=== PATIENT | male | born 1965 | race Caucasian/White ===

== ENCOUNTER → 2016-11-26 | Outpatient (CLI) | payer BC ==
[~2016-11-26] MED LIST: ACET-1256 PO; AMIO200T PO; ASPI325T45 PO; ASPI81TA28 PO; ATEN-173 PO; CRD200 PO; GLC5 PO; INSDGIPEN SC; LEVO150T9 PO; LISI40TA PO; LOSA100T65 PO; LOSA1TAB38 PO; LPT40 PO; LSN40 PO; METF-384 PO; TNR25 PO; TPRSR/25 PO; TRAM-10 PO
[2016-11-26 17:42] LABS: HEMATOCRIT 42.1 % (42-52); MEAN CELL VOLUME 86.3 fL (80-100); MEAN CORPUSCULAR HEMOGLOBIN 30.1 pg (25-34); MEAN CORPUSCULAR HGB CONC 34.9 g/dl (32-36); PLATELET COUNT 330 K/uL (130-400); RED BLOOD COUNT 4.88 M/uL (4.7-6.1); WHITE BLOOD COUNT 7.99 K/uL (4.8-10.8)
[2016-11-26 19:51] LABS: ALT/SGPT 41 U/L (12-78); AST/SGOT 22 U/L (15-37); BLOOD UREA NITROGEN 16 mg/dl (7-18); BUN/CREATININE RATIO 19.8 (10-20); CALCIUM 9.1 mg/dl (8.5-10.1); CARBON DIOXIDE 24 mmol/L (21-32); CHLORIDE 102 mmol/L (98-107); CREATININE 0.83 mg/dl (0.60-1.40); GLUCOSE 292 mg/dl (70-99); POTASSIUM 3.9 mmol/L (3.5-5.1); SODIUM 136 mmol/L (136-145)
== END ==
LOC: C.LAB1850 16:20
PROVIDERS: ATTEND Internal Medicine Cardiovascular Disease
DX: I25.10 Atherosclerotic heart disease of native coronary artery without angina pectoris (principal)

== ENCOUNTER → 2017-03-30 | Outpatient (CLI) | payer BC ==
[~2017-03-30] VITALS: Ht 185.4 cm; Wt 126.8 kg
[~2017-03-30] MED LIST changes: +CAL1CHW4 PO; +CALC500C3 PO; +CYCL10TA6 PO; +ESOM20CA PO; +GLIP5TAB3 PO; +HYDR-5688 PO; +NAPR-1169 PO; +OMEP20CA9 PO; +RANI300T2 PO; -TRAM-10 PO
[2017-03-30 16:24] VITALS: BP 148/85; PULSE 59; Ht 185.4 cm; Wt 126.8 kg
== END | disposition home or self-care (01) ==
LOC: C.NEUR 15:03
PROVIDERS: ATTEND Physician Assistant
DX: G47.33 Obstructive sleep apnea (adult) (pediatric) (principal)

== ENCOUNTER 2017-04-28 06:58 | Emergency (ER) | payer BC ==
[~2017-04-28] VITALS: Ht 185.4 cm; Wt 128.2 kg
[~2017-04-28 06:58] MED LIST changes: -ACET-1256 PO; -ASPI81TA28 PO; -CAL1CHW4 PO; -CALC500C3 PO; -CRD200 PO; -CYCL10TA6 PO; -ESOM20CA PO; -GLC5 PO; -GLIP5TAB3 PO; -HYDR-5688 PO; -INSDGIPEN SC; -LEVO150T9 PO; -LOSA100T65 PO; -LOSA1TAB38 PO; -LPT40 PO; -LSN40 PO; -METF-384 PO; -NAPR-1169 PO; -OMEP20CA9 PO; -RANI300T2 PO; -TNR25 PO; -TPRSR/25 PO
[2017-04-28 07:02] VITALS: TEMP 36.7; Ht 185.4 cm; Wt 128.2 kg
[2017-04-28] MEDS ORDERED: HydrALAZINE HCL 20 MG/ML VIAL IV. STA (07:33)
[2017-04-28 07:57] LABS: BASO % 0.5 %; BASO ABS # 0.04 K/uL (0-0.2); COMPLETE YES; EOS % 2.7 %; HEMATOCRIT 44.1 % (42-52); IG% 0.5 %; LYMPH % 31.7 %; LYMPH ABS # 2.33 K/uL (1.2-3.4); MEAN CELL VOLUME 86.5 fL (80-100); MEAN CORPUSCULAR HEMOGLOBIN 29.4 pg (25-34); MEAN PLATELET VOLUME 10.5 fL (7.4-10.4); MONO % 7.2 %; NEUT % 57.4 %; PLATELET COUNT 248 K/uL (130-400); WHITE BLOOD COUNT 7.35 K/uL (4.8-10.8)
[2017-04-28 08:12] LABS: BLOOD UREA NITROGEN 13 mg/dl (7-18); BUN/CREATININE RATIO 17.2 (10-20); CALCIUM 8.9 mg/dl (8.5-10.1); CARBON DIOXIDE 25 mmol/L (21-32); CHLORIDE 107 mmol/L (98-107); CREATININE 0.76 mg/dl (0.60-1.40); GLUCOSE 263 mg/dl (70-99); POTASSIUM 4.2 mmol/L (3.5-5.1); SODIUM 140 mmol/L (136-145)
--- NOTE | 2017-04-28 08:14 | EMERGENCY ROOM VISIT NOTE ---
History First contact with patient: 07:27 Chief Complaint: HYPERTENSION Stated Complaint: HIGH BLOOD PRESSURE,HEADACHE,HEART PALPNOSE BLEEDS History of Present Illness The patient is a 52 year old male who presents to the Emergency Room for evaluation of HTN. Notes he previously was on Lisinopril but has quit using it due to nausea/stomach pains. Has been hypertensive last few days including at PCP visit yesterday. Arrives today due to continued symptoms. No chest pain, weakness, shob, abdominal pain, falls, syncope, rashes, fevers, nor other symptoms. Does not take blood thinners. Notes long history of nose bleeds, but seems to have more nose bleeds than usual. No posterior neck pain without stiffness. Does have anterior neck pain last few days which he was seen by PCP and started treatment for Thrush as he recently was antibiotics. Takes amiodarone for PAF though is not on blood thinners. Denies falls nor head injury. No neck pain nor car accidents. Review of Systems See HPI for pertinent positives & negatives. A total of 10 systems reviewed and were otherwise negative. Past Medical/Surgical History Medical Problems: (1) Atrial fibrillation (2) Benign hypertension (3) Diabetes mellitus (4) High cholesterol (5) Left Hip DJD (6) Left Hip DJD Family History Blood clots Social History Smoking Status: Former Smoker Alcohol Use: occasionally Drug Use: cocaine Marital Status: Housing Status: lives with friends Occupation Status: employed Current/Historical Medications Scheduled Amiodarone HCl (Amiodarone HCl), 200 MG PO DAILY Aspirin (Aspirin Ec), 162 MG PO DAILY Atenolol (Tenormin), 25 MG PO QAM Glipizide (Glipizide), 5 MG PO TID Levothyroxine Sodium (Levothyroxine Sodium), 150 MCG PO QAM Losartan Potassium (Cozaar), 1 TAB PO DAILY Metformin Hcl (Glucophage), 1,000 MG PO BID Physical Exam Vital Signs Date Time Temp Pulse Resp B/P (MAP) Pulse Ox O2 Delivery O2 Flow Rate FiO2 04/28/17 09:35 59 16 179/93 94 Room Air 04/28/17 08:37 55 16 160/85 95 Room Air 04/28/17 08:05 53 16 143/95 04/28/17 07:02 36.7 57 18 195/101 95 Room Air Physical Exam GENERAL: Patient is anxious appearing and in minimal distress. HEENT: No acute trauma, normocephalic atraumatic, mucous membranes moist, no nasal congestion, no scleral icterus. NECK: No stridor, no adenopathy, no meningismus, trachea is midline. LUNGS: No dyspnea. Clear to auscultation and equal bilaterally. No wheeze, no rhonchi. HEART: Regular rate and rhythm. No murmurs, rubs, gallops appreciated. ABDOMEN: Soft, nontender, bowel sounds positive, no masses appreciated, no peritonitis. BACK: No midline tenderness, no CVA tenderness EXTREMITIES: Normal motion all extremities, no cyanosis, no edema. NEUROLOGIC: Alert and oriented, no acute motor or sensory deficits, no focal weakness, cranial nerves grossly intact. SKIN: No rash, no jaundice, no diaphoresis. Medical Decision & Procedures Laboratory Results 04/28/17 07:45 Red Blood Count 5.10, Mean Corpuscular Volume 86.5, Mean Corpuscular Hemoglobin 29.4, Mean Corpuscular Hemoglobin Concent 34.0, Mean Platelet Volume 10.5, Neutrophils (%) (Auto) 57.4, Lymphocytes (%) (Auto) 31.7, Monocytes (%) (Auto) 7.2, Eosinophils (%) (Auto) 2.7, Basophils (%) (Auto) 0.5, Neutrophils # (Auto) 4.21, Lymphocytes # (Auto) 2.33, Monocytes # (Auto) 0.53, Eosinophils # (Auto) 0.20, Basophils # (Auto) 0.04 04/28/17 07:45 Test 04/28/17 07:45 White Blood Count 7.35 K/uL (4.8-10.8) Red Blood Count 5.10 M/uL (4.7-6.1) Hemoglobin 15.0 g/dL (14.0-18.0) Hematocrit 44.1 % (42-52) Mean Corpuscular Volume 86.5 fL (80-100) Mean Corpuscular Hemoglobin 29.4 pg (25-34) Mean Corpuscular Hemoglobin Concent 34.0 g/dl (32-36) Platelet Count 248 K/uL (130-400) Mean Platelet Volume 10.5 fL (7.4-10.4) Neutrophils (%) (Auto) 57.4 % Lymphocytes (%) (Auto) 31.7 % Monocytes (%) (Auto) 7.2 % Eosinophils (%) (Auto) 2.7 % Basophils (%) (Auto) 0.5 % Neutrophils # (Auto) 4.21 K/uL (1.4-6.5) Lymphocytes # (Auto) 2.33 K/uL (1.2-3.4) Monocytes # (Auto) 0.53 K/uL (0.11-0.59) Eosinophils # (Auto) 0.20 K/uL (0-0.5) Basophils # (Auto) 0.04 K/uL (0-0.2) RDW Standard Deviation 40.7 fL (36.4-46.3) RDW Coefficient of Variation 12.7 % (11.5-14.5) Immature Granulocyte % (Auto) 0.5 % Immature Granulocyte # (Auto) 0.04 K/uL (0.00-0.02) Anion Gap 8.0 mmol/L (3-11) Est Creatinine Clear Calc Drug Dose 159.5 ml/min Estimated GFR () 121.6 Estimated GFR (Non- 104.9 BUN/Creatinine Ratio 17.2 (10-20) Calcium Level 8.9 mg/dl (8.5-10.1) Total Creatine Kinase 149 U/L (39-308) Creatine Kinase MB 3.6 ng/ml (0.5-3.6) Creatine Kinase MB Ratio 2.4 (0-3.0) Troponin I < 0.015 ng/ml (0-0.045) Medications Administered Medications (Trade) Dose Ordered Sig/Tristan Route Start Time Stop Time Status Last Admin Dose Admin Hydralazine HCl (HydrALAZINE INJ) 10 mg NOW STAT IV. 04/28/17 07:33 04/28/17 07:35 DC 04/28/17 08:03 10 MG Lisinopril (Zestril Tab) 40 mg NOW STAT PO 04/28/17 09:41 04/28/17 09:42 DC 04/28/17 10:07 40 MG Medical Decision Differential: Benign Hypertension, Hypertensive Urgency/Emergency, Cardiovascular Pathology, Endocrine, Metabolic/Electrolyte, Renal Disease, End- organ Damage, amongst other pathologies entertained. 52 yr old male arrives for evaluation of HTN in setting of headaches and frequent nose bleeds. Admits stopped taking his lisinopril due to side effects. CT head done given persistent headache, labs unremarkable, EKG looks OK. BP improved with hydralazine. Discussed with cards who note try Lisinopril in AM and if no improvement in nausea then switch to Losartan. Patient does not have evidence of dissection nor ICH nor meningitis. He looks well and is feeling better now that BP improved. Follow up with Cards. Blood Pressure Screening Patient's blood pressure: Elevated blood pressure Blood pressure disposition: Referred to PCP Impression Primary Impression: Hypertension Additional Impression: Headache Departure Information Dispostion Home / Self-Care Condition GOOD Prescriptions Losartan Potassium (COZAAR) 100 Mg Tab 1 TAB PO DAILY for 30 Days, #30 TAB 5 Refills Prov: Frank Peter M.D. 04/28/17 Referrals Sirnivas Jack MD (PCP) Patient Instructions Hypertension Control, My [facility] Health Problem Qualifiers
[2017-04-28 08:17] LABS: CKMB/CK RATIO 2.4 (0-3.0)
--- NOTE | 2017-04-28 08:47 | DIAGNOSTIC IMAGING REPORT ---
HEAD WITHOUT CONTRAST (CT) CT DOSE: 537.48 mGy.cm HISTORY: worsening headache, HTN TECHNIQUE: Multiaxial CT images of the head were performed without the use of intravenous contrast. A dose lowering technique was utilized adhering to the principles of ALARA. Comparison: None. Findings: The paranasal sinuses and mastoid air cells are clear. The calvarium and skull base are intact. The ventricles and sulci are within normal limits. There is no mass, hematoma, midline shift, or acute infarct. Impression: No acute intracranial abnormality. The above report was generated using voice recognition software. It may contain grammatical, syntax or spelling errors. Electronically signed by: Kalpesh Segundo M.D. 04/28/2017 8:45 AM Dictated Date/Time: 04/28/2017 8:36 AM
[2017-04-28 09:35] VITALS: BP 179/93; PULSE 59; O2SAT 94
[2017-04-28] MEDS ORDERED: LISINOPRIL 40 MG TAB PO STA (09:41)
[2017-04-28] MEDS ORDERED: LOSA1TAB38 PO (09:43)
[2017-04-28] MEDS ORDERED: LISINOPRIL 5 MG TAB ONE (09:58)
[2017-06-01] MEDS ORDERED: GLC5 PO ×2 (07:01→20:03)
[2017-06-01] MEDS ORDERED: ASPI81TA28 PO (07:31)
[2017-06-01] MEDS ORDERED: CRD200 PO (07:31)
[2017-06-01] MEDS ORDERED: METF-384 PO (08:18)
[2017-06-01] MEDS ORDERED: LEVO150T9 PO (08:18)
[2017-06-02] MEDS ORDERED: INSDGIPEN SC (18:06)
== END 2017-04-28 10:05 | disposition home or self-care (01) ==
LOC: C.EDB 07:02
DX: I10 Essential (primary) hypertension (principal); R51 Headache; I48.0 Paroxysmal atrial fibrillation; E11.9 Type 2 diabetes mellitus without complications; M16.12 Unilateral primary osteoarthritis, left hip; Z79.82 Long term (current) use of aspirin; Z79.84 Long term (current) use of oral hypoglycemic drugs; Z79.899 Other long term (current) drug therapy

== ENCOUNTER 2017-06-01 17:38 | Observation (INO) | payer BC ==
[~2017-06-01] VITALS: Ht 185.4 cm; Wt 128.9 kg
[~2017-06-01 17:38] MED LIST changes: -AMIO200T PO; -ASPI325T45 PO; +ASPI81TA28 PO; +CRD200 PO; +GLC5 PO; +LEVO150T9 PO; -LISI40TA PO; +LOSA1TAB38 PO; +METF-384 PO
--- NOTE | 2017-06-01 18:36 | EMERGENCY ROOM VISIT NOTE ---
History First contact with patient: 18:32 Chief Complaint: CARDIAC ASSESSMENT Stated Complaint: LIGHT HEADED HEART BEAT FAST SOB, History of Present Illness The patient is a 52 year old male who presents to the Emergency Room with complaints of palpitations, dizziness, chest pain and shortness of breath. He took a new beta-glenroy (atenolol changed to metoprolol due to back order) this morning and went to work. Around 7:30am (an hour after taking metoprolol) he felt his heart racing, with associated dizziness, shortness of breath and chest pain. This feeling gradually became worse and lasted all day around 9 hours. His called his PCP and recommended to come to ER but he left it to the end of the day. He continued to work through the episode and it was no worse on exertion. He currently denies any chest pain or shortness of breath. He has known non obstructive coronary artery disease and paroxysmal atrial fibrillation - under Dr Turner. He was previously on anticoagulation but stopped as he was not often in atrial fibrillation. He stopped taking aspirin 2 weeks ago due to epistaxis. No significant alcohol history. Review of Systems Constitutional: No fever, No chills Eyes: No worsening of vision ENT: No hearing loss Respiratory: + cough (in morning chronically), + sputum, + shortness of breath (see HPI) Cardiovascular: + chest pain (see HPI), + palpitations (see HPI), No orthopnea, No PND, No edema, No claudication Abdomen: No pain, No nausea, No vomiting, No diarrhea, No constipation, No GI bleeding Past Medical/Surgical History Medical Problems: (1) Atrial fibrillation (2) Benign hypertension (3) Diabetes mellitus (4) High cholesterol (5) Left Hip DJD (6) Left Hip DJD Family History Blood clots Social History Smoking Status: Never Smoker Alcohol Use: occasionally Drug Use: none Marital Status: Housing Status: lives with friends Occupation Status: employed Current/Historical Medications Scheduled Amiodarone HCl (Amiodarone HCl), 200 MG PO QAM Aspirin (Aspirin Ec), 162 MG PO HOLD Atenolol (Atenolol), 25 MG PO QAM Atorvastatin (Atorvastatin Calcium), 40 MG PO QPM Glipizide (Glipizide), 10 MG PO QPM Glipizide (Glipizide), 5 MG PO QAM Levothyroxine Sodium (Levothyroxine Sodium), 150 MCG PO QAM Lisinopril (Lisinopril), 40 MG PO QAM Losartan Potassium (Cozaar), 100 MG PO QAM Metformin Hcl (Glucophage), 1,000 MG PO BID Metoprolol Succinate (Metoprolol Succinate ER), 25 MG PO QAM Scheduled PRN Acetaminophen (Tylenol), 1,500 MG PO TID PRN for Pain Physical Exam Vital Signs Date Time Temp Pulse Resp B/P (MAP) Pulse Ox O2 Delivery O2 Flow Rate FiO2 06/01/17 22:31 64 20 184/93 95 Room Air 06/01/17 20:45 62 18 176/93 95 Room Air 06/01/17 18:39 68 06/01/17 18:36 95 Room Air 06/01/17 17:54 36.7 70 20 171/75 96 Room Air Pain Rating (0-10): 0/10 Physical Exam General Appearance: WD/WN, no apparent distress, + obese Head: normocephalic, atraumatic Eyes: normal inspection (pupils equal) Neck: supple, no JVD, trachea midline Respiratory/Chest: chest non-tender, lungs clear, normal breath sounds, no respiratory distress, no accessory muscle use Cardiovascular: regular rate, rhythm, no edema, no murmur, normal peripheral pulses Abdomen / GI: normal bowel sounds, non tender, soft Extremities: no calf tenderness, normal capillary refill, no pedal edema Neurologic/Psych: document review specialist II-XII nml as tested, no motor/sensory deficits, alert , oriented x 3 Medical Decision & Procedures ER Provider Diagnostic Interpretation: CHEST ONE VIEW PORTABLE HISTORY: 52 years-old Male Chest Pain COMPARISON: Portable chest radiograph 01/21/2016 TECHNIQUE: Portable upright AP view of the chest FINDINGS: Cardiac silhouette is mildly enlarged. Right hemidiaphragmatic elevation persists without pneumothorax, pleural effusion or focal airspace consolidation. There is no overt pulmonary edema. Bones are grossly intact. IMPRESSION: 1. Cardiomegaly without overt pulmonary edema. 2. Unchanged right hemidiaphragmatic elevation. The above report was generated using voice recognition software. It may contain grammatical, syntax or spelling errors. Electronically signed by: Vince Alonzo M.D. 06/01/2017 7:21 PM Dictated Date/Time: 06/01/2017 7:20 PM Laboratory Results 06/01/17 18:40 Red Blood Count 4.67, Mean Corpuscular Volume 86.5, Mean Corpuscular Hemoglobin 30.8, Mean Corpuscular Hemoglobin Concent 35.6, Mean Platelet Volume 10.8, Neutrophils (%) (Auto) 53.3, Lymphocytes (%) (Auto) 35.8, Monocytes (%) (Auto) 7.9, Eosinophils (%) (Auto) 2.3, Basophils (%) (Auto) 0.5, Neutrophils # (Auto) 4.57, Lymphocytes # (Auto) 3.07, Monocytes # (Auto) 0.68, Eosinophils # (Auto) 0.20, Basophils # (Auto) 0.04 06/01/17 18:40 Test 06/01/17 18:40 06/01/17 21:24 White Blood Count 8.58 K/uL (4.8-10.8) Red Blood Count 4.67 M/uL (4.7-6.1) Hemoglobin 14.4 g/dL (14.0-18.0) Hematocrit 40.4 % (42-52) Mean Corpuscular Volume 86.5 fL (80-100) Mean Corpuscular Hemoglobin 30.8 pg (25-34) Mean Corpuscular Hemoglobin Concent 35.6 g/dl (32-36) Platelet Count 285 K/uL (130-400) Mean Platelet Volume 10.8 fL (7.4-10.4) Neutrophils (%) (Auto) 53.3 % Lymphocytes (%) (Auto) 35.8 % Monocytes (%) (Auto) 7.9 % Eosinophils (%) (Auto) 2.3 % Basophils (%) (Auto) 0.5 % Neutrophils # (Auto) 4.57 K/uL (1.4-6.5) Lymphocytes # (Auto) 3.07 K/uL (1.2-3.4) Monocytes # (Auto) 0.68 K/uL (0.11-0.59) Eosinophils # (Auto) 0.20 K/uL (0-0.5) Basophils # (Auto) 0.04 K/uL (0-0.2) RDW Standard Deviation 40.7 fL (36.4-46.3) RDW Coefficient of Variation 12.9 % (11.5-14.5) Immature Granulocyte % (Auto) 0.2 % Immature Granulocyte # (Auto) 0.02 K/uL (0.00-0.02) Activated Partial Thromboplast Time 24.6 SECONDS (21.0-31.0) Partial Thromboplastin Ratio 0.9 D-Dimer 830 ug/L FEU (0-500) Anion Gap 9.0 mmol/L (3-11) Est Creatinine Clear Calc Drug Dose 110.5 ml/min Estimated GFR () 89.0 Estimated GFR (Non- 76.8 BUN/Creatinine Ratio 14.8 (10-20) Calcium Level 9.3 mg/dl (8.5-10.1) Magnesium Level 1.8 mg/dl (1.8-2.4) Troponin I 0.015 ng/ml (0-0.045) Beta-Hydroxybutyric Acid 2.05 mg/dL (0.2-2.81) Thyroid Stimulating Hormone (TSH) 3.140 uIu/ml (0.300-4.500) Bedside Glucose 190 mg/dl (70-99) Medications Administered Medications (Trade) Dose Ordered Sig/Tristan Route Start Time Stop Time Status Last Admin Dose Admin Aspirin (Aspirin Chew) 324 mg NOW STAT PO 06/01/17 18:49 06/01/17 18:51 DC 06/01/17 19:01 324 MG ECG Indication: chest pain Rate (beats per minute): 64 Rhythm: normal sinus Findings: no acute ischemic change Change: no significant change (28 April 2017) ED Course 18:30 History and physical was performed by myself 18:[address] Castañeda who separately performed history and examination 19:01 Aspirin 324mg 19:[address] Beltran ([facility]) who accepted the patient for further evaluation Medical Decision Prior records/ancillary studies reviewed. Triage Nursing notes reviewed. Additional history obtained from the patient. The patient's history was concerning for chest pain, dizziness, palpitations and shortness of breath. Differential diagnosis: Etiologies such as cardiac ischemia, aortic dissection, pulmonary embolism, pneumonia, pneumothorax, musculoskeletal, infections, pericarditis, myocarditis , esophageal rupture, gastrointestinal, as well as others were entertained. Physical examination: As above. ER treatment provided: Aspirin 325mg Diagnostic interpretation by me: The electrocardiogram was negative for pathologic change. The labs revealed no significant abnormalities and troponin was negative. Imaging studies: Chest x-ray as above By the evaluation outlined above emergent etiologies such as aortic dissection, pulmonary embolism, pneumonia, pneumothorax, infections, pericarditis, myocarditis, gastrointestinal, as well as others were deemed relatively unlikely. His symptoms are concerning for cardiac ischemia especially given his risk factors and known non obstructive coronary artery disease. As such a consultation was placed with the [facility] hospitalist group. The case was discussed and diagnostics were reviewed. The patient was evaluated in the ER for further treatment. Other likely etiology is that he had an episode of atrial fibrillation. Medication Reconcilliation Current Medication List: was personally reviewed by me Impression Primary Impression: Chest pain Departure Information Dispostion Being Evaluated By Hospitalist Condition GOOD Referrals Srinivas Jack MD (PCP) Patient Instructions My [facility] Problem Qualifiers Primary Impression: Chest pain Chest pain type: unspecified Qualified Codes: R07.9 - Chest pain, unspecified
[2017-06-01] MEDS ORDERED: ASPIRIN 324 MG CHEW PO STA (18:49)
[2017-06-01 18:56] LABS: BASO % 0.5 %; BASO ABS # 0.04 K/uL (0-0.2); COMPLETE YES; EOS % 2.3 %; HEMATOCRIT 40.4 % (42-52); IG% 0.2 %; LYMPH % 35.8 %; LYMPH ABS # 3.07 K/uL (1.2-3.4); MEAN CELL VOLUME 86.5 fL (80-100); MEAN CORPUSCULAR HEMOGLOBIN 30.8 pg (25-34); MEAN CORPUSCULAR HGB CONC 35.6 g/dl (32-36); MEAN PLATELET VOLUME 10.8 fL (7.4-10.4); MONO % 7.9 %; NEUT % 53.3 %; PLATELET COUNT 285 K/uL (130-400); RED BLOOD COUNT 4.67 M/uL (4.7-6.1); WHITE BLOOD COUNT 8.58 K/uL (4.8-10.8)
[2017-06-01 19:08] LABS: BUN/CREATININE RATIO 14.8 (10-20); CALCIUM 9.3 mg/dl (8.5-10.1); CREATININE 1.1 mg/dl (0.60-1.40); POTASSIUM 4.3 mmol/L (3.5-5.1)
[2017-06-01 19:20] LABS: BETA-HYDROXYBUTYRATE 2.05 mg/dL (0.2-2.81); THYROID STIMULATING HORMONE 3.14 uIu/ml (0.300-4.500)
--- NOTE | 2017-06-01 19:22 | DIAGNOSTIC IMAGING REPORT ---
CHEST ONE VIEW PORTABLE HISTORY: 52 years-old Male Chest Pain COMPARISON: Portable chest radiograph 01/21/2016 TECHNIQUE: Portable upright AP view of the chest FINDINGS: Cardiac silhouette is mildly enlarged. Right hemidiaphragmatic elevation persists without pneumothorax, pleural effusion or focal airspace consolidation. There is no overt pulmonary edema. Bones are grossly intact. IMPRESSION: 1. Cardiomegaly without overt pulmonary edema. 2. Unchanged right hemidiaphragmatic elevation. The above report was generated using voice recognition software. It may contain grammatical, syntax or spelling errors. Electronically signed by: Vince Alonzo M.D. 06/01/2017 7:21 PM Dictated Date/Time: 06/01/2017 7:20 PM
[2017-06-01] MEDS ORDERED: LSN40 PO (19:52)
[2017-06-01] MEDS ORDERED: LPT40 PO (19:52)
[2017-06-01] MEDS ORDERED: TNR25 PO (19:52)
[2017-06-01] MEDS ORDERED: ACET-1256 PO (19:52)
[2017-06-01] MEDS ORDERED: LOSA100T65 PO (19:52)
[2017-06-01] MEDS ORDERED: TPRSR/25 PO (19:52)
[2017-06-01] MEDS ORDERED: GLC5 PO (20:03)
[2017-06-01] MEDS ORDERED: DEXTROSE 50% 50 ML SYR IV PRN (20:30)
[2017-06-01] MEDS ORDERED: GLUCOSE 10 TABS/TUBE PO PRN (20:30)
[2017-06-01] MEDS ORDERED: TRAMADOL HCL 50 MG TAB PO PRN (20:30)
[2017-06-01] MEDS ORDERED: ACETAMINOPHEN 325 MG TAB PO PRN (20:30)
[2017-06-01] MEDS ORDERED: LORAZEPAM 2 MG/ML 1 ML VIAL IV PRN (20:30)
[2017-06-01] MEDS ORDERED: GLUCAGON FOR INJ 1 MG VIAL SQ PRN (20:30)
[2017-06-01] MEDS ORDERED: ONDANSETRON INJ 2 MG/ML 2 ML VIAL IV PRN (20:30)
[2017-06-01] MEDS ORDERED: MoRPHine SULFATE 4 MG/ML 1 ML CARP\\VIAL IV PRN (20:30)
[2017-06-01] MEDS ORDERED: GLUCOSE 40% GEL 15 GM TUBE PO PRN (20:30)
[2017-06-01] MEDS ORDERED: NITROGLYCERIN 0.4 MG SL PER TAB CHARGE SL PRN (20:30)
[2017-06-01] MEDS ORDERED: ATORVASTATIN 40 MG TAB PO SCH (21:00)
[2017-06-01 21:19] LABS: PARTIAL THROMBOPLASTIN RATIO 0.9
[2017-06-01] MEDS ORDERED: OPTIRAY 320 IV PRN (21:45)
--- NOTE | 2017-06-01 22:28 | HISTORY & PHYSICAL EXAMINATION ---
DATE OF ADMISSION: 06/01/2017 PRIMARY CARE DOCTOR: Dr. Jack. CHIEF COMPLAINT: Chest pain. HISTORY OF PRESENT ILLNESS: History obtained from patient and records. Medical history significant for HTN, nonocclusive CAD, PAF not on oral anticoagulation, Hyperlipidemia, DM2 oral meds, OA, ERICA on CPAP Recent confinement last year for left hip surgery. Patient was in the ER a few weeks ago for high blood pressure, epistaxis. PX had outpatient cautery of bleeding nasal vessels outpatient at [facility] office last week. Epistaxis resolved. Patient's atenolol has been on back order. PCP prescribed Toprol-XL as a substitute interim. Patient took his first dose of Toprol XL 25 mg's morning. Two 2 hours later at work, the patient noted left-sided achy chest discomfort, dizziness, hard to take a deep breath. No new cough symptoms. He felt lightheaded. Symptoms persisted but resolved resolved upon arrival to the Emergency Room this evening. MEDICAL HISTORY: As above. May 2014 - cardiac catheterization showed mid RCA narrowing, luminal irregularities, normal LVEDP, normal systolic function. Patient's new accounts clerk is Dr. Turner. Last [facility] visit was December 2016. As per outpatient notes - no recurrent symptoms on current dose of amiodarone. SURGERIES: Orthopedic procedures. HOME MEDICATIONS: Include amiodarone, metoprolol, losartan, 1fluticasone, metformin, proctosol, levothyroxine, and glipizide. ALLERGIES: PENICILLIN. FAMILY HISTORY: Blood clots. PERSONAL AND SOCIAL HISTORY: Nonsmoker, no EtOH intake, [employer] employee. REVIEW OF SYSTEMS: As per HPI, all other ROS negative. PHYSICAL EXAMINATION: VITAL SIGNS: Blood pressure was noted to be 171/75, pulse rate 70, RR 20 T 37 sats 96% on room air. GENERAL: Noted to be slightly anxious, obese, no respiratory distress. SKIN: Normal color. HEENT: Alopecia. [place] palpebral conjunctivae, moist buccal mucosa. NECK: Short neck. LUNGS: Decreased breath sounds. HEART: Regular rate and rhythm. ABDOMEN: Soft. NT EXTREMITIES: No edema, no tenderness. NEUROLOGIC: No gross focality. LABS: Hemoglobin 14.4, hematocrit 40, white cells 8.5, platelets 285. Sodium 138, potassium 4.3, chloride 104, CO2 25, BUN 16, creatinine 1, glucose 348, troponin 0, d-dimer pending Hemoglobin A1c from February of 2017 was 8.8. EKG as per my interpretation- no ischemia. Chest x-ray - cardiomegaly. ASSESSMENT: 1, Chest pain, sob, dizziness sx possibly from new Toprol XL medication Differentials PE versus acute coronary syndrome (hx nonocclusive coronary artery disease as per records) 2. HTN, slightly elevated 3. history of atrial fibrillation normal sinus rhythm Patient off oral anticoagulation as per preference as per outpatient cardiology note 4. DM, hyperglycemic suboptimal control as of recent HgA1c 5. Hyperlipidemia on statin therapy 6. ERICA on CPAP PLAN: Observation PCU. CT chest PE study if D-dimer abnormal. TTE, Cardiology consult for cp if PE workup unremarkable. (Patient known to Dr. Turner.) Decrease Toprol dose for now given given heart rate being on the lower side. Continue antihypertensive regimen, may need to augment treatment Basal insulin, ISS BG goal 140-180 Carb count coverage indicated for suboptimal blood sugar control. Patient due for hemoglobin A1c re-check. DVT prophylaxis, Lovenox subQ. Full code. MTDD
--- NOTE | 2017-06-01 22:35 | DIAGNOSTIC IMAGING REPORT ---
CT ANGIOGRAPHY OF THE CHEST, PULMONARY EMBOLUS PROTOCOL CLINICAL HISTORY: Chest pain and shortness of breath. COMPARISON STUDY: Chest CT January 21, 2016. TECHNIQUE: Following IV administration of 98 mL of [id number]-320, helical axial images of the chest were obtained utilizing the pulmonary embolus protocol. Maximal intensity projections and sagittal and coronal reformats were viewed on an independent 3D workstation. IV contrast was administered without complication. A dose lowering technique was utilized adhering to the principles of ALARA. CT DOSE: 1526.36 mGy.cm FINDINGS: No pulmonary emboli are identified although the segmental and subsegmental pulmonary arteries are suboptimally assessed due to respiratory motion. The size of the heart is at the upper limits of normal. There is no evidence of thoracic aortic dissection. There is no pericardial effusion or thoracic lymphadenopathy. The lungs are suboptimally assessed due to respiratory motion but there is no consolidation to suggest pneumonia. No pneumothorax or pleural effusion is present. Bony thorax is unremarkable. There may be fatty infiltration of the liver. IMPRESSION: 1. No pulmonary emboli identified although segmental and subsegmental pulmonary arteries suboptimally assessed due to respiratory motion. 2. No acute intrathoracic findings. Electronically signed by: Darius Barney M.D. 06/01/2017 10:33 PM Dictated Date/Time: 06/01/2017 10:27 PM
[2017-06-01 22:45] VITALS: BP 171/95; PULSE 65; TEMP 36.8; O2SAT 95
[2017-06-01] MEDS ORDERED: INSULIN GLARGINE SOLOSTAR 100 UNITS/ML 3 ML PEN SC STA (22:50)
[2017-06-01] MEDS ORDERED: MAGNESIUM SULFATE 1GM / D5W 1 GM IV STA (22:53)
--- NOTE | 2017-06-01 23:12 | EMERGENCY ROOM VISIT NOTE ---
History Report prepared by Sharoniblj: Maddie Dumont Under the Supervision of: Dr. Yash Castañeda D.O. First contact with patient: 18:32 Chief Complaint: CARDIAC ASSESSMENT Stated Complaint: LIGHT HEADED HEART BEAT FAST SOB, Nursing Triage Summary: Pt stated that his PCP switched him from Atenolol 25 mg to Metoprolol 25mg. Pt took the first dose of metoprolol this morning. Pt went to work and stated that he started to feel strange. Pt stated that it felt like his heart was jumping all over the place, he was SOB and felt dizzy. Pt worked all day and stated that his symptoms are getting worse. Pt now has substernal chest pain that is a heaviness a 6 out of 10. History of Present Illness The patient is a 52 year old male who presents to the Emergency Room with complaints of worsening chest pain that started around 1000 this morning. He has a history of atrial fibrillation and reports his PCP switched him from 25 mg daily Atenolol to 25 mg Metoprolol recently. He took his first dose of Metoprolol this morning around 0600. Around 1000, while at work, he started to "feel strange". He reports he experienced his heart "racing", dizziness, chest pain and shortness of breath. Any movement worsened his symptoms. He notes he was also having difficulty walking today. The patient underwent a heart catheterization approximately 5 years ago. He rates his current chest pain here in the ED as a 6/10 and reports it seems to be worsening as the day goes on. He denies any recent surgeries, trips or history of blood clots. Pt denies headache , change in vision, fevers, nausea, vomiting, diarrhea, pain with urination, melena or pain or swelling in his legs. His PCP is Dr. Jack with [facility]. Source of History: patient Onset: 1000 this morning Position: chest Symptom Intensity: 6/10 Timing: worsening Modifying Factors (Worsening): movement Associated Symptoms: + SOB, No fevers, No headache, No nausea, No vomiting, No melena, No diarrhea, No urinary symptoms Review of Systems See HPI for pertinent positives & negatives. A total of 10 systems reviewed and were otherwise negative. Past Medical & Surgical Medical Problems: (1) Atrial fibrillation (2) Benign hypertension (3) Diabetes mellitus (4) High cholesterol (5) Left Hip DJD (6) Left Hip DJD Family History Blood clots Social History Smoking Status: Never Smoker Alcohol Use: occasionally Drug Use: cocaine Marital Status: Housing Status: lives with friends Occupation Status: employed Current/Historical Medications Scheduled Amiodarone HCl (Amiodarone HCl), 200 MG PO QAM Aspirin (Aspirin Ec), 162 MG PO HOLD Atenolol (Atenolol), 25 MG PO QAM Atorvastatin (Atorvastatin Calcium), 40 MG PO QPM Glipizide (Glipizide), 10 MG PO QPM Glipizide (Glipizide), 5 MG PO QAM Levothyroxine Sodium (Levothyroxine Sodium), 150 MCG PO QAM Lisinopril (Lisinopril), 40 MG PO QAM Losartan Potassium (Cozaar), 100 MG PO QAM Metformin Hcl (Glucophage), 1,000 MG PO BID Metoprolol Succinate (Metoprolol Succinate ER), 25 MG PO QAM Scheduled PRN Acetaminophen (Tylenol), 1,500 MG PO TID PRN for Pain Allergies Coded Allergies: Penicillins (Verified Allergy, Unknown, UNKNOWN CHILD, 06/01/17) Physical Exam Vital Signs Date Time Temp Pulse Resp B/P (MAP) Pulse Ox O2 Delivery O2 Flow Rate FiO2 06/01/17 18:39 68 06/01/17 18:36 95 Room Air 06/01/17 17:54 36.7 70 20 171/75 96 Room Air Physical Exam GENERAL: Patient is sitting up in bed, alert, disheveled appearing, well nourished, no distress, non-toxic EYE EXAM: normal conjunctiva OROPHARYNX: no exudate, no erythema, lips, buccal mucosa, and tongue normal and mucous membranes are moist NECK: supple, no nuchal rigidity, no adenopathy, non-tender LUNGS: Clear to auscultation. Normal chest wall mechanics HEART: no murmurs, S1 normal and S2 normal ABDOMEN: abdomen soft, non-tender, normo-active bowel sounds, no masses, no rebound or guarding. BACK: Back is symmetrical on inspection and there is no deformity, no midline tenderness, no CVA tenderness. SKIN: no rashes and no bruising UPPER EXTREMITIES: upper extremities are grossly normal. LOWER EXTREMITIES: No pitting edema. NEURO EXAM: Normal sensorium, cranial nerves II-XII intact, normal speech, no weakness of arms, no weakness of legs. Gross sensation intact. Medical Decision & Procedures ER Provider Diagnostic Interpretation: Radiology results as stated below per my review and the radiologist's interpretation: CHEST ONE VIEW PORTABLE HISTORY: 52 years-old Male Chest Pain COMPARISON: Portable chest radiograph 01/21/2016 TECHNIQUE: Portable upright AP view of the chest FINDINGS: Cardiac silhouette is mildly enlarged. Right hemidiaphragmatic elevation persists without pneumothorax, pleural effusion or focal airspace consolidation. There is no overt pulmonary edema. Bones are grossly intact. IMPRESSION: 1. Cardiomegaly without overt pulmonary edema. 2. Unchanged right hemidiaphragmatic elevation. The above report was generated using voice recognition software. It may contain grammatical, syntax or spelling errors. Electronically signed by: Vince Alonzo M.D. 06/01/2017 7:21 PM Laboratory Results 06/01/17 18:40 Red Blood Count 4.67, Mean Corpuscular Volume 86.5, Mean Corpuscular Hemoglobin 30.8, Mean Corpuscular Hemoglobin Concent 35.6, Mean Platelet Volume 10.8, Neutrophils (%) (Auto) 53.3, Lymphocytes (%) (Auto) 35.8, Monocytes (%) (Auto) 7.9, Eosinophils (%) (Auto) 2.3, Basophils (%) (Auto) 0.5, Neutrophils # (Auto) 4.57, Lymphocytes # (Auto) 3.07, Monocytes # (Auto) 0.68, Eosinophils # (Auto) 0.20, Basophils # (Auto) 0.04 06/01/17 18:40 Test 06/01/17 18:40 White Blood Count 8.58 K/uL (4.8-10.8) Red Blood Count 4.67 M/uL (4.7-6.1) Hemoglobin 14.4 g/dL (14.0-18.0) Hematocrit 40.4 % (42-52) Mean Corpuscular Volume 86.5 fL (80-100) Mean Corpuscular Hemoglobin 30.8 pg (25-34) Mean Corpuscular Hemoglobin Concent 35.6 g/dl (32-36) Platelet Count 285 K/uL (130-400) Mean Platelet Volume 10.8 fL (7.4-10.4) Neutrophils (%) (Auto) 53.3 % Lymphocytes (%) (Auto) 35.8 % Monocytes (%) (Auto) 7.9 % Eosinophils (%) (Auto) 2.3 % Basophils (%) (Auto) 0.5 % Neutrophils # (Auto) 4.57 K/uL (1.4-6.5) Lymphocytes # (Auto) 3.07 K/uL (1.2-3.4) Monocytes # (Auto) 0.68 K/uL (0.11-0.59) Eosinophils # (Auto) 0.20 K/uL (0-0.5) Basophils # (Auto) 0.04 K/uL (0-0.2) RDW Standard Deviation 40.7 fL (36.4-46.3) RDW Coefficient of Variation 12.9 % (11.5-14.5) Immature Granulocyte % (Auto) 0.2 % Immature Granulocyte # (Auto) 0.02 K/uL (0.00-0.02) Activated Partial Thromboplast Time 24.6 SECONDS (21.0-31.0) Partial Thromboplastin Ratio 0.9 D-Dimer 830 ug/L FEU (0-500) Anion Gap 9.0 mmol/L (3-11) Est Creatinine Clear Calc Drug Dose 110.5 ml/min Estimated GFR () 89.0 Estimated GFR (Non- 76.8 BUN/Creatinine Ratio 14.8 (10-20) Calcium Level 9.3 mg/dl (8.5-10.1) Magnesium Level 1.8 mg/dl (1.8-2.4) Troponin I 0.015 ng/ml (0-0.045) Beta-Hydroxybutyric Acid 2.05 mg/dL (0.2-2.81) Thyroid Stimulating Hormone (TSH) 3.140 uIu/ml (0.300-4.500) Laboratory results per my review. Medications Administered Medications (Trade) Dose Ordered Sig/Tristan Route Start Time Stop Time Status Last Admin Dose Admin Aspirin (Aspirin Chew) 324 mg NOW STAT PO 06/01/17 18:49 06/01/17 18:51 DC 06/01/17 19:01 324 MG ECG Indication: chest pain Rate (beats per minute): 64 Rhythm: sinus rhythm Findings: no ectopy, other (normal axis) ED Course ED COURSE: Vital signs were reviewed and showed the patient is hypertensive. The patients medical record was reviewed The above diagnostic studies were performed and reviewed. ED treatments and interventions as stated above. 1848: Aspirin 324 mg PO. 1900: The patient was evaluated in room A12. A complete history and physical examination was performed. 1942: I discussed the patients case with Cy Rosa. The patient will be further evaluated. 2034: Upon reevaluation, the patient is resting comfortably. I discussed my findings with the patient and he and his understand and agree with the treatment plan. Based on the patients age, coexisting illnesses, exam and lab findings the decision to treat as an inpatient was made. The patient remained stable while under my care. The patient will be evaluated for further management. Medical Decision Differential diagnoses includes but is not limited to acute coronary syndrome, myocardial infarction, pericarditis, pulmonary embolus, aortic dissection, pneumonia, pneumothorax, musculoskeletal, shingles, esophageal. Patient is a 52-year-old male with a history of paroxysmal A. fib and a history of nonobstructive CAD along with hypertension, diabetes and hyperlipidemia. He has had intermittent chest pressure since 7 AM this morning so she was shortness of breath and weakness. Today he was flipped from atenolol to metoprolol. EKG and chest x-ray were unremarkable. I favor the symptoms are likely secondary to the switch in medications but cannot be certain. With his history we felt it was reasonable to observe him overnight. He was given a dose of aspirin. His was completed pain-free at this time. He was seen independently of the resident. Medication Reconcilliation Current Medication List: was personally reviewed by me Blood Pressure Screening Patient's blood pressure: Elevated blood pressure Blood pressure disposition: Referred to PCP Consults Time Called: 1939 Consulting Physician: Cy Rosa Returned Call: 1942 I discussed the patients case with Cy Rosa. The patient will be further evaluated. Impression Primary Impression: Precordial chest pain Scribe Attestation The scribe's documentation has been prepared under my direction and personally reviewed by me in its entirety. I confirm that the note above accurately reflects all work, treatment, procedures, and medical decision making performed by me. Departure Information Dispostion Being Evaluated By Hospitalist Referrals Srinivas Jack MD (PCP) Patient Instructions My [facility]
[2017-06-01] MEDS ORDERED: SODIUM CHLORIDE 0.9% 1000ML 1,000 ML IV SCH (23:30)
[2017-06-02] VITALS (10 sets, daily range): BP systolic 134–204; BP diastolic 79–106; PULSE 53–65; TEMP 36.3–36.9; O2SAT 93–97; Ht 185.4 cm; Wt 128.9 kg
[2017-06-02 00:04] LABS: INR 0.9 (0.9-1.1); PROTHROMBIN TIME (PATIENT) 10.1 SECONDS (9.0-12.0)
[2017-06-02] MEDS: INSULIN ASPART 100 UNITS/ML 3 ML PEN SC SCH ×4 (00:52→18:15)
[2017-06-02] MEDS ORDERED: IV FLUIDS COMPLETED PRN (03:30)
[2017-06-02] MEDS ORDERED: LOSARTAN POTASSIUM 50 MG TAB PO ONE (04:53)
[2017-06-02] MEDS ORDERED: SODIUM CHLORIDE 0.9% 1000ML 1,000 ML IV SCH (05:30)
[2017-06-02 06:26] LABS: ESTIMATED AVERAGE GLUCOSE 252 mg/dl; HA1C FLAG Normal (Normal)
[2017-06-02] MEDS ORDERED: LEVOTHYROXINE 150 MCG TAB PO SCH (06:30)
[2017-06-02 06:35] LABS: BASO % 0.8 %; BASO ABS # 0.06 K/uL (0-0.2); COMPLETE YES; EOS % 3.5 %; HEMATOCRIT 39.8 % (42-52); IG% 0.5 %; LYMPH % 33.1 %; LYMPH ABS # 2.45 K/uL (1.2-3.4); MEAN CELL VOLUME 86.7 fL (80-100); MEAN CORPUSCULAR HEMOGLOBIN 30.9 pg (25-34); MEAN CORPUSCULAR HGB CONC 35.7 g/dl (32-36); MEAN PLATELET VOLUME 10.7 fL (7.4-10.4); MONO % 8.1 %; PLATELET COUNT 262 K/uL (130-400); RED BLOOD COUNT 4.59 M/uL (4.7-6.1)
[2017-06-02 07:07] LABS: BLOOD UREA NITROGEN 12 mg/dl (7-18); BUN/CREATININE RATIO 16.7 (10-20); CALCIUM 8.8 mg/dl (8.5-10.1); CARBON DIOXIDE 27 mmol/L (21-32); CHLORIDE 103 mmol/L (98-107); CHOLESTEROL 114 mg/dl (0-200); CREATININE 0.73 mg/dl (0.60-1.40); GLUCOSE 252 mg/dl (70-99); POTASSIUM 4.3 mmol/L (3.5-5.1); SODIUM 138 mmol/L (136-145)
[2017-06-02 07:11] LABS: CHOLESTEROL/HDL RATIO 3.5; HDL CHOLESTEROL 33 mg/dl; LDL CHOLESTEROL CALCULATED 61 mg/dl; TRIGLYCERIDES 100 mg/dl (0-150); VERY LOW DENSITY LIPOPROT CALC 20 mg/dl
[2017-06-02] MEDS ORDERED: ENOXAPARIN 40 MG/0.4 ML SYR SC SCH (09:00)
[2017-06-02] MEDS ORDERED: AMIODARONE 200 MG TAB PO SCH (09:00)
[2017-06-02] MEDS ORDERED: ASPIRIN 81 MG ECTAB PO SCH (09:00)
[2017-06-02] MEDS ORDERED: LOSARTAN POTASSIUM 50 MG TAB PO SCH (09:00)
[2017-06-02] MEDS ORDERED: METOPROLOL SUCC 25MG EXT REL TAB PO SCH (09:00)
[2017-06-02] MEDS ORDERED: INSULIN GLARGINE SOLOSTAR 100 UNITS/ML 3 ML PEN SC SCH ×3 (09:00→21:00)
--- NOTE | 2017-06-02 10:58 | Progress Note ---
Internal Med Progress Note Date of Service: Jun 02, 2017. Provider Documentation: SUBJECTIVE: no more chest pain today no palpitations no sob 'afebrile he took first martínez of Toprol xl yesterday and was not sure whether that caused his chest pain yesterday says his BP is up and down when he checks at home. OBJECTIVE: Vital Signs-as noted below Exam: General-alert and oriented. Not in distress ENT-normal hearing Neck-no neck masses Lungs-cta b/l no wheezing or crackles Heart-s1 and s2 heard regular rhythm, no murmurs Abdomen-soft bowel sounds present non tender no distension Extremities no edema no erythema Neuro-alert and oriented moves extremities Lab data as noted below. ASSESSMENT & PLAN: 1, Chest pain, sob, dizziness sx possibly from new Toprol XL medication? CTA chest unremarkable hx of non occlusive CAD uncontrolled htn? placed back on atenolol Ce negative await cardiology inputs 2. HTN, elevated on atenolol and losartan will monitor. 3. history of atrial fibrillation normal sinus rhythm 'Patient off oral anticoagulation as per preference as per outpatient cardiology note'- as per h and p. on atenolol and amiodarone 4. DM, hyperglycemic hba1c 10.4. holding oral meds needs to be discharged on insulin pharmacy consult for glycemic management diabetes education 5. Hyperlipidemia on statin therapy 6. ERICA on CPAP DVT PROPHYLAXIS Lovenox DISPOSITION monitor in tele to be determined Vital Signs: Date Time Temp Pulse Resp B/P (MAP) Pulse Ox O2 Delivery O2 Flow Rate FiO2 06/02/17 08:00 97 Room Air 06/02/17 07:32 36.4 60 16 160/87 (111) 97 Room Air 06/02/17 06:19 61 174/92 (119) 06/02/17 04:05 36.3 63 20 204/106 (138) 96 Room Air 06/02/17 04:00 96 Room Air 06/02/17 01:07 36.8 65 20 171/95 95 Room Air 06/01/17 22:45 36.8 65 20 171/95 (120) 95 Room Air 06/01/17 22:31 64 20 184/93 95 Room Air 06/01/17 20:45 62 18 176/93 95 Room Air 06/01/17 18:39 68 06/01/17 18:36 95 Room Air 06/01/17 17:54 36.7 70 20 171/75 96 Room Air Lab Results: Results Past 24 Hours Test 06/01/17 18:40 06/01/17 21:24 06/01/17 23:37 06/02/17 06:03 Range/Units White Blood Count 8.58 7.40 4.8-10.8 K/uL Red Blood Count 4.67 4.59 4.7-6.1 M/uL Hemoglobin 14.4 14.2 14.0-18.0 g/dL Hematocrit 40.4 39.8 42-52 % Mean Corpuscular Volume 86.5 86.7 80-100 fL Mean Corpuscular Hemoglobin 30.8 30.9 25-34 pg Mean Corpuscular Hemoglobin Concent 35.6 35.7 32-36 g/dl Platelet Count 285 262 130-400 K/uL Mean Platelet Volume 10.8 10.7 7.4-10.4 fL Neutrophils (%) (Auto) 53.3 54.0 % Lymphocytes (%) (Auto) 35.8 33.1 % Monocytes (%) (Auto) 7.9 8.1 % Eosinophils (%) (Auto) 2.3 3.5 % Basophils (%) (Auto) 0.5 0.8 % Neutrophils # (Auto) 4.57 3.99 1.4-6.5 K/uL Lymphocytes # (Auto) 3.07 2.45 1.2-3.4 K/uL Monocytes # (Auto) 0.68 0.60 0.11-0.59 K/uL Eosinophils # (Auto) 0.20 0.26 0-0.5 K/uL Basophils # (Auto) 0.04 0.06 0-0.2 K/uL RDW Standard Deviation 40.7 40.7 36.4-46.3 fL RDW Coefficient of Variation 12.9 12.8 11.5-14.5 % Immature Granulocyte % (Auto) 0.2 0.5 % Immature Granulocyte # (Auto) 0.02 0.04 0.00-0.02 K/uL Prothrombin Time 10.1 9.0-12.0 SECONDS Prothromb Time International Ratio 0.9 0.9-1.1 Activated Partial Thromboplast Time 24.6 21.0-31.0 SECONDS Partial Thromboplastin Ratio 0.9 D-Dimer 830 0-500 ug/L FEU Sodium Level 138 138 136-145 mmol/L Potassium Level 4.3 4.3 3.5-5.1 mmol/L Chloride Level 104 103 98-107 mmol/L Carbon Dioxide Level 25 27 21-32 mmol/L Anion Gap 9.0 8.0 3-11 mmol/L Blood Urea Nitrogen 16 12 7-18 mg/dl Creatinine 1.10 0.73 0.60-1.40 mg/dl Est Creatinine Clear Calc Drug Dose 110.5 166.6 ml/min Estimated GFR () 89.0 123.6 Estimated GFR (Non- 76.8 106.6 BUN/Creatinine Ratio 14.8 16.7 10-20 Random Glucose 348 252 70-99 mg/dl Estimated Average Glucose 252 mg/dl Hemoglobin A1c 10.4 4.5-5.6 % Calcium Level 9.3 8.8 8.5-10.1 mg/dl Magnesium Level 1.8 1.8-2.4 mg/dl Troponin I 0.015 < 0.015 0-0.045 ng/ml Beta-Hydroxybutyric Acid 2.05 0.2-2.81 mg/dL Thyroid Stimulating Hormone (TSH) 3.140 0.300-4.500 uIu/ml Bedside Glucose 190 243 70-99 mg/dl Triglycerides Level 100 0-150 mg/dl Cholesterol Level 114 0-200 mg/dl HDL Cholesterol 33 mg/dl LDL Cholesterol, Calculated 61 mg/dl VLDL Cholesterol, Calculated 20 mg/dl Cholesterol/HDL Ratio 3.5 Test 06/02/17 08:12 Range/Units Bedside Glucose 269 70-99 mg/dl
[2017-06-02] MEDS ORDERED: PHARMACY GLYCEMIC MGMT CONSULT PRN (11:01)
[2017-06-02] MEDS ORDERED: INSULIN GLARGINE SOLOSTAR 100 UNITS/ML 3 ML PEN SC ONE (13:00)
--- NOTE | 2017-06-02 13:05 | Pharmacy Progress Note ---
Glycemic Control Intl Consult Date of Service Jun 02, 2017. Scope Glycemic Pharmacist consulted by Dr Nye on 06/02/17 for glycemic control and to write orders per [facility] inpatient glycemic control protocol Objective Weight (Kilograms): 128.900 Accuchecks BSG (last 24hrs): Test 06/01/17 18:40 06/01/17 21:24 06/01/17 23:37 06/02/17 06:03 Random Glucose 348 mg/dl (70-99) 252 mg/dl (70-99) Bedside Glucose 190 mg/dl (70-99) 243 mg/dl (70-99) Test 06/02/17 08:12 06/02/17 11:47 Bedside Glucose 269 mg/dl (70-99) 225 mg/dl (70-99) Laboratory Data (last 24hrs) Test 06/01/17 18:40 06/02/17 06:03 Anion Gap 9.0 mmol/L 8.0 mmol/L BUN/Creatinine Ratio 14.8 16.7 Blood Urea Nitrogen 16 mg/dl 12 mg/dl Creatinine 1.10 mg/dl 0.73 mg/dl Hemoglobin A1c 10.4 % Potassium Level 4.3 mmol/L 4.3 mmol/L Sodium Level 138 mmol/L 138 mmol/L White Blood Count 8.58 K/uL 7.40 K/uL Red Blood Count 4.67 M/uL 4.59 M/uL Hemoglobin 14.4 g/dL 14.2 g/dL Hematocrit 40.4 % 39.8 % Mean Corpuscular Volume 86.5 fL 86.7 fL Mean Corpuscular Hemoglobin 30.8 pg 30.9 pg Mean Corpuscular Hemoglobin Concent 35.6 g/dl 35.7 g/dl Platelet Count 285 K/uL 262 K/uL Mean Platelet Volume 10.8 fL 10.7 fL Neutrophils (%) (Auto) 53.3 % 54.0 % Lymphocytes (%) (Auto) 35.8 % 33.1 % Monocytes (%) (Auto) 7.9 % 8.1 % Eosinophils (%) (Auto) 2.3 % 3.5 % Basophils (%) (Auto) 0.5 % 0.8 % Neutrophils # (Auto) 4.57 K/uL 3.99 K/uL Lymphocytes # (Auto) 3.07 K/uL 2.45 K/uL Monocytes # (Auto) 0.68 K/uL 0.60 K/uL Eosinophils # (Auto) 0.20 K/uL 0.26 K/uL Basophils # (Auto) 0.04 K/uL 0.06 K/uL HbA1c Test 06/01/17 18:40 Hemoglobin A1c 10.4 % (4.5-5.6) H Recent Pertinent Medications Outpatient Anti-diabetic Regimen: * Glipizide 5 mg qAM, 10 mg qPM * Metformin 1 gm BID * A1c has increased from 8.8% 02/2017 -> 10.4% 06/01/17 The patient is currently receiving: * Basal insulin: Lantus 10 units every 12 hours - rec'd 15 units last PM * Correctional Insulin: Novolog Correction per scale ACHS Goal Range: Low 140 mg/dL - High 180 mg/dL Correction Factor: 25 mg/dL/unit * Prandial insulin: Per carb ratio of 1 unit per 15 grams CHO consumed * Oral Agents: None at this time Risk Factors for Insulin Resistance: * Baseline hyperglycemia * Stress Risk Factors for Insulin Sensitivity: * NPO Assessment & Plan ASSESSMENT: * 52 y/o male with type 2 diabetes, significantly uncontrolled as per most recent A1c * Pt is maintained on oral antidiabetic agents as an outpatient * Oral agents are not recommended for inpatient use d/t drug interactions, changing PO intake, and difficulty titrating for acute hyper/hypoglycemia. ADA recommends re-initiating outpatient oral agents 1-2 days prior to discharge if/ when appropriate if they were held on admission. Will continue to hold oral agents for admission and adjust SQ basal bolus insulin regimen which is the recommended regimen for inpatient glycemic control. * Mr. Jay received 32 units of insulin in the past 24 hours with BSGs consistently above 200 mg/dL * Will plan to adjust regimen based on insulin calculator estimates using patient's weight and stress level of ~1.5 * An additional dose of Lantus will be given this AM to further improve BSGs since only 10 units was given earlier * ADA & AACE recommend a goal blood sugar range 140-180 mg/dl for the majority of critically ill & non-critically ill patients. However, more stringent targets may be selected in individual cases. Will utilize more stringent goal of 110-140mg/dl based on patient age & comorbidities. Additionally, tighter glycemic control is warranted to facilitate wound/infection healing. 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 Will wait until they see patient before recommendations for outpatient regimen is made. * Please note that the plan above was derived based on current level of insulin resistance and hospital stress. These recommendations are appropriate for inpatient admission only. Plan of care upon discharge will need to be reassessed to avoid potential outpatient hypo/hyperglycemia. Thank you.
[2017-06-02] MEDS ORDERED: PERFLUTREN LIPID MICROSPHERE (DEFINITY) IV ONE (13:51)
--- NOTE | 2017-06-02 17:35 | ECHOCARDIOGRAM REPORT ---
*NOTICE TO RECEIVING [employer] This information is strictly Confidential and protected under [place] law. [place] law prohibits you from making any further disclosure of this information unless further disclosure is expressly permitted by the written consent of the person to whom it pertains or is authorized by law. A general authorization for the release of medical or other information is not sufficient for this purpose. Hospital accepts no responsibility if the information is made available to any other person, INCLUDING THE PATIENT. Interpretation Summary * Name: CONCHITA GAMEZ Study Date: 06/02/2017 01:04 PM BP: 185/101 mmHg * Patient Location: [facility]\S\N282\S\2 HR: 52 * : 1965 (M/d/yyyy) Gender: Male Height: 73 in * Age: 52 yrs Ethnicity: [place] Weight: 284 lb * Ordering Physician: Viraj Felder * Referring Physician: Self, Referred * Performed By: Edna Thomas RDCS * * Reason For Study: Chest pain * BSA: 2.5 m2 * -- Conclusions -- * There is mild concentric left ventricular hypertrophy. * Left ventricular systolic function is normal. * The left atrium is mildly dilated. * Right ventricular systolic pressure is normal. Compared to an echocardiogram performed in May of 2014, no significant change Procedure Details * A complete two-dimensional transthoracic echocardiogram was performed (2D, M-mode, Doppler and color flow Doppler). * A contrast injection of Definity was performed to improve assessment of LV function. * Contrast was injected into an intravenous site in the left arm. * One vial of Definity ultrasound contrast was diluted in normal saline to a total volume of 10 ml. A total of '2' ml of solution was administered during imaging. * Lot # [id number] of Definity utilized for procedure. * Expiration date . * The attending nurse who injected the contrast agent was Suad Jewell RN. Left Ventricle * The left ventricle is normal in size. * There is mild concentric left ventricular hypertrophy. * Ejection Fraction = 55-60%. * Left ventricular systolic function is normal. * The left ventricular wall motion is normal. Right Ventricle * The right ventricle is normal size. * The right ventricular systolic function is normal as assessed by tricuspid annular plane systolic excursion (TAPSE) (normal >1.5 cm). Atria * The left atrium is mildly dilated. * Right atrial size is normal. Mitral Valve * The mitral valve anatomy is normal. * There is no mitral regurgitation noted. Tricuspid Valve * The tricuspid valve anatomy is normal. * There is trace tricuspid regurgitation. * Right ventricular systolic pressure is normal. Aortic Valve * The aortic valve is normal in structure and function. * The aortic valve is trileaflet. * No hemodynamically significant valvular aortic stenosis. * There is no significant aortic regurgitation. Great Vessels * The aortic root is normal size. Pericardium/Pleural * There is no pericardial effusion. MMode 2D Measurements and Calculations IVSd 1.2 cm LVIDd 4.9 cm LVIDs 3.5 cm LVPWd 1.3 cm IVS/LVPW 0.91 FS 29.0 % EDV(Teich) 113.3 ml ESV(Teich) 50.4 ml EF(Teich) 55.5 % EDV(cubed) 118.3 ml ESV(cubed) 42.4 ml EF(cubed) 64.2 % LV mass(C)d 249.5 grams LV mass(C)dI 99.9 grams/m\S\2 CO(Teich) 3.2 l/min CI(Teich) 1.3 l/min/m\S\2 SV(Teich) 62.9 ml SI(Teich) 25.2 ml/m\S\2 CO(cubed) 3.9 l/min CI(cubed) 1.6 l/min/m\S\2 SV(cubed) 75.9 ml SI(cubed) 30.4 ml/m\S\2 Ao root diam 3.8 cm Ao root area 11.4 cm\S\2 ACS 2.3 cm LA dimension 4.3 cm asc Aorta Diam 2.9 cm LA/Ao 1.1 LVOT diam 2.0 cm LVOT area 3.2 cm\S\2 LVAd ap4 38.3 cm\S\2 LVLd ap4 8.5 cm EDV(MOD-sp4) 139.0 ml LVAs ap4 24.0 cm\S\2 LVLs ap4 8.0 cm ESV(MOD-sp4) 60.4 ml EF(MOD-sp4) 56.5 % LVAd ap2 32.6 cm\S\2 LVLd ap2 8.4 cm EDV(MOD-sp2) 101.0 ml LVAs ap2 19.9 cm\S\2 LVLs ap2 7.3 cm ESV(MOD-sp2) 43.9 ml EF(MOD-sp2) 56.5 % CO(MOD-sp4) 4.0 l/min CI(MOD-sp4) 1.6 l/min/m\S\2 SV(MOD-sp4) 78.6 ml SI(MOD-sp4) 31.5 ml/m\S\2 CO(MOD-sp2) 2.9 l/min CI(MOD-sp2) 1.2 l/min/m\S\2 SV(MOD-sp2) 57.1 ml SI(MOD-sp2) 22.9 ml/m\S\2 Doppler Measurements and Calculations MV E max daysi 65.5 cm/sec MV A max daysi 50.0 cm/sec MV E/A 1.3 MV dec time 0.25 sec Ao V2 max 135.1 cm/sec Ao max PG 7.3 mmHg Ao max PG (full) 2.0 mmHg JERICA(V,A) 2.7 cm\S\2 JERICA(V,D) 2.7 cm\S\2 LV V1 max PG 5.3 mmHg LV V1 max 115.4 cm/sec PA V2 max 89.6 cm/sec PA max PG 3.2 mmHg PA acc slope 510.1 cm/sec\S\2 PA acc time 0.13 sec TR max daysi 220.7 cm/sec PA pr(Accel) 20.4 mmHg
--- NOTE | 2017-06-02 18:04 | Cardiology Consultation ---
Cardiology Consultation Date of Consultation: Jun 02, 2017. Requesting Physician: Nahun Reason for Consultation: Chest Pain History of Present Illness The patient is a 52-year-old gentleman with a history of nonobstructive coronary disease and paroxysmal atrial fibrillation who reported an episode of chest discomfort yesterday. Patient's symptoms began shortly after taking a dose of metoprolol. He went to work and began to experience symptoms of a headache and mild dizziness. This was subsequently associated with the development of some dyspnea and discrete chest discomfort. The chest discomfort was described as a fairly discrete pain chest lateral to the sternum in the left precordium. He also had some mild rib discomfort which was worse with deep inspiration. The symptoms later became associated with a sense of heart palpitations and a Pounding in his chest. The symptoms themselves persisted for several hours. The patient continued working at his occupation and eventually returned home where he reported the symptoms to his . Based on her response he was brought to [facility] for an evaluation. The patient states that most of his symptoms had resolved by the time he reached the emergency room. He has not had a recurrence of the symptoms since admission. He does not report similar symptoms in the past. He has had symptoms of atrial fibrillation previously which she describes as a Jelly like sensation in his chest. This was different. He generally speaking is an active individual was accustomed to routine and heavy activity. He has not experienced chest discomfort with these activities. He has no symptoms of limiting dyspnea. He is not describe orthopnea. He generally does not have symptoms of dizziness. He has not experienced lower extremity edema. Past Medical/Surgical History Atrial fibrillation This is believed to be paroxysmal. He has not had any episodes an extended period time. He has been on amiodarone since the late . 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 Lives locally with his Review of Systems Constitutional: + see HPI Respiratory: + see HPI, + shortness of breath Cardiac: + chest pain Abdomen: + see HPI Male : + see HPI Neurologic: + see HPI Heme: + see HPI Endo: + see HPI Skin: + see HPI All Other Systems: Reviewed and Negative Allergies Coded Allergies: Penicillins (Verified Allergy, Unknown, UNKNOWN CHILD, 06/01/17) Medications Current Inpatient Medications Medications (Trade) Dose Ordered Sig/Tristan Route Start Time Stop Time Status Last Admin Dose Admin Enoxaparin Sodium (Lovenox Inj) 40 mg Q24H SC 06/02/17 09:00 07/02/17 08:59 06/02/17 08:16 40 MG Acetaminophen (Tylenol Tab) 650 mg Q4H PRN PO 06/01/17 20:30 07/01/17 20:29 06/02/17 06:26 650 MG Nitroglycerin (Nitrostat Tab) 0.4 mg UD PRN SL 06/01/17 20:30 07/01/17 20:29 Insulin Aspart (novoLOG ASPART) SLIDING SCALE If C... ACHS SC 06/01/17 23:30 07/01/17 23:29 06/02/17 11:54 5 UNITS Glucose (Glucose 40% Gel) 15-30 GRAMS 15 GRAMS... UD PRN PO 06/01/17 20:30 07/01/17 20:29 Glucose (Glucose Chew Tab) 4-8 Tablets 4 Tabl... UD PRN PO 06/01/17 20:30 07/01/17 20:29 Dextrose (Dextrose 50% 50ML Syringe) 25-50ML OF 50% DW IV FOR... UD PRN IV 06/01/17 20:30 07/01/17 20:29 Glucagon (Glucagon Inj) 1 mg UD PRN SQ 06/01/17 20:30 07/01/17 20:29 Amiodarone HCl (Cordarone Tab) 200 mg QAM PO 06/02/17 09:00 07/02/17 08:59 06/02/17 08:14 200 MG Atorvastatin Calcium (Lipitor Tab) 40 mg QPM PO 06/01/17 21:00 07/01/17 20:59 06/01/17 23:41 40 MG Levothyroxine Sodium (Synthroid Tab) 150 mcg DAILYBB PO 06/02/17 06:30 07/02/17 06:59 06/02/17 06:15 150 MCG Tramadol HCl (Ultram Tab) 25 mg Q6H PRN PO 06/01/17 20:30 07/01/17 20:29 Morphine Sulfate (MoRPHine SULFATE INJ) 4 mg Q3H PRN IV 06/01/17 20:30 06/15/17 20:29 Lorazepam (Ativan Inj) 0.5 mg Q4H PRN IV 06/01/17 20:30 07/01/17 20:29 Ondansetron HCl (Zofran Inj) 4 mg Q6H PRN IV 06/01/17 20:30 07/01/17 20:29 Aspirin (Ecotrin Tab) 81 mg QAM PO 06/02/17 09:00 07/02/17 08:59 06/02/17 08:15 81 MG Ioversol (Optiray 320) 100 ml UD PRN IV 06/01/17 21:45 06/05/17 21:44 Miscellaneous (Iv Fluids Completed) 1 ea PRN PRN N/A 06/02/17 03:30 06/02/18 03:29 Losartan Potassium (coZAAR TAB) 100 mg QAM PO 06/03/17 09:00 07/02/17 08:59 Sodium Chloride 1,000 ml @ 40 mls/hr Q24H IV 06/02/17 05:30 07/01/17 05:29 06/02/17 05:34 40 MLS/HR Atenolol (Tenormin Tab) 25 mg QAM PO 06/02/17 09:45 07/02/17 09:44 06/02/17 10:12 25 MG Miscellaneous Information (Consult Glycemic Management Pharmacy) 1 ea DAILY PRN N/A 06/02/17 11:01 07/02/17 11:00 Insulin Glargine (Lantus Solostar Pen) SEE PROTOCOL TEXT BID SC 06/02/17 21:00 07/02/17 20:59 Insulin Aspart (novoLOG ASPART) SLIDING SCALE If C... 0200 ONCE SC 06/03/17 02:00 06/03/17 02:01 Physical Exam Vital Signs Past 12 Hours Date Time Temp Pulse Resp B/P (MAP) Pulse Ox O2 Delivery O2 Flow Rate FiO2 06/02/17 15:42 36.9 53 16 134/79 (97) 94 Room Air 06/02/17 12:01 97 Room Air 06/02/17 11:27 36.6 54 18 185/101 (129) 93 Room Air 06/02/17 08:00 97 Room Air 06/02/17 07:32 36.4 60 16 160/87 (111) 97 Room Air 06/02/17 06:19 61 174/92 (119) The patient is alert and oriented. Mood and affect appeared normal. He answered all questions appropriately. HEENT: Pupils are equal and reactive to light and accommodation. Extraocular movements are intact. The sclerae are anicteric. Neuro: Cranial nerves intact Neck: Patient's neck is supple. He has palpable carotid pulses bilaterally without bruits on auscultation. There is no evidence of jugular venous distention. The thyroid is not enlarged. Lungs: Clear to auscultation bilaterally. He has good air movement without use of accessory muscles. No rales wheezes or rhonchi. Cardiac: Heart demonstrates a regular rate and rhythm. Normal S1 and S2. No murmurs on examination. Pulses: The patient has palpable radial pulses bilaterally that are equal in intensity Extremities: There was no evidence of hypoperfusion. There is no cyanosis or clubbing. There is no edema. Skin: I did not appreciate any rashes on examination today. Data Laboratory Results: Last 24 Hours Test 06/01/17 18:40 06/01/17 21:24 06/01/17 23:37 06/02/17 06:03 White Blood Count 8.58 K/uL 7.40 K/uL Red Blood Count 4.67 M/uL 4.59 M/uL Hemoglobin 14.4 g/dL 14.2 g/dL Hematocrit 40.4 % 39.8 % Mean Corpuscular Volume 86.5 fL 86.7 fL Mean Corpuscular Hemoglobin 30.8 pg 30.9 pg Mean Corpuscular Hemoglobin Concent 35.6 g/dl 35.7 g/dl Platelet Count 285 K/uL 262 K/uL Mean Platelet Volume 10.8 fL 10.7 fL Neutrophils (%) (Auto) 53.3 % 54.0 % Lymphocytes (%) (Auto) 35.8 % 33.1 % Monocytes (%) (Auto) 7.9 % 8.1 % Eosinophils (%) (Auto) 2.3 % 3.5 % Basophils (%) (Auto) 0.5 % 0.8 % Neutrophils # (Auto) 4.57 K/uL 3.99 K/uL Lymphocytes # (Auto) 3.07 K/uL 2.45 K/uL Monocytes # (Auto) 0.68 K/uL 0.60 K/uL Eosinophils # (Auto) 0.20 K/uL 0.26 K/uL Basophils # (Auto) 0.04 K/uL 0.06 K/uL RDW Standard Deviation 40.7 fL 40.7 fL RDW Coefficient of Variation 12.9 % 12.8 % Immature Granulocyte % (Auto) 0.2 % 0.5 % Immature Granulocyte # (Auto) 0.02 K/uL 0.04 K/uL Prothrombin Time 10.1 SECONDS Prothromb Time International Ratio 0.9 Activated Partial Thromboplast Time 24.6 SECONDS Partial Thromboplastin Ratio 0.9 D-Dimer 830 ug/L FEU Sodium Level 138 mmol/L 138 mmol/L Potassium Level 4.3 mmol/L 4.3 mmol/L Chloride Level 104 mmol/L 103 mmol/L Carbon Dioxide Level 25 mmol/L 27 mmol/L Anion Gap 9.0 mmol/L 8.0 mmol/L Blood Urea Nitrogen 16 mg/dl 12 mg/dl Creatinine 1.10 mg/dl 0.73 mg/dl Est Creatinine Clear Calc Drug Dose 110.5 ml/min 166.6 ml/min Estimated GFR () 89.0 123.6 Estimated GFR (Non- 76.8 106.6 BUN/Creatinine Ratio 14.8 16.7 Random Glucose 348 mg/dl 252 mg/dl Estimated Average Glucose 252 mg/dl Hemoglobin A1c 10.4 % Calcium Level 9.3 mg/dl 8.8 mg/dl Magnesium Level 1.8 mg/dl Troponin I 0.015 ng/ml < 0.015 ng/ml Beta-Hydroxybutyric Acid 2.05 mg/dL Thyroid Stimulating Hormone (TSH) 3.140 uIu/ml Bedside Glucose 190 mg/dl 243 mg/dl Triglycerides Level 100 mg/dl Cholesterol Level 114 mg/dl HDL Cholesterol 33 mg/dl LDL Cholesterol, Calculated 61 mg/dl VLDL Cholesterol, Calculated 20 mg/dl Cholesterol/HDL Ratio 3.5 Test 06/02/17 08:12 06/02/17 11:47 06/02/17 17:28 Bedside Glucose 269 mg/dl 225 mg/dl 204 mg/dl Imaging: Chest x-ray did not reveal any evidence of acute cardiopulmonary disease EKG: Normal sinus rhythm without any ST or T-wave changes Telemetry reviewed: No arrhythmias Echocardiogram demonstrated an element of left ventricular hypertrophy but preserved LV systolic function without wall motion abnormalities. Cardiac catheterization performed in May 2014 demonstrated some nonobstructive disease in the right coronary artery but otherwise normal coronary vasculature. Assessment & Plan 1. Chest pain: Patient had a very extended period of chest discomfort associated with some other symptoms. The exact etiology is unclear. I think based on the absence of a rise in his cardiac biomarkers is can be discounted as non coronary. He does not appear to have had an acute coronary syndrome. He has had a prior evaluation of his coronary arteries without evidence of obstructive coronary disease. He did have a sense of palpitations during this episode which could represent any arrhythmia. He felt the symptoms were distinct from those typically experience during atrial fibrillation. I think given his preserved LV systolic function and prior cardiac evaluation he can be safely discharged. Whether we undertake an evaluation for occult arrhythmia depends primarily on any recurrent symptoms. At this point I do not feel we need to adjust his medical regimen. There is some concern regarding the symptoms being a side effect of metoprolol versus atenolol. He and his plan to return to the usual atenolol dose. 2. Atrial fibrillation: No documented arrhythmia in some time. Patient's chads Vasc score is 2 for diabetes and hypertension. While he does have some nonobstructive coronary disease not suffered a myocardial infarction in the past. Ideally he would be on systemic anticoagulation but he has discussed this topic previously and has elected to continue with daily aspirin. Patient also continues on amiodarone which is less than ideal in his demographic. He does not demonstrate signs of toxicity, but would be well served with a medications as is not have such a poor side effect profile over time. Given his preserved LV systolic function and absence of prior infarction he would seem to be a good candidate for a class 1 C agent such as flecainide no propafenone. This can be addressed in the outpatient setting. 3. Hypertension: Patient blood pressure appears to be slightly elevated over time. He has an element of left ventricular hypertrophy on echocardiography. This was seen to be a good indication for intensification of his antihypertensive regimen.
[2017-06-02] MEDS ORDERED: INSDGIPEN SC (18:06)
--- NOTE | 2017-06-02 18:11 | Discharge Instructions ---
Discharge Instructions Date of Service Jun 02, 2017. Admission Reason for Admission: Chest Pain Discharge Discharge Diagnosis / Problem: chest pain Discharge Goals Goal(s): Decrease discomfort, Improve function Activity Recommendations Activity Limitations: resume your previous activity . Instructions / Follow-Up Instructions / Follow-Up FOLLOWUP WITH FAMILY DOCTOR Srinivas Sierra ON Jun AT 10:45AM FOLLOWUP WITH CARDIOLOGY SCHEDULED. STARTING ON INSULIN LANTUS 10UNITS ONCE EVERY DAY BEFORE GOING TO SLEEP. TO CHECK BLOOD SUGARS TWICE DAILY ONCE PRE MEAL AND ONCE POST MEAL WITH BLOOD SUGARS goal of 90-140 pre-meal and less than 160 post-meal. NOTE THE READINGS IN A LOG BOOK AND TO SHOW TO FAMILY DOCTOR FOR FURTHER ADJUSTMENTS OF INSULIN REGIMEN. Current Hospital Diet Patient's current hospital diet: Diabetes Type 2 Diet Discharge Diet Recommended Diet: AHA Diet (Heart Healthy), Diabetes Type 2 Diet Pending Studies Studies pending at discharge: no Laboratory Results Hemoglobin A1c Test 06/01/17 18:40 Range/Units Estimated Average Glucose 252 mg/dl Hemoglobin A1c 10.4 H 4.5-5.6 % Lipid Panel Test 06/02/17 06:03 Range/Units Triglycerides Level 100 0-150 mg/dl Cholesterol Level 114 0-200 mg/dl HDL Cholesterol 33 mg/dl Cholesterol/HDL Ratio 3.5 LDL Cholesterol, Calculated 61 mg/dl Medical Emergencies . Who to Call and When: Medical Emergencies: If at any time you feel your situation is an emergency, please call 911 immediately. . Non-Emergent Contact Non-Emergency issues call your: Primary Care Provider . . "Provider Documentation" section prepared by Jose Angel Nye. . VTE Core Measure Inpt VTE Proph given/why not?: SCD's
--- NOTE | 2017-06-02 18:39 | Discharge Summary ---
Discharge Summary Date of Service Jun 02, 2017. Discharge Summary Admission Date: Jun 01, 2017 at 20:10 Discharge Date: Jun 02, 2017 Discharge Disposition: Home Principal Diagnosis: chest pain Secondary Diagnoses/Problems: HTN, nonocclusive CAD, PAF not on oral anticoagulation, Hyperlipidemia, DM2 oral meds, OA, ERICA on CPAP Procedures: CTA CHEST: 1. No pulmonary emboli identified although segmental and subsegmental pulmonary arteries suboptimally assessed due to respiratory motion. 2. No acute intrathoracic findings. ECHO: There is mild concentric left ventricular hypertrophy. * Left ventricular systolic function is normal. * The left atrium is mildly dilated. * Right ventricular systolic pressure is normal. Compared to an echocardiogram performed in May of 2014, no significant change Consultations: CARDIOLOGY Medication Reconciliation New Medications: Insulin Glargine (Lantus Solostar) 100 Unit/Ml Inj 10 UNITS SC QPM, #1 PEN 2 Refills Continued Medications: Acetaminophen (Tylenol) 500 Mg Tab 1500 MG PO TID PRN for Pain, TAB Amiodarone HCl (Amiodarone HCl) 200 Mg Tab 200 MG PO QAM Aspirin (Aspirin Ec) 81 Mg Tab 162 MG PO HOLD HOLD THIS MEDICATION UNTIL OTHERWISE DIRECTED TO TAKE BY Atenolol (Atenolol) 25 Mg Tab 25 MG PO QAM TAKE METOPROLOL IN PLACE OF ATENOLOL DUE TO BACK ORDER STATUS Atorvastatin (Atorvastatin Calcium) 40 Mg Tab 40 MG PO QPM TAKE THIS MEDICATION WITH EVENING MEAL Glipizide (Glipizide) 5 Mg Tab 10 MG PO QPM TAKE 10 MG WITH EVENING MEAL Glipizide (Glipizide) 5 Mg Tab 5 MG PO QAM TAKE 5 MG WITH BREAKFAST Levothyroxine Sodium (Levothyroxine Sodium) 150 Mcg Tab 150 MCG PO QAM Losartan Potassium (Cozaar) 100 Mg Tab 100 MG PO QAM Metformin Hcl (Glucophage) 1,000 Mg Tab 1000 MG PO BID, TAB TAKE THIS MEDICATION WITH BREAKFAST AND EVENING MEALS Admission Information HPI (per Admitting provider): History obtained from patient and records. Medical history significant for HTN, nonocclusive CAD, PAF not on oral anticoagulation, Hyperlipidemia, DM2 oral meds, OA, ERICA on CPAP Recent confinement last year for left hip surgery. Patient was in the ER a few weeks ago for high blood pressure, epistaxis. PX had outpatient cautery of bleeding nasal vessels outpatient at [facility] [place] [facility] office last week. Epistaxis resolved. Patient's atenolol has been on back order. PCP prescribed Toprol-XL as a substitute interim. Patient took his first dose of Toprol XL 25 mg's morning. Two 2 hours later at work, the patient noted left-sided achy chest discomfort, dizziness, hard to take a deep breath. No new cough symptoms. He felt lightheaded. Symptoms persisted but resolved resolved upon arrival to the Emergency Room this evening. Physical Exam (per Admitting): VITAL SIGNS: Blood pressure was noted to be 171/75, pulse rate 70, RR 20 T 37 sats 96% on room air. GENERAL: Noted to be slightly anxious, obese, no respiratory distress. SKIN: Normal color. HEENT: Alopecia. [place] palpebral conjunctivae, moist buccal mucosa. NECK: Short neck. LUNGS: Decreased breath sounds. HEART: Regular rate and rhythm. ABDOMEN: Soft. NT EXTREMITIES: No edema, no tenderness. NEUROLOGIC: No gross focality Hospital Course 1, Chest pain, sob, dizziness sx possibly from new Toprol XL medication? CTA chest unremarkable hx of non occlusive CAD uncontrolled htn? placed back on atenolol Ce negative ECHO MILD LVH OTHERWISE UNREMARKABLE CARDIOLOGY OK FOR DISCHARGE HOME FOR OUT PATIENT FOLLOWUP 2. HTN, elevated on atenolol and losartan ECHO MILD LVH MAY NEED TO UP HIS BP MEDS F/U WITH PCP AND CARDIOLOGY 3. history of atrial fibrillation normal sinus rhythm 'Patient off oral anticoagulation as per preference as per outpatient cardiology note'- as per h and p. on atenolol and amiodarone STABLE F/U WITH CARDIOLOGY. TO READDRESS ORAL ANTICOAGULATION. 4. DM, hyperglycemic hba1c 10.4. holding oral meds needs to be discharged on insulin pharmacy consult for glycemic management diabetes education DISCHARGING ON HOME MEDS AND LANTUS 10UNITS Q HS CLOSE FOLLOWUP WITH PCP FOR FURTHER ADJUSTMENTS. 5. Hyperlipidemia on statin therapy 6. ERICA on CPAP DISCHARGED HOME Total time spent on discharge = 35MINUTES This includes examination of the patient, discharge planning, medication reconciliation, and communication with other providers. Discharge Instructions Discharge Instructions Date of Service Jun 02, 2017. Admission Reason for Admission: Chest Pain Discharge Discharge Diagnosis / Problem: chest pain Discharge Goals Goal(s): Decrease discomfort, Improve function Activity Recommendations Activity Limitations: resume your previous activity . Instructions / Follow-Up Instructions / Follow-Up FOLLOWUP WITH FAMILY DOCTOR Srinivas Sierra ON Jun AT 10:45AM FOLLOWUP WITH CARDIOLOGY SCHEDULED. STARTING ON INSULIN LANTUS 10UNITS ONCE EVERY DAY BEFORE GOING TO SLEEP. TO CHECK BLOOD SUGARS TWICE DAILY ONCE PRE MEAL AND ONCE POST MEAL WITH BLOOD SUGARS goal of 90-140 pre-meal and less than 160 post-meal. NOTE THE READINGS IN A LOG BOOK AND TO SHOW TO FAMILY DOCTOR FOR FURTHER ADJUSTMENTS OF INSULIN REGIMEN. Current Hospital Diet Patient's current hospital diet: Diabetes Type 2 Diet Discharge Diet Recommended Diet: AHA Diet (Heart Healthy), Diabetes Type 2 Diet Pending Studies Studies pending at discharge: no Laboratory Results Hemoglobin A1c Test 06/01/17 18:40 Range/Units Estimated Average Glucose 252 mg/dl Hemoglobin A1c 10.4 H 4.5-5.6 % Lipid Panel Test 06/02/17 06:03 Range/Units Triglycerides Level 100 0-150 mg/dl Cholesterol Level 114 0-200 mg/dl HDL Cholesterol 33 mg/dl Cholesterol/HDL Ratio 3.5 LDL Cholesterol, Calculated 61 mg/dl Medical Emergencies . Who to Call and When: Medical Emergencies: If at any time you feel your situation is an emergency, please call 911 immediately. . Non-Emergent Contact Non-Emergency issues call your: Primary Care Provider . . "Provider Documentation" section prepared by Jose Angel Nye. . VTE Core Measure Inpt VTE Proph given/why not?: SCD's
[2017-06-03] MEDS ORDERED: INSULIN ASPART 100 UNITS/ML 3 ML PEN SC ONE (02:00)
[2017-06-03] MEDS ORDERED: LOSARTAN POTASSIUM 50 MG TAB PO SCH (09:00)
== END 2017-06-02 20:25 | disposition home or self-care (01) ==
LOC: C.EDB 17:40 → C.MED 20:10 → ENRESERV 22:28
PROVIDERS: ADMIT Internal Medicine; ATTEND Internal Medicine
DX: R07.9 Chest pain, unspecified (principal); I25.10 Atherosclerotic heart disease of native coronary artery without angina pectoris; I10 Essential (primary) hypertension; E78.5 Hyperlipidemia, unspecified; G47.33 Obstructive sleep apnea (adult) (pediatric); Z79.899 Other long term (current) drug therapy; E11.9 Type 2 diabetes mellitus without complications

== ENCOUNTER 2017-07-13 06:52 | Emergency (ER) | payer BC ==
[~2017-07-13] VITALS: Ht 185.4 cm; Wt 133.0 kg
[~2017-07-13 06:52] MED LIST changes: +ACET-1256 PO; -ATEN-173 PO; +INSDGIPEN SC; +LOSA100T65 PO; -LOSA1TAB38 PO; +LPT40 PO; +TNR25 PO
[2017-07-13 06:56] VITALS: TEMP 36.9; Ht 185.4 cm; Wt 133.0 kg
[2017-07-13 07:15] VITALS: O2SAT 93
[2017-07-13] MEDS ORDERED: OMEP20CA9 PO (07:21)
[2017-07-13] MEDS ORDERED: INSDGIPEN SC (07:21)
[2017-07-13] MEDS ORDERED: LOSARTAN POTASSIUM 50 MG TAB PO ONE (07:30)
[2017-07-13] MEDS ORDERED: AMIODARONE 200 MG TAB PO ONE (07:30)
--- NOTE | 2017-07-13 07:38 | DIAGNOSTIC IMAGING REPORT ---
CHEST ONE VIEW PORTABLE CLINICAL HISTORY: Fever, sepsis COMPARISON STUDY: A [id number] FINDINGS: The cardiac and mediastinal contours remain stable. There is persistent elevation of the right hemidiaphragm. There is no focal pulmonary consolidation. There is no failure. There are no pleural effusions.[ IMPRESSION: Persistent elevation right hemidiaphragm. No acute findings. Electronically signed by: Claudy Holder M.D. 07/13/2017 7:37 AM Dictated Date/Time: 07/13/2017 7:36 AM
[2017-07-13 07:48] LABS: BASO ABS # 0.07 K/uL (0-0.2); COMPLETE YES; EOS % 4.2 %; HEMATOCRIT 40.1 % (42-52); IG% 0.1 %; LYMPH % 12.3 %; LYMPH ABS # 0.87 K/uL (1.2-3.4); MEAN CELL VOLUME 88.3 fL (80-100); MEAN CORPUSCULAR HEMOGLOBIN 30.2 pg (25-34); MEAN CORPUSCULAR HGB CONC 34.2 g/dl (32-36); MEAN PLATELET VOLUME 10.9 fL (7.4-10.4); NEUT % 72.4 %; PLATELET COUNT 224 K/uL (130-400); RED BLOOD COUNT 4.54 M/uL (4.7-6.1); WHITE BLOOD COUNT 7.08 K/uL (4.8-10.8)
[2017-07-13 07:57] LABS: BUN/CREATININE RATIO 18.6 (10-20); CALCIUM 8.8 mg/dl (8.5-10.1); CREATININE 0.79 mg/dl (0.60-1.40); POTASSIUM 4.3 mmol/L (3.5-5.1); PROTHROMBIN TIME (PATIENT) 10.4 SECONDS (9.0-12.0)
[2017-07-13 08:02] LABS: CKMB/CK RATIO 1.7 (0-3.0)
--- NOTE | 2017-07-13 10:08 | EMERGENCY ROOM VISIT NOTE ---
History Report prepared by Price: Hakeem Gimenez Under the Supervision of: Dr. Haim Rodrigez D.O. First contact with patient: 07:17 Chief Complaint: CHEST PAIN Stated Complaint: CHEST PAIN,HEADACHES Nursing Triage Summary: pt reports L side cp that has been intermittent X 3 weeks 1 day ago increased L side pain into L shoulder and back with exertional sob and WING denies NV or vision changes History of Present Illness The patient is a 52 year old male who presents to the Emergency Room with complaints of intermittent chest pain beginning a few weeks ago. The patient describes his pain as "burning". He also complains of shortness of breath beginning a few days ago. He was started on Prilosec by Dr. Jack last week for his symptoms, but this has not helped. The patient is on Amiodarone for A-fib. He notes that he has not had his morning medication today. He also notes that he wears CPAP at night. He denies any leg pain, nausea, vomiting, or diarrhea. The patient had a cardiac catheterization a few years ago. He is not on any blood thinners. The patient notes that he was seen by Dr. Jack last week because he has been having problems with his left hand. He states that he is unable to move his thumb. He notes that he has a history of "nerve problems" in his left arm. The patient states that there was a sudden moment where he felt a "crack" before his current symptoms began. Source of History: patient Onset: a few weeks ago Position: chest Quality: burning Timing: intermittent Associated Symptoms: + SOB, No nausea, No vomiting, No diarrhea Review of Systems See HPI for pertinent positives & negatives. A total of 10 systems reviewed and were otherwise negative. Past Medical & Surgical Medical Problems: (1) Atrial fibrillation (2) Benign hypertension (3) Diabetes mellitus (4) High cholesterol (5) Left Hip DJD (6) Left Hip DJD Family History Blood clots Social History Smoking Status: Former Smoker Alcohol Use: occasionally Drug Use: cocaine Marital Status: Housing Status: lives with friends Occupation Status: employed Current/Historical Medications Scheduled Amiodarone HCl (Amiodarone HCl), 200 MG PO QAM Aspirin (Aspirin Ec), 81 MG PO DAILY Atenolol (Atenolol), 25 MG PO QAM Atorvastatin (Atorvastatin Calcium), 40 MG PO QPM Glipizide (Glipizide), 5 MG PO QAM Insulin Glargine (Lantus Solostar), 21 UNITS SC DAILY Levothyroxine Sodium (Levothyroxine Sodium), 150 MCG PO QAM Losartan Potassium (Cozaar), 100 MG PO QAM Metformin Hcl (Glucophage), 1,000 MG PO BID Omeprazole (Prilosec), 20 MG PO DAILY Allergies Coded Allergies: Penicillins (Verified Allergy, Unknown, UNKNOWN CHILD, 07/13/17) Physical Exam Vital Signs Date Time Temp Pulse Resp B/P (MAP) Pulse Ox O2 Delivery O2 Flow Rate FiO2 07/13/17 09:23 55 20 165/87 96 Nasal Cannula 2.0 07/13/17 07:55 59 20 155/78 98 Nasal Cannula 2.0 07/13/17 07:25 Nasal Cannula 2.0 07/13/17 07:15 93 Room Air 07/13/17 06:56 36.9 64 18 195/92 93 Room Air Physical Exam CONSTITUTIONAL/VITAL SIGNS: Reviewed / noted above. GENERAL: Non-toxic in appearance. INTEGUMENTARY: Warm, dry, and [place]. HEAD: Normocephalic. EYES: without scleral icterus or trauma. ENT/OROPHARYNX: clear and moist. LYMPHADENOPATHY/NECK: Is supple without lymphadenopathy or meningismus. RESPIRATORY: Lungs clear and equal. CARDIOVASCULAR: Regular rate and rhythm. GI/ABDOMEN: Soft and nontender. No organomegaly or pulsatile mass. No rebound or guarding. Normal bowel sounds. EXTREMITIES: Warm and well perfused. BACK: No CVA tenderness. NEUROLOGICAL: Intact without focal deficits. PSYCHIATRIC: normal affect. MUSCULOSKELETAL: Normally developed with good muscle tone. Medical Decision & Procedures ER Provider Diagnostic Interpretation: X ray results and stated below per my interpretation and radiology interpretation. CHEST ONE VIEW PORTABLE FINDINGS: The cardiac and mediastinal contours remain stable. There is persistent elevation of the right hemidiaphragm. There is no focal pulmonary consolidation. There is no failure. There are no pleural effusions.[ IMPRESSION: Persistent elevation right hemidiaphragm. No acute findings. Electronically signed by: Claudy Holder M.D. 07/13/2017 7:37 AM Laboratory Results 07/13/17 07:05 Red Blood Count 4.54, Mean Corpuscular Volume 88.3, Mean Corpuscular Hemoglobin 30.2, Mean Corpuscular Hemoglobin Concent 34.2, Mean Platelet Volume 10.9, Neutrophils (%) (Auto) 72.4, Lymphocytes (%) (Auto) 12.3, Monocytes (%) (Auto) 10.0, Eosinophils (%) (Auto) 4.2, Basophils (%) (Auto) 1.0, Neutrophils # (Auto ) 5.12, Lymphocytes # (Auto) 0.87, Monocytes # (Auto) 0.71, Eosinophils # (Auto ) 0.30, Basophils # (Auto) 0.07 07/13/17 07:05 Test 07/13/17 07:05 White Blood Count 7.08 K/uL (4.8-10.8) Red Blood Count 4.54 M/uL (4.7-6.1) Hemoglobin 13.7 g/dL (14.0-18.0) Hematocrit 40.1 % (42-52) Mean Corpuscular Volume 88.3 fL (80-100) Mean Corpuscular Hemoglobin 30.2 pg (25-34) Mean Corpuscular Hemoglobin Concent 34.2 g/dl (32-36) Platelet Count 224 K/uL (130-400) Mean Platelet Volume 10.9 fL (7.4-10.4) Neutrophils (%) (Auto) 72.4 % Lymphocytes (%) (Auto) 12.3 % Monocytes (%) (Auto) 10.0 % Eosinophils (%) (Auto) 4.2 % Basophils (%) (Auto) 1.0 % Neutrophils # (Auto) 5.12 K/uL (1.4-6.5) Lymphocytes # (Auto) 0.87 K/uL (1.2-3.4) Monocytes # (Auto) 0.71 K/uL (0.11-0.59) Eosinophils # (Auto) 0.30 K/uL (0-0.5) Basophils # (Auto) 0.07 K/uL (0-0.2) RDW Standard Deviation 40.5 fL (36.4-46.3) RDW Coefficient of Variation 12.6 % (11.5-14.5) Immature Granulocyte % (Auto) 0.1 % Immature Granulocyte # (Auto) 0.01 K/uL (0.00-0.02) Prothrombin Time 10.4 SECONDS (9.0-12.0) Prothromb Time International Ratio 1.0 (0.9-1.1) Activated Partial Thromboplast Time 25.4 SECONDS (21.0-31.0) Partial Thromboplastin Ratio 1.0 Anion Gap 8.0 mmol/L (3-11) Est Creatinine Clear Calc Drug Dose 156.5 ml/min Estimated GFR () 119.7 Estimated GFR (Non- 103.2 BUN/Creatinine Ratio 18.6 (10-20) Calcium Level 8.8 mg/dl (8.5-10.1) Total Bilirubin 0.8 mg/dl (0.2-1) Direct Bilirubin 0.2 mg/dl (0-0.2) Aspartate Amino Transf (AST/SGOT) 35 U/L (15-37) Alanine Aminotransferase (ALT/SGPT) 49 U/L (12-78) Alkaline Phosphatase 70 U/L (45-117) Total Creatine Kinase 264 U/L (39-308) Creatine Kinase MB 4.5 ng/ml (0.5-3.6) Creatine Kinase MB Ratio 1.7 (0-3.0) Troponin I 0.019 ng/ml (0-0.045) Total Protein 7.1 gm/dl (6.4-8.2) Albumin 3.7 gm/dl (3.4-5.0) Lipase 201 U/L (73-393) Laboratory results as stated above per my review. Medications Administered Medications (Trade) Dose Ordered Sig/Tristan Route Start Time Stop Time Status Last Admin Dose Admin Losartan Potassium (coZAAR TAB) 100 mg ONE ONCE PO 07/13/17 07:30 07/13/17 07:31 DC 07/13/17 07:50 100 MG Atenolol (Tenormin Tab) 25 mg NOW ONCE PO 07/13/17 07:30 07/13/17 07:31 DC 07/13/17 07:36 25 MG Amiodarone HCl (Cordarone Tab) 200 mg NOW ONCE PO 07/13/17 07:30 07/13/17 07:31 DC 07/13/17 07:36 200 MG ECG Indication: chest pain Rate (beats per minute): 65 Rhythm: normal sinus Findings: no acute ischemic change, no ectopy ED Course 0718: Previous medical records were reviewed. The patient was evaluated in room B10. A complete history and physical examination was performed. 0730: Ordered Cordarone Tab 200 mg PO, Tenormin Tab 25 mg PO, Cozaar Tab 100 mg PO. 1010: On reevaluation, the patient is resting comfortably. I discussed the results and findings with the patient. He verbalized agreement of the treatment plan. He was discharged home. Medical Decision The differential was considered includes acute myocardial infarction, acute coronary syndrome, myocarditis, pericarditis, pericardial effusions/tamponade, esophageal perforation, thoracic aortic dissection, pulmonary embolism, pneumonia, pneumothorax, pancreatitis, shingles, acute cholecystitis, perforated abdominal viscus. This is a 52-year-old male who presents to the ED with a chief complaint of chest pain that started yesterday. It has been off and on for several weeks. The patient states that he was admitted to the hospital on 06/01/17 for the same symptoms. I did review the cardiology note. At that time they did not feel the patient's symptoms were related to a cardiac issue. The patient symptoms have been similar. The patient has seen his PCP Dr. Jack as well who has started him on Prilosec last week. The patient describes his chest discomfort as a burning sensation. His initial blood pressure here today was elevated. He has not taken his morning medications. The patient's physical exam was unremarkable. A twelve-lead EKG reveals a normal sinus rhythm without ectopy or acute injury. CBC is unremarkable, complete metabolic panel was unremarkable , troponin was negative. The patient was told the results the test. He is in no acute distress. He was given his morning amlodipine, atenolol and losartan. These were given by mouth. The patient's blood pressure did improve. He was told the results of the test. The exact cause of his symptoms are unclear. It does not appear to be cardiac in nature based on EKG and cardiac enzymes as well as patient's previous evaluation and admission. The patient is felt to be stable for discharge. Medication Reconcilliation Current Medication List: was personally reviewed by me Blood Pressure Screening Patient's blood pressure: Elevated blood pressure Blood pressure disposition: Referred to PCP Impression Primary Impression: Burning chest pain Scribe Attestation The scribe's documentation has been prepared under my direction and personally reviewed by me in its entirety. I confirm that the note above accurately reflects all work, treatment, procedures, and medical decision making performed by me. Departure Information Dispostion Home / Self-Care Referrals Srinivas Jack MD (PCP) Patient Instructions My [facility] Additional Instructions Follow-up with your doctor for further care and evaluation in 1-2 days. Return to the emergency department for worsening or new symptoms or any concerns. You have been examined and treated today on an emergency basis only. This is not a substitute for, or an effort to provide, complete comprehensive medical care. It is impossible to recognize and treat all injuries or illnesses in a single emergency department visit. It is therefore important that you follow up closely with your doctor. Call as soon as possible for an appointment.
[2017-07-13 10:46] VITALS: BP 147/81; PULSE 60; O2SAT 99
== END 2017-07-13 10:48 | disposition home or self-care (01) ==
LOC: C.EDB 06:53
DX: R07.9 Chest pain, unspecified (principal); I48.91 Unspecified atrial fibrillation; Z79.899 Other long term (current) drug therapy; I10 Essential (primary) hypertension; E11.9 Type 2 diabetes mellitus without complications; E78.00 Pure hypercholesterolemia, unspecified; Z87.891 Personal history of nicotine dependence; Z79.82 Long term (current) use of aspirin; Z79.4 Long term (current) use of insulin; Z79.84 Long term (current) use of oral hypoglycemic drugs

== ENCOUNTER 2017-07-18 10:41 | Emergency (ER) | payer BC ==
[~2017-07-18] VITALS: Ht 188 cm; Wt 128.8 kg
[~2017-07-18 10:41] MED LIST changes: -ACET-1256 PO; +OMEP20CA9 PO
[2017-07-18 11:03] VITALS: TEMP 36.9; Ht 188 cm; Wt 128.8 kg
--- NOTE | 2017-07-18 11:36 | DIAGNOSTIC IMAGING REPORT ---
RIGHT ELBOW 3 VIEWS CLINICAL HISTORY: Right elbow injury. FINDINGS: 3 views of the right elbow are obtained. No prior studies are available for comparison at the time of dictation. The examination is degraded by inability to properly position the patient. The skeletal structures are well mineralized for age. There is a nondistracted radial head fracture with associated joint effusion. No elbow dislocation is seen. Enthesophytes arise from the humeral epicondyles. Degenerative spurring is seen at the triceps insertion. Mild overlying soft tissue edema is noted. IMPRESSION: Nondistracted radial head fracture with associated joint effusion and soft tissue swelling. Electronically signed by: Nikunj Benson M.D. 07/18/2017 11:35 AM Dictated Date/Time: 07/18/2017 11:33 AM
[2017-07-18] MEDS ORDERED: RANI300T2 PO (11:44)
[2017-07-18] MEDS ORDERED: HYDR-5688 PO (12:00)
[2017-07-18 12:14] VITALS: BP 157/87; PULSE 50; O2SAT 95
--- NOTE | 2017-07-18 16:23 | EMERGENCY ROOM VISIT NOTE ---
ED Visit Note First contact with patient: 11:09 CHIEF COMPLAINT: Right Elbow injury and pain HISTORY OF PRESENT ILLNESS: This 52-year-old white male patient struck his elbow on a cart in [facility] last Thursday. He states there was some pain at that time but it was not severe. Pain developed 4 days later. He states there was no additional trauma. Pain is now severe and he is unable to significantly move the elbow. Swelling has developed. There is limitation of motion of the arm because of the pain. The patient did not hear a cracking sound at the time of the injury. The pain is constant, moderately severe but much worse with flexion and extension at the elbow. Right-hand dominant. He denies any wrist pain. No numbness or tingling. No other treatment. His accompanies him today. No prior history of similar discomfort or swelling. No shoulder pain. REVIEW OF SYSTEMS: Head: No headache or injury. Neck: No pain, stiffness, or swelling. Neurological: No headache, new changes in mental status, vertigo , focal weakness, numbness. Respiratory: No cough, shortness of breath, or chest pain. PMH: Significant for hypertension, hypothyroidism, diabetes, elevated cholesterol, GERD Previous surgeries: None Allergies: Penicillin Current medications: Reviewed and filed in patient's chart Family history: Noncontributory. SOCIAL HISTORY: Patient lives at home with his . Employed. Occasional EtOH use. PHYSICAL EXAM: Vital Signs: Reviewed nurse's notes. Afebrile. General: Well- developed, well-nourished, middle-aged white male, in obvious discomfort. No acute distress. Sitting on a bed. Alert and oriented. Skin:Warm and dry with good turgor. No rashes or lesions. No ecchymosis or erythema. Visible edema at the right elbow. The patient is not diaphoretic. No abrasions. Tattoos are present. Musculoskeletal: The elbow is swollen but not deformed on inspection. The range of motion is markedly limited in all directions because of the pain. Full supination and pronation with discomfort. Very limited flexion and extension beyond the 90 position. There is tenderness over the head of the radius. No pain with palpation over the olecranon. Mild discomfort with palpation over the lateral epicondylitis and extensor muscle bellies. Mild discomfort with palpation over the medial epicondyle and flexor muscle bellies as well. Neurologic: Gross sensation is intact across the right arm by soft touch. Radial, median, and ulnar nerve functions are clearly intact. He is able to extend his wrist and extend the thumb. Pinch digital color press operator and opposition are intact. Peripheral pulses are 2+. EMERGENCY DEPARTMENT COURSE: An X-ray of the elbow shows a nondisplaced radial head fracture. Mild sail sign. Films were read by radiology. DIAGNOSIS: Right elbow radial head fracture, nondisplaced, initial visit DISCHARGE INSTRUCTIONS & TREATMENT: Patient and his were educated regarding today's findings. Conservative care measures were discussed. He was placed in a sling for comfort. He should keep this on at all times other than bathing. Gentle wrist and finger range of motion. Patient insists he will go to work. I cautioned him against lifting or pushing anything that may disrupt the positioning of the radial head. Tylenol 6 hours as needed for mild pain. Patient states he is unable to take anti-inflammatories secondary to hypertension. 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 Prescription was provided for [place] 5 mg to be used every 6 hours as needed for more severe pain. Driving precautions were given. I am not sure why his pain did not develop until 5 days post injury. This is quite unusual. Patient will likely benefit from physical therapy starting in about 7-10 days. He will get this arranged from his orthopedist. Call Dr. Salazar on Thursday for follow-up this week. Return to the ED for any other concerns. He was reassured that I do not suspect radial head subluxation, elbow dislocation, or tendon rupture. Problem List Medical Problems: (1) Atrial fibrillation Status: Chronic (2) Benign hypertension Status: Chronic (3) Diabetes mellitus Status: Chronic (4) High cholesterol Status: Chronic Current/Historical Medications Scheduled Amiodarone HCl (Amiodarone HCl), 200 MG PO QAM Aspirin (Aspirin Ec), 81 MG PO DAILY Atenolol (Atenolol), 25 MG PO QAM Atorvastatin (Atorvastatin Calcium), 40 MG PO QPM Glipizide (Glipizide), 5 MG PO QAM Insulin Glargine (Lantus Solostar), 21 UNITS SC DAILY Levothyroxine Sodium (Levothyroxine Sodium), 150 MCG PO QAM Losartan Potassium (Cozaar), 100 MG PO QAM Metformin Hcl (Glucophage), 1,000 MG PO BID Omeprazole (Prilosec), 20 MG PO DAILY Ranitidine Hcl (Zantac), 300 MG PO TID Scheduled PRN Hydrocodone/Acetaminophen 5MG/325MG ([place] 5MG/325MG), 1-2 TABLET PO Q6H PRN for Pain Allergies Coded Allergies: Penicillins (Verified Allergy, Unknown, UNKNOWN CHILD, 07/13/17) Vital Signs Date Time Temp Pulse Resp B/P (MAP) Pulse Ox O2 Delivery O2 Flow Rate FiO2 07/18/17 12:14 50 20 157/87 95 07/18/17 11:03 36.9 52 16 177/84 96 Room Air Departure Information Impression Primary Impression: Fracture of radial head, right, closed Dispostion Home / Self-Care Prescriptions Hydrocodone/Acetaminophen 5MG/325MG ([place] 5MG/325MG) Tab 1-2 TABLET PO Q6H Y for Pain, #15 TAB For Initial Treatment Prov: Darrick Fonseca,P.A. 07/18/17 Referrals Jordan Salazar M.D. Forms HOME CARE DOCUMENTATION FORM, SPECIAL NARCOTICS INSTRUCTIONS, TYLENOL USE, IMPORTANT VISIT INFORMATION Patient Instructions My [facility], ED Fx Radial Head Additional Instructions Use the sling at all times other than bathing Follow up with Dr. Salazar this week-call on Thursday for an appointment Tylenol every 6 hours as needed for mild discomfort Substitute [place] 5 mg every 6 hours as needed for severe pain-no driving Ask your riding teacher about using ibuprofen for a short period of time Return to the ED for any other concerns
== END 2017-07-18 12:15 | disposition home or self-care (01) ==
LOC: C.EDB 10:43 → C.EDD 12:15
DX: S52.124A Nondisplaced fracture of head of right radius, initial encounter for closed fracture (principal); W22.09XA Striking against other stationary object, initial encounter; Y92.512 Supermarket, store or market as the place of occurrence of the external cause; I10 Essential (primary) hypertension; E03.9 Hypothyroidism, unspecified; E11.9 Type 2 diabetes mellitus without complications; E78.00 Pure hypercholesterolemia, unspecified; K21.9 Gastro-esophageal reflux disease without esophagitis; I48.91 Unspecified atrial fibrillation; Z79.4 Long term (current) use of insulin; Z79.899 Other long term (current) drug therapy

== ENCOUNTER 2017-08-03 13:14 | Emergency (ER) | payer BC ==
[~2017-08-03] VITALS: Ht 185.4 cm; Wt 133.3 kg
[~2017-08-03 13:14] MED LIST changes: -GLC5 PO; +HYDR-5688 PO; -LOSA100T65 PO; -LPT40 PO; +RANI300T2 PO; -TNR25 PO
[2017-08-03 13:15] VITALS: TEMP 36.6; Ht 185.4 cm; Wt 133.3 kg
[2017-08-03] MEDS ORDERED: KETOROLAC TROMETHAMINE 60 MG/2 ML VIAL IM STA (13:28)
[2017-08-03] MEDS ORDERED: DIAZEPAM 5MG TAB PO STA (13:28)
[2017-08-03] MEDS ORDERED: PROMETHAZINE HCL INJ 12.5 MG in SODIUM CHLORIDE 0.9% 50ML 50 ML IV STA (13:31)
[2017-08-03] MEDS ORDERED: KETOROLAC TROMETHAMINE 30 MG/ML VIAL IV STA (13:31)
[2017-08-03] MEDS ORDERED: GLIP5TAB3 PO (13:43)
--- NOTE | 2017-08-03 15:23 | DIAGNOSTIC IMAGING REPORT ---
L-SPINE MIN 4 VIEWS ROUTINE HISTORY: Pain low back pain, spasms COMPARISON: None. FINDINGS: There is no fracture. No subluxation. Moderate degenerative disc changes throughout. Moderate reactive osteophytic change. IMPRESSION: Moderate degenerative change. No acute process. The above report was generated using voice recognition software. It may contain grammatical, syntax or spelling errors. Electronically signed by: Kalpesh Segundo M.D. 08/03/2017 3:21 PM Dictated Date/Time: 08/03/2017 3:21 PM
[2017-08-03] MEDS ORDERED: DIAZEPAM 5MG TAB PO ONE (15:30)
[2017-08-03] MEDS ORDERED: CYCL10TA6 PO (15:51)
[2017-08-03] MEDS ORDERED: NAPR-1169 PO (15:51)
--- NOTE | 2017-08-03 15:51 | EMERGENCY ROOM VISIT NOTE ---
History First contact with patient: 13:18 Chief Complaint: BACK PAIN Stated Complaint: BACK PAIN History of Present Illness The patient is a 52 year old male who presents to the Emergency Room with complaints of low back pain. The patient states that he was playing with his granddaughter yesterday and felt his back "catch." He states that he has had progressively worsening pain since then. He developed severe, 10/10 pain today and called 911. He received pain medication en route and now reports that his pain is a 6/10 at rest and is still a 10/10 with any movement. He saw a chiropractor this morning the back. He does report a history of back problems and has seen a chiropractor in the past for this. The patient has difficulty walking due to pain in the back. He denies urinary symptoms, bowel/bladder incontinence, saddle anesthesias/paresthesias, radiation of the pain into the legs, numbness or weakness of the legs, nausea/vomiting or abdominal pain. He denies any chest pain or shortness of breath. Review of Systems A complete 10 point review of systems was reviewed with the patient with pertinent positives and negatives as per history of present illness. All else were negative. Past Medical/Surgical History Medical Problems: (1) Atrial fibrillation (2) Benign hypertension (3) Diabetes mellitus (4) High cholesterol (5) Left Hip DJD (6) Left Hip DJD Family History Blood clots Social History Smoking Status: Former Smoker Alcohol Use: occasionally Drug Use: cocaine Marital Status: Housing Status: lives with friends Occupation Status: employed Current/Historical Medications Scheduled Amiodarone HCl (Amiodarone HCl), 200 MG PO QAM Atenolol (Atenolol), 25 MG PO QAM Atorvastatin (Atorvastatin Calcium), 40 MG PO QPM Cyclobenzaprine Hcl (Flexeril), 10 MG PO TID Glipizide (Glipizide), 5 MG PO QAM Glipizide (Glucotrol), 15 MG PO QPM Insulin Glargine (Lantus Solostar), 21 UNITS SC HS Levothyroxine Sodium (Levothyroxine Sodium), 150 MCG PO QAM Losartan Potassium (Cozaar), 100 MG PO QAM Metformin Hcl (Glucophage), 1,000 MG PO BID Naproxen (Naprosyn), 500 MG PO BID Omeprazole (Prilosec), 20 MG PO DAILY Ranitidine Hcl (Zantac), 300 MG PO TID Physical Exam Vital Signs Date Time Temp Pulse Resp B/P (MAP) Pulse Ox O2 Delivery O2 Flow Rate FiO2 08/03/17 16:10 54 18 151/76 96 08/03/17 15:08 51 18 174/84 98 Room Air 08/03/17 13:15 36.6 20 18 198/93 94 Room Air Physical Exam VITALS: Vitals are noted on the nurse's note and reviewed by myself. Vital signs stable. GENERAL: This is a 52-year-old male, uncomfortable appearing, well-developed well-nourished. SKIN: The skin was without rashes. NECK: Supple without nuchal rigidity. HEART: Regular rate and rhythm without murmurs gallops or rubs. LUNGS: Clear to auscultation bilaterally without wheezes, rales or rhonchi. ABDOMEN: Positive bowel sounds x 4. Soft, nontender to palpation. MUSCULOSKELETAL: There is tenderness to palpation across the lumbar region. Full range of motion of bilateral lower extremities. Strength 5/5 in bilateral lower extremities. NEURO: Patient was alert and oriented to person place and time. Normal sensation to light and sharp touch. Deep tendon reflexes 2+ throughout. No focal neurological deficits. Medical Decision & Procedures ER Provider Diagnostic Interpretation: L-SPINE MIN 4 VIEWS ROUTINE HISTORY: Pain low back pain, spasms COMPARISON: None. FINDINGS: There is no fracture. No subluxation. Moderate degenerative disc changes throughout. Moderate reactive osteophytic change. IMPRESSION: Moderate degenerative change. No acute process. Medications Administered Medications (Trade) Dose Ordered Sig/Tristan Route Start Time Stop Time Status Last Admin Dose Admin Diazepam (Valium Tab) 5 mg NOW STAT PO 08/03/17 13:28 08/03/17 13:29 DC 08/03/17 14:03 5 MG Ketorolac Tromethamine (Toradol Inj) 30 mg NOW STAT IV 08/03/17 13:31 08/03/17 13:33 DC 08/03/17 14:03 30 MG Promethazine HCl 12.5 mg/Sodium Chloride 50.5 ml @ 204 mls/hr NOW STAT IV 08/03/17 13:31 08/03/17 13:45 DC 08/03/17 14:02 204 MLS/HR Diazepam (Valium Tab) 5 mg NOW ONCE PO 08/03/17 15:30 08/03/17 15:31 DC 08/03/17 15:32 5 MG ED Course The patient was evaluated as above. Patient was medicated with 30 mg Toradol, 12.5 mg Phenergan and 5 mg Valium by mouth. Lumbar spine x-rays was performed and read by radiology as above. Patient was reevaluated and stated that his pain is now a 2/10, but does still increase with movement. He was given an additional dose of Valium. Patient was reevaluated and states that he does not have any further pain at rest. He does still report discomfort with movement. Discharge instructions were reviewed with the patient. The patient verbalized understanding of my assessment and treatment plan and was discharged home in good condition. Medical Decision Differential diagnosis includes cauda equina syndrome, cord compression, disc herniation, muscle spasm, lumbar strain, epidural abscess, malignancy, transverse myelitis, urinary tract infection, colitis, diverticulitis, kidney stone, among others. The patient is a 52-year-old male who presents today complaining of low back pain. Exam and history are consistent with muscle spasm. Patient was treated with Valium and Toradol with significant improvement of symptoms. Patient does still have some pain with movement. He will be given a prescription for Flexeril and Naprosyn and was encouraged to make a follow-up appointment with his primary care provider. There is no evidence of cauda equina syndrome or cord compression at this time. There is nothing to suggest infection or kidney stone. Patient was given instructions to return for worsening symptoms. Of note, patient was found to be bradycardic throughout exam. The patient reports this is normal for him. Review of his records does show that his heart rate is typically between 50 and 60 bpm. Based on the patient's presentation and work up, I feel the patient is stable for outpatient treatment. The patient was educated to return to the emergency department for any worsening of their current condition or new/concerning symptoms. He will follow up with his PCP. Medication Reconcilliation Current Medication List: was personally reviewed by me Blood Pressure Screening Patient's blood pressure: Elevated blood pressure Blood pressure disposition: Elevated BP felt to be situational Impression Primary Impression: Spasm of lumbar paraspinous muscle Departure Information Dispostion Home / Self-Care Condition GOOD Prescriptions Cyclobenzaprine Hcl (FLEXERIL) 10 Mg Tab 10 MG PO TID for 5 Days, #15 TAB Prov: Lalita Matthews .GUERA 08/03/17 Naproxen (Naprosyn) 500 Mg Tab 500 MG PO BID for 7 Days, #14 TAB Prov: Lalita Matthews PA-C 08/03/17 Referrals Srinivas Jack MD (PCP) Patient Instructions My [facility] Additional Instructions You have been treated in the Emergency Department for Back Pain. You have received pain medicine in the emergency department which impairs your ability to operate a vehicle. It is illegal for you to drive after receiving these medicines. You have been prescribed Flexeril (cyclobenzaprine) 1 tabs orally, three times per day. Do NOT exceed 30 mg (6 tabs) per day. Take your first dose at bedtime as it can make you drowsy. Always take all medications as prescribed. Naprosyn as prescribed. A heating pad can be used over the area for continued soothing relief. You should schedule a follow-up appointment in 2-3 days with your Primary Care Provider for further evaluation and treatment of your back pain. Return to the Emergency Department if your current symptoms worsen despite treatment course outlined above, or if you develop any of the following symptoms : intractable pain despite aforementioned treatment course, loss of control of your bowel or bladder, numbness or tingling in your groin, or development of a fever.
[2017-08-03 16:10] VITALS: BP 151/76; PULSE 54; O2SAT 96
[2017-08-03] MEDS ORDERED: TNR25 PO (19:52)
[2017-08-03] MEDS ORDERED: LPT40 PO (19:52)
[2017-08-03] MEDS ORDERED: LOSA100T65 PO (19:52)
[2017-08-03] MEDS ORDERED: GLC5 PO (20:03)
== END 2017-08-03 16:18 | disposition home or self-care (01) ==
LOC: EDBD 13:14 → C.EDC 13:15
DX: M62.830 Muscle spasm of back (principal); I48.91 Unspecified atrial fibrillation; I10 Essential (primary) hypertension; E11.9 Type 2 diabetes mellitus without complications; E78.00 Pure hypercholesterolemia, unspecified; M16.12 Unilateral primary osteoarthritis, left hip; Z87.891 Personal history of nicotine dependence; Z79.4 Long term (current) use of insulin; Z79.899 Other long term (current) drug therapy

== ENCOUNTER 2017-09-12 16:26 | Inpatient (IN) | payer BC ==
[~2017-09-12] VITALS: Ht 185.4 cm; Wt 117.6 kg
[~2017-09-12 16:26] MED LIST changes: -ASPI81TA28 PO; +GLC5 PO; +GLIP5TAB3 PO; -HYDR-5688 PO; +LOSA100T65 PO; +LPT40 PO; +TNR25 PO
[2017-09-12] MEDS ORDERED: ONDANSETRON INJ 2 MG/ML 2 ML VIAL IV STA (16:33)
[2017-09-12] MEDS ORDERED: GI COCKTAIL PO STA (16:33)
[2017-09-12] MEDS ORDERED: MoRPHine SULFATE 4 MG/ML 1 ML CARP\\VIAL IV STA (16:33)
--- NOTE | 2017-09-12 16:39 | EMERGENCY ROOM VISIT NOTE ---
History Report prepared by Price: Shannon Wagner Under the Supervision of: Dr. Julián Lawson D.O. First contact with patient: 16:26 Stated Complaint: CHEST PAIN History of Present Illness The patient is a 52 year old male who presents to the Emergency Room with complaints of constant central chest pain beginning a couple days ago. The patient states that his pain started to worsen about an hour and a half ago. The patient took an adult Aspirin about an hour and a half ago. Presently, the patient rates his pain as a 4/10. EMS gave the patient three nitroglycerin on their way to the ED which has relieved some of the patient's pain. The patient reports his pain is relieved with putting pressure on his chest. He denies any abdominal pain, nausea, or vomiting. The patient has a history of Rivas"s esophagitis hypertension, high cholesterol, and diabetes. He notes taking "a lot " of Tums over the past couple days. The patient had a heart catheterization at [facility] Dr. Turner-Cardiology two years ago. He also had an echocardiogram and another heart catheterization in May which were unremarkable. Source of History: patient Onset: a couple days ago Position: chest Symptom Intensity: 4/10 Timing: constant Modifying Factors (Worsening): other (nitroglycerin and pressure) Associated Symptoms: + chest pain, No nausea, No vomiting, No abdominal pain Review of Systems See HPI for pertinent positives & negatives. A total of 10 systems reviewed and were otherwise negative. Past Medical & Surgical Medical Problems: (1) Atrial fibrillation (2) Benign hypertension (3) Diabetes mellitus (4) High cholesterol (5) Left Hip DJD (6) Left Hip DJD Family History Blood clots Current/Historical Medications Scheduled Amiodarone HCl (Amiodarone HCl), 200 MG PO QAM Atenolol (Atenolol), 25 MG PO QAM Atorvastatin (Atorvastatin Calcium), 40 MG PO QPM Esomeprazole Magnesium (Nexium), 20 MG PO BID Glipizide (Glipizide), 5 MG PO QAM Glipizide (Glucotrol), 15 MG PO QPM Insulin Glargine (Lantus Solostar), 21 UNITS SC HS Levothyroxine Sodium (Levothyroxine Sodium), 150 MCG PO QAM Losartan Potassium (Cozaar), 100 MG PO QAM Metformin Hcl (Glucophage), 1,000 MG PO BIDM Ranitidine Hcl (Zantac), 300 MG PO TID Scheduled PRN [employer] Hydrox-Simeth (Rolaids Advanced 1000-200-40 mg), Unknown Dose PO DIRECTED PRN for Indigestion Calcium Carbonate (Tums), Unknown Dose PO DIRECTED PRN for Indigestion Allergies Coded Allergies: Penicillins (Verified Allergy, Unknown, UNKNOWN CHILD, 09/12/17) Physical Exam Vital Signs Date Time Temp Pulse Resp B/P (MAP) Pulse Ox O2 Delivery O2 Flow Rate FiO2 09/12/17 17:25 55 20 161/89 95 Nasal Cannula 2.0 09/12/17 17:11 62 24 172/91 96 Room Air 09/12/17 16:35 94 Room Air 09/12/17 16:35 94 Room Air 09/12/17 16:35 94 Room Air 09/12/17 16:35 36.8 58 20 147/80 94 Room Air 09/12/17 16:34 59 Physical Exam GENERAL: Patient is awake, alert, and in no acute distress. Patient is resting comfortably and showing no signs of anxiety EYES: The conjunctivae are clear. The pupils are round and reactive. EARS, NOSE, MOUTH AND THROAT: The nose is without any evidence of any deformity. Mucous membranes are moist tongue is midline NECK: The neck is nontender and supple. RESPIRATORY: Normal respiratory effort is noted there is no evidence of wheezing rhonchi or rales CARDIOVASCULAR: Regular rate and rhythm noted there no murmurs rubs or gallops normal S1 normal S2 GASTROINTESTINAL: The abdomen is soft. Bowel sounds are present in all quadrants. Abdomen is nontender MUSCULOSKELETAL/EXTREMITIES: There is no evidence of gross deformity full range of motion is noted in the hips and shoulders SKIN: There is no obvious evidence of any rash. There are no petechiae, pallor or cyanosis noted. NEUROLOGIC: Patient is awake alert and oriented x3 Medical Decision & Procedures ER Provider Diagnostic Interpretation: Radiology results as stated below per my review and radiologist interpretation: CHEST COMBO ANGIO DISSECTION FINDINGS: The caliber of the thoracic aorta is normal. There is no thoracic aortic dissection or intramural hematoma. Borderline cardiomegaly is noted. There is no pericardial effusion. There is mild coronary artery calcification. No enlarged thoracic lymph nodes are present. There is no pneumothorax or pleural effusion. No pneumomediastinum is identified. Central airways are patent. There is no consolidation to suggest pneumonia. Mild elevation/eventration of the right hemidiaphragm is unchanged. Fatty infiltration of the liver is noted. IMPRESSION: 1. No thoracic aortic dissection. 2. No central pulmonary embolus. 3. No acute intrathoracic findings. 4. Borderline cardiomegaly with mild coronary artery calcification. 5. Fatty liver. Electronically signed by: Darius Barney M.D. CHEST ONE VIEW PORTABLE FINDINGS: Elevation of the right hemidiaphragm is unchanged. There is no pneumothorax or pleural effusion. There is no consolidation to suggest pneumonia. Cardiomediastinal silhouette is stable. Pulmonary vascularity is normal. IMPRESSION: No acute cardiopulmonary findings. Electronically signed by: Darius Barney M.D. Laboratory Results 09/12/17 16:30 Test 09/12/17 16:30 Anion Gap 4.0 mmol/L (3-11) Est Creatinine Clear Calc Drug Dose 136.1 ml/min Estimated GFR () 113.4 Estimated GFR (Non- 97.9 BUN/Creatinine Ratio 17.3 (10-20) Calcium Level 8.6 mg/dl (8.5-10.1) Total Bilirubin 0.6 mg/dl (0.2-1) Direct Bilirubin 0.1 mg/dl (0-0.2) Aspartate Amino Transf (AST/SGOT) 23 U/L (15-37) Alanine Aminotransferase (ALT/SGPT) 42 U/L (12-78) Alkaline Phosphatase 76 U/L (45-117) Total Protein 7.8 gm/dl (6.4-8.2) Albumin 4.1 gm/dl (3.4-5.0) Lipase 151 U/L (73-393) Laboratory results per my review. Medications Administered Medications (Trade) Dose Ordered Sig/Tristan Route Start Time Stop Time Status Last Admin Dose Admin Miscellaneous Medication (Gi Cocktail) 24 ml ONE STAT PO 09/12/17 16:33 09/12/17 16:36 DC 09/12/17 17:23 24 ML Nitroglycerin (Nitroglycerin 2% Oint) 1 inch NOW ONCE EXT 09/12/17 16:45 09/12/17 16:46 DC 09/12/17 17:23 1 INCH Ondansetron HCl (Zofran Inj) 4 mg NOW STAT IV 09/12/17 16:33 09/12/17 16:36 DC 09/12/17 17:04 4 MG Morphine Sulfate (MoRPHine SULFATE INJ) 4 mg NOW STAT IV 09/12/17 16:33 09/12/17 16:36 DC 09/12/17 17:05 4 MG Morphine Sulfate (MoRPHine SULFATE INJ) 4 mg Q15M PRN IV 09/12/17 17:30 09/26/17 17:29 09/12/17 17:31 4 MG Sodium Chloride 1,000 ml @ 80 mls/hr [id number] IV 09/12/17 19:16 10/12/17 19:15 09/13/17 08:09 80 MLS/HR ECG Indication: chest pain Rate (beats per minute): 56 Rhythm: sinus bradycardia Findings: no ectopy, other (No ST segment abnormality ) Comparison ECG Date: 07/13/17 Change: no significant change Change: Prehospital EKst. normal sinus [address] segment elevation in v2 and v3, ST depression in inferior leads. Changes new compared to earlier tracing. 2nd: normal sinus 59 bpm, no ectopy, no acute ST segment abnormality, T-wave inversion in anterior leads, changes new to earlier tracing Second in hospital EKG: sinus bradycardia, 58 bpm, no ectopy, no acute ST abnormality, no change from earlier tracing ED Course 1633: Ordered Morphine Sulfate 4 mg IV, Zofran Inj 4 mg IV, GI Cocktail 24 ml PO. 1642: The patient was evaluated in room A12B. A complete history and physical examination were performed. 1645: Ordered Nitroglycerin 1 inch EXT. 1720: Ordered Lidocaine HCL 20 ml . ROUTE, Maalox Susp 30 ml .ROUTE. 1730: Ordered Morphine Sulfate 4 mg IV. 1754: I discussed the patient's case with Dr. Reza. The patient will be evaluated for further management. Medical Decision Differential diagnosis: Etiologies such as cardiac ischemia, aortic dissection, pulmonary embolism, pneumonia, pneumothorax, musculoskeletal, infections, pericarditis, myocarditis , esophageal rupture, gastrointestinal, as well as others were entertained. Nursing notes reviewed. Additional history is obtained from the prehospital personnel. The prehospital EKGs were reviewed. The patient is a 52-year-old male who has significant risk factors for coronary artery disease who presented to the emergency department for evaluation of chest discomfort. The patient had significant EKG other abnormalities noted on the prehospital EKGs which normalized when he arrived at the emergency department. The patient was treated with aspirin and nitroglycerin. He was also given morphine. On reevaluation he was feeling much better was pain-free. He had a few episodes of pain which continued in the emergency department. He complained of pain that radiated to the back. He had a history of a normal cardiac I thought his condition could be consistent with an aortic dissection. This reason a CT with dissection protocol was ordered. The patient's dissection study did not reveal signs of aortic dissection. He was reevaluated multiple times. I discussed his case with the on-call [facility] hospitalist. At this time he has no elevation in his cardiac biomarkers and his EKG remained stable in the emergency department and did not show the abnormalities noted on the prehospital tracings. The patient was felt to be high risk given his past medical history. Medication Reconcilliation Current Medication List: was personally reviewed by me Blood Pressure Screening Patient's blood pressure: Elevated blood pressure Blood pressure disposition: Referred to PCP (evaluated by hospitalist) Consults Time Called: 1750 Consulting Physician: Dr. Reza Returned Call: [phone] I discussed the patient's case with Dr. Reza. The patient will be evaluated for further management. Impression Primary Impression: Chest pain Additional Impression: Abnormal EKG Scribe Attestation The scribe's documentation has been prepared under my direction and personally reviewed by me in its entirety. I confirm that the note above accurately reflects all work, treatment, procedures, and medical decision making performed by me. Departure Information Dispostion Being Evaluated By Hospitalist Problem Qualifiers Primary Impression: Chest pain Chest pain type: unspecified Qualified Codes: R07.9 - Chest pain, unspecified
[2017-09-12] MEDS ORDERED: NITROGLYCERIN OINT 2% 1GM PACKET EXT ONE (16:45)
[2017-09-12 16:55] LABS: BASO % 0.4 %; BASO ABS # 0.05 K/uL (0-0.2); COMPLETE YES; EOS % 2.4 %; IG% 0.2 %; LYMPH % 28.4 %; MEAN CELL VOLUME 89.1 fL (80-100); MEAN CORPUSCULAR HEMOGLOBIN 30.4 pg (25-34); MEAN CORPUSCULAR HGB CONC 34.1 g/dl (32-36); MEAN PLATELET VOLUME 11.1 fL (7.4-10.4); MONO % 6.8 %; NEUT % 61.8 %; PLATELET COUNT 307 K/uL (130-400); RED BLOOD COUNT 4.94 M/uL (4.7-6.1); WHITE BLOOD COUNT 11.64 K/uL (4.8-10.8)
--- NOTE | 2017-09-12 16:58 | DIAGNOSTIC IMAGING REPORT ---
CHEST ONE VIEW PORTABLE CLINICAL HISTORY: Chest pain. COMPARISON STUDY: Chest CT June 01, 2017 and chest radiograph July 13, 2017. FINDINGS: Elevation of the right hemidiaphragm is unchanged. There is no pneumothorax or pleural effusion. There is no consolidation to suggest pneumonia. Cardiomediastinal silhouette is stable. Pulmonary vascularity is normal. IMPRESSION: No acute cardiopulmonary findings. Electronically signed by: Darius Barney M.D. 09/12/2017 4:57 PM Dictated Date/Time: 09/12/2017 4:56 PM
[2017-09-12 17:04] LABS: PARTIAL THROMBOPLASTIN RATIO 0.9; PROTHROMBIN TIME (PATIENT) 10.5 SECONDS (9.0-12.0)
[2017-09-12] MEDS ORDERED: OPTIRAY 320 IV PRN (17:15)
[2017-09-12 17:19] LABS: ALT/SGPT 42 U/L (12-78); AST/SGOT 23 U/L (15-37); BLOOD UREA NITROGEN 15 mg/dl (7-18); BUN/CREATININE RATIO 17.3 (10-20); CALCIUM 8.6 mg/dl (8.5-10.1); CARBON DIOXIDE 28 mmol/L (21-32); CHLORIDE 104 mmol/L (98-107); GLUCOSE 216 mg/dl (70-99); SODIUM 136 mmol/L (136-145)
[2017-09-12] MEDS ORDERED: ALUMINUM/MAGNESIUM SUSP 30 ML UDC ONE (17:20)
[2017-09-12] MEDS ORDERED: LIDOCAINE HCL 2% VISC SOLN 20 ML UDC ONE (17:20)
[2017-09-12 17:24] LABS: ALKALINE PHOSPHATASE 76 U/L (45-117); CKMB/CK RATIO 2.2 (0-3.0)
[2017-09-12] MEDS ORDERED: MoRPHine SULFATE 4 MG/ML 1 ML CARP\\VIAL IV PRN (17:30)
[2017-09-12] MEDS ORDERED: CALC500C3 PO (17:35)
[2017-09-12] MEDS ORDERED: CAL1CHW4 PO (17:35)
[2017-09-12] MEDS ORDERED: ESOM20CA PO (17:35)
--- NOTE | 2017-09-12 17:42 | DIAGNOSTIC IMAGING REPORT ---
CHEST COMBO ANGIO DISSECTION CLINICAL HISTORY: Mid sternal chest pain. COMPARISON STUDY: Chest CT June 01, 2017. TECHNIQUE: Unenhanced and arterial phase imaging of the chest was performed. Injection of 120 cc of Optiray 320 IV was uneventful. Sagittal and coronal reconstructions were viewed as well as maximal intensity projections on an independent 3-D workstation. FINDINGS: The caliber of the thoracic aorta is normal. There is no thoracic aortic dissection or intramural hematoma. Borderline cardiomegaly is noted. There is no pericardial effusion. There is mild coronary artery calcification. No enlarged thoracic lymph nodes are present. There is no pneumothorax or pleural effusion. No pneumomediastinum is identified. Central airways are patent. There is no consolidation to suggest pneumonia. Mild elevation/eventration of the right hemidiaphragm is unchanged. Fatty infiltration of the liver is noted. IMPRESSION: 1. No thoracic aortic dissection. 2. No central pulmonary embolus. 3. No acute intrathoracic findings. 4. Borderline cardiomegaly with mild coronary artery calcification. 5. Fatty liver. Electronically signed by: Darius Barney M.D. 09/12/2017 5:40 PM Dictated Date/Time: 09/12/2017 5:31 PM
[2017-09-12] MEDS ORDERED: DEXTROSE 50% 50 ML SYR IV PRN (19:30)
[2017-09-12] MEDS ORDERED: GLUCOSE 40% GEL 15 GM TUBE PO PRN (19:30)
[2017-09-12] MEDS ORDERED: GLUCAGON FOR INJ 1 MG VIAL SQ PRN (19:30)
[2017-09-12] MEDS ORDERED: ONDANSETRON INJ 2 MG/ML 2 ML VIAL IV PRN (19:30)
[2017-09-12] MEDS ORDERED: ACETAMINOPHEN 325 MG TAB PO PRN (19:30)
[2017-09-12] MEDS ORDERED: MAGNESIUM HYDROXIDE SUSP 30 ML UDC PO PRN (19:30)
[2017-09-12] MEDS ORDERED: GLUCOSE 10 TABS/TUBE PO PRN (19:30)
[2017-09-12] MEDS ORDERED: ALUMINUM/MAGNESIUM/SIMETH (MAALOX MAX) 30 ML UDC PO PRN (19:30)
[2017-09-12] MEDS ORDERED: ENOXAPARIN 40 MG/0.4 ML SYR SC SCH (21:00)
[2017-09-12 21:05] VITALS: BP 164/84; PULSE 50; TEMP 36.4; O2SAT 98; BMI 37.0
[2017-09-12] MEDS: ATORVASTATIN 40 MG TAB PO SCH (22:06)
[2017-09-12] MEDS: PANTOprazole SOD 40 MG TAB PO SCH (22:06)
[2017-09-12] MEDS: SODIUM CHLORIDE 0.9% 1000ML 1,000 ML IV SCH (22:06)
[2017-09-12] MEDS: RANITIDINE HCL 150 MG TAB PO SCH (22:07)
[2017-09-12] MEDS: INSULIN GLARGINE SOLOSTAR 100 UNITS/ML 3 ML PEN SC SCH (22:11)
[2017-09-12] MEDS: INSULIN ASPART 100 UNITS/ML 3 ML PEN SC SCH (22:12)
[2017-09-12] MEDS ORDERED: IV FLUIDS COMPLETED PRN (22:30)
--- NOTE | 2017-09-12 23:21 | History and Physical ---
History & Physical Date & Time of Service: Sep 12, 2017 at 23:10 Chief Complaint: Chest Pain Primary Care Physician: Srinivas Jack MD History of Present Illness Source: patient, family, clinic records, hospital records This is a 52 year old male with a PMH of insulin dependent DM2, HTN, HLD, hx. of paroxysmal A. Fib, hypothyroidism, Rivas's esophagus and GERD presents with a few day history of intermittent chest pain which worsened prior to arrival. States that the pain was in the center of his chest with some radiation to the back and to the L arm. Upon presentation, CT performed to r/o dissection which was ruled out. Initial cardiac enzymes negative. As per , she states that when he drinks milk or eats eggs he gets more reflux symptoms. Patient states that this pain feels different than reflux pain. States he had a cath in 2013, which showed mild 20-30% disease in the RCA with no intervention needed. Currently, he feels better, no shortness of breath, no edema, no dyspnea on exertion. Past Medical/Surgical History Medical Problems: (1) Atrial fibrillation Status: Chronic (2) Benign hypertension Status: Chronic (3) Diabetes mellitus Status: Chronic (4) High cholesterol Status: Chronic Family History Blood clots Social History Smoking Status: Former Smoker Drug Use: cocaine Marital Status: Occupational Status: employed Multi-Drug Resistant Organisms History of MDRO: No Allergies Coded Allergies: Penicillins (Verified Allergy, Unknown, UNKNOWN CHILD, 09/12/17) Home Medications Scheduled Amiodarone HCl (Amiodarone HCl), 200 MG PO QAM Atenolol (Atenolol), 25 MG PO QAM Atorvastatin (Atorvastatin Calcium), 40 MG PO QPM Esomeprazole Magnesium (Nexium), 20 MG PO BID Glipizide (Glipizide), 5 MG PO QAM Glipizide (Glucotrol), 15 MG PO QPM Insulin Glargine (Lantus Solostar), 21 UNITS SC HS Levothyroxine Sodium (Levothyroxine Sodium), 150 MCG PO QAM Losartan Potassium (Cozaar), 100 MG PO QAM Metformin Hcl (Glucophage), 1,000 MG PO BIDM Ranitidine Hcl (Zantac), 300 MG PO TID Scheduled PRN [employer] Hydrox-Simeth (Rolaids Advanced 1000-200-40 mg), Unknown Dose PO DIRECTED PRN for Indigestion Calcium Carbonate (Tums), Unknown Dose PO DIRECTED PRN for Indigestion Review of Systems Constitutional: No fever, No chills Respiratory: No cough, No sputum, No wheezing, No shortness of breath, No dyspnea on exertion, No dyspnea at rest, No hemoptysis Cardiovascular: + chest pain, No orthopnea, No edema, No palpitations Abdomen: + problem reported (reflux), No pain, No nausea, No vomiting, No diarrhea, No constipation, No GI bleeding Musculoskeletal: No joint pain, No muscle pain Genitourinary - Male: No hematuria, No dysuria, No urinary frequency, No urinary urgency Neurologic: No weakness Psychiatric: No depression symptoms, No anxiety, No insomnia Endocrine: No fatigue Hematologic / Lymphatic: No abnormal bleeding/bruising Integumentary: No rash Allergic / Immunologic: No environmental allergies, No seasonal allergies Physical Exam Vital Signs Date Time Temp Pulse Resp B/P (MAP) Pulse Ox O2 Delivery O2 Flow Rate FiO2 09/12/17 21:05 36.4 50 16 164/84 98 Room Air 09/12/17 20:03 58 18 129/70 96 09/12/17 17:25 55 20 161/89 95 Nasal Cannula 2.0 09/12/17 17:11 62 24 172/91 96 Room Air 09/12/17 16:35 94 Room Air 09/12/17 16:35 94 Room Air 09/12/17 16:35 94 Room Air 09/12/17 16:35 36.8 58 20 147/80 94 Room Air 09/12/17 16:34 59 General Appearance: no apparent distress, + obese Head: normocephalic, atraumatic Eyes: normal inspection ENT: hearing grossly normal Neck: supple Respiratory/Chest: chest non-tender, lungs clear, normal breath sounds, no respiratory distress, no accessory muscle use Cardiovascular: regular rate, rhythm, no edema, no gallop, no JVD, no murmur, normal peripheral pulses Abdomen/GI: normal bowel sounds, non tender, soft Extremities/Musculoskelatal: normal inspection, no calf tenderness, normal capillary refill, no pedal edema, normal range of motion 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, no motor/sensory deficits, alert, normal mood/affect, oriented x 3 Skin: normal color Lymphatic: no adenopathy Diagnostics Laboratory Results Results Past 24 Hours Test 09/12/17 16:30 09/12/17 20:48 Range/Units White Blood Count 11.64 4.8-10.8 K/uL Red Blood Count 4.94 4.7-6.1 M/uL Hemoglobin 15.0 14.0-18.0 g/dL Hematocrit 44.0 42-52 % Mean Corpuscular Volume 89.1 80-100 fL Mean Corpuscular Hemoglobin 30.4 25-34 pg Mean Corpuscular Hemoglobin Concent 34.1 32-36 g/dl Platelet Count 307 130-400 K/uL Mean Platelet Volume 11.1 7.4-10.4 fL Neutrophils (%) (Auto) 61.8 % Lymphocytes (%) (Auto) 28.4 % Monocytes (%) (Auto) 6.8 % Eosinophils (%) (Auto) 2.4 % Basophils (%) (Auto) 0.4 % Neutrophils # (Auto) 7.20 1.4-6.5 K/uL Lymphocytes # (Auto) 3.30 1.2-3.4 K/uL Monocytes # (Auto) 0.79 0.11-0.59 K/uL Eosinophils # (Auto) 0.28 0-0.5 K/uL Basophils # (Auto) 0.05 0-0.2 K/uL RDW Standard Deviation 41.9 36.4-46.3 fL RDW Coefficient of Variation 13.0 11.5-14.5 % Immature Granulocyte % (Auto) 0.2 % Immature Granulocyte # (Auto) 0.02 0.00-0.02 K/uL Prothrombin Time 10.5 9.0-12.0 SECONDS Prothromb Time International Ratio 1.0 0.9-1.1 Activated Partial Thromboplast Time 24.6 21.0-31.0 SECONDS Partial Thromboplastin Ratio 0.9 Sodium Level 136 136-145 mmol/L Potassium Level 4.0 3.5-5.1 mmol/L Chloride Level 104 98-107 mmol/L Carbon Dioxide Level 28 21-32 mmol/L Anion Gap 4.0 3-11 mmol/L Blood Urea Nitrogen 15 7-18 mg/dl Creatinine 0.90 0.60-1.40 mg/dl Est Creatinine Clear Calc Drug Dose 136.1 ml/min Estimated GFR () 113.4 Estimated GFR (Non- 97.9 BUN/Creatinine Ratio 17.3 10-20 Random Glucose 216 70-99 mg/dl Calcium Level 8.6 8.5-10.1 mg/dl Total Bilirubin 0.6 0.2-1 mg/dl Direct Bilirubin 0.1 0-0.2 mg/dl Aspartate Amino Transf (AST/SGOT) 23 15-37 U/L Alanine Aminotransferase (ALT/SGPT) 42 12-78 U/L Alkaline Phosphatase 76 45-117 U/L Total Creatine Kinase 285 39-308 U/L Creatine Kinase MB 6.2 0.5-3.6 ng/ml Creatine Kinase MB Ratio 2.2 0-3.0 Troponin I < 0.015 0-0.045 ng/ml Total Protein 7.8 6.4-8.2 gm/dl Albumin 4.1 3.4-5.0 gm/dl Lipase 151 73-393 U/L Bedside Glucose 226 70-99 mg/dl Diagnostic Radiology CHEST ONE VIEW PORTABLE CLINICAL HISTORY: Chest pain. COMPARISON STUDY: Chest CT June 01, 2017 and chest radiograph July 13, 2017. FINDINGS: Elevation of the right hemidiaphragm is unchanged. There is no pneumothorax or pleural effusion. There is no consolidation to suggest pneumonia. Cardiomediastinal silhouette is stable. Pulmonary vascularity is normal. IMPRESSION: No acute cardiopulmonary findings CHEST COMBO ANGIO DISSECTION CLINICAL HISTORY: Mid sternal chest pain. COMPARISON STUDY: Chest CT June 01, 2017. TECHNIQUE: Unenhanced and arterial phase imaging of the chest was performed. Injection of 120 cc of Optiray 320 IV was uneventful. Sagittal and coronal reconstructions were viewed as well as maximal intensity projections on an independent 3-D workstation. FINDINGS: The caliber of the thoracic aorta is normal. There is no thoracic aortic dissection or intramural hematoma. Borderline cardiomegaly is noted. There is no pericardial effusion. There is mild coronary artery calcification. No enlarged thoracic lymph nodes are present. There is no pneumothorax or pleural effusion. No pneumomediastinum is identified. Central airways are patent. There is no consolidation to suggest pneumonia. Mild elevation/eventration of the right hemidiaphragm is unchanged. Fatty infiltration of the liver is noted. IMPRESSION: 1. No thoracic aortic dissection. 2. No central pulmonary embolus. 3. No acute intrathoracic findings. 4. Borderline cardiomegaly with mild coronary artery calcification. 5. Fatty liver. EKG Sinus bradycardia Otherwise normal ECG No ST-T wave changes noted Impression Assessment and Plan This is a 52 year old male with a PMH of insulin dependent DM2, HTN, HLD, hx. of paroxysmal A. Fib, hypothyroidism, Rivas's esophagus and GERD presents with a few day history of intermittent chest pain Chest Pain r/o ACS no ST-T wave changes noted on EKG concern for ST changes on a previous EKG en route, though those changes not apparent on EKGs from here initial cardiac enzymes negative will observe overnight in tele trend enzymes check echo repeat EKG in AM consult cardiology GERD hx. of Rivas's takes Nexium BID, Zantac BID may be due to reflux or esophagitis may need to consult GI if symptoms persist consider changing Nexium to Prevacid or Dexilant Hx. of Paroxysmal A. Fib continue Amiodarone continue b-glenroy monitor for bradycardia Insulin Dependent DM2 hold oral agents Lantus 10 units BID sliding scale insulin HTN continue Cozaar and atenolol DVT ppx Lovenox FULL CODE Advanced Directives Existing Living Will: No Existing Power of Chief Financial Officer: No VTE Prophylaxis VTE Risk Assessment Done? Y/N: Yes Risk Level: Moderate
[2017-09-12 23:59] VITALS: BP 124/68; PULSE 59; TEMP 36.5; O2SAT 96
[2017-09-13 02:01] LABS: CKMB/CK RATIO 3.3 (0-3.0)
[2017-09-13 04:00] VITALS: BP 161/80; PULSE 55; TEMP 36.7; O2SAT 94
[2017-09-13] MEDS: LEVOTHYROXINE 150 MCG TAB PO SCH (05:49)
[2017-09-13] MEDS ORDERED: PERFLUTREN LIPID MICROSPHERE (DEFINITY) IV ONE (07:26)
[2017-09-13 07:41] VITALS: BP 132/73; PULSE 50; TEMP 36.9; O2SAT 96
[2017-09-13] MEDS: RANITIDINE HCL 150 MG TAB PO SCH ×2 (08:03→20:54)
[2017-09-13] MEDS: PANTOprazole SOD 40 MG TAB PO SCH ×2 (08:03→20:55)
[2017-09-13] MEDS: AMIODARONE 200 MG TAB PO SCH (08:04)
[2017-09-13] MEDS: LOSARTAN POTASSIUM 50 MG TAB PO SCH (08:04)
[2017-09-13] MEDS: INSULIN GLARGINE SOLOSTAR 100 UNITS/ML 3 ML PEN SC SCH ×2 (08:09→21:00)
[2017-09-13] MEDS: SODIUM CHLORIDE 0.9% 1000ML 1,000 ML IV SCH ×2 (08:09→20:13)
[2017-09-13] MEDS: INSULIN ASPART 100 UNITS/ML 3 ML PEN SC SCH ×4 (08:09→21:01)
[2017-09-13] MEDS ORDERED: HEPARIN IV BOLUS 7,000 UNIT in SYRINGE 0 ML IV ONE ×2 (10:05→20:00)
[2017-09-13 10:10] LABS: BASO % 0.5 %; BASO ABS # 0.04 K/uL (0-0.2); EOS % 3.8 %; HEMATOCRIT 40.8 % (42-52); IG% 0.3 %; LYMPH % 27.3 %; MEAN CELL VOLUME 88.7 fL (80-100); MEAN CORPUSCULAR HEMOGLOBIN 29.8 pg (25-34); MEAN PLATELET VOLUME 10.5 fL (7.4-10.4); MONO % 7.4 %; NEUT % 60.7 %; PLATELET COUNT 264 K/uL (130-400); WHITE BLOOD COUNT 7.32 K/uL (4.8-10.8)
[2017-09-13 10:13] LABS: COMPLETE YES; MEAN CORPUSCULAR HGB CONC 33.6 g/dl (32-36)
[2017-09-13 10:18] LABS: PARTIAL THROMBOPLASTIN RATIO 0.9; PROTHROMBIN TIME (PATIENT) 10.7 SECONDS (9.0-12.0)
[2017-09-13] MEDS: HEPARIN 25,000 UNIT/500ML D5W 500 ML IV PRN (11:13)
[2017-09-13] MEDS ORDERED: ASPIRIN 81 MG CHEW PO ONE (11:57)
[2017-09-13 12:00] VITALS: BP 137/69; PULSE 49; TEMP 36.8; O2SAT 93
--- NOTE | 2017-09-13 12:02 | Progress Note ---
Medicine Progress Note Date & Time of Visit: Sep 13, 2017 at 08:36. Subjective Pt was seen and examined Sitting in bed with no distress with at bedside Pt said that he only feels a pressure in his chest now He was walking in the hallway with no distress Denies any chest pain, palpitation, dizziness and SOB Objective Last 8 Hrs Date Time Temp Pulse Resp B/P (MAP) Pulse Ox O2 Delivery O2 Flow Rate FiO2 09/13/17 08:00 Nasal Cannula 2.0 09/13/17 07:41 36.9 50 20 132/73 (92) 96 Room Air 09/13/17 04:00 Nasal Cannula 2.0 09/13/17 04:00 36.7 55 16 161/80 (107) 94 Nasal Cannula 2.0 Physical Exam: General- No acute distress Head- atraumatic Eyes- PERRL, EOMI ENT- oropharynx clear Neck- supple, no JVD Lungs- clear to auscultation Heart- regular rhythm Abdomen- normal bowel sounds, soft Extremities- no calf tenderness Neuro- alert, oriented x 3; PERRL, EOMI Skin- warm & dry Laboratory Results: Last 24 Hours Test 09/12/17 16:30 09/12/17 20:48 09/13/17 01:06 09/13/17 06:31 White Blood Count 11.64 K/uL Red Blood Count 4.94 M/uL Hemoglobin 15.0 g/dL Hematocrit 44.0 % Mean Corpuscular Volume 89.1 fL Mean Corpuscular Hemoglobin 30.4 pg Mean Corpuscular Hemoglobin Concent 34.1 g/dl Platelet Count 307 K/uL Mean Platelet Volume 11.1 fL Neutrophils (%) (Auto) 61.8 % Lymphocytes (%) (Auto) 28.4 % Monocytes (%) (Auto) 6.8 % Eosinophils (%) (Auto) 2.4 % Basophils (%) (Auto) 0.4 % Neutrophils # (Auto) 7.20 K/uL Lymphocytes # (Auto) 3.30 K/uL Monocytes # (Auto) 0.79 K/uL Eosinophils # (Auto) 0.28 K/uL Basophils # (Auto) 0.05 K/uL RDW Standard Deviation 41.9 fL RDW Coefficient of Variation 13.0 % Immature Granulocyte % (Auto) 0.2 % Immature Granulocyte # (Auto) 0.02 K/uL Prothrombin Time 10.5 SECONDS Prothromb Time International Ratio 1.0 Activated Partial Thromboplast Time 24.6 SECONDS Partial Thromboplastin Ratio 0.9 Sodium Level 136 mmol/L Potassium Level 4.0 mmol/L Chloride Level 104 mmol/L Carbon Dioxide Level 28 mmol/L Anion Gap 4.0 mmol/L Blood Urea Nitrogen 15 mg/dl Creatinine 0.90 mg/dl Est Creatinine Clear Calc Drug Dose 136.1 ml/min Estimated GFR () 113.4 Estimated GFR (Non- 97.9 BUN/Creatinine Ratio 17.3 Random Glucose 216 mg/dl Calcium Level 8.6 mg/dl Total Bilirubin 0.6 mg/dl Direct Bilirubin 0.1 mg/dl Aspartate Amino Transf (AST/SGOT) 23 U/L Alanine Aminotransferase (ALT/SGPT) 42 U/L Alkaline Phosphatase 76 U/L Total Creatine Kinase 285 U/L 211 U/L Creatine Kinase MB 6.2 ng/ml 7.0 ng/ml Creatine Kinase MB Ratio 2.2 3.3 Troponin I < 0.015 ng/ml 0.613 ng/ml 1.010 ng/ml Total Protein 7.8 gm/dl Albumin 4.1 gm/dl Lipase 151 U/L Bedside Glucose 226 mg/dl Triglycerides Level 81 mg/dl Cholesterol Level 96 mg/dl HDL Cholesterol 32 mg/dl LDL Cholesterol, Calculated 48 mg/dl VLDL Cholesterol, Calculated 16 mg/dl Cholesterol/HDL Ratio 3.0 Test 09/13/17 06:32 09/13/17 09:02 09/13/17 10:00 09/13/17 10:51 Bedside Glucose 203 mg/dl 249 mg/dl Total Creatine Kinase 169 U/L Creatine Kinase MB 6.7 ng/ml Creatine Kinase MB Ratio 4.0 Troponin I 0.932 ng/ml White Blood Count 7.32 K/uL Red Blood Count 4.60 M/uL Hemoglobin 13.7 g/dL Hematocrit 40.8 % Mean Corpuscular Volume 88.7 fL Mean Corpuscular Hemoglobin 29.8 pg Mean Corpuscular Hemoglobin Concent 33.6 g/dl Platelet Count 264 K/uL Mean Platelet Volume 10.5 fL Neutrophils (%) (Auto) 60.7 % Lymphocytes (%) (Auto) 27.3 % Monocytes (%) (Auto) 7.4 % Eosinophils (%) (Auto) 3.8 % Basophils (%) (Auto) 0.5 % Neutrophils # (Auto) 4.44 K/uL Lymphocytes # (Auto) 2.00 K/uL Monocytes # (Auto) 0.54 K/uL Eosinophils # (Auto) 0.28 K/uL Basophils # (Auto) 0.04 K/uL RDW Standard Deviation 41.8 fL RDW Coefficient of Variation 13.0 % Immature Granulocyte % (Auto) 0.3 % Immature Granulocyte # (Auto) 0.02 K/uL Prothrombin Time 10.7 SECONDS Prothromb Time International Ratio 1.0 Activated Partial Thromboplast Time 24.5 SECONDS Partial Thromboplastin Ratio 0.9 Assessment & Plan Chest Pain Initial troponin was negative 3rd set Troponin peak to 1.01, then trending to 0.9 EKG this morning showed inverted T wave Pt follows with [facility] cardiology group (Consult changed) Case discussed with cardiology dr. Vásquez Starting on Heparin drip and aspirin 81mg Continue atenolol and statin Plan for cardiac cath in am Will keep NPO except meds after midnight LDL at goal Continue monitor in telemetry Echo pending GERD hx. of Rivas's Continue Nexium BID, Zantac BID Hx. of Paroxysmal A. Fib Rate control and on NSR continue Amiodarone continue b-glenroy Stable Insulin Dependent DM2 hold oral agents Lantus 10 units BID sliding scale insulin Check Hba1c HTN continue Cozaar and atenolol stable DVT ppx On heparin drip FULL CODE Consultants: Cardio Current Inpatient Medications: Current Inpatient Medications Medications (Trade) Dose Ordered Sig/Tristan Route Start Time Stop Time Status Last Admin Dose Admin Ioversol (Optiray 320) 100 ml UD PRN IV 09/12/17 17:15 09/16/17 17:14 Morphine Sulfate (MoRPHine SULFATE INJ) 4 mg Q15M PRN IV 09/12/17 17:30 09/26/17 17:29 09/12/17 17:31 4 MG Sodium Chloride 1,000 ml @ 80 mls/hr [id number] IV 09/12/17 19:16 10/12/17 19:15 09/13/17 08:09 80 MLS/HR Acetaminophen (Tylenol Tab) 650 mg Q4H PRN PO 09/12/17 19:30 10/12/17 19:29 09/13/17 05:51 650 MG Al Hydrox/Mg Hydrox/Simethicone (Maalox Max Susp) 15 ml Q4H PRN PO 09/12/17 19:30 10/12/17 19:29 Magnesium Hydroxide (Milk Of Magnesia Susp) 30 ml Q12H PRN PO 09/12/17 19:30 10/12/17 19:29 Ondansetron HCl (Zofran Inj) 4 mg Q6H PRN IV 09/12/17 19:30 10/12/17 19:29 Amiodarone HCl (Cordarone Tab) 200 mg QAM PO 09/13/17 09:00 10/13/17 08:59 09/13/17 08:04 200 MG Atenolol (Tenormin Tab) 25 mg QAM PO 09/13/17 09:00 10/13/17 08:59 09/13/17 08:05 25 MG Atorvastatin Calcium (Lipitor Tab) 40 mg QPM PO 09/12/17 21:00 10/12/17 20:59 09/12/17 22:06 40 MG Insulin Glargine (Lantus Solostar Pen) 10 units BID SC 09/12/17 21:00 10/12/17 20:59 09/13/17 08:09 10 UNITS Levothyroxine Sodium (Synthroid Tab) 150 mcg DAILYBB PO 09/13/17 06:00 10/13/17 06:59 09/13/17 05:49 150 MCG Losartan Potassium (coZAAR TAB) 100 mg QAM PO 09/13/17 09:00 10/13/17 08:59 09/13/17 08:04 100 MG Ranitidine HCl (zANTac TAB) 300 mg BID PO 09/12/17 21:00 10/12/17 20:59 09/13/17 08:03 300 MG Pantoprazole Sodium (Protonix Tab) 40 mg BID PO 09/12/17 21:00 10/12/17 20:59 09/13/17 08:03 40 MG Insulin Aspart (novoLOG ASPART) SLIDING SCALE If C... ACHS SC 09/12/17 21:00 10/12/17 20:59 09/13/17 08:09 4 UNITS Glucose (Glucose 40% Gel) 15-30 GRAMS 15 GRAMS... UD PRN PO 09/12/17 19:30 10/12/17 19:29 Glucose (Glucose Chew Tab) 4-8 Tablets 4 Tabl... UD PRN PO 09/12/17 19:30 10/12/17 19:29 Dextrose (Dextrose 50% 50ML Syringe) 25-50ML OF 50% DW IV FOR... UD PRN IV 09/12/17 19:30 10/12/17 19:29 Glucagon (Glucagon Inj) 1 mg UD PRN SQ 09/12/17 19:30 10/12/17 19:29 Miscellaneous (Iv Fluids Completed) 1 ea PRN PRN N/A 09/12/17 22:30 09/12/18 22:29 Heparin Sodium/ Dextrose 500 ml @ 34 mls/hr [id number] PRN IV 09/13/17 10:05 10/13/17 10:04 09/13/17 11:13 34 MLS/HR
--- NOTE | 2017-09-13 14:20 | ECHOCARDIOGRAM REPORT ---
*NOTICE TO RECEIVING DEMOCRAT AGENCY This information is strictly Confidential and protected under [place] law. [place] law prohibits you from making any further disclosure of this information unless further disclosure is expressly permitted by the written consent of the person to whom it pertains or is authorized by law. A general authorization for the release of medical or other information is not sufficient for this purpose. Hospital accepts no responsibility if the information is made available to any other person, INCLUDING THE PATIENT. Interpretation Summary * Name: CONCHITA GAMEZ Study Date: 09/13/2017 06:47 AM BP: 161/80 mmHg * Patient Location: .2T\S\S238\S\1 HR: 52 * : 1965 (M/d/yyyy) Gender: Male Height: 72 in * Age: 52 yrs Ethnicity: CA Weight: 288 lb * Ordering Physician: Marshall Vyas * Referring Physician: Self, Referred * Performed By: Viraj Lopez RDCS * * Reason For Study: Chest pain * BSA: 2.5 m2 * -- Conclusions -- * Left ventricular systolic function is normal. * No regional wall motion abnormalities noted. * Ejection Fraction = 60-65%. * There is mild concentric left ventricular hypertrophy. * There is mild mitral regurgitation. * There is mild tricuspid regurgitation. Procedure Details * A complete two-dimensional transthoracic echocardiogram was performed (2D, M-mode, Doppler and color flow Doppler). * The study was technically difficult, but visualization was adequate with the administration of Definity ultrasound contrast. * A contrast injection of Definity was performed to improve assessment of LV function. * Contrast was injected into an intravenous site in the left arm. * One vial of Definity ultrasound contrast was diluted in normal saline to a total volume of 10 ml. A total of '4' ml of solution was administered during imaging. * Lot # [id number] of Definity utilized for procedure. * Expiration date . * The attending nurse who injected the contrast agent was HALI Irwin. Left Ventricle * The left ventricle is normal in size. * There is mild concentric left ventricular hypertrophy. * Ejection Fraction = 60-65%. * Left ventricular systolic function is normal. * No regional wall motion abnormalities noted. Right Ventricle * The right ventricle is grossly normal size. * The right ventricular systolic function is normal as assessed by tricuspid annular plane systolic excursion (TAPSE) (normal >1.5 cm). Atria * The left atrium is mildly dilated. * Right atrium not well visualized. Mitral Valve * The mitral valve anatomy is normal. * There is no mitral valve stenosis. * There is mild mitral regurgitation. Tricuspid Valve * The tricuspid valve is not well visualized, but is grossly normal. * There is mild tricuspid regurgitation. Aortic Valve * The aortic valve is normal in structure and function. * No hemodynamically significant valvular aortic stenosis. * No aortic regurgitation is present. Pulmonic Valve * The pulmonary valve is not well seen, but the Doppler examination is normal without significant regurgitation or stenosis. Great Vessels * The aortic root is normal size. * The pulmonary is not well visualized. Pericardium/Pleural * There is no pericardial effusion. Great Vessels * Normal inferior vena cava size and collapsability with sniff indicates a normal right atrial pressure of 3 mmHg MMode 2D Measurements and Calculations IVSd 1.2 cm IVSs 1.8 cm LVIDd 5.3 cm LVIDs 3.3 cm LVPWd 1.2 cm LVPWs 1.8 cm IVS/LVPW 1.0 FS 37.9 % EDV(Teich) 137.5 ml ESV(Teich) 44.7 ml EF(Teich) 67.5 % EDV(cubed) 152.0 ml ESV(cubed) 36.5 ml EF(cubed) 76.0 % % IVS thick 45.0 % % LVPW thick 54.5 % LV mass(C)d 255.6 grams LV mass(C)dI 102.8 grams/m\S\2 LV mass(C)s 240.0 grams LV mass(C)sI 96.5 grams/m\S\2 SV(Teich) 92.9 ml SI(Teich) 37.3 ml/m\S\2 SV(cubed) 115.6 ml SI(cubed) 46.5 ml/m\S\2 Ao root diam 3.2 cm Ao root area 8.2 cm\S\2 ACS 2.4 cm LA dimension 4.9 cm asc Aorta Diam 3.2 cm LA/Ao 1.5 LVOT diam 2.2 cm LVOT area 3.7 cm\S\2 LVAd ap4 32.7 cm\S\2 LVLd ap4 7.9 cm EDV(MOD-sp4) 114.8 ml EDV(sp4-el) 115.2 ml LVAs ap4 19.9 cm\S\2 LVLs ap4 7.6 cm ESV(MOD-sp4) 43.0 ml ESV(sp4-el) 44.4 ml EF(MOD-sp4) 62.6 % EF(sp4-el) 61.5 % LVAd ap2 26.2 cm\S\2 LVLd ap2 7.3 cm EDV(MOD-sp2) 77.9 ml EDV(sp2-el) 80.4 ml LVAs ap2 15.7 cm\S\2 LVLs ap2 6.7 cm ESV(MOD-sp2) 29.9 ml ESV(sp2-el) 31.1 ml EF(MOD-sp2) 61.6 % EF(sp2-el) 61.4 % LVLd %diff -8.59 % EDV(MOD-bp) 98.4 ml LVLs %diff -12.56 % ESV(MOD-bp) 37.5 ml EF(MOD-bp) 61.9 % SV(MOD-sp4) 71.8 ml SI(MOD-sp4) 28.9 ml/m\S\2 SV(MOD-sp2) 48.0 ml SI(MOD-sp2) 19.3 ml/m\S\2 SV(MOD-bp) 61.0 ml SI(MOD-bp) 24.5 ml/m\S\2 SV(sp4-el) 70.8 ml SI(sp4-el) 28.5 ml/m\S\2 SV(sp2-el) 49.3 ml SI(sp2-el) 19.8 ml/m\S\2 Doppler Measurements and Calculations MV E max daysi 103.5 cm/sec MV A max daysi 61.7 cm/sec MV E/A 1.7 MV dec time 0.23 sec Ao V2 max 149.7 cm/sec Ao max PG 9.0 mmHg Ao max PG (full) 1.3 mmHg Ao V2 mean 107.4 cm/sec Ao mean PG 5.1 mmHg Ao mean PG (full) 1.1 mmHg Ao V2 VTI 35.3 cm JERICA(I,A) 3.8 cm\S\2 JERICA(I,D) 3.8 cm\S\2 JERICA(V,A) 3.4 cm\S\2 JERICA(V,D) 3.4 cm\S\2 LV V1 max PG 7.7 mmHg LV V1 mean PG 4.0 mmHg LV V1 max 138.8 cm/sec LV V1 mean 90.9 cm/sec LV V1 VTI 35.8 cm SV(Ao) 289.7 ml SI(Ao) 116.5 ml/m\S\2 SV(LVOT) 133.1 ml SI(LVOT) 53.5 ml/m\S\2 PA V2 max 98.8 cm/sec PA max PG 3.9 mmHg TR max daysi 262.8 cm/sec
--- NOTE | 2017-09-13 15:41 | CARDIOLOGY CONSULTATION ---
DATE OF CONSULTATION: 09/13/2017 PERTINENT HISTORY: Mr. Jay is a 52-year-old white male, admitted yesterday with unstable angina pectoris. This consultation was ordered to assist in his management. Of note, the patient typically follows with Dr. Turner, in the outpatient setting. The patient was in his usual state of health until approximately May. At that time, he began to develop a chest pain syndrome which occurred with physical activity or at rest. He described a heaviness in the substernal region with associated diaphoresis. There is no dyspnea, nausea, or vomiting. The patient explains this occurred almost daily. 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 He has been taking Tums regularly along with his acids and H2 blockers. Yesterday, at approximately 4:00 p.m., the patient had the onset of substernal chest discomfort and associated diaphoresis. However, this became persistent prompting him to present to the Emergency Room for further care. He eventually received a sublingual nitroglycerin and intravenous metoprolol with resolution of the symptoms. Total duration of his discomfort was 4 hours, according to his report. Currently, the patient is resting comfortably without complaints. PAST MEDICAL HISTORY: 1. Coronary artery disease - 20-30% mid RCA, and luminal irregularities of the left system, May 2014. 2. Normal left ventricular systolic function - May 2017. 3. Paroxysmal atrial fibrillation. 4. Hypertension. 5. Hypercholesterolemia. 6. Diabetes mellitus. 7. Obesity. 8. Obstructive sleep apnea. 9. Hypothyroidism. 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 MEDICATIONS: 1. Heparin drip. 2. Atenolol 25 mg daily. 3. Amiodarone 200 mg a day. 4. Cozaar 100 mg daily. 5. Atorvastatin 40 mg at bedtime. 6. Synthroid 0.15 mg daily. 7. Lantus insulin 10 units b.i.d. 8. Zantac 300 mg b.i.d. 9. Protonix 40 mg b.i.d. ALLERGIES: PENICILLIN. SOCIAL HISTORY: The patient is and lives with his . He works at [employer]. Does not use tobacco. Alcohol use is rare. FAMILY HISTORY: No early coronary artery disease. REVIEW OF SYSTEMS: Negative except for that described above. PHYSICAL EXAMINATION: GENERAL: This is a well-developed, well-nourished white male in no acute distress. VITAL SIGNS: Blood pressure 130/70 with a regular pulse of 50. Respiratory rate is 20 and the patient is afebrile at 36.8 degrees Celsius. Saturation is 93% on 2 liters nasal cannula. NECK: Supple with full carotid upstrokes. There are no carotid bruits. Jugular venous pressure is flat at 90 degrees. There is no thyromegaly. CARDIOVASCULAR: Reveals a regular rhythm with normal S1 and S2. Heart sounds are distant. No obvious murmurs. LUNGS: Clear without rales, rhonchi, or wheezes. ABDOMEN: Obese without bruits. EXTREMITIES: Reveal intact radial artery and posterior tibial pulses bilaterally. There is no peripheral edema. DATA: CBC notes hemoglobin of 15.0, hematocrit 44.0, white count 1.6, and platelet count 307,000. Electrolytes note a sodium of 136, potassium 4.0, chloride 104, bicarbonate 28, BUN 15, creatinine 0.9, glucose 226. Troponin I level is less than 0.015 on presentation, but increased to 0.613, 1.01, and 0.93, subsequently. Initial CK was 285 with an MB fraction of 6.2. Followup values were 211 and 169 with MB fractions of 7.0 and 6.7. LDL cholesterol is 48 and HDL 32. IMAGING DATA: CT scan of the chest showed no evidence of aortic dissection or pulmonary embolism. Chest x-ray shows no acute disease. Initial EKG notes sinus bradycardia without abnormalities. Follow up EKG notes sinus bradycardia with an anterolateral T-wave abnormality. IMPRESSION: Mr. Jay was admitted with unstable angina pectoris. He has had a minor elevation in his troponin and now demonstrates anterior T-wave changes. He is stabilized on intravenous heparin. Would proceed with diagnostic cardiac catheterization in the morning. The patient and his understand and agree to proceed. PLAN: 1. Agree with intravenous heparin. 2. Continue all cardiac medications. 3. Cardiac catheterization tomorrow with either Dr. Turner or Dr. Gutiérrez.
[2017-09-13 15:54] VITALS: BP 116/64; PULSE 51; TEMP 36.9; O2SAT 96
[2017-09-13 18:01] LABS: PARTIAL THROMBOPLASTIN RATIO 1.3
[2017-09-13 19:04] VITALS: BP 160/80; PULSE 56; TEMP 36.9; O2SAT 95
[2017-09-13] MEDS: ATORVASTATIN 40 MG TAB PO SCH (20:55)
[2017-09-13] MEDS ORDERED: INSULIN GLARGINE SOLOSTAR 100 UNITS/ML 3 ML PEN SC SCH ×2 (21:00)
[2017-09-13 23:01] VITALS: BP 158/82; PULSE 58; TEMP 36.7; O2SAT 99
[2017-09-14] VITALS (15 sets, daily range): BP systolic 141–191; BP diastolic 74–103; PULSE 50–63; TEMP 36.5–37; O2SAT 92–97; Ht 185.4 cm; Wt 117.6 kg
[2017-09-14] MEDS: HEPARIN 25,000 UNIT/500ML D5W 500 ML IV PRN (00:26)
[2017-09-14 02:19] LABS: PARTIAL THROMBOPLASTIN RATIO 2.1
[2017-09-14] MEDS: LEVOTHYROXINE 150 MCG TAB PO SCH (05:52)
[2017-09-14] MEDS ORDERED: MIDAZOLAM HCL 1 MG/ML 2ML VIAL ONE ×2 (06:42→07:58)
[2017-09-14] MEDS ORDERED: NITROGLYCERIN/D5W 100MCG/ML 20ML SYR ONE (06:43)
[2017-09-14] MEDS ORDERED: FENTANYL CITRATE INJ 50 MCG/1 ML 2 ML VIAL ONE (06:43)
[2017-09-14] MEDS ORDERED: NiCARDipine HCL INJ 2.5 MG/ML 10 ML AMP ONE (06:43)
[2017-09-14] MEDS ORDERED: HEPARIN SOD (PORCINE) 1000 UNIT/ML 10 ML VIAL ONE ×2 (06:43→08:21)
[2017-09-14 07:06] LABS: HEMATOCRIT 39.7 % (42-52); MEAN CORPUSCULAR HEMOGLOBIN 30.4 pg (25-34); MEAN CORPUSCULAR HGB CONC 34.5 g/dl (32-36); MEAN PLATELET VOLUME 11.1 fL (7.4-10.4); PLATELET COUNT 239 K/uL (130-400); RED BLOOD COUNT 4.51 M/uL (4.7-6.1); WHITE BLOOD COUNT 6.38 K/uL (4.8-10.8)
[2017-09-14 07:16] LABS: PARTIAL THROMBOPLASTIN RATIO 1.7
--- NOTE | 2017-09-14 07:17 | Procedure Note ---
Pre-Mod Sedation Assessment General Date of Moderate Sedation: Sep 14, 2017. Vital Signs: Vital Signs Past 12 Hours Date Time Temp Pulse Resp B/P (MAP) Pulse Ox O2 Delivery O2 Flow Rate FiO2 09/14/17 04:00 Room Air 09/14/17 03:39 36.7 56 19 160/89 (112) 97 Room Air 09/14/17 00:00 Room Air 09/13/17 23:01 36.7 58 20 158/82 (107) 99 Room Air 09/13/17 20:00 Room Air Review Cardiovascular: regular rate, rhythm, no murmur Abdomen: non tender, soft Lungs: lungs clear Pre-Sedation Airway Assessment Oral Cavity: WNL Short Thick Neck: No Hx of Sleep Apnea: Yes Smoking Status: Former Smoker Procedure Planning Contraindications-for Mod Sed: None Yes Notes The planned sedation has been discussed with the patient and consent obtained. I have identified the patient, determined the appropriateness of sedation and have assessed the patient immediately prior to the procedure. All medicine(s) and interventions are by my order.
[2017-09-14] MEDS ORDERED: ASPIRIN 81 MG CHEW ONE (07:27)
[2017-09-14 07:41] LABS: BUN/CREATININE RATIO 13.8 (10-20); CALCIUM 8.1 mg/dl (8.5-10.1); CREATININE 0.79 mg/dl (0.60-1.40)
--- NOTE | 2017-09-14 08:28 | Cardiac Catheterization ---
Procedure Note Procedure Date Sep 14, 2017. Pre-Procedure Diagnosis Non STEMI AUC Score 8 Post-Procedure Diagnosis Severe CAD Procedure(s) Performed Coronary Angiography, Left Heart Cath [facility] Dr. Turner Patient Care Director(s) Dixie Estimated Blood Loss < 30 ml Medication(s) Aspirin, Fentanyl, Heparin, Nicardipine, Versed, Lidocaine 1% Summary of Findings Coronary angiography: 1. Left main coronary artery: The LMCA is short in length. No angiographic evidence of CAD. 2. Left anterior descending: The LAD is a large caliber vessel. Proximal LAD 80-90% stenosis with BINA 3 flow. Mid LAD 30%. Very small caliber diagonal vessels. Large septal home care nurse. 2. Circumflex: The circumflex is a very large caliber and dominant vessel. Mid circumflex 20%. Small caliber OM1 large caliber OM [address] with [address] branch[address] Small PL 1 followed by a medium caliber PL 2. Large caliber PDA with proximal 50-60% stenosis. 3. Right coronary artery: The RCA is small non dominant. Mid RCA 20%. 4. Ramus intermedius: Medium caliber ramus intermedius without significant CAD. Left heart catheterization: 1. No aortic stenosis. 2. Left ventriculography was not performed as recent echo was done. 3. Mildly elevated LVEDP; 14 mmHg. Sedation start time: 7:32 a.m. Sedation end time: 7:57 a.m. Procedural details: 1. Coronary angiography was performed via the right radial artery without known complication. 2. LMCA was selectively engaged with use of 6 Mongolian AL2 diagnostic catheter. JR4 catheter was used for selective coronary angiography of the RCA. Impression: 1. Severe proximal LAD CAD. 2. Nonobstructive CAD involving the circumflex PDA, mid circumflex, mid LAD, and mid non-dominant RCA. Plan: 1. Images were reviewed with Dr. Gutiérrez of interventional Cardiology who plans PCI of proximal LAD. 2. Risk factor modification. Hemodynamics Rest Ao: 136/69 Final Ao: 149/75 LV: 112/6/14 Recommendations PCI without planned CABG Specimens None Radiation Exposure (mGy) 1804 mGy. Fluoro time 9 min. Contrast (mls) 75 ml Visipaque Procedural Complication(s) None Disposition Remains in lab tech for PCI. [facility] Data Cardiac Status Clinical evaluation leading to the procedure CAD Presntation: Non STEMI Anginal Classification: CCS IV Heart Failure: No Cardiogenic Shock w/in 24Hrs: No Cardiac Arrest w/in 24Hrs: No Imaging studies past 6 months: Yes (Echo) Stress studies past 6 months: No Standard Exercise Stress Test: No Stress Echocardiogram: No Stress Testing w/SPECT MPI: No Cardiac CTA: No Coronary Anatomy Dominant: Left Left Main (% Stenosis): Normal LAD (% Stenosis): Proximal (80-90%), Mid (30%) Circumflex (% Stenosis): Mid (20%) OM1 (% Stenosis): Normal OM2 (% Stenosis): Normal L PL1 (% Stenosis): Normal L PL2 (% Stenosis): Normal L PDA (% Stenosis): Proximal (50-60%) RCA (% Stenosis): Mid (20%) Ramus (% Stenosis): Normal Left Ventricular Angiography EF (%): n/a Diagnostic Physician's Name: Ector Turner MD Status: Elective Closure Device Percutaneous Entry Location: Radial Closure Device: Radial Band Recommendations: PCI without planned CABG
[2017-09-14] MEDS: SODIUM CHLORIDE 0.9% 1000ML 1,000 ML IV SCH ×2 (08:46→21:14)
[2017-09-14] MEDS: ASPIRIN 81 MG CHEW PO SCH (08:53)
--- NOTE | 2017-09-14 08:56 | Procedure Note ---
Post-Mod Sedation Assessment General Date of Moderate Sedation Sep 14, 2017. Vital Signs: Vital Signs Past 12 Hours Date Time Temp Pulse Resp B/P (MAP) Pulse Ox O2 Delivery O2 Flow Rate FiO2 09/14/17 04:00 Room Air 09/14/17 03:39 36.7 56 19 160/89 (112) 97 Room Air 09/14/17 00:00 Room Air 09/13/17 23:01 36.7 58 20 158/82 (107) 99 Room Air Review - Discharge Criteria Vital Signs Stable: Yes Alert/Oriented/Conversant: Yes Returned to Baseline Mental St: Yes Nausea Absent/Minimal: Yes Pain/Discomfort/Absent/Minimal: Yes Normal/Baseline Respirations: Yes Active Bleeding?: No Pt Received D/C Instructions: N/A Prescriptions Given: None Specific Proced. D/C Criteria Distal Pulses Present (Cardiac: Yes Groin site assessed-Card Cath: N/A Voided Prior To Discharge: N/A Discharged Patients Adult Escort/Transportation: Yes
[2017-09-14] MEDS ORDERED: CLOPIDOGREL BISULFATE 300 MG TAB PO ONE (09:00)
[2017-09-14] MEDS: CLOPIDOGREL BISULFATE 75 MG TAB PO SCH (09:00)
[2017-09-14] MEDS ORDERED: SODIUM CHLORIDE 0.9% 1000ML 1,000 ML IV SCH (09:00)
[2017-09-14] MEDS ORDERED: ACETAMINOPHEN 325 MG TAB PO PRN (09:00)
--- NOTE | 2017-09-14 09:04 | Cardiac Catheterization ---
Procedure Note Procedure Date Sep 14, 2017. Pre-Procedure Diagnosis Non STEMI AUC Score 8 Post-Procedure Diagnosis Severe CAD Procedure(s) Performed Drug Eluting Stent Purchasing Analyst hazel Account Receivable Clerk(s) alina Estimated Blood Loss 15 Medication(s) Clopidogrel, Fentanyl, Heparin, Nitroglycerin, Versed Summary of Findings Indication: NSTEMI Access: 6Fr right radial artery Catheters: EBU 3.5 guide Findings: For full details of patient's coronary angiography please see cath report dictated by Dr. Turner. Briefly, patient found to have a new 80-90% proximal LAD stenosis. Decision made to proceed with PCI. -- PCI -- Antithrombotic therapy: Heparin, Clopidogrel Procedure: LM cannulated with EBU 3.5 guide BMW wire passed across lesion into distal vessel Prowater wire placed into circumflex LAD lesion predilated with 2.5 compliant balloon Dilated lesion stented with 3.0 x 18 Xience CARLA IVUS confirmed stent placed at ostium of LAD. Stent well-apposed but under- expanded. Stent post-dilated with 3.5 and 4.0 noncompliant balloons IC vasodilators administered for spasm Post procedure BINA 3 flow, stent well expanded with minimal residual stenosis and no apparent cardiac complications. Arterial Closure: TR Band Summary: 1. Successful PCI of proximal LAD with 3.0 x 18 Xience CARLA (post-dilated with 4.0 NC balloon). Recommendations: To PCU for continued monitoring Can discontinue heparin infusion Loaded with Clopidogrel 600 mg in superintendent geophysical laboratory Continue dual-antiplatelet therapy with ASA/Clopidogrel for 1 year Continue statin, antihypertensives, and ASCVD risk factor modification Consult cardiac Rehab Hemodynamics Rest Ao: 136/69/98 Final Ao: 163/79/113 LV: 112/14 Recommendations PCI without planned CABG Specimens None Radiation Exposure (mGy) 5051 Contrast (mls) 220 Fluids (cc crystalloids) 130 Drains None Anesthesia Moderate Procedural Complication(s) None Disposition PCU [facility] Data Cardiac Status Clinical evaluation leading to the procedure CAD Presntation: Non STEMI Anginal Classification: CCS IV Heart Failure: No, NYHA Class: CCS I Cardiogenic Shock w/in 24Hrs: No Cardiac Arrest w/in 24Hrs: No Imaging studies past 6 months: Yes Stress studies past 6 months: No Diagnostic Physician's Name: Ector Turner MD Status: Elective Closure Device Percutaneous Entry Location: Radial Closure Device: Radial Band Recommendations: PCI without planned CABG PCI Indication: PCI for high risk Non-STEMI Lesion Segment Name: Proximal LAD Culprit Artery: Yes Stenosis Prior to Rx (%): 80-90 Chronic Total Occlusion: No IVUS: Yes FFR: No Pre-Procedure BINA Flow: 3 Previously Treated Lesion: No Lesion Complexity: Non-High/Non-C Lesion Length (mm): 15 Thrombus Present: Yes Bifurcation Lesion: No Guidewire Across Lesion: Yes Guidewire: Stenosis Post-Procedure (%): 0 Post-Procedure BINA Flow: 3 Device(s) Deployed: Yes Intraprocedure Events Significant Dissection: No Perforation: No
[2017-09-14 09:10] LABS: ESTIMATED AVERAGE GLUCOSE 217 mg/dl; HA1C FLAG Normal (Normal)
--- NOTE | 2017-09-14 09:10 | CARDIOLOGY PROGRESS NOTE ---
DATE: 09/14/2017 TIME: 08:37 a.m. SUBJECTIVE: Mr. Jay has not had any further chest pain. He denies shortness of breath, syncope, near syncope, or palpitations. He did describe his angina prior to presentation as a burning sensation that radiated to his back and down his left arm. He had diagnostic coronary angiography performed earlier today. OBJECTIVE: VITAL SIGNS: Temperature 36.7 degrees, heart rate 56 beats per minute, respiratory rate 19, and blood pressure 160/89 mmHg. His blood pressure has been mostly elevated. Oxygen saturation is 97% on room air. Weight 130.1 kg. GENERAL: No acute distress. He is alert and oriented. HEENT: Anicteric sclerae. NECK: Thick. CARDIAC EXAM: No ventricular heave. Bradycardic but regular. Normal S1 and S2. There were no audible murmurs, rubs or gallops. LUNGS: Clear to auscultation bilaterally without wheezes, rales or rhonchi. ABDOMEN: Obese, soft, nontender, and nondistended. EXTREMITIES: No cyanosis or edema, 2+ right radial pulse. 2+ dorsalis pedis pulses bilaterally. No palpable cords. PSYCHIATRIC: Affect appears appropriate. MEDICATIONS: Include aspirin 81 mg daily, Lipitor 40 mg at bedtime, atenolol 25 mg daily, amiodarone 200 mg once daily, heparin drip per protocol, losartan 100 mg daily, and Protonix 40 mg p.o. b.i.d. LABORATORY DATA: White blood cell count 6.3, hemoglobin 13.7, and platelets 239. Sodium 138, potassium 4, BUN 11, creatinine 0.79, and glucose 251. Hemoglobin A1c is pending. ECG personally reviewed. ECG performed on 09/14/2017 at 06:30 a.m. demonstrated sinus bradycardia at 53 beats per minute with anterior T-wave inversion. Diagnostic coronary angiography on 09/14/2017 demonstrated proximal LAD of 80%-90% with BINA-3 flow. There was a mid LAD stenosis of 30%. Mid circumflex 20%. It was a dominant circumflex. Large caliber circumflex PDA proximal 50%-60% stenosis. Small nondominant RCA with mid RCA stenosis of 20%. LVEDP was mildly elevated at 14 mmHg. ASSESSMENT AND PLAN: 1. Coronary artery disease: He has a severe proximal LAD coronary artery disease and otherwise nonobstructive coronary artery disease. He remains in the cardiac catheterization lab for PCI of proximal his LAD. Recommend optimizing medications for risk factor modification. We will increase atorvastatin to 80 mg daily. Continue beta glenroy as he is well beta blocked. Recommend aggressive treatment for his diabetes, which appears to be uncontrolled, but A1c level is pending. Recommend optimization of blood pressure as well. 2. Non-ST elevation myocardial infarction/unstable angina: He did have a small myocardial infarction based on troponin levels. A cardiac catheterization was performed today as noted above. Recommend cardiac rehabilitation upon discharge. Risk factor modification. No further angina. PCI as noted above. 3. Hypertension: Blood pressure not well controlled. We will start amlodipine 5 mg daily in addition to his other antihypertensive agents. Atenolol was not increased as he is mildly bradycardic while on atenolol and amiodarone. 4. Dyslipidemia: We will increase atorvastatin to 80 mg daily as there is a significant change in his LAD in regards to coronary artery disease compared to his most recent cardiac catheterization, which was performed in 2013. Current study with severe coronary artery disease. 5. Paroxysmal atrial fibrillation: He denies any symptoms that reminds him of prior atrial fibrillation. He is on amiodarone 200 mg daily. He was on anticoagulation in the past as he does have an elevated CHADS-VASc score, but it was later discontinued. He has declined anticoagulation. If agreeable in the future, anticoagulation is warranted and can be initiated. 6. Disposition: Cardiology will continue to follow. [facility]'s [facility] and plan.
[2017-09-14] MEDS: PANTOprazole SOD 40 MG TAB PO SCH ×2 (09:49→21:09)
[2017-09-14] MEDS: LOSARTAN POTASSIUM 50 MG TAB PO SCH (09:49)
[2017-09-14] MEDS: RANITIDINE HCL 150 MG TAB PO SCH ×2 (09:49→21:09)
[2017-09-14] MEDS: AMIODARONE 200 MG TAB PO SCH (09:50)
[2017-09-14] MEDS: AMLODIPINE BESYLATE 5 MG TAB PO SCH (10:03)
[2017-09-14] MEDS: INSULIN ASPART 100 UNITS/ML 3 ML PEN SC SCH ×4 (10:05→21:13)
[2017-09-14] MEDS: INSULIN GLARGINE SOLOSTAR 100 UNITS/ML 3 ML PEN SC SCH ×2 (10:06→21:13)
--- NOTE | 2017-09-14 15:45 | Progress Note ---
Medicine Progress Note Date & Time of Visit: Sep 14, 2017 at 11:36. Subjective Pt was seen and examined Sitting in bed eating with no distress Pt said that he feels fine He has been walking in the hallway with no distress He had a cardiac cath done this morning Denies any chest pain, palpitation, dizziness and SOB Objective Last 8 Hrs Date Time Temp Pulse Resp B/P (MAP) Pulse Ox O2 Delivery O2 Flow Rate FiO2 09/14/17 15:21 36.5 61 18 158/96 (116) 92 Room Air 09/14/17 14:00 57 16 159/85 (109) 93 09/14/17 13:00 53 16 153/83 (106) 93 09/14/17 12:00 36.8 56 18 174/74 (107) 92 09/14/17 12:00 Room Air 09/14/17 11:00 51 16 149/85 (106) 93 09/14/17 10:30 51 16 158/81 (106) 94 09/14/17 10:00 54 18 141/80 (100) 93 09/14/17 09:45 52 18 191/103 (132) 93 09/14/17 09:30 50 18 145/83 (103) 93 09/14/17 09:15 36.9 51 18 154/81 (105) 94 Room Air 09/14/17 09:00 Room Air 09/14/17 08:59 58 16 175/78 (110) 95 Room Air 09/14/17 08:49 58 16 160/78 (105) 95 Room Air Physical Exam: General- No acute distress Head- atraumatic Eyes- PERRL, EOMI ENT- oropharynx clear Neck- supple, no JVD Lungs- clear to auscultation Heart- regular rhythm Abdomen- normal bowel sounds, soft Extremities- no calf tenderness Neuro- alert, oriented x 3; PERRL, EOMI Skin- warm & dry Laboratory Results: Last 24 Hours Test 09/13/17 16:14 09/13/17 17:33 09/13/17 19:03 09/13/17 20:16 Bedside Glucose 217 mg/dl 209 mg/dl 226 mg/dl Activated Partial Thromboplast Time 34.9 SECONDS Partial Thromboplastin Ratio 1.3 Test 09/14/17 01:45 09/14/17 06:26 09/14/17 06:54 09/14/17 07:37 Activated Partial Thromboplast Time 53.7 SECONDS 43.2 SECONDS Partial Thromboplastin Ratio 2.1 1.7 White Blood Count 6.38 K/uL Red Blood Count 4.51 M/uL Hemoglobin 13.7 g/dL Hematocrit 39.7 % Mean Corpuscular Volume 88.0 fL Mean Corpuscular Hemoglobin 30.4 pg Mean Corpuscular Hemoglobin Concent 34.5 g/dl RDW Standard Deviation 40.6 fL RDW Coefficient of Variation 12.7 % Platelet Count 239 K/uL Mean Platelet Volume 11.1 fL Sodium Level 138 mmol/L Potassium Level 4.0 mmol/L Chloride Level 103 mmol/L Carbon Dioxide Level 28 mmol/L Anion Gap 7.0 mmol/L Blood Urea Nitrogen 11 mg/dl Creatinine 0.79 mg/dl Est Creatinine Clear Calc Drug Dose 154.7 ml/min Estimated GFR () 119.7 Estimated GFR (Non- 103.2 BUN/Creatinine Ratio 13.8 Random Glucose 231 mg/dl Estimated Average Glucose 217 mg/dl Hemoglobin A1c 9.2 % Calcium Level 8.1 mg/dl Bedside Glucose 251 mg/dl Kaolin Activated Coagulation Time 142 SECONDS Test 09/14/17 07:59 09/14/17 08:14 09/14/17 08:41 09/14/17 11:21 Kaolin Activated Coagulation Time 120 SECONDS 230 SECONDS 235 SECONDS Bedside Glucose 281 mg/dl Assessment & Plan Chest Pain Initial troponin was negative 3rd set Troponin peak to 1.01, then trending to 0.9 EKG this morning showed inverted T wave Pt follows with [facility] cardiology group (Consult changed) Case discussed with cardiology dr. Vásquez Starting on Heparin drip and aspirin 81mg Continue atenolol and statin Plan for cardiac cath in am Will keep NPO except meds after midnight LDL at goal Continue monitor in telemetry Echo pending 09/14 S/P cardiac cath done this morning Found to have a new 80-90% proximal LAD stenosis Successful PCI of proximal LAD with 3.0 x 18 Xience CARLA (post-dilated with 4.0 NC balloon). will increase atorvastatin to 80 mg daily. Continue beta glenroy Refer to cardiac rehab upon discharge Heparin drip d/c Continue monitor in tele GERD hx. of Rivas's Continue Nexium BID, Zantac BID Hx. of Paroxysmal A. Fib Rate control and on NSR continue Amiodarone continue b-glenroy Stable Uncontrolled DM Type 2 Recent Hba1c 9.2 hold oral agents Lantus 15 units BID sliding scale insulin Diabetic education consult HTN Uncontrolled continue Cozaar and atenolol Amlodipine 5 mg adding stable DVT ppx On heparin drip FULL CODE Disposition Consider to discharge in am Consultants: Cardio Current Inpatient Medications: Current Inpatient Medications Medications (Trade) Dose Ordered Sig/Tristan Route Start Time Stop Time Status Last Admin Dose Admin Ioversol (Optiray 320) 100 ml UD PRN IV 09/12/17 17:15 09/16/17 17:14 Sodium Chloride 1,000 ml @ 80 mls/hr [id number] IV 09/12/17 19:16 10/12/17 19:15 09/14/17 08:46 80 MLS/HR Acetaminophen (Tylenol Tab) 650 mg Q4H PRN PO 09/12/17 19:30 10/12/17 19:29 09/13/17 05:51 650 MG Al Hydrox/Mg Hydrox/Simethicone (Maalox Max Susp) 15 ml Q4H PRN PO 09/12/17 19:30 10/12/17 19:29 Magnesium Hydroxide (Milk Of Magnesia Susp) 30 ml Q12H PRN PO 09/12/17 19:30 10/12/17 19:29 Ondansetron HCl (Zofran Inj) 4 mg Q6H PRN IV 09/12/17 19:30 10/12/17 19:29 Amiodarone HCl (Cordarone Tab) 200 mg QAM PO 09/13/17 09:00 10/13/17 08:59 09/14/17 09:50 200 MG Atenolol (Tenormin Tab) 25 mg QAM PO 09/13/17 09:00 10/13/17 08:59 09/13/17 08:05 25 MG Insulin Glargine (Lantus Solostar Pen) 10 units BID SC 09/12/17 21:00 10/11/17 20:59 09/14/17 10:06 10 UNITS Levothyroxine Sodium (Synthroid Tab) 150 mcg DAILYBB PO 09/13/17 06:00 10/13/17 06:59 09/14/17 05:52 150 MCG Losartan Potassium (coZAAR TAB) 100 mg QAM PO 09/13/17 09:00 10/13/17 08:59 09/14/17 09:49 100 MG Ranitidine HCl (zANTac TAB) 300 mg BID PO 09/12/17 21:00 10/12/17 20:59 09/14/17 09:49 300 MG Pantoprazole Sodium (Protonix Tab) 40 mg BID PO 09/12/17 21:00 10/12/17 20:59 09/14/17 09:49 40 MG Insulin Aspart (novoLOG ASPART) SLIDING SCALE If C... ACHS SC 09/12/17 21:00 10/12/17 20:59 09/14/17 11:41 12 UNITS Glucose (Glucose 40% Gel) 15-30 GRAMS 15 GRAMS... UD PRN PO 09/12/17 19:30 10/12/17 19:29 Glucose (Glucose Chew Tab) 4-8 Tablets 4 Tabl... UD PRN PO 09/12/17 19:30 10/12/17 19:29 Dextrose (Dextrose 50% 50ML Syringe) 25-50ML OF 50% DW IV FOR... UD PRN IV 09/12/17 19:30 10/12/17 19:29 Glucagon (Glucagon Inj) 1 mg UD PRN SQ 09/12/17 19:30 10/12/17 19:29 Miscellaneous (Iv Fluids Completed) 1 ea PRN PRN N/A 09/12/17 22:30 09/12/18 22:29 Aspirin (Aspirin Chew) 81 mg DAILY PO 09/14/17 09:00 10/14/17 08:59 Amlodipine Besylate (Norvasc Tab) 5 mg QAM PO 09/14/17 09:00 10/14/17 08:59 09/14/17 10:03 5 MG Atorvastatin Calcium (Lipitor Tab) 80 mg HS PO 09/14/17 21:00 10/12/17 20:59 Sodium Chloride 1,000 ml @ 100 mls/hr Q10H IV 09/14/17 09:00 09/14/17 16:29 09/14/17 09:50 100 MLS/HR Clopidogrel Bisulfate (plAVix TAB) 75 mg QAM PO 09/14/17 09:00 10/14/17 08:59
[2017-09-14] MEDS ORDERED: ATORVASTATIN 40 MG TAB PO SCH (21:00)
[2017-09-15 03:46] VITALS: BP 148/89; PULSE 59; TEMP 36.4; O2SAT 93
[2017-09-15] MEDS: LEVOTHYROXINE 150 MCG TAB PO SCH (06:17)
[2017-09-15 07:18] LABS: PARTIAL THROMBOPLASTIN RATIO 0.9
[2017-09-15 07:29] VITALS: BP 159/92; PULSE 55; TEMP 36.8; O2SAT 94
[2017-09-15] MEDS: AMIODARONE 200 MG TAB PO SCH (07:36)
[2017-09-15] MEDS: PANTOprazole SOD 40 MG TAB PO SCH (07:36)
[2017-09-15] MEDS: CLOPIDOGREL BISULFATE 75 MG TAB PO SCH (07:36)
[2017-09-15] MEDS: AMLODIPINE BESYLATE 5 MG TAB PO SCH (07:36)
[2017-09-15] MEDS: LOSARTAN POTASSIUM 50 MG TAB PO SCH (07:37)
[2017-09-15] MEDS: RANITIDINE HCL 150 MG TAB PO SCH (07:37)
[2017-09-15 07:41] LABS: CREATININE 0.71 mg/dl (0.60-1.40)
[2017-09-15] MEDS: ASPIRIN 81 MG CHEW PO SCH (07:41)
[2017-09-15] MEDS: INSULIN ASPART 100 UNITS/ML 3 ML PEN SC SCH (07:42)
[2017-09-15] MEDS: INSULIN GLARGINE SOLOSTAR 100 UNITS/ML 3 ML PEN SC SCH (07:43)
--- NOTE | 2017-09-15 08:51 | Clinical Documentation Query ---
CLINICAL DOCUMENTATION QUERY A 52 year old male who presents to the Emergency Room with complaints of constant central chest pain beginning a couple days ago. Cardiology consult documents NSTEMI. In order to keep the diagnosis in the flow of the medical record, please consider the following: In your clinical opinion is this patient being managed for: ( ) Myocardial infarction type 2 (NSTEMI) ( ) Not Agree ( ) Other explanation of clinical findings (Please Explain) ( ) Unable to determine (Please Define) ( ) Need to Discuss PT WAS SEEN AND DISCHARGED BY DR MCKENZIE I WAS NOT INVOLVE IN HIS CARE JOSEE MONTEJO The medical record reflects the following clinical findings, treatment, and risk factors. Clinical Indicators: Troponin peak 1.010, EKG = T wave abnormality, anterior ischemia, cardiac cath = NSTEMI 90% LAD stenosis Treatment: Cardiac cath w/stent, Cardiology consult, serial troponins Risk Factors: CAD, HTN, Afib, DM Please clarify and document your clinical opinion in the progress notes and discharge summary. Terms such as "probable", "suspected", "likely", "questionable", "possible", or "still to be ruled out" are acceptable. IF IN AGREEMENT, YOU MUST DOCUMENT ABOVE DIAGNOSTIC STATEMENT IN DAILY PROGRESS NOTES AND DISCHARGE SUMMARY. This document is not part of the patient's record. Thank You, Promise Sung RN [phone]
--- NOTE | 2017-09-15 09:00 | Cardiology Follow-Up ---
Subjective Subjective Date of Service: Sep 15, 2017. Pt evaluation today including: conversation w/ patient, conversation w/ family , physical exam, chart review, lab review, review of studies, review of inpatient medication list Additional Details: Feeling well. No chest pain No wrist pain. Tele reviewed -- no events. Problem List Medical Problems: (1) Abnormal EKG Status: Acute (2) Burning chest pain Status: Acute (3) Chest pain Status: Acute (4) Fracture of radial head, right, closed Status: Acute (5) Headache Status: Acute (6) Hypertension Status: Acute (7) Irritation of left eye Status: Acute (8) Precordial chest pain Status: Acute (9) Sensation of foreign body in eye Status: Acute Review of Systems Constitutional: + see HPI Respiratory: + see HPI, + shortness of breath Cardiac: + chest pain Abdomen: + see HPI Male : + see HPI Neurologic: + see HPI Heme: + see HPI Endo: + see HPI Skin: + see HPI Objective Vital Signs Last Vital Signs Documentation Date Time Temp Pulse Resp B/P (MAP) Pulse Ox O2 Delivery O2 Flow Rate FiO2 09/15/17 08:00 Room Air 09/15/17 07:29 36.8 55 18 159/92 (114) 94 09/14/17 16:00 Physical Exam: General Appearance: no apparent distress, + obese ENT: hearing grossly normal Respiratory/Chest: chest non-tender, lungs clear, normal breath sounds, no respiratory distress Cardiovascular: regular rate, rhythm, no edema, no murmur Abdomen: non tender, soft, no pulsatile mass Extremities: no pedal edema, no calf tenderness, pelvis stable Neurologic/Psychiatric: alert, normal mood/affect, oriented x 3, + pertinent finding (Right radial artery -- no ecchymosis/hematoma. intact distal pulses) Skin: normal color, warm/dry, + rash Lymphatic: no adenopathy Assessment and Plan 1. NSTEMI s/p PCI to proximal LAD Chest pain free. Hemodynamically and electrically stable. No access site complications. From a cardiac standpoint OK for discharge today. -- Discharge on DAPT with ASA/Clopidogrel -- Continue current statin -- Continue beta-glenroy, ARB -- Increase amlodipine to 10mg daily -- continue amio Follow-up Dr. Turner in 1-2 weeks. Medications: Current Inpatient Medications Medications (Trade) Dose Ordered Sig/Tristan Route Start Time Stop Time Status Last Admin Dose Admin Ioversol (Optiray 320) 100 ml UD PRN IV 09/12/17 17:15 09/16/17 17:14 Sodium Chloride 1,000 ml @ 80 mls/hr [id number] IV 09/12/17 19:16 10/12/17 19:15 09/14/17 08:46 80 MLS/HR Acetaminophen (Tylenol Tab) 650 mg Q4H PRN PO 09/12/17 19:30 10/12/17 19:29 09/13/17 05:51 650 MG Al Hydrox/Mg Hydrox/Simethicone (Maalox Max Susp) 15 ml Q4H PRN PO 09/12/17 19:30 10/12/17 19:29 Magnesium Hydroxide (Milk Of Magnesia Susp) 30 ml Q12H PRN PO 09/12/17 19:30 10/12/17 19:29 Ondansetron HCl (Zofran Inj) 4 mg Q6H PRN IV 09/12/17 19:30 10/12/17 19:29 Amiodarone HCl (Cordarone Tab) 200 mg QAM PO 09/13/17 09:00 10/13/17 08:59 09/15/17 07:36 200 MG Atenolol (Tenormin Tab) 25 mg QAM PO 09/13/17 09:00 10/13/17 08:59 09/15/17 08:46 25 MG Levothyroxine Sodium (Synthroid Tab) 150 mcg DAILYBB PO 09/13/17 06:00 10/13/17 06:59 09/15/17 06:17 150 MCG Losartan Potassium (coZAAR TAB) 100 mg QAM PO 09/13/17 09:00 10/13/17 08:59 09/15/17 07:37 100 MG Ranitidine HCl (zANTac TAB) 300 mg BID PO 09/12/17 21:00 10/12/17 20:59 09/15/17 07:37 300 MG Pantoprazole Sodium (Protonix Tab) 40 mg BID PO 09/12/17 21:00 10/12/17 20:59 09/15/17 07:36 40 MG Insulin Aspart (novoLOG ASPART) SLIDING SCALE If C... ACHS SC 09/12/17 21:00 10/12/17 20:59 09/15/17 07:42 9 UNITS Glucose (Glucose 40% Gel) 15-30 GRAMS 15 GRAMS... UD PRN PO 09/12/17 19:30 10/12/17 19:29 Glucose (Glucose Chew Tab) 4-8 Tablets 4 Tabl... UD PRN PO 09/12/17 19:30 10/12/17 19:29 Dextrose (Dextrose 50% 50ML Syringe) 25-50ML OF 50% DW IV FOR... UD PRN IV 09/12/17 19:30 10/12/17 19:29 Glucagon (Glucagon Inj) 1 mg UD PRN SQ 09/12/17 19:30 10/12/17 19:29 Miscellaneous (Iv Fluids Completed) 1 ea PRN PRN N/A 09/12/17 22:30 09/12/18 22:29 Aspirin (Aspirin Chew) 81 mg DAILY PO 09/14/17 09:00 10/14/17 08:59 09/15/17 07:41 81 MG Amlodipine Besylate (Norvasc Tab) 5 mg QAM PO 09/14/17 09:00 10/14/17 08:59 09/15/17 07:36 5 MG Atorvastatin Calcium (Lipitor Tab) 80 mg HS PO 09/14/17 21:00 10/12/17 20:59 09/14/17 21:09 80 MG Clopidogrel Bisulfate (plAVix TAB) 75 mg QAM PO 09/14/17 09:00 10/14/17 08:59 09/15/17 07:36 75 MG Insulin Glargine (Lantus Solostar Pen) 15 units BID SC 09/14/17 21:00 10/11/17 20:59 09/15/17 07:43 15 UNITS Lab Results: 09/15/17 06:37 Test 09/14/17 20:28 09/15/17 06:37 Bedside Glucose 230 mg/dl (70-99) Activated Partial Thromboplast Time 24.4 SECONDS (21.0-31.0) Partial Thromboplastin Ratio 0.9 Est Creatinine Clear Calc Drug Dose 163.5 ml/min Estimated GFR () 125.0 Estimated GFR (Non- 107.9
--- NOTE | 2017-09-15 09:38 | Progress Note ---
Medicine Progress Note Date & Time of Visit: Sep 15, 2017 at 09:29. Subjective Pt was seen and examined Standing in his room with family with no distress Pt said that he feels fine Denies any chest pain, palpitation, dizziness and SOB Objective Last 8 Hrs Date Time Temp Pulse Resp B/P (MAP) Pulse Ox O2 Delivery O2 Flow Rate FiO2 09/15/17 08:00 Room Air 09/15/17 07:29 36.8 55 18 159/92 (114) 94 Room Air 09/15/17 04:00 Room Air 09/15/17 03:46 36.4 59 19 148/89 (108) 93 Room Air Physical Exam: General- No acute distress Head- atraumatic Eyes- PERRL, EOMI ENT- oropharynx clear Neck- supple, no JVD Lungs- clear to auscultation Heart- regular rhythm Abdomen- normal bowel sounds, soft Extremities- no calf tenderness, no hematoma in right wrist around the radial area Neuro- alert, oriented x 3; PERRL, EOMI Skin- warm & dry Laboratory Results: Last 24 Hours Test 09/14/17 11:21 09/14/17 16:27 09/14/17 20:28 09/15/17 06:37 Bedside Glucose 281 mg/dl 182 mg/dl 230 mg/dl Activated Partial Thromboplast Time 24.4 SECONDS Partial Thromboplastin Ratio 0.9 Creatinine 0.71 mg/dl Est Creatinine Clear Calc Drug Dose 163.5 ml/min Estimated GFR () 125.0 Estimated GFR (Non- 107.9 Assessment & Plan Chest Pain NSTEMI s/p PCI to proximal LAD Initial troponin was negative 3rd set Troponin peak to 1.01, then trending to 0.9 EKG this morning showed inverted T wave Pt follows with [facility] cardiology group (Consult changed) Case discussed with cardiology dr. Vásquez Starting on Heparin drip and aspirin 81mg Continue atenolol and statin Plan for cardiac cath in am Will keep NPO except meds after midnight LDL at goal Continue monitor in telemetry Echo pending 09/15 NSTEMI s/p PCI to proximal LAD Found to have a new 80-90% proximal LAD stenosis Successful PCI of proximal LAD with 3.0 x 18 Xience CARLA (post-dilated with 4.0 NC balloon). Continue atorvastatin to 80 mg daily. Continue beta glenroy Continue dual platelet therapy with aspirin and plavix Refer to cardiac rehab upon discharge Heparin drip d/c Continue monitor in tele GERD hx. of Rivas's Continue Nexium BID, Zantac BID Hx. of Paroxysmal A. Fib Rate control and on NSR continue Amiodarone continue b-glenroy Pt has a high CHADscore Refused to start on anticoagulant Pt understands the risk for not being on anticoagulant such as stroke. Stable Uncontrolled DM Type 2 Recent Hba1c 9.2 hold oral agents Lantus 15 units BID sliding scale insulin Diabetic education consult HTN Uncontrolled continue Cozaar and atenolol Amlodipine increase to 10 mg mg Continue monitor BP stable DVT ppx On heparin drip FULL CODE Disposition Follow up with your primary care provider Dr. Jack on 09/21 @ 10:45 am Please call to schedule follow with your cardiology Cardiac rehab referral (your primary care provider or your cardiology will arrange for that) Follow up a healthy diabetes diet Limited concentrated sugar intake Continue monitor blood sugar and bring blood sugar log at your next appointment with your physician Amlodipine 10mg adding for your blood pressure Monitor blood pressure Consultants: Cardio Procedures: Cardiac cath s/p stent Current Inpatient Medications: Current Inpatient Medications Medications (Trade) Dose Ordered Sig/Tristan Route Start Time Stop Time Status Last Admin Dose Admin Ioversol (Optiray 320) 100 ml UD PRN IV 09/12/17 17:15 09/16/17 17:14 Sodium Chloride 1,000 ml @ 80 mls/hr [id number] IV 09/12/17 19:16 10/12/17 19:15 09/14/17 08:46 80 MLS/HR Acetaminophen (Tylenol Tab) 650 mg Q4H PRN PO 09/12/17 19:30 10/12/17 19:29 09/13/17 05:51 650 MG Al Hydrox/Mg Hydrox/Simethicone (Maalox Max Susp) 15 ml Q4H PRN PO 09/12/17 19:30 10/12/17 19:29 Magnesium Hydroxide (Milk Of Magnesia Susp) 30 ml Q12H PRN PO 09/12/17 19:30 10/12/17 19:29 Ondansetron HCl (Zofran Inj) 4 mg Q6H PRN IV 09/12/17 19:30 10/12/17 19:29 Amiodarone HCl (Cordarone Tab) 200 mg QAM PO 09/13/17 09:00 10/13/17 08:59 09/15/17 07:36 200 MG Atenolol (Tenormin Tab) 25 mg QAM PO 09/13/17 09:00 10/13/17 08:59 09/15/17 08:46 25 MG Levothyroxine Sodium (Synthroid Tab) 150 mcg DAILYBB PO 09/13/17 06:00 10/13/17 06:59 09/15/17 06:17 150 MCG Losartan Potassium (coZAAR TAB) 100 mg QAM PO 09/13/17 09:00 10/13/17 08:59 09/15/17 07:37 100 MG Ranitidine HCl (zANTac TAB) 300 mg BID PO 09/12/17 21:00 10/12/17 20:59 09/15/17 07:37 300 MG Pantoprazole Sodium (Protonix Tab) 40 mg BID PO 09/12/17 21:00 10/12/17 20:59 09/15/17 07:36 40 MG Insulin Aspart (novoLOG ASPART) SLIDING SCALE If C... ACHS SC 09/12/17 21:00 10/12/17 20:59 09/15/17 07:42 9 UNITS Glucose (Glucose 40% Gel) 15-30 GRAMS 15 GRAMS... UD PRN PO 09/12/17 19:30 10/12/17 19:29 Glucose (Glucose Chew Tab) 4-8 Tablets 4 Tabl... UD PRN PO 09/12/17 19:30 10/12/17 19:29 Dextrose (Dextrose 50% 50ML Syringe) 25-50ML OF 50% DW IV FOR... UD PRN IV 09/12/17 19:30 10/12/17 19:29 Glucagon (Glucagon Inj) 1 mg UD PRN SQ 09/12/17 19:30 10/12/17 19:29 Miscellaneous (Iv Fluids Completed) 1 ea PRN PRN N/A 09/12/17 22:30 09/12/18 22:29 Aspirin (Aspirin Chew) 81 mg DAILY PO 09/14/17 09:00 10/14/17 08:59 09/15/17 07:41 81 MG Amlodipine Besylate (Norvasc Tab) 5 mg QAM PO 09/14/17 09:00 10/14/17 08:59 09/15/17 07:36 5 MG Atorvastatin Calcium (Lipitor Tab) 80 mg HS PO 09/14/17 21:00 10/12/17 20:59 09/14/17 21:09 80 MG Clopidogrel Bisulfate (plAVix TAB) 75 mg QAM PO 09/14/17 09:00 10/14/17 08:59 09/15/17 07:36 75 MG Insulin Glargine (Lantus Solostar Pen) 15 units BID SC 09/14/17 21:00 10/11/17 20:59 09/15/17 07:43 15 UNITS
--- NOTE | 2017-09-15 09:38 | Clinical Documentation Query ---
CLINICAL DOCUMENTATION QUERY A 52 year old male who presents to the Emergency Room with complaints of constant central chest pain beginning a couple days ago. Cardiology consult documents NSTEMI. In order to keep the diagnosis in the flow of the medical record, please consider the following: In your clinical opinion is this patient being managed for: ( ) Myocardial infarction type 2 (NSTEMI) ( ) Not Agree ( ) Other explanation of clinical findings (Please Explain) ( ) Unable to determine (Please Define) ( ) Need to Discuss The medical record reflects the following clinical findings, treatment, and risk factors. Clinical Indicators: Troponin peak 1.010, EKG = T wave abnormality, anterior ischemia, cardiac cath = NSTEMI 90% LAD stenosis Treatment: Cardiac cath w/stent, Cardiology consult, serial troponins Risk Factors: CAD, HTN, Afib, DM Please clarify and document your clinical opinion in the progress notes and discharge summary. Terms such as "probable", "suspected", "likely", "questionable", "possible", or "still to be ruled out" are acceptable. IF IN AGREEMENT, YOU MUST DOCUMENT ABOVE DIAGNOSTIC STATEMENT IN DAILY PROGRESS NOTES AND DISCHARGE SUMMARY. This document is not part of the patient's record. Thank You, Promise Sung RN [phone]
[2017-09-15] MEDS ORDERED: PLV75 PO (09:42)
[2017-09-15] MEDS ORDERED: NRV/10 PO (09:42)
[2017-09-15] MEDS ORDERED: ASPCH81 PO (09:42)
[2017-09-15] MEDS ORDERED: LPT40 PO (09:42)
--- NOTE | 2017-09-15 09:47 | Discharge Instructions ---
Discharge Instructions Date of Service Sep 15, 2017. Admission Reason for Admission: Chest Pain Discharge Discharge Diagnosis / Problem: NSTEMI s/p PCI to proximal LAD, Uncontrolled Diabetes, Hypertension Discharge Goals Goal(s): Decrease discomfort, Improve function, Improve disease control Activity Recommendations Activity Limitations: resume your previous activity as tolerated . Instructions / Follow-Up Instructions / Follow-Up Follow up with your primary care provider Dr. Jack on 09/21 @ 10:45 am Please call to schedule follow with your cardiology Cardiac rehab referral (your primary care provider or your cardiology will arrange for that) Continue dual antiplatelet therapy with aspirin and plavix Follow up a healthy diabetes diet Limited concentrated sugar intake Continue monitor blood sugar and bring blood sugar log at your next appointment with your physician Amlodipine 10mg adding for your blood pressure Monitor blood pressure Current Hospital Diet Patient's current hospital diet: AHA Diet (Heart Healthy), Diabetes Type 2 Diet Discharge Diet Recommended Diet: AHA Diet (Heart Healthy), Diabetes Type 2 Diet Procedures Procedures Performed: Cardiac cath s/p PCI to proximal LAD Pending Studies Studies pending at discharge: no Laboratory Results Hemoglobin A1c Test 09/14/17 06:26 Range/Units Estimated Average Glucose 217 mg/dl Hemoglobin A1c 9.2 H 4.5-5.6 % Lipid Panel Test 09/13/17 06:31 Range/Units Triglycerides Level 81 0-150 mg/dl Cholesterol Level 96 0-200 mg/dl HDL Cholesterol 32 mg/dl Cholesterol/HDL Ratio 3.0 LDL Cholesterol, Calculated 48 mg/dl Medical Emergencies . Who to Call and When: Medical Emergencies: If at any time you feel your situation is an emergency, please call 911 immediately. . Non-Emergent Contact Non-Emergency issues call your: Primary Care Provider, School Librarian Call Non-Emergent contact if: you have any medication questions . . "Provider Documentation" section prepared by Juan Guzman. . VTE Core Measure Inpt VTE Proph given/why not?: Unfractionated heparin SQ
[2017-09-15 09:52] VITALS: BP 159/92; PULSE 55; TEMP 36.8; O2SAT 94
== END 2017-09-15 10:19 | disposition home or self-care (01) | DRG 247 ==
LOC: EDBD 16:26 → C.EDA 16:27 → C.2T 19:24 → ENRESERV 19:41 → OBSVTOIN 09-14 15:47
PROVIDERS: ADMIT Family Medicine; ATTEND Internal Medicine
PROC: B211YZZ Fluoroscopy of Multiple Coronary Arteries using Other Contrast (ICD-10-PCS; 2017-09-14)
PROC: 4A023N7 Measurement of Cardiac Sampling and Pressure, Left Heart, Percutaneous Approach (ICD-10-PCS; 2017-09-14)
PROC: 027034Z Dilation of Coronary Artery, One Artery with Drug-eluting Intraluminal Device, Percutaneous Approach (ICD-10-PCS; principal; 2017-09-14 07:20)
DX: I21.4 Non-ST elevation (NSTEMI) myocardial infarction (principal); I25.110 Atherosclerotic heart disease of native coronary artery with unstable angina pectoris; I11.9 Hypertensive heart disease without heart failure; I48.0 Paroxysmal atrial fibrillation; E11.9 Type 2 diabetes mellitus without complications; E78.00 Pure hypercholesterolemia, unspecified; E03.9 Hypothyroidism, unspecified; K22.70 Barrett's esophagus without dysplasia; E78.5 Hyperlipidemia, unspecified; E66.9 Obesity, unspecified; Z51.81 Encounter for therapeutic drug level monitoring; Z79.899 Other long term (current) drug therapy; Z79.4 Long term (current) use of insulin; Z68.34 Body mass index [BMI] 34.0-34.9, adult; Z87.891 Personal history of nicotine dependence; Z82.49 Family history of ischemic heart disease and other diseases of the circulatory system

== ENCOUNTER → 2017-10-02 | Outpatient (CLI) | payer BC ==
[~2017-10-02] MED LIST changes: +AMLO10TA3 PO; +ASPCH81 PO; +CAL1CHW4 PO; +CALC500C3 PO; +ESOM20CA PO; +NRV/10 PO; -OMEP20CA9 PO; +PLV75 PO; +ZNT150 PO
== END | disposition home or self-care (01) ==
LOC: C.LAB1850 16:13
PROVIDERS: ATTEND Internal Medicine
DX: I48.0 Paroxysmal atrial fibrillation (principal); Z51.81 Encounter for therapeutic drug level monitoring; Z79.01 Long term (current) use of anticoagulants

== ENCOUNTER → 2017-10-12 | Outpatient (CLI) | payer OTHER ==
[~2017-10-12] MED LIST changes: -AMLO10TA3 PO; -ZNT150 PO
[2017-10-12 13:39] LABS: INR 1.1 (0.9-1.1)
== END | disposition home or self-care (01) ==
LOC: C.LAB1850 12:35
PROVIDERS: ATTEND Family Medicine Adult Medicine
DX: I48.0 Paroxysmal atrial fibrillation (principal); I25.2 Old myocardial infarction

== ENCOUNTER → 2017-10-16 | Outpatient (CLI) | payer OTHER ==
[2017-10-16 17:13] LABS: BASO % 0.5 %; BASO ABS # 0.04 K/uL (0-0.2); EOS % 3.3 %; EOS ABS # 0.25 K/uL (0-0.5); HEMATOCRIT 39.3 % (42-52); HEMOGLOBIN 13.6 g/dL (14.0-18.0); IG# 0.02 K/uL (0.00-0.02); LYMPH % 34.3 %; LYMPH ABS # 2.63 K/uL (1.2-3.4); MEAN CELL VOLUME 87.1 fL (80-100); MEAN CORPUSCULAR HEMOGLOBIN 30.2 pg (25-34); MEAN CORPUSCULAR HGB CONC 34.6 g/dl (32-36); MEAN PLATELET VOLUME 11.1 fL (7.4-10.4); MONO % 6.6 %; MONO ABS # 0.51 K/uL (0.11-0.59); NEUT ABS # 4.22 K/uL (1.4-6.5); PLATELET COUNT 293 K/uL (130-400); RED CELL DISTRIBUTION WIDTH CV 13.1 % (11.5-14.5); WHITE BLOOD COUNT 7.67 K/uL (4.8-10.8)
[2017-10-16 17:23] LABS: INR 1.6 (0.9-1.1)
[2017-10-16 18:14] LABS: ALBUMIN 3.7 gm/dl (3.4-5.0); ALKALINE PHOSPHATASE 127 U/L (45-117); ALT/SGPT 38 U/L (12-78); AST/SGOT 17 U/L (15-37); BLOOD UREA NITROGEN 24 mg/dl (7-18); CALCIUM 8.7 mg/dl (8.5-10.1); CARBON DIOXIDE 24 mmol/L (21-32); CREATININE 1.05 mg/dl (0.60-1.40); GLUCOSE 382 mg/dl (70-99); POTASSIUM 4.2 mmol/L (3.5-5.1); SODIUM 135 mmol/L (136-145); TOTAL PROTEIN 7.5 gm/dl (6.4-8.2); URIC ACID 4.1 mg/dl (2.6-7.2)
== END | disposition home or self-care (01) ==
LOC: C.LAB1850 15:24
PROVIDERS: ATTEND Family Medicine Adult Medicine
DX: I48.0 Paroxysmal atrial fibrillation (principal); M25.50 Pain in unspecified joint

== ENCOUNTER → 2017-10-21 | Outpatient (CLI) | payer OTHER | END | disposition home or self-care (01) | LOC: C.LABBC 14:47 | PROVIDERS: ATTEND Physician Assistant Medical | DX: I48.0 Paroxysmal atrial fibrillation (principal); Z51.81 Encounter for therapeutic drug level monitoring; Z79.01 Long term (current) use of anticoagulants ==

== ENCOUNTER → 2017-10-21 | Outpatient (CLI) | payer OTHER ==
--- NOTE | 2017-10-21 17:30 | DIAGNOSTIC IMAGING REPORT ---
ULTRASOUND RIGHT UPPER EXTREMITY VENOUS CLINICAL HISTORY: Right arm pain. COMPARISON STUDY: No priors. TECHNIQUE: Real-time, grayscale, and color Doppler sonography of the deep veins of the right upper extremity is performed. Compression and augmentation were utilized. FINDINGS: There is no sonographic evidence of deep venous thrombosis identified in the right upper extremity. The right internal jugular, axillary, and brachial veins are patent and normally compressible. Normal venous waveforms and augmentation are seen within the right subclavian vein. The cephalic and basilic veins are clear. The visualized radial and ulnar veins are patent. IMPRESSION: There is no sonographic evidence of deep venous thrombosis identified in the right upper extremity. Electronically signed by: Nikunj Benson M.D. 10/21/2017 5:28 PM Dictated Date/Time: 10/21/2017 5:28 PM
--- NOTE | 2017-10-21 17:33 | DIAGNOSTIC IMAGING REPORT ---
R EXTREMITY NONVASCULAR LIMITED CLINICAL HISTORY: S46.211A Rupture of right proximal biceps tendon, initial encoun pain. Mass. TECHNIQUE: Ultrasound COMPARISON STUDY: None FINDINGS: Evaluation of the biceps muscle confirms the presence of a 2.7 x 1.7 cm hematoma versus the possibility of intramuscular rupture within the mid aspect of the biceps. Isotope into insertion could not be easily identified on this exam. IMPRESSION: 1. 2.7 x 1.7 cm complex collection within the mid biceps muscle. 2. This suggests either a biceps muscular hematoma versus the possibility of a intramuscular tear. The above report was generated using voice recognition software. It may contain grammatical, syntax or spelling errors. Electronically signed by: Kalpesh Segundo M.D. 10/21/2017 5:32 PM Dictated Date/Time: 10/21/2017 5:28 PM
== END | disposition home or self-care (01) ==
LOC: C.ULTR 16:21
PROVIDERS: ATTEND Physician Assistant Medical
DX: S46.211A Strain of muscle, fascia and tendon of other parts of biceps, right arm, initial encounter (principal); X58.XXXA Exposure to other specified factors, initial encounter; M79.603 Pain in arm, unspecified

== ENCOUNTER → 2017-12-07 | Outpatient (CLI) | payer OTHER ==
[2017-12-07 17:11] LABS: BASO % 0.8 %; BASO ABS # 0.07 K/uL (0-0.2); EOS % 2.6 %; EOS ABS # 0.22 K/uL (0-0.5); HEMATOCRIT 40.9 % (42-52); HEMOGLOBIN 14.1 g/dL (14.0-18.0); IG# 0.04 K/uL (0.00-0.02); LYMPH ABS # 2.92 K/uL (1.2-3.4); MEAN CELL VOLUME 87.8 fL (80-100); MEAN CORPUSCULAR HEMOGLOBIN 30.3 pg (25-34); MEAN CORPUSCULAR HGB CONC 34.5 g/dl (32-36); MEAN PLATELET VOLUME 10.9 fL (7.4-10.4); MONO % 9.2 %; MONO ABS # 0.77 K/uL (0.11-0.59); NEUT % 51.9 %; NEUT ABS # 4.32 K/uL (1.4-6.5); PLATELET COUNT 321 K/uL (130-400); RED CELL DISTRIBUTION WIDTH CV 13.2 % (11.5-14.5); RED CELL DISTRIBUTION WIDTH SD 42.2 fL (36.4-46.3); WHITE BLOOD COUNT 8.34 K/uL (4.8-10.8)
[2017-12-07 17:18] LABS: ALT/SGPT 45 U/L (12-78); AST/SGOT 21 U/L (15-37); BLOOD UREA NITROGEN 29 mg/dl (7-18); CALCIUM 9.1 mg/dl (8.5-10.1); CARBON DIOXIDE 27 mmol/L (21-32); CREATININE 1.02 mg/dl (0.60-1.40); GLUCOSE 289 mg/dl (70-99); POTASSIUM 4.7 mmol/L (3.5-5.1); SODIUM 136 mmol/L (136-145)
[2017-12-07 17:20] LABS: LDL CHOLESTEROL (DIRECT) 70 mg/dl
[2017-12-08 06:20] LABS: HEMOGLOBIN A1C 10.1 % (4.5-5.6)
== END | disposition home or self-care (01) ==
LOC: C.LABBC 14:57
PROVIDERS: ATTEND Family Medicine Adult Medicine
DX: R10.31 Right lower quadrant pain (principal); E11.9 Type 2 diabetes mellitus without complications; I10 Essential (primary) hypertension; I48.0 Paroxysmal atrial fibrillation; I25.10 Atherosclerotic heart disease of native coronary artery without angina pectoris; Z79.899 Other long term (current) drug therapy; E78.5 Hyperlipidemia, unspecified

== ENCOUNTER 2017-12-29 09:10 | Inpatient (IN) | payer OTHER ==
[~2017-12-29] VITALS: Ht 185.4 cm; Wt 129.5 kg
[2017-12-29] MEDS ORDERED: SODIUM CHLORIDE 0.9% 1000ML 1,000 ML IV STA (09:23)
[2017-12-29 09:56] LABS: BASO % 0.4 %; BASO ABS # 0.02 K/uL (0-0.2); EOS % 1.4 %; EOS ABS # 0.07 K/uL (0-0.5); HEMATOCRIT 40.9 % (42-52); HEMOGLOBIN 14.3 g/dL (14.0-18.0); IG# 0.01 K/uL (0.00-0.02); LYMPH % 28.1 %; MEAN CELL VOLUME 86.3 fL (80-100); MEAN CORPUSCULAR HEMOGLOBIN 30.2 pg (25-34); MEAN PLATELET VOLUME 9.8 fL (7.4-10.4); MONO % 8.4 %; MONO ABS # 0.42 K/uL (0.11-0.59); NEUT % 61.5 %; NEUT ABS # 3.06 K/uL (1.4-6.5); PLATELET COUNT 248 K/uL (130-400); RED CELL DISTRIBUTION WIDTH CV 13.2 % (11.5-14.5); WHITE BLOOD COUNT 4.98 K/uL (4.8-10.8)
[2017-12-29] MEDS ORDERED: OPTIRAY 320 IV PRN (10:00)
[2017-12-29 10:05] LABS: PTT PATIENT 33.9 SECONDS (21.0-31.0)
[2017-12-29 10:15] LABS: ALBUMIN 3.5 gm/dl (3.4-5.0); CALCIUM 8.7 mg/dl (8.5-10.1); CREATININE 0.92 mg/dl (0.60-1.40); POTASSIUM 4.3 mmol/L (3.5-5.1)
[2017-12-29 10:17] LABS: TOTAL PROTEIN 7.3 gm/dl (6.4-8.2)
[2017-12-29] MEDS ORDERED: PANTOprazole INJ 80 MG in DEXTROSE 5% 100ML IV ONE (10:30)
[2017-12-29] MEDS ORDERED: PANTOprazole INJ 40 MG in DEXTROSE 5% 100ML IV SCH (10:45)
--- NOTE | 2017-12-29 11:25 | DIAGNOSTIC IMAGING REPORT ---
CT SCAN OF THE ABDOMEN AND PELVIS WITH IV CONTRAST CLINICAL HISTORY: Epigastric abdominal pain. Hematemesis. COMPARISON STUDY: Abdominal CT dated 06/04/2006. TECHNIQUE: Following the IV administration of 120 cc of Optiray 320, CT scan of the abdomen and pelvis is performed from the lung bases to the proximal femora. Images are reviewed in the axial, sagittal, and coronal planes. IV contrast was administered without complication. A dose lowering technique was utilized adhering to the principles of ALARA. The examination is degraded by streak artifact from the arms which could not be elevated above the abdomen. CT DOSE: 3297.10 mGy.cm FINDINGS: Lung bases: The heart is enlarged and without pericardial effusion. There are coronary artery calcifications. Scarring versus atelectasis is seen at the right lung base and there is elevation of right hemidiaphragm. No airspace consolidation pleural effusion is identified. There is a small hiatal hernia. Liver: Evaluation of the liver is degraded by streak artifact. The contrast-enhanced liver is enlarged, measuring 25.6 cm in length. The liver demonstrates diffusely diminished attenuation consistent with hepatic steatosis. Fatty sparing is seen adjacent to gallbladder fossa. There is no intrahepatic biliary ductal dilatation. The hepatic veins and portal veins are patent. Gallbladder: Unremarkable. Spleen: The spleen is enlarged measuring 14.9 cm in length. Pancreas: Unremarkable. Adrenal glands: Unremarkable. Kidneys: The contrast enhanced kidneys are normal in size and without hydronephrosis. The kidneys enhance symmetrically. A 1.6 cm cyst is noted in the right kidney. Abdominal vasculature: The abdominal aorta is normal in course and caliber noting mild atherosclerotic calcification. Bowel: The small bowel and colon are normal in course and caliber. The appendix is well-visualized and normal. Peritoneum: There is no intraperitoneal free air or abdominal ascites. There is a small fat-containing umbilical hernia. Lymphadenopathy: None. Pelvic viscera: Evaluation of the pelvis is degraded by streak artifact from a left hip arthroplasty. The the bladder is decompressed and grossly unremarkable. The prostate and seminal vesicles are normal as visualized. There is asymmetric atrophy of the left iliopsoas and gluteal musculature as compared to the right. Skeletal structures: The skeletal structures are osteopenic. Moderate lumbosacral spondylosis is observed. No lytic or blastic lesions are seen. A left hip arthroplasty is noted. IMPRESSION: 1. There are no acute infectious or inflammatory findings in the abdomen or pelvis. 2. Hepatomegaly and hepatic steatosis. 3. Splenomegaly. 4. Cardiomegaly. 5. Additional findings as above. Electronically signed by: Nikunj Benson M.D. 12/29/2017 11:24 AM Dictated Date/Time: 12/29/2017 11:18 AM
--- NOTE | 2017-12-29 11:28 | DIAGNOSTIC IMAGING REPORT ---
(CHEST FOR PE) ANGIO WITH CLINICAL HISTORY: 52 years-old Male presenting with ^vomiting up blood. TECHNIQUE: Multidetector CT angiography of the chest was performed after administration of intravenous contrast. 3-D volumetric and/or maximum intensity projection (MIP) images were subsequently reconstructed for review. IV contrast: 120 mL of Optiray 320. A dose lowering technique was used consistent with the principles of ALARA (as low as reasonably achievable). COMPARISON: 06/01/2017. CT DOSE (mGy.cm): The estimated cumulative dose is 3297.[address] scans. FINDINGS: Metals Analyst topogram: Total left hip arthroplasty and cerclage wire fixation of the proximal left femoral metadiaphysis. Pulmonary vasculature: The study is suboptimal for the assessment of the pulmonary vascular tree secondary to timing of the contrast bolus and respiratory motion artifact. Allowing for limited image quality, no central filling defect to suggest pulmonary embolus. Main pulmonary artery is not enlarged. No flattening of the interventricular septum. No intracardiac filling defect. No reflux of contrast into the hepatic veins. Remaining chest: On soft tissue windows, normal thyroid and thoracic inlet. No axillary, supraclavicular, hilar, or mediastinal lymphadenopathy. Normal aorta. Multichamber enlargement of the heart. Coronary artery calcification. No pericardial or pleural effusion. Upper abdomen normal. On lung windows, bandlike opacities at the right lung base likely atelectasis. Motion artifact from respiration mild degrades evaluation of the lung parenchyma. Layering debris noted in the lower trachea. On bone windows, degenerative changes of the spine. IMPRESSION: 1. Allowing for suboptimal image quality, no evidence of pulmonary embolus. 2. Right basilar atelectasis. 3. Layering debris noted in the lower trachea, raising concern for aspiration. No evidence of pneumonitis or more distal bronchial debris. Electronically signed by: Sergio Lal M.D. 12/29/2017 11:27 AM Dictated Date/Time: 12/29/2017 11:18 AM
--- NOTE | 2017-12-29 11:28 | DIAGNOSTIC IMAGING REPORT ---
CT OF THE NECK WITH CONTRAST CLINICAL HISTORY: Hematemesis. Sensation of right throat mass. COMPARISON STUDY: No previous studies for comparison. TECHNIQUE: Axial images of the neck were obtained following intravenous injection 120 cc of Optiray [address] will be reported separately. FINDINGS: Visualized portions of the intracranial contents are unremarkable. Orbits are unremarkable. Mastoid air cells are clear. There is mild mucosal thickening of the maxillary and ethmoid sinuses. No cervical lymphadenopathy is present. There is no abscess within the neck. Multiple tonsilliths are present. No mucosal lesion is identified although these may be occult by CT. The parotid and submandibular glands are normal. No suspicious osseous lesions are present. The chest CT will be reported separately. IMPRESSION: 1. No acute process within the neck by CT. 2. No cervical lymphadenopathy. 3. No mucosal lesion identified although these may be occult by CT. If persistent suspicion for lesion, ENT consultation is recommended for consideration for direct visualization. Electronically signed by: Darius Barney M.D. 12/29/2017 11:26 AM Dictated Date/Time: 12/29/2017 11:19 AM
[2017-12-29] MEDS ORDERED: ACETAMINOPHEN 325 MG TAB PO PRN (13:15)
[2017-12-29] MEDS ORDERED: MAGNESIUM HYDROXIDE SUSP 30 ML UDC PO PRN (13:15)
[2017-12-29] MEDS ORDERED: ONDANSETRON INJ 2 MG/ML 2 ML VIAL IV PRN (13:15)
[2017-12-29] MEDS ORDERED: ALUMINUM/MAGNESIUM/SIMETH (MAALOX MAX) 30 ML UDC PO PRN (13:15)
[2017-12-29 14:23] VITALS: O2SAT 90; Ht 185.4 cm; Wt 129.5 kg
--- NOTE | 2017-12-29 14:25 | History and Physical ---
History & Physical Date & Time of Service: Dec 29, 2017 at 14:12 Chief Complaint: Throwing Up Blood Headache Ab Pain Primary Care Physician: Carina Tran M.D. History of Present Illness Patient presents to the ER after vomiting up bloody containing vomitus this morning. The patient is chronically anticoagulated with aspirin Plavix and Coumadin. The aspirin and Plavix are for recent coronary intervention in September 2017. The Coumadin is for atrial fibrillation. On presentation the patient's INR is 2.0. He is hemodynamically stable as well as his hemoglobin is stable. The patient states that he wakes up every morning or the bathroom and usually coughs up a small blood clot or so. He does not have any sinus drip or sinus irritation. He wears CPAP at night but typically uses some humidity within it. Patient this morning after breakfast developed some epigastric discomfort and vomited foodstuffs containing a large amount of blood. Patient states that his epigastrium was tender until he started a Protonix infusion in the ER. Typically the patient does bruise easily with his Coumadin therapy he does not have any nosebleeds or gum bleeds and has not noticed any dark stools. 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 He did see Dr. Aris craft in the past according to him to [facility] clinic. 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 (18) Left Hip DJD (19) Left sided chest pain (20) Precordial chest pain (21) Sensation of foreign body in eye (22) Spasm of lumbar paraspinous muscle Family History Blood clots Social History Smoking Status: Never Smoker Alcohol Use: socially Drug Use: cocaine Marital Status: Occupational Status: employed Allergies Coded Allergies: Penicillins (Verified Allergy, Unknown, UNKNOWN CHILD, 12/29/17) Home Medications Scheduled Amiodarone HCl (Amiodarone HCl), 200 MG PO QAM Amlodipine Besylate (Amlodipine Besylate), 1 TAB PO DAILY Aspirin (Aspirin Low Strength), 81 MG PO DAILY Atenolol (Atenolol), 25 MG PO QAM Atorvastatin (Lipitor), 80 MG PO HS Clopidogrel Bisulfate (Clopidogrel), 75 MG PO QAM Esomeprazole Magnesium (Nexium), 20 MG PO BID Glipizide (Glipizide), 5 MG PO QAM Glipizide (Glucotrol), 15 MG PO QPM Insulin Glargine (Lantus Solostar), 30 UNITS SC HS Levothyroxine Sodium (Levothyroxine Sodium), 150 MCG PO QAM Losartan Potassium (Cozaar), 100 MG PO QAM Metformin Hcl (Glucophage), 1,000 MG PO BIDM Ranitidine Hcl (Zantac), 300 MG PO TID Scheduled PRN [place] Carb & Mag Hydrox-Simeth (Rolaids Advanced 1000-200-40 mg), Unknown Dose PO DIRECTED PRN for Indigestion Calcium Carbonate (Tums), Unknown Dose PO DIRECTED PRN for Indigestion Review of Systems ROS: well nourished well developed. No double vision blurry vision No problems with speech or swallowing No palpitations, chest pain or pressure No Wheezing or breathing issues Epigastric abdominal pain nausea vomiting of bright red blood but has had no diarrhea or changes in appetite or weight No burning urine urine frequency or changes in color No focal joint pain or muscle pain No skin rashes or oral lesions Easily sustains bruising but has had no bleeding No focused back pain or numbness or loss of strength No changes in memory or confusion Physical Exam Vital Signs Date Time Temp Pulse Resp B/P (MAP) Pulse Ox O2 Delivery O2 Flow Rate FiO2 12/29/17 13:06 58 20 135/77 90 Room Air 12/29/17 11:16 54 18 148/77 96 Room Air 12/29/17 09:35 56 12/29/17 09:29 93 Room Air 12/29/17 09:16 36.7 60 18 128/74 93 Room Air General Appearance: no apparent distress, + obese Head: normocephalic, atraumatic Eyes: normal inspection, sclerae normal Neck: supple, no JVD Respiratory/Chest: chest non-tender, lungs clear, normal breath sounds Cardiovascular: regular rate, rhythm (Although history of A. fib), no murmur Abdomen/GI: normal bowel sounds, soft, + tenderness (Epigastric) Extremities/Musculoskelatal: no pedal edema, normal range of motion Neurologic/Psych: alert, oriented x 3 Skin: normal color, no rash, + pertinent finding (Bruises to left upper arm) Diagnostics Laboratory Results Results Past 24 Hours Test 12/29/17 09:39 12/29/17 10:29 Range/Units White Blood Count 4.98 4.8-10.8 K/uL Red Blood Count 4.74 4.7-6.1 M/uL Hemoglobin 14.3 14.0-18.0 g/dL Hematocrit 40.9 42-52 % Mean Corpuscular Volume 86.3 80-100 fL Mean Corpuscular Hemoglobin 30.2 25-34 pg Mean Corpuscular Hemoglobin Concent 35.0 32-36 g/dl Platelet Count 248 130-400 K/uL Mean Platelet Volume 9.8 7.4-10.4 fL Neutrophils (%) (Auto) 61.5 % Lymphocytes (%) (Auto) 28.1 % Monocytes (%) (Auto) 8.4 % Eosinophils (%) (Auto) 1.4 % Basophils (%) (Auto) 0.4 % Neutrophils # (Auto) 3.06 1.4-6.5 K/uL Lymphocytes # (Auto) 1.40 1.2-3.4 K/uL Monocytes # (Auto) 0.42 0.11-0.59 K/uL Eosinophils # (Auto) 0.07 0-0.5 K/uL Basophils # (Auto) 0.02 0-0.2 K/uL RDW Standard Deviation 42.0 36.4-46.3 fL RDW Coefficient of Variation 13.2 11.5-14.5 % Immature Granulocyte % (Auto) 0.2 % Immature Granulocyte # (Auto) 0.01 0.00-0.02 K/uL Prothrombin Time 20.4 9.0-12.0 SECONDS Prothromb Time International Ratio 2.0 0.9-1.1 Activated Partial Thromboplast Time 33.9 21.0-31.0 SECONDS Partial Thromboplastin Ratio 1.3 Sodium Level 135 136-145 mmol/L Potassium Level 4.3 3.5-5.1 mmol/L Chloride Level 100 98-107 mmol/L Carbon Dioxide Level 25 21-32 mmol/L Anion Gap 9.0 3-11 mmol/L Blood Urea Nitrogen 18 7-18 mg/dl Creatinine 0.92 0.60-1.40 mg/dl Est Creatinine Clear Calc Drug Dose 132.8 ml/min Estimated GFR () 110.4 Estimated GFR (Non- 95.3 BUN/Creatinine Ratio 19.1 10-20 Random Glucose 280 70-99 mg/dl Calcium Level 8.7 8.5-10.1 mg/dl Total Bilirubin 0.5 0.2-1 mg/dl Direct Bilirubin 0.1 0-0.2 mg/dl Aspartate Amino Transf (AST/SGOT) 25 15-37 U/L Alanine Aminotransferase (ALT/SGPT) 41 12-78 U/L Alkaline Phosphatase 88 45-117 U/L Total Protein 7.3 6.4-8.2 gm/dl Albumin 3.5 3.4-5.0 gm/dl Lipase 214 73-393 U/L Urine Color DK YELLOW Urine Appearance CLEAR CLEAR Urine pH 5.0 4.5-7.5 Urine Specific Alicia 1.039 1.000-1.030 Urine Protein 1+ NEG Urine Glucose (UA) 3+ NEG Urine Ketones TRACE NEG Urine Occult Blood NEG NEG Urine Nitrite NEG NEG Urine Bilirubin NEG NEG Urine Urobilinogen NEG NEG Urine Leukocyte Esterase NEG NEG Urine WBC (Auto) 1-5 0-5 /hpf Urine RBC (Auto) 0-4 0-4 /hpf Urine Hyaline Casts (Auto) 5-10 0-5 /lpf Urine Epithelial Cells (Auto) 20-30 0-5 /lpf Urine Bacteria (Auto) NEG NEG Diagnostic Radiology CTA angiogram shows no PE there is some concern for debris in the esophagus there is also discussion of stent hepatitis and splenomegaly seen there is no intra-abdominal lesion seen Impression Assessment and Plan 52-year-old male here with history of vomiting blood. The patient is anticoagulated with aspirin Plavix and Coumadin he had a recent CA in September with stent placement. For the possibility of GI bleed the patient will be put on twice daily Protonix will be Kept n.p.o. except for ice chips and n.p.o. after midnight I personally spoke to gastroenterology and are considering endoscopic procedure. We will check a hemoglobin of 1900 and then daily Coumadin coagulopathy the patient be given vitamin K 1 dose 2.5 p.o. will follow his INR daily Diabetic CARE the patient will have his oral agents held he will be on 50% of his Lantus dose with insulin sliding scale For his obstructive sleep apnea the patient will be maintained on his CPAP if he does not bring his own machine and will supply him a machine here atrial fibrillation, the patient sounds to be in sinus rhythm currently will be maintained on amiodarone and atenolol with a small sip in the morning with liquid Hypertension the patient's continue to be controlled on the atenolol and Cozaar Hypothyroidism since will be maintained at 150 Dyslipidemia secondary risk prevention atorvastatin 40 his last cholesterol was total at 96 DVT prevention is mechanical means for concern for GI bleeding Resuscitation Status VTE Prophylaxis Will order VTE Prophylaxis: Yes Reason for no VTE drug order: Contraindicated
[2017-12-29] MEDS ORDERED: GLUCOSE 40% GEL 15 GM TUBE PO PRN (15:00)
[2017-12-29] MEDS ORDERED: GLUCOSE 10 TABS/TUBE PO PRN (15:00)
[2017-12-29] MEDS ORDERED: GLUCAGON FOR INJ 1 MG VIAL SQ PRN (15:00)
[2017-12-29] MEDS ORDERED: DEXTROSE 50% 50 ML SYR IV PRN (15:00)
[2017-12-29] MEDS ORDERED: PHYTONADIONE 5 MG TAB PO STA (15:06)
--- NOTE | 2017-12-29 15:10 | EMERGENCY ROOM VISIT NOTE ---
History Report prepared by Sharoniblj: Shannon Wagner Under the Supervision of: Dr. Yash Castañeda D.O. First contact with patient: 09:23 Chief Complaint: ABDOMINAL PAIN Stated Complaint: THROWING UP BLOOD HEADACHE AB PAIN Nursing Triage Summary: abdominal pain, vomiting blood today. head pain in back of head started yesterday History of Present Illness The patient is a 52 year old male who presents to the Emergency Room with complaints of episode of blood in his vomit occurring this morning. The patient states he vomited twice this morning which was mostly food with some blood in it. The patient reports sometimes he wakes up with a "mouth full of blood". He states he was told the blood he was having in his mouth was from his gums. The patient reports it feels like something is stuck in the back of his throat. He notes neck pain for the past couple weeks which worsens when he swallows. He also reports abdominal pain. Abdominal pain is a dull crampy pain located in his epigastric region. Is very minimal at this time. The patient has a history of Barett's esophagus. The patient is on Coumadin for atrial fibrillation. The patient does not drink alcohol. Pt denies headache, change in vision, fevers, chest pain, shortness of breath, nausea, diarrhea, pain with urination, and melena. Source of History: patient Onset: this morning Position: other (generalized) Quality: other (vomitting blood) Timing: other (episodes) Associated Symptoms: + neck pain, + vomiting, + abdominal pain, No chest pain, No SOB, No nausea, No urinary symptoms Review of Systems See HPI for pertinent positives & negatives. A total of 10 systems reviewed and were otherwise negative. Past Medical & Surgical Medical Problems: (1) Atrial fibrillation (2) Rivas esophagus (3) Benign hypertension (4) Diabetes mellitus (5) Hematemesis (6) Hematemesis (7) High cholesterol (8) Left Hip DJD (9) Left Hip DJD Family History Blood clots Social History Smoking Status: Never Smoker Alcohol Use: occasionally Drug Use: cocaine Marital Status: Housing Status: lives with friends Occupation Status: employed Current/Historical Medications Scheduled Amiodarone HCl (Amiodarone HCl), 200 MG PO QAM Amlodipine Besylate (Amlodipine Besylate), 1 TAB PO DAILY Aspirin (Aspirin Low Strength), 81 MG PO DAILY Atenolol (Atenolol), 25 MG PO QAM Atorvastatin (Lipitor), 80 MG PO HS Clopidogrel Bisulfate (Clopidogrel), 75 MG PO QAM Esomeprazole Magnesium (Nexium), 20 MG PO BID Glipizide (Glipizide), 5 MG PO QAM Glipizide (Glucotrol), 15 MG PO QPM Insulin Glargine (Lantus Solostar), 30 UNITS SC HS Levothyroxine Sodium (Levothyroxine Sodium), 150 MCG PO QAM Losartan Potassium (Cozaar), 100 MG PO QAM Metformin Hcl (Glucophage), 1,000 MG PO BIDM Ranitidine Hcl (Zantac), 300 MG PO TID Scheduled PRN [place] Carb & Mag Hydrox-Simeth (Rolaids Advanced 1000-200-40 mg), Unknown Dose PO DIRECTED PRN for Indigestion Calcium Carbonate (Tums), Unknown Dose PO DIRECTED PRN for Indigestion Allergies Coded Allergies: Penicillins (Verified Allergy, Unknown, UNKNOWN CHILD, 12/29/17) Physical Exam Vital Signs Date Time Temp Pulse Resp B/P (MAP) Pulse Ox O2 Delivery O2 Flow Rate FiO2 12/29/17 14:50 36.7 55 22 139/72 92 12/29/17 14:30 55 22 92 12/29/17 14:23 90 Room Air 12/29/17 14:02 139/72 12/29/17 14:00 55 23 92 12/29/17 13:30 55 20 90 12/29/17 13:06 58 20 135/77 90 Room Air 12/29/17 13:02 135/77 12/29/17 13:00 57 23 90 12/29/17 12:30 56 20 91 12/29/17 12:02 180/92 12/29/17 12:00 57 21 92 12/29/17 11:30 56 19 93 12/29/17 11:28 148/77 12/29/17 11:16 54 18 148/77 96 Room Air 12/29/17 09:35 56 12/29/17 09:29 93 Room Air 12/29/17 09:16 36.7 60 18 128/74 93 Room Air Physical Exam GENERAL: Sitting up in bed, alert, well appearing, well nourished, no distress, non-toxic EYE EXAM: normal conjunctiva. OROPHARYNX: no exudate, no erythema, lips, buccal mucosa, and tongue normal and mucous membranes are moist NECK: supple, no nuchal rigidity, no adenopathy, non-tender LUNGS: Clear to auscultation. Normal chest wall mechanics HEART: no murmurs, S1 normal and S2 normal ABDOMEN: abdomen soft, minimal tenderness in the epigastric region, normo- active bowel sounds, no masses, no rebound or guarding. BACK: Back is symmetrical on inspection and there is no deformity, no midline tenderness, no CVA tenderness. SKIN: no rashes and no bruising UPPER EXTREMITIES: upper extremities are grossly normal. LOWER EXTREMITIES: No pitting edema. RECTAL:Brown stool, Hemoccult positive. NEURO EXAM: Normal sensorium, cranial nerves II-XII grossly intact, normal speech, no gross weakness of arms, no gross weakness of legs. Medical Decision & Procedures ER Provider Diagnostic Interpretation: Radiology results as stated below per my review and the radiologist's interpretation: CT SCAN OF THE ABDOMEN AND PELVIS WITH IV CONTRAST FINDINGS: Lung bases: The heart is enlarged and without pericardial effusion. There are coronary artery calcifications. Scarring versus atelectasis is seen at the right lung base and there is elevation of right hemidiaphragm. No airspace consolidation pleural effusion is identified. There is a small hiatal hernia. Liver: Evaluation of the liver is degraded by streak artifact. The contrast-enhanced liver is enlarged, measuring 25.6 cm in length. The liver demonstrates diffusely diminished attenuation consistent with hepatic steatosis. Fatty sparing is seen adjacent to gallbladder fossa. There is no intrahepatic biliary ductal dilatation. The hepatic veins and portal veins are patent. Gallbladder: Unremarkable. Spleen: The spleen is enlarged measuring 14.9 cm in length. Pancreas: Unremarkable. Adrenal glands: Unremarkable. Kidneys: The contrast enhanced kidneys are normal in size and without hydronephrosis. The kidneys enhance symmetrically. A 1.6 cm cyst is noted in the right kidney. Abdominal vasculature: The abdominal aorta is normal in course and caliber noting mild atherosclerotic calcification. Bowel: The small bowel and colon are normal in course and caliber. The appendix is well-visualized and normal. Peritoneum: There is no intraperitoneal free air or abdominal ascites. There is a small fat-containing umbilical hernia. Lymphadenopathy: None. Pelvic viscera: Evaluation of the pelvis is degraded by streak artifact from a left hip arthroplasty. The the bladder is decompressed and grossly unremarkable. The prostate and seminal vesicles are normal as visualized. There is asymmetric atrophy of the left iliopsoas and gluteal musculature as compared to the right. Skeletal structures: The skeletal structures are osteopenic. Moderate lumbosacral spondylosis is observed. No lytic or blastic lesions are seen. A left hip arthroplasty is noted. IMPRESSION: 1. There are no acute infectious or inflammatory findings in the abdomen or pelvis. 2. Hepatomegaly and hepatic steatosis. 3. Splenomegaly. 4. Cardiomegaly. 5. Additional findings as above. Electronically signed by: Nikunj Benson M.D. (CHEST FOR PE) ANGIO WITH FINDINGS: [employer] topogram: Total left hip arthroplasty and cerclage wire fixation of the proximal left femoral metadiaphysis. Pulmonary vasculature: The study is suboptimal for the assessment of the pulmonary vascular tree secondary to timing of the contrast bolus and respiratory motion artifact. Allowing for limited image quality, no central filling defect to suggest pulmonary embolus. Main pulmonary artery is not enlarged. No flattening of the interventricular septum. No intracardiac filling defect. No reflux of contrast into the hepatic veins. Remaining chest: On soft tissue windows, normal thyroid and thoracic inlet. No axillary, supraclavicular, hilar, or mediastinal lymphadenopathy. Normal aorta. Multichamber enlargement of the heart. Coronary artery calcification. No pericardial or pleural effusion. Upper abdomen normal. On lung windows, bandlike opacities at the right lung base likely atelectasis. Motion artifact from respiration mild degrades evaluation of the lung parenchyma. Layering debris noted in the lower trachea. On bone windows, degenerative changes of the spine. IMPRESSION: 1. Allowing for suboptimal image quality, no evidence of pulmonary embolus. 2. Right basilar atelectasis. 3. Layering debris noted in the lower trachea, raising concern for aspiration. No evidence of pneumonitis or more distal bronchial debris. Electronically signed by: Sergio Lal M.D. CT OF THE NECK WITH CONTRAST FINDINGS: Visualized portions of the intracranial contents are unremarkable. Orbits are unremarkable. Mastoid air cells are clear. There is mild mucosal thickening of the maxillary and ethmoid sinuses. No cervical lymphadenopathy is present. There is no abscess within the neck. Multiple tonsilliths are present. No mucosal lesion is identified although these may be occult by CT. The parotid and submandibular glands are normal. No suspicious osseous lesions are present. The chest CT will be reported separately. IMPRESSION: 1. No acute process within the neck by CT. 2. No cervical lymphadenopathy. 3. No mucosal lesion identified although these may be occult by CT. If persistent suspicion for lesion, ENT consultation is recommended for consideration for direct visualization. Electronically signed by: Darius Barney M.D. Laboratory Results 12/29/17 09:39 Red Blood Count 4.74, Mean Corpuscular Volume 86.3, Mean Corpuscular Hemoglobin 30.2, Mean Corpuscular Hemoglobin Concent 35.0, Mean Platelet Volume 9.8, Neutrophils (%) (Auto) 61.5, Lymphocytes (%) (Auto) 28.1, Monocytes (%) (Auto) 8.4, Eosinophils (%) (Auto) 1.4, Basophils (%) (Auto) 0.4, Neutrophils # (Auto) 3.06, Lymphocytes # (Auto) 1.40, Monocytes # (Auto) 0.42, Eosinophils # (Auto) 0.07, Basophils # (Auto) 0.02 12/29/17 09:39 Test 12/29/17 09:39 12/29/17 10:29 White Blood Count 4.98 K/uL (4.8-10.8) Red Blood Count 4.74 M/uL (4.7-6.1) Hemoglobin 14.3 g/dL (14.0-18.0) Hematocrit 40.9 % (42-52) Mean Corpuscular Volume 86.3 fL (80-100) Mean Corpuscular Hemoglobin 30.2 pg (25-34) Mean Corpuscular Hemoglobin Concent 35.0 g/dl (32-36) Platelet Count 248 K/uL (130-400) Mean Platelet Volume 9.8 fL (7.4-10.4) Neutrophils (%) (Auto) 61.5 % Lymphocytes (%) (Auto) 28.1 % Monocytes (%) (Auto) 8.4 % Eosinophils (%) (Auto) 1.4 % Basophils (%) (Auto) 0.4 % Neutrophils # (Auto) 3.06 K/uL (1.4-6.5) Lymphocytes # (Auto) 1.40 K/uL (1.2-3.4) Monocytes # (Auto) 0.42 K/uL (0.11-0.59) Eosinophils # (Auto) 0.07 K/uL (0-0.5) Basophils # (Auto) 0.02 K/uL (0-0.2) RDW Standard Deviation 42.0 fL (36.4-46.3) RDW Coefficient of Variation 13.2 % (11.5-14.5) Immature Granulocyte % (Auto) 0.2 % Immature Granulocyte # (Auto) 0.01 K/uL (0.00-0.02) Prothrombin Time 20.4 SECONDS (9.0-12.0) Prothromb Time International Ratio 2.0 (0.9-1.1) Activated Partial Thromboplast Time 33.9 SECONDS (21.0-31.0) Partial Thromboplastin Ratio 1.3 Anion Gap 9.0 mmol/L (3-11) Est Creatinine Clear Calc Drug Dose 132.8 ml/min Estimated GFR () 110.4 Estimated GFR (Non- 95.3 BUN/Creatinine Ratio 19.1 (10-20) Calcium Level 8.7 mg/dl (8.5-10.1) Total Bilirubin 0.5 mg/dl (0.2-1) Direct Bilirubin 0.1 mg/dl (0-0.2) Aspartate Amino Transf (AST/SGOT) 25 U/L (15-37) Alanine Aminotransferase (ALT/SGPT) 41 U/L (12-78) Alkaline Phosphatase 88 U/L (45-117) Total Protein 7.3 gm/dl (6.4-8.2) Albumin 3.5 gm/dl (3.4-5.0) Lipase 214 U/L (73-393) Urine Color DK YELLOW Urine Appearance CLEAR (CLEAR) Urine pH 5.0 (4.5-7.5) Urine Specific Virgil 1.039 (1.000-1.030) Urine Protein 1+ (NEG) Urine Glucose (UA) 3+ (NEG) Urine Ketones TRACE (NEG) Urine Occult Blood NEG (NEG) Urine Nitrite NEG (NEG) Urine Bilirubin NEG (NEG) Urine Urobilinogen NEG (NEG) Urine Leukocyte Esterase NEG (NEG) Urine WBC (Auto) 1-5 /hpf (0-5) Urine RBC (Auto) 0-4 /hpf (0-4) Urine Hyaline Casts (Auto) 5-10 /lpf (0-5) Urine Epithelial Cells (Auto) 20-30 /lpf (0-5) Urine Bacteria (Auto) NEG (NEG) Laboratory results per my review. Medications Administered Medications (Trade) Dose Ordered Sig/Tristan Route Start Time Stop Time Status Last Admin Dose Admin Sodium Chloride 1,000 ml @ 999 mls/hr Q1H1M STAT IV 12/29/17 09:23 12/29/17 10:23 DC 12/29/17 09:44 999 MLS/HR Pantoprazole Sodium 80 mg/ Dextrose 120 ml @ 480 mls/hr TODAY@1030 ONCE IV 12/29/17 10:30 12/29/17 10:44 DC 12/29/17 10:39 480 MLS/HR Pantoprazole Sodium 40 mg/ Dextrose 100 ml @ 20 mls/hr Q5H IV 12/29/17 10:45 12/29/17 15:44 12/29/17 11:22 20 MLS/HR ECG Per My Interpretation Indication: abdominal pain Rate (beats per minute): 55 Rhythm: sinus bradycardia Findings: other (normal axis, no PVC) ED Course ED COURSE: Vital signs were reviewed and showed normal The patients medical record was reviewed The above diagnostic studies were performed and reviewed. ED treatments and interventions as stated above. 0923: Ordered Sodium Chloride 1000 ml @ 999 mls/hr IV. 0936: The patient was evaluated in room C4. A complete history and physical examination was performed. 1030: Ordered Pantoprazole Sodium 80 mg/Dextrose 120 ml @ 480 mls/hr IV. 1045: Ordered Pantoprazole Sodium 40 mg/Dextrose 100 ml @ 20 mls/hr IV. 1148: I updated the patient on his test result. He is agreeable to the treatment plan. 1303: I reviewed the patient's case with Dr. Rodriguez. He will evaluate the patient for further management. 1315: Upon reevaluation, the patient is resting comfortably.I discussed my findings with the patient and he understands and agrees with the treatment plan. Based on the patients age, coexisting illnesses, exam and lab findings the decision to treat as an inpatient was made. The patient remained stable while under my care. The patient will be evaluated for further management. Medical Decision Differential diagnosis: Etiologies such as diverticulosis, AVM, coagulopathy, colitis, inflammatory bowel disease, malignancy, Eileen-Berry tear, esophagitis, peptic ulcer disease , variceal bleed, gastritis, epistaxis, fissure, hemorrhoids, as well as others were entertained. Patient is a 52-year-old male that presents the ER for vomiting blood and epigastric abdominal pain. CBC along with BMP, LFTs and bilirubin lipase is unremarkable. INR was therapeutic. UA was negative. He did feel like something was in the back of his throat so CT of the neck, chest and abdomen pelvis was performed. These were unremarkable. Rectal was heme positive. With his Coumadin I did elect to observe him overnight. I did not reverse his INR as he is currently not having any true active bleeding with stable vital signs and a normal hemoglobin. Medication Reconcilliation Current Medication List: was personally reviewed by me Blood Pressure Screening Patient's blood pressure: Normal blood pressure Consults Time Called: 1204 Consulting Physician: Dr. Jacob Returned Call: 1303 I reviewed the patient's case with Dr. Jacob. He will evaluate the patient for further management. Impression Primary Impression: Upper GI bleed Scribe Attestation The scribe's documentation has been prepared under my direction and personally reviewed by me in its entirety. I confirm that the note above accurately reflects all work, treatment, procedures, and medical decision making performed by me. Departure Information Dispostion Being Evaluated By Hospitalist Referrals No Doctor, Assigned (PCP) Patient Instructions My [facility]
--- NOTE | 2017-12-29 15:23 | Gastrointestinal Consultation ---
Gastrointestinal Consultation Date of Consultation: Dec 29, 2017 Attending Physician: Dr. Bashir Consulting Physician: Dr. Quinn Reason for Consultation: Hematemesis History of Present Illness Patient is a 52 year old male patient, formally of Dr. Jakc and Deborah, now with [facility] who presented to the ED today for hematemesis, for which GI is consulted. The pt carries a hx of HTN, hyperlipidemia, obesity, Sleep Apnea on CPAP who experienced a NSTEMI and placement of a drug eluting stent to the LAD in September, currently on Coumadin for A-fib as well as Plavix and ASA. He tells me that around 2 or 3 every morning, he wakes and coughs up a small amt of bloody mucous, attributing this to being on the Coumadin, ASA and Plavix. He has also had a dry cough during the past week. One night last week he had "an entire mouth full of blood." He has also had epigastric cramping and burning pain for a few hours, usually with nausea, lasting from awakening in the morning until about 10 AM every morning. This also began soon after starting the Coumadin/ASA/Plavix. This morning, he felt epigastric pain and vomited up a large emesis consisting of food and blood. On arrival Hb was 14. Platelets were 248 [address] IN[address] was 2[address]0. [address] abd/pelvis suggested hepatomegaly with steatosis and splenomegaly. He denies any CP, No SOB. He did notice a irregular heart beats this morning. He also mentions that he has been dizzy, "for a couple days now." He has a hx of short segment Rivas's seen on EGD in Jul 2017. He is maintained on Omeprazole 40mg once daily and Ranitidine 150mg 2 tabs BID. He denies any melena or loose stools. He tends toward constipation and his most recent BM was this morning. He denies drinking any alcohol, and was a bit a heavy drinker on weekends but only in his late teen years. Past Medical/Surgical History Medical Problems: (1) Abnormal EKG Status: Acute (2) Burning chest pain Status: Acute (3) Fracture of radial head, right, closed Status: Acute (4) Headache Status: Acute (5) Hypertension Status: Acute (6) Irritation of left eye Status: Acute (7) Precordial chest pain Status: Acute (8) Sensation of foreign body in eye Status: Acute (9) Upper GI bleed Status: Acute Past Medical History: 1. A-fib 2. Rivas's Esophagus 3. HTN 4. Obesity 5. Sleep apnea 6. Hyperlipidemia 7. CAD, S/P NSTEMI 8 Lt corneal abrasion 9. DJD 10. DM-2, on insulin Past Surgical History: 1. Most recent EGD by Dr. Jones 07/31/17: endoscopically normal but short segment Rivas's on GE junction bx with chronic inflammation, w/o metaplasia. 2. Most recent Colonoscopy 04/18/15 Dr Jones (screening): three polyps, largest 7mm. Bx positive for Tubular adenoma. 3. Cardiac stenting of the LAD in September 2017 (drug eluting). 4. Left hip replacement 03/25/16. Family History Blood clots Social History Smoking Status: Never Smoker Alcohol Use: occasionally Drug Use: cocaine Marital Status: Housing Status: lives with friends Occupation Status: employed Allergies Coded Allergies: Penicillins (Verified Allergy, Unknown, UNKNOWN CHILD, 12/29/17) Current Medications Home Meds and Scripts Medications Dose Route/Sig Max Daily Dose Days Date Category Aspirin Low Strength (Aspirin) 81 Mg Chew 81 Mg PO DAILY 30 09/15/17 Rx Lipitor (Atorvastatin Calcium) 40 Mg Tab 80 Mg PO HS 30 09/15/17 Rx Amlodipine Besylate 10 Mg Tab 1 Tab PO DAILY 30 09/15/17 Rx Clopidogrel (Clopidogrel Bisulfate) 75 Mg Tab 75 Mg PO QAM 30 09/15/17 Rx Rolaids Advanced 1000-200-40 mg ([place] Carb & Mag Hydrox-Simeth) 1 Chw Chw Unknown Dose PO DIRECTED PRN 09/12/17 Reported Tums (Calcium Carbonate) 500 Mg Chew Unknown Dose PO DIRECTED PRN 09/12/17 Reported Nexium (Esomeprazole Magnesium) 20 Mg Capcr 20 Mg PO BID 09/12/17 Reported Glucotrol (Glipizide) 5 Mg Tab 15 Mg PO QPM 08/03/17 Reported Zantac (Ranitidine HCl) 300 Mg Tab 300 Mg PO TID 07/18/17 Reported Lantus Solostar (Insulin Glargine) 100 Unit/Ml Inj 30 Units SC HS 07/13/17 Reported Glipizide 5 Mg Tab 5 Mg PO QAM 06/01/17 Reported Atenolol 25 Mg Tab 25 Mg PO QAM 06/01/17 Reported Cozaar (Losartan Potassium) 100 Mg Tab 100 Mg PO QAM 06/01/17 Reported Amiodarone HCl 200 Mg Tab 200 Mg PO QAM 04/28/17 Reported Levothyroxine Sodium 150 Mcg Tab 150 Mcg PO QAM 02/20/16 Reported Glucophage (Metformin Hcl) 1,000 Mg Tab 1,000 Mg PO BIDM 02/20/16 Reported Review of Systems Constitutional: No fever, No chills, No sweats, No weight loss, No weakness Eyes: No eye pain, No redness ENT: No sore throat, No trouble swallowing, No pain on swallowing Respiratory: No cough, No wheezing, No shortness of breath, No dyspnea on exertion Cardiac: No chest pain, No edema, No palpitations Abdomen: + see HPI, + pain, + nausea, + vomiting, + constipation, + GI bleeding Male : No dysuria Neuro: No memory loss, No weakness, No numbness/tingling, No vertigo, No balance problems Psych: No depression symptoms, No anxiety, No insomnia Heme: + abnormal bleeding/bruising (bleeding gums), No night sweats Endo: No excessive thirst, No excessive urination Skin: No rash, No itch, No new/changing skin lesions, No jaundice Physical Exam Date Time Temp Pulse Resp B/P (MAP) Pulse Ox O2 Delivery O2 Flow Rate FiO2 12/29/17 14:50 36.7 55 22 139/72 92 12/29/17 14:30 55 22 92 12/29/17 14:23 90 Room Air 12/29/17 14:02 139/72 12/29/17 14:00 55 23 92 12/29/17 13:30 55 20 90 12/29/17 13:06 58 20 135/77 90 Room Air 12/29/17 13:02 135/77 12/29/17 13:00 57 23 90 12/29/17 12:30 56 20 91 12/29/17 12:02 180/92 12/29/17 12:00 57 21 92 12/29/17 11:30 56 19 93 12/29/17 11:28 148/77 12/29/17 11:16 54 18 148/77 96 Room Air 12/29/17 09:35 56 12/29/17 09:29 93 Room Air 12/29/17 09:16 36.7 60 18 128/74 93 Room Air General Appearance: no apparent distress Eyes: normal inspection, EOMI Neck: supple, no adenopathy, thyroid normal Respiratory/Chest: chest non-tender, lungs clear, normal breath sounds, no accessory muscle use Cardiovascular: regular rate, rhythm, no JVD, no murmur Abdomen: normal bowel sounds, non tender, soft, no organomegaly Extremities: normal inspection, no pedal edema, normal capillary refill Neurologic/Psych: alert, normal mood/affect, oriented x 3 Skin: normal color, no jaundice, warm/dry, no rash Hypertensive at 171/106. Laboratory Results Last 24 Hours Test 12/29/17 09:39 12/29/17 10:29 White Blood Count 4.98 K/uL Red Blood Count 4.74 M/uL Hemoglobin 14.3 g/dL Hematocrit 40.9 % Mean Corpuscular Volume 86.3 fL Mean Corpuscular Hemoglobin 30.2 pg Mean Corpuscular Hemoglobin Concent 35.0 g/dl Platelet Count 248 K/uL Mean Platelet Volume 9.8 fL Neutrophils (%) (Auto) 61.5 % Lymphocytes (%) (Auto) 28.1 % Monocytes (%) (Auto) 8.4 % Eosinophils (%) (Auto) 1.4 % Basophils (%) (Auto) 0.4 % Neutrophils # (Auto) 3.06 K/uL Lymphocytes # (Auto) 1.40 K/uL Monocytes # (Auto) 0.42 K/uL Eosinophils # (Auto) 0.07 K/uL Basophils # (Auto) 0.02 K/uL RDW Standard Deviation 42.0 fL RDW Coefficient of Variation 13.2 % Immature Granulocyte % (Auto) 0.2 % Immature Granulocyte # (Auto) 0.01 K/uL Prothrombin Time 20.4 SECONDS Prothromb Time International Ratio 2.0 Activated Partial Thromboplast Time 33.9 SECONDS Partial Thromboplastin Ratio 1.3 Sodium Level 135 mmol/L Potassium Level 4.3 mmol/L Chloride Level 100 mmol/L Carbon Dioxide Level 25 mmol/L Anion Gap 9.0 mmol/L Blood Urea Nitrogen 18 mg/dl Creatinine 0.92 mg/dl Est Creatinine Clear Calc Drug Dose 132.8 ml/min Estimated GFR () 110.4 Estimated GFR (Non- 95.3 BUN/Creatinine Ratio 19.1 Random Glucose 280 mg/dl Calcium Level 8.7 mg/dl Total Bilirubin 0.5 mg/dl Direct Bilirubin 0.1 mg/dl Aspartate Amino Transf (AST/SGOT) 25 U/L Alanine Aminotransferase (ALT/SGPT) 41 U/L Alkaline Phosphatase 88 U/L Total Protein 7.3 gm/dl Albumin 3.5 gm/dl Lipase 214 U/L Urine Color DK YELLOW Urine Appearance CLEAR Urine pH 5.0 Urine Specific [place] 1.039 Urine Protein 1+ Urine Glucose (UA) 3+ Urine Ketones TRACE Urine Occult Blood NEG Urine Nitrite NEG Urine Bilirubin NEG Urine Urobilinogen NEG Urine Leukocyte Esterase NEG Urine WBC (Auto) 1-5 /hpf Urine RBC (Auto) 0-4 /hpf Urine Hyaline Casts (Auto) 5-10 /lpf Urine Epithelial Cells (Auto) 20-30 /lpf Urine Bacteria (Auto) NEG CT abd/pelvis with IV/no oral contrast on 12/29/17: 1. There are no acute infectious or inflammatory findings in the abdomen or pelvis. 2. Hepatomegaly and hepatic steatosis. 3. Splenomegaly. 4. Cardiomegaly. 5. Additional findings as above CTA 12/29/17: 1. Allowing for suboptimal image quality, no evidence of pulmonary embolus. 2. Right basilar atelectasis. 3. Layering debris noted in the lower trachea, raising concern for aspiration. No evidence of pneumonitis or more distal bronchial debris. Impression Patient is a 52 year old male with hematemesis on Plavix, Coumadin, ASA. He has epigastric pain, suggestive of ulcer disease or esophagitis or gastritis. Plan 1. Agree with Protonix drip. 2. Recheck Hb in 6- 12 hours. 3. Clear liquids po tonight. 4. NPO after midnight. I performed a history and physical examination of the patient, including specifically on physical exam - no abdominal tenderness. I have discussed the patient's management with ASHLEY Loyola. Please refer to the nurse practitioner's note for the documented findings and plan of care. Will plan for EGD tomorrow. No evidence of active bleed at this time. It seems more of hemoptysis but will confirm tomorrow by EGD.
[2017-12-29] MEDS ORDERED: IV FLUIDS COMPLETED PRN ×2 (15:45→16:00)
[2017-12-29] MEDS: SODIUM CHLORIDE 0.9% 1000ML 1,000 ML IV SCH (15:45)
[2017-12-29 15:58] VITALS: O2SAT 94
[2017-12-29 16:00] VITALS: BP 143/95; PULSE 57; TEMP 36.9; O2SAT 94
[2017-12-29] MEDS: INSULIN ASPART 100 UNITS/ML 3 ML PEN SC SCH ×2 (17:18→21:27)
[2017-12-29] MEDS: PANTOprazole INJ 40 MG in DEXTROSE 5% 100ML IV SCH ×2 (17:37→21:24)
[2017-12-29 19:30] VITALS: BP 148/78; PULSE 56; TEMP 37; O2SAT 92
[2017-12-29 20:57] LABS: HEMATOCRIT 36.7 % (42-52); HEMOGLOBIN 12.7 g/dL (14.0-18.0)
[2017-12-29] MEDS ORDERED: PANTOprazole INJ 40 MG in SYRINGE 0 ML IV SCH (21:00)
[2017-12-29] MEDS ORDERED: ATORVASTATIN 40 MG TAB PO SCH (21:00)
[2017-12-29] MEDS ORDERED: INSULIN GLARGINE SOLOSTAR 100 UNITS/ML 3 ML PEN SC SCH ×2 (21:00)
[2017-12-29 23:00] VITALS: BP 153/82; PULSE 55; TEMP 36.9; O2SAT 93
[2017-12-29 23:54] VITALS: PULSE 53; O2SAT 96
[2017-12-30] VITALS (7 sets, daily range): BP systolic 133–140; BP diastolic 71–80; PULSE 18–58; TEMP 36.7–36.8; O2SAT 92–94
[2017-12-30] MEDS: SODIUM CHLORIDE 0.9% 1000ML 1,000 ML IV SCH (01:51)
[2017-12-30] MEDS: PANTOprazole INJ 40 MG in DEXTROSE 5% 100ML IV SCH ×2 (02:37→07:45)
[2017-12-30] MEDS ORDERED: LEVOTHYROXINE 150 MCG TAB PO SCH (06:00)
[2017-12-30 07:42] LABS: HEMATOCRIT 39.3 % (42-52); HEMOGLOBIN 13.7 g/dL (14.0-18.0); MEAN CORPUSCULAR HGB CONC 34.9 g/dl (32-36); MEAN PLATELET VOLUME 9.5 fL (7.4-10.4); PLATELET COUNT 222 K/uL (130-400); RED CELL DISTRIBUTION WIDTH CV 13.2 % (11.5-14.5); RED CELL DISTRIBUTION WIDTH SD 41.8 fL (36.4-46.3); WHITE BLOOD COUNT 3.92 K/uL (4.8-10.8)
[2017-12-30 07:51] LABS: INR 1.9 (0.9-1.1)
[2017-12-30 08:10] LABS: CALCIUM 7.8 mg/dl (8.5-10.1); CREATININE 0.7 mg/dl (0.60-1.40); POTASSIUM 3.9 mmol/L (3.5-5.1)
[2017-12-30] MEDS: INSULIN ASPART 100 UNITS/ML 3 ML PEN SC SCH ×2 (08:27→12:24)
--- NOTE | 2017-12-30 08:35 | Hospitalist Progress Note ---
Hospitalist Progress Note Date of Service Dec 30, 2017. Subjective Pt evaluation today including: conversation w/ patient, physical exam, chart review, lab review, review of studies Objective Vital Signs Date Time Temp Pulse Resp B/P (MAP) Pulse Ox O2 Delivery O2 Flow Rate FiO2 12/30/17 04:00 Room Air 12/30/17 03:25 36.7 58 18 133/71 (91) 93 Room Air 12/30/17 00:00 Room Air 12/29/17 23:54 53 96 21 12/29/17 23:00 36.9 55 18 153/82 (105) 93 Room Air 12/29/17 20:00 Room Air 12/29/17 19:30 37.0 56 16 148/78 (101) 92 Room Air 12/29/17 16:00 36.9 57 18 143/95 (111) 94 Room Air 12/29/17 16:00 94 12/29/17 16:00 36.9 57 18 143/95 (111) 94 Room Air 12/29/17 15:58 94 Room Air 12/29/17 14:50 36.7 55 22 139/72 92 12/29/17 14:30 55 22 92 12/29/17 14:23 90 Room Air 12/29/17 14:02 139/72 12/29/17 14:00 55 23 92 12/29/17 13:30 55 20 90 12/29/17 13:06 58 20 135/77 90 Room Air 12/29/17 13:02 135/77 12/29/17 13:00 57 23 90 12/29/17 12:30 56 20 91 12/29/17 12:02 180/92 12/29/17 12:00 57 21 92 12/29/17 11:30 56 19 93 12/29/17 11:28 148/77 12/29/17 11:16 54 18 148/77 96 Room Air 12/29/17 09:35 56 12/29/17 09:29 93 Room Air 12/29/17 09:16 36.7 60 18 128/74 93 Room Air Laboratory Results Last 24 Hours Test 12/29/17 09:39 12/29/17 10:29 12/29/17 16:17 12/29/17 20:26 White Blood Count 4.98 K/uL Red Blood Count 4.74 M/uL Hemoglobin 14.3 g/dL Hematocrit 40.9 % Mean Corpuscular Volume 86.3 fL Mean Corpuscular Hemoglobin 30.2 pg Mean Corpuscular Hemoglobin Concent 35.0 g/dl Platelet Count 248 K/uL Mean Platelet Volume 9.8 fL Neutrophils (%) (Auto) 61.5 % Lymphocytes (%) (Auto) 28.1 % Monocytes (%) (Auto) 8.4 % Eosinophils (%) (Auto) 1.4 % Basophils (%) (Auto) 0.4 % Neutrophils # (Auto) 3.06 K/uL Lymphocytes # (Auto) 1.40 K/uL Monocytes # (Auto) 0.42 K/uL Eosinophils # (Auto) 0.07 K/uL Basophils # (Auto) 0.02 K/uL RDW Standard Deviation 42.0 fL RDW Coefficient of Variation 13.2 % Immature Granulocyte % (Auto) 0.2 % Immature Granulocyte # (Auto) 0.01 K/uL Prothrombin Time 20.4 SECONDS Prothromb Time International Ratio 2.0 Activated Partial Thromboplast Time 33.9 SECONDS Partial Thromboplastin Ratio 1.3 Sodium Level 135 mmol/L Potassium Level 4.3 mmol/L Chloride Level 100 mmol/L Carbon Dioxide Level 25 mmol/L Anion Gap 9.0 mmol/L Blood Urea Nitrogen 18 mg/dl Creatinine 0.92 mg/dl Est Creatinine Clear Calc Drug Dose 132.8 ml/min Estimated GFR () 110.4 Estimated GFR (Non- 95.3 BUN/Creatinine Ratio 19.1 Random Glucose 280 mg/dl Calcium Level 8.7 mg/dl Total Bilirubin 0.5 mg/dl Direct Bilirubin 0.1 mg/dl Aspartate Amino Transf (AST/SGOT) 25 U/L Alanine Aminotransferase (ALT/SGPT) 41 U/L Alkaline Phosphatase 88 U/L Total Protein 7.3 gm/dl Albumin 3.5 gm/dl Lipase 214 U/L Urine Color DK YELLOW Urine Appearance CLEAR Urine pH 5.0 Urine Specific [place] 1.039 Urine Protein 1+ Urine Glucose (UA) 3+ Urine Ketones TRACE Urine Occult Blood NEG Urine Nitrite NEG Urine Bilirubin NEG Urine Urobilinogen NEG Urine Leukocyte Esterase NEG Urine WBC (Auto) 1-5 /hpf Urine RBC (Auto) 0-4 /hpf Urine Hyaline Casts (Auto) 5-10 /lpf Urine Epithelial Cells (Auto) 20-30 /lpf Urine Bacteria (Auto) NEG Bedside Glucose 158 mg/dl 194 mg/dl Test 12/29/17 20:49 12/30/17 06:30 12/30/17 07:29 Hemoglobin 12.7 g/dL 13.7 g/dL Hematocrit 36.7 % 39.3 % Bedside Glucose 212 mg/dl White Blood Count 3.92 K/uL Red Blood Count 4.57 M/uL Mean Corpuscular Volume 86.0 fL Mean Corpuscular Hemoglobin 30.0 pg Mean Corpuscular Hemoglobin Concent 34.9 g/dl RDW Standard Deviation 41.8 fL RDW Coefficient of Variation 13.2 % Platelet Count 222 K/uL Mean Platelet Volume 9.5 fL Prothrombin Time 19.4 SECONDS Prothromb Time International Ratio 1.9 Sodium Level 135 mmol/L Potassium Level 3.9 mmol/L Chloride Level 104 mmol/L Carbon Dioxide Level 26 mmol/L Anion Gap 5.0 mmol/L Blood Urea Nitrogen 9 mg/dl Creatinine 0.70 mg/dl Est Creatinine Clear Calc Drug Dose 174.1 ml/min Estimated GFR () 125.8 Estimated GFR (Non- 108.5 BUN/Creatinine Ratio 13.4 Random Glucose 208 mg/dl Calcium Level 7.8 mg/dl Assessment and Plan 52 yo M with PMHx of CAD, hx NSTEMI in Sep 2017 with CARLA to LAD and on plavix aspirin therapy, Afib on coumadin, HTN, HLD, obesity, ERICA on cpap presenting with upper GI bleed. Gi Bleed - Hgb checks Q6H - last was at 13.7 - GI consulted - Wanda Jackson has seen the pt - Continue protonix gtt for now - possible endoscopy today so the pt is NPO HTN - continue amiodarone 200 mg daily, amlodipine 10 mg daily, atenolol 25 mg daily , losartan 100 mg Qam HLD - cont high intensity statin - atorvastatin 80 mg daily Afib - Coumadin, INR = 1.9 DM II - Continue Lantus 15 U HS - along with ISS with accuchecks achs - Holding glipizide and metformin Hypothyroidism - Cont levothyroxine ERICA on cpap - continue cpap CODE STATUS: FULL CODE DVT ppx: no chemical anticoagulation for GI bleed, teds/scds
[2017-12-30] MEDS ORDERED: LOSARTAN POTASSIUM 50 MG TAB PO SCH (09:00)
[2017-12-30] MEDS ORDERED: CLOPIDOGREL BISULFATE 75 MG TAB PO SCH (09:00)
[2017-12-30] MEDS ORDERED: AMLODIPINE BESYLATE 5 MG TAB PO SCH (09:00)
[2017-12-30] MEDS ORDERED: AMIODARONE 200 MG TAB PO SCH (09:00)
[2017-12-30] MEDS ORDERED: SODIUM CHLORIDE 0.9% 500ML 500 ML IV ONE (09:25)
--- NOTE | 2017-12-30 09:26 | History & Physical Bridge Note ---
H&P Re-Evaluation Bridge Note: I have examined the patient, reviewed the History & Physical and in the interval since the performance of the History & Physical I have noted the following changes of clinical significance: No changes noted
[2017-12-30] MEDS ORDERED: KETAMINE HCL INJ 50 MG/ML 10 ML VIAL ONE (09:46)
[2017-12-30] MEDS ORDERED: MIDAZOLAM HCL 1 MG/ML 2ML VIAL ONE (09:46)
[2017-12-30] MEDS ORDERED: PROPOFOL IV EMULSION 10 MG/ML 20 ML VIAL IV ONE (10:13)
[2017-12-30] MEDS ORDERED: LIDOCAINE HCL 2% 2 ML VIAL (20MG/ML) ONE (10:13)
--- NOTE | 2017-12-30 10:18 | GI REPORT ---
Procedure Date: 12/30/2017 9:49 AM Procedure: Upper GI endoscopy Indications: ?Hematemesis Vs.Hemoptysis, R/O upper gastrointestinal bleeding Medicines: Monitored Anesthesia Care Complications: No immediate complications. Estimated Blood Loss: Estimated blood loss: none. Procedure: Pre-Anesthesia Assessment: - Prior to the procedure, a History and Physical was performed, and patient medications and allergies were reviewed. The patient is competent. The risks and benefits of the procedure and the sedation options and risks were discussed with the patient. All questions were answered and informed consent was obtained. Patient identification and proposed procedure were verified by the physician and the nurse in the procedure room. Mental Status Examination: alert and oriented. Airway Examination: normal oropharyngeal airway and neck mobility. Respiratory Examination: clear to auscultation. CV Examination: normal. ASA Grade Assessment: III - A patient with severe systemic disease. After reviewing the risks and benefits, the patient was deemed in satisfactory condition to undergo the procedure. The anesthesia plan was to use monitored anesthesia care (MAC). Immediately prior to administration of medications, the patient was re-assessed for adequacy to receive sedatives. The heart rate, respiratory rate, oxygen saturations, blood pressure, adequacy of pulmonary ventilation, and response to care were monitored throughout the procedure. The physical status of the patient was re-assessed after the procedure. After obtaining informed consent, the endoscope was passed under direct vision. Throughout the procedure, the patient's blood pressure, pulse, and oxygen saturations were monitored continuously. The scope was introduced through the mouth, and advanced to the second part of duodenum. The upper GI endoscopy was accomplished without difficulty. The patient tolerated the procedure well. Findings: The examined esophagus was normal. 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 The entire examined stomach was normal. No evidence of active or recent bleeding. The duodenal bulb and second portion of the duodenum were normal. Impression: - Normal esophagus. - Ectopic gastric mucosa in the upper third of the esophagus. - Normal stomach. - Normal duodenal bulb and second portion of the duodenum. - No specimens collected. Recommendation: - Discharge patient to home (with escort). - Resume regular diet. - Follow up with ENT or Pulmonary for suspected hemoptysis (patient says he coughs up blood streaks but no vomiting). - Continue anticoagulant medication at prior dose. Lei Quinn MD 12/30/2017 10:18:11 AM This report has been signed electronically. Note Initiated On: 12/30/2017 9:49 AM I attest to the content of the Intraoperative Record and orders documented therein, exceptions below
--- NOTE | 2017-12-30 10:22 | Anesthesiology Progress Note ---
Anesthesia Post Op Note Date & Time Dec 30, 2017 at 10:21 Vital Signs Pain Intensity: 0 Vital Signs Past 12 Hours Date Time Temp Pulse Resp B/P (MAP) Pulse Ox O2 Delivery O2 Flow Rate FiO2 12/30/17 10:11 61 20 119/72 (88) 94 Room Air 12/30/17 09:26 37.3 61 20 147/79 (101) 91 Room Air 12/30/17 08:00 94 Room Air 12/30/17 08:00 Room Air 12/30/17 07:51 36.7 54 20 140/80 (100) 92 Room Air 12/30/17 04:00 Room Air 12/30/17 03:25 36.7 58 18 133/71 (91) 93 Room Air 12/30/17 00:00 Room Air 12/29/17 23:54 53 96 21 12/29/17 23:00 36.9 55 18 153/82 (105) 93 Room Air Notes Mental Status: alert / awake / arousable, participated in evaluation Pt Amnestic to Procedure: Yes Nausea / Vomiting: adequately controlled Pain: adequately controlled Airway Patency, RR, SpO2: stable & adequate BP & HR: stable & adequate Hydration State: stable & adequate Anesthetic Complications: no major complications apparent The patient did well. He was hemodynamically stable throughout. He is awake and comfortable. I told the patient and his to make sure that he took his Plavix today to which they agreed.
--- NOTE | 2017-12-30 10:30 | Gastroenterology Progress Note ---
Gastroenterology Progress Note EGD is unremarkable, normal esophagus, stomach and duodenum. No active or recent bleeding. Can d/c IV PPI. Can discharge home with regular diet. Likely hemoptysis or ENT related, patient has appointment scheduled already with ENT. Can resume AC. Recall if needed.
--- NOTE | 2017-12-30 12:54 | Discharge Instructions ---
Discharge Instructions Date of Service Dec 30, 2017. Admission Reason for Admission: Hematemesis Discharge Discharge Diagnosis / Problem: Hematemesis secondary to anticoagulation Discharge Goals Goal(s): Decrease discomfort, Improve function, Increase independence, Improve disease control Activity Recommendations Activity Limitations: resume your previous activity Lifting Limitations: none Exercise/Sports Limitations: none May Resume Sexual Activity: when tolerated Shower/Bathe: no limitations Driving or Machine Use: no limitations . Instructions / Follow-Up Instructions / Follow-Up You were admitted to [facility] with hematemesis and diagnosed with bleeding secondary to anticoagulation from pharynx. During your stay here you were treated with supportive care. Your coumadin was held during admission. INR at time of discharge was 1.9. You were evaluated by Gastroenterology: An upper endoscopy was completed and was normal, without signs of active bleeding Discussion was held with cardiology: Dr. Turner regarding your anticoagulation, at this time you are at more risk with stopping the anticoagulation due to your recent heart attack and stent placement. It is recommended that you stay on your medications as prescribed at this time. ENT has been requested for you as a follow up appointment. Please exercise for 30 minutes 5 days per week, as well as control your diet. Medications: Continue taking your medications as prescribed. Appointments: Follow up with PCP within 3 days. Follow up with ENT within 2 weeks Current Hospital Diet Patient's current hospital diet: Regular Diet Discharge Diet Recommended Diet: AHA Diet (Heart Healthy) Procedures Procedures Performed: EGD Pending Studies Studies pending at discharge: no Laboratory Results Hemoglobin A1c Test 12/07/17 15:07 Range/Units Estimated Average Glucose 243 mg/dl Hemoglobin A1c 10.1 H 4.5-5.6 % Medical Emergencies . Who to Call and When: Medical Emergencies: If at any time you feel your situation is an emergency, please call 911 immediately. . Non-Emergent Contact Non-Emergency issues call your: Primary Care Provider Call Non-Emergent contact if: your pain is not controlled, your pain is worsening, your pain is unusual for you, your pain is concerning you, you have any medication questions other concerns with your health. Call 911 or go directly to the Emergency Department if you experience any of the following: Chest pain, chest tightness, shortness of breath, abdominal pain , lightheadedness, dizziness, gastrointestinal bleeding, or have any other concerns regarding your health. . Past History Medical & Surgical History: (1) Hematemesis (2) Hx of non-ST elevation myocardial infarction (NSTEMI) (3) Atrial fibrillation (4) Diabetes mellitus . "Provider Documentation" section prepared by Debbie Oconnell. . [place] Drug Monitoring Program Search Results: no issues identified
--- NOTE | 2017-12-30 15:20 | Discharge Summary ---
Discharge Summary Date of Service Dec 30, 2017. Discharge Summary Admission Date: Dec 29, 2017 at 14:05 Discharge Date: Dec 30, 2017 Discharge Disposition: Home Principal Diagnosis: GI bleed, hematemesis Problems/Secondary Diagnoses: CAD hx NSTEMI in Sep 2017 with CARLA to LAD and on plavix aspirin therapy Afib on coumadin HTN HLD obesity ERICA on cpap Procedures: CT OF THE NECK WITH CONTRAST 12/29/17 IMPRESSION: 1. No acute process within the neck by CT. 2. No cervical lymphadenopathy. 3. No mucosal lesion identified although these may be occult by CT. If persistent suspicion for lesion, ENT consultation is recommended for consideration for direct visualization. (CHEST FOR PE) ANGIO WITH 12/29/17 IMPRESSION: 1. Allowing for suboptimal image quality, no evidence of pulmonary embolus. 2. Right basilar atelectasis. 3. Layering debris noted in the lower trachea, raising concern for aspiration. No evidence of pneumonitis or more distal bronchial debris. CT SCAN OF THE ABDOMEN AND PELVIS WITH IV CONTRAST 12/29/17 IMPRESSION: 1. There are no acute infectious or inflammatory findings in the abdomen or pelvis. 2. Hepatomegaly and hepatic steatosis. 3. Splenomegaly. 4. Cardiomegaly. 5. Additional findings as above. EGD 12/30/17 Impression: - Normal esophagus. - Ectopic gastric mucosa in the upper third of the esophagus. - Normal stomach. - Normal duodenal bulb and second portion of the duodenum. - No specimens collected. Medication Reconciliation Continued Medications: Amiodarone HCl (Amiodarone HCl) 200 Mg Tab 200 MG PO QAM Amlodipine Besylate (Amlodipine Besylate) 10 Mg Tab 1 TAB PO DAILY for 30 Days Aspirin (Aspirin Low Strength) 81 Mg Chew 81 MG PO DAILY for 30 Days Atenolol (Atenolol) 25 Mg Tab 25 MG PO QAM Atorvastatin (Lipitor) 40 Mg Tab 80 MG PO HS for 30 Days, TAB [employer] Hydrox-Simeth (Rolaids Advanced 1000-200-40 mg) 1 Chw Chw Unknown Dose PO DIRECTED PRN for Indigestion Calcium Carbonate (Tums) 500 Mg Chew Unknown Dose PO DIRECTED PRN for Indigestion Clopidogrel Bisulfate (Clopidogrel) 75 Mg Tab 75 MG PO QAM for 30 Days, #30 TAB Esomeprazole Magnesium (Nexium) 20 Mg Capcr 20 MG PO BID, CAP Glipizide (Glipizide) 5 Mg Tab 5 MG PO QAM Glipizide (Glucotrol) 5 Mg Tab 15 MG PO QPM, TAB Insulin Glargine (Lantus Solostar) 100 Unit/Ml Inj 30 UNITS SC HS Levothyroxine Sodium (Levothyroxine Sodium) 150 Mcg Tab 150 MCG PO QAM Losartan Potassium (Cozaar) 100 Mg Tab 100 MG PO QAM Metformin Hcl (Glucophage) 1,000 Mg Tab 1000 MG PO BIDM, TAB Ranitidine Hcl (Zantac) 300 Mg Tab 300 MG PO TID, TAB Discharge Exam The patient was seen and examined this morning. Pt reports doing well today. Patient notes he has had no bleeding overnight. Discussion was held with him and his at bedside regarding continuation of dual antiplatelet therapy along with Coumadin. We discussed having him follow-up with ENT within 2 week timeframe which has been arranged. The patient also has follow-up with cardiology and his PCP within the next 2 days. An endoscopy procedure was completed today and was normal. Discussion was held regarding diet and exercise for the patient. ROS: Constitutional: No fever, sweats or chills Eyes: No diplopia, no worsening or blurred vision ENT: normal hearing, no trouble swallowing Respiratory: No cough, sputum, dyspnea at rest or on exertion Cardiovascular: No chest pain, tightness or palpitations Abdomen: No pain, nausea, vomiting, diarrhea or constipation Musculoskeletal: No joint pain, calf pain, swelling Neurologic: No weakness, numbness/tingling, or balance problems Psychiatric: No anxiety or depression Skin: No rash or itch PE: General: awake, alert, no apparent distress, morbidly obese Head: Normocephalic, atraumatic ENT: PERRL, EOMI, no pharyngeal exudate, mucous membranes moist, no signs of bleeding gums or poor dentition. Chest: Clear to auscultation, on room air, no adventitious breath sounds Cardiac: Regular rate and rhythm, no murmur, no JVD, normal peripheral pulses, good capillary refill Abdominal: NABS x 4 quadrants, soft, nontender to palpation, no rebound, guarding or tenderness Extremities: Normal inspection, no peripheral edema or erythema, calfs nontender to palpation Psych: Normal mood and affect Neuro: AAO x 3, strength intact bilaterally and related 5/5, no motor deficits, speech is clear, no peripheral sensory deficits Hospital Course 52 yo M with PMHx of CAD, hx NSTEMI in Sep 2017 with CARLA to LAD and on plavix aspirin therapy, Afib on coumadin, HTN, HLD, obesity, ERICA on cpap presenting with upper GI bleed. Gi Bleed - Hgb checks Q6H - last was at 13.7 this morning - GI consulted - Wanda Jackson has seen the pt - normal endoscopy - follow up as outpatient if needed - Continue protonix gtt while admitted and was continued on oral ppi. - Discussed possibility of changing anticoagulation with Dr. Turner and at this time will not be changing dual antiplatelet therapy or coumadin since his CARLA was placed mid Sep 2017. Follow up with cardiology scheduled this Thursday. - Will set up ENT follow up within 2 weeks to determine if cpap is the cause of his bleed - drying out pharynx causing micro-abrasion/tears in the mucosa. Pt denies any epistaxis. HTN - continue amiodarone 200 mg daily, amlodipine 10 mg daily, atenolol 25 mg daily , losartan 100 mg Qam HLD - cont high intensity statin - atorvastatin 80 mg daily Afib - Coumadin, INR = 1.9 DM II - Continue Lantus 15 U HS - along with ISS with accuchecks achs - Holding glipizide and metformin Hypothyroidism - Cont levothyroxine ERICA on cpap - continue cpap CODE STATUS: FULL CODE DVT ppx: no chemical anticoagulation for GI bleed, teds/scds Disposition: From home, discharge today. Total Time Spent: Greater than 30 minutes This includes examination of the patient, discharge planning, medication reconciliation, and communication with other providers. Discharge Instructions Please refer to the electronic Patient Visit Report (Discharge Instructions) for additional information. Follow-Up Follow up with PCP within 3 days. Follow up with ENT within 2 weeks. Additional Copies To Carina Tran M.D.
== END 2017-12-30 14:09 | disposition home or self-care (01) | DRG 813 ==
LOC: C.EDB 09:11 → C.2T 14:05 → EDBEDREQ 14:14 → ENRESERV 14:28 → CANRESERV 14:29 → ENRESERV 14:29
PROVIDERS: ADMIT Internal Medicine; ATTEND Internal Medicine
PROC: 0DJ08ZZ Inspection of Upper Intestinal Tract, Via Natural or Artificial Opening Endoscopic (ICD-10-PCS; principal; 2017-12-30 09:24)
DX: D68.32 Hemorrhagic disorder due to extrinsic circulating anticoagulants (principal); K92.0 Hematemesis; R04.2 Hemoptysis; E11.9 Type 2 diabetes mellitus without complications; G47.33 Obstructive sleep apnea (adult) (pediatric); I10 Essential (primary) hypertension; E03.9 Hypothyroidism, unspecified; E78.5 Hyperlipidemia, unspecified; E66.9 Obesity, unspecified; Z68.37 Body mass index [BMI] 37.0-37.9, adult; I25.2 Old myocardial infarction; Z95.5 Presence of coronary angioplasty implant and graft; Z96.642 Presence of left artificial hip joint; Z79.01 Long term (current) use of anticoagulants; Z79.02 Long term (current) use of antithrombotics/antiplatelets; Z79.4 Long term (current) use of insulin; Z79.82 Long term (current) use of aspirin; Z79.899 Other long term (current) drug therapy; Z88.0 Allergy status to penicillin; Z83.2 Family history of diseases of the blood and blood-forming organs and certain disorders involving the immune mechanism

== ENCOUNTER → 2018-01-01 | Outpatient (CLI) | payer OTHER ==
--- NOTE | 2018-01-01 12:31 | DIAGNOSTIC IMAGING REPORT ---
CHEST 2 VIEWS ROUTINE CLINICAL HISTORY: Hematemesis. COMPARISON STUDY: Chest CT December 29, 2017. FINDINGS: No pneumothorax or pleural effusion is noted. There is no evidence for pulmonary edema. Cardiomediastinal silhouette is stable. Elevation of the right hemidiaphragm is unchanged. IMPRESSION: No acute cardiopulmonary findings. No change in appearance of the chest. Electronically signed by: Darius Barney M.D. 01/01/2018 12:30 PM Dictated Date/Time: 01/01/2018 12:29 PM
[2018-01-01 14:30] LABS: BASO % 0.1 %; BASO ABS # 0.01 K/uL (0-0.2); EOS % 1.5 %; EOS ABS # 0.12 K/uL (0-0.5); HEMATOCRIT 40.9 % (42-52); HEMOGLOBIN 14.5 g/dL (14.0-18.0); IG# 0.04 K/uL (0.00-0.02); LYMPH % 27.6 %; LYMPH ABS # 2.23 K/uL (1.2-3.4); MEAN CELL VOLUME 87.2 fL (80-100); MEAN CORPUSCULAR HEMOGLOBIN 30.9 pg (25-34); MEAN CORPUSCULAR HGB CONC 35.5 g/dl (32-36); MEAN PLATELET VOLUME 10.1 fL (7.4-10.4); MONO % 7.2 %; MONO ABS # 0.58 K/uL (0.11-0.59); NEUT % 63.1 %; NEUT ABS # 5.09 K/uL (1.4-6.5); PLATELET COUNT 348 K/uL (130-400); RED CELL DISTRIBUTION WIDTH CV 13.2 % (11.5-14.5); RED CELL DISTRIBUTION WIDTH SD 42.3 fL (36.4-46.3); WHITE BLOOD COUNT 8.07 K/uL (4.8-10.8)
[2018-01-01 14:36] LABS: INR 1.3 (0.9-1.1)
[2018-01-01 15:13] LABS: ALBUMIN 3.8 gm/dl (3.4-5.0); ALT/SGPT 64 U/L (12-78); AST/SGOT 40 U/L (15-37); BLOOD UREA NITROGEN 22 mg/dl (7-18); CALCIUM 8.9 mg/dl (8.5-10.1); CARBON DIOXIDE 24 mmol/L (21-32); CREATININE 1.12 mg/dl (0.60-1.40); GLUCOSE 212 mg/dl (70-99); LIPASE 175 U/L (73-393); POTASSIUM 4.3 mmol/L (3.5-5.1); SODIUM 137 mmol/L (136-145)
[2018-01-01 15:18] LABS: ALKALINE PHOSPHATASE 81 U/L (45-117); TOTAL PROTEIN 7.8 gm/dl (6.4-8.2)
== END | disposition home or self-care (01) ==
LOC: C.LABBC 11:57
PROVIDERS: ATTEND Physician Assistant Medical
DX: K92.0 Hematemesis (principal); R04.1 Hemorrhage from throat; R10.31 Right lower quadrant pain; Z51.81 Encounter for therapeutic drug level monitoring

== ENCOUNTER → 2018-01-21 | Outpatient (CLI) | payer OTHER ==
[~2018-01-21] VITALS: Ht 185.4 cm; Wt 134.4 kg
[2018-01-21 15:20] VITALS: BP 108/58; PULSE 59; Ht 185.4 cm; Wt 134.4 kg
== END | disposition home or self-care (01) ==
LOC: C.NEUR 14:58
PROVIDERS: ATTEND Physician Assistant
DX: G47.33 Obstructive sleep apnea (adult) (pediatric) (principal); Z88.0 Allergy status to penicillin; Z88.8 Allergy status to other drugs, medicaments and biological substances

== ENCOUNTER 2018-10-19 07:16 | Observation (INO) ==
[2018-10-19] MEDS ORDERED: ASPIRIN CHEW 324 MG PO STA (07:27)
--- NOTE | 2018-10-19 07:49 | XRay Report ---
XR chest 1V portable CLINICAL HISTORY: 53 years-old Male presenting with Chest Pain. TECHNIQUE: Portable upright AP view of the chest was obtained. COMPARISON: 03/09/2018. FINDINGS: Cardiac silhouette top normal in size. Persistent elevation of the right hemidiaphragm. No focal opac ity. No large effusion or pneumothorax. Degenerative changes of the thoracic spine. Upper abdomen nor mal. IMPRESSION: 1. No acute cardiopulmonary disease. Electronically signed by: Sergio Lal M.D. 10/19/2018 7:48 AM
[2018-10-19 07:52] LABS: Basophils # (auto) 0.06 K/uL (0-0.2); Basophils % (auto) 0.8 %; Eosinophils % (auto) 2.6 %; Hematocrit (blood only) 45.4 % (42-52); Hemoglobin 15.7 g/dL (14.0-18.0); Immature Granulocytes # (auto) 0.05 K/uL (0.00-0.02); Immature Granulocytes % (auto) 0.6 %; Lymphocytes # (auto) 2.12 K/uL (1.2-3.4); Lymphocytes % (auto) 27.2 %; Mean Corpuscular Hgb Conc 34.6 g/dL (32-36); Mean Corpuscular Volume 86.8 fL (80-100); Mean Platelet Volume 10.8 fL (7.4-10.4); Monocytes # (auto) 0.71 K/uL (0.11-0.59); Monocytes % (auto) 9.1 %; Neutrophils # (auto) 4.66 K/uL (1.4-6.5); Neutrophils % (auto) 59.7 %; Platelet Count 307 K/uL (130-400); RDW Coefficient of Variation 13.3 % (11.5-14.5); RDW Standard Deviation 42.2 fL (36.4-46.3); Red Blood Count 5.23 M/uL (4.7-6.1)
[2018-10-19 08:01] LABS: Partial Thromboplastin Ratio 1.4; Partial Thromboplastin Time 36.6 Seconds (21.0-31.0); Prothrombin Time 28.5 Seconds (9.0-12.0)
[2018-10-19 08:09] LABS: Alanine Aminotransferase 42 U/L (12-78); Albumin Level 3.8 gm/dl (3.4-5.0); Aspartate Aminotransferase 19 U/L (15-37); Blood Urea Nitrogen 20 mg/dl (7-18); Calcium 8.6 mg/dl (8.5-10.1); Carbon Dioxide 24 mmol/L (21-32); Chloride 101 mmol/L (98-107); Est GFR (African American) 100.4; Est GFR (Non-African American) 86.6; Glucose 263 mg/dl (70-99); Potassium 4.2 mmol/L (3.5-5.1); Sodium 136 mmol/L (136-145)
[2018-10-19 08:13] LABS: Alkaline Phosphatase 87 U/L (45-117); Bilirubin,Total 0.4 mg/dl (0.2-1); Globulin 3.9 gm/dl (2.5-4.0); Total Protein 7.7 gm/dl (6.4-8.2); Troponin I < 0.015 ng/ml (0-0.045)
--- NOTE | 2018-10-19 09:48 | History & Physical Report ---
Date of Service October 19, 2018 Assessment & Plan (1) Chest pain: - Admit to tele for observation for r/o - Trend cardiac biomarkers, initial set was negative - EKG reviewed as above - Check 2 D echo - If negative enzymes can consider a stress test tomorrow morning. - PT/OT consulted - Cardiology consulted -CHADs Vasc = 3 (2) A-fib: -Paroxysmal -Per HPI patient felt like he was in A. fib yesterday currently EKG NSR -Continue Coumadin 7.5 mg daily -Check daily INR -Check 2D echo -Continue amiodarone therapy 200 mg p.o. QAM (3) History of coronary artery stent placement: (4) Hx of non-ST elevation myocardial infarction (NSTEMI): -September 2017, s/p 1 CARLA to proximal LAD -Continue Plavix/aspirin (5) HTN (hypertension): -Continue antihypertensives: Atenolol 25 mg p.o. QAM, losartan 100 mg p.o. HS (6) HLD (hyperlipidemia): -Patient is not on statin therapy due to not tolerating atorvastatin in the past, he was previously on Crestor per Dr. Turner's note it was discussed that he could consider restarting Crestor if no contraindications however there were no clear reasons as to why this med was discontinued. - High intensity statin therapy is recommended (7) DM II (diabetes mellitus, type II), controlled: -Last A1c in May 2018 was 10.6, recheck -Patient takes Trulicity, 1.5 mg subcu weekly, due today. Have asked patient's to bring in from home -Continue Lantus 40 units HS -ISS with Accu-Cheks ACHS or q6h while n.p.o. (8) ERICA (obstructive sleep apnea): -Continue CPAP therapy -Recommend pulmonology outpatient visit to discuss CPAP fit (9) Constipation: -Possibly secondary to Trulicity use, or at least made worse due to trulicity - may need different outpatient med due to elevated A1C despite use this med for better control. -daily Dulcolax, Colace, MiraLAX po -Dulcolax suppository now - follows with Dr. Oconnell with GI, scheduled for out outpatient EGD/gastric emptying study/colonoscopy (10) Hypothyroidism: -Continue levothyroxine 150 mcg daily (11) GERD (gastroesophageal reflux disease): -Continue Protonix 40 mg QAM, ranitidine 150 mg BID (12) Obesity (BMI 35.0-39.9 without comorbidity): -Diet and weight loss/exercise were encouraged at bedside, pt agreeable. also supportive (13) DVT prophylaxis: -lovenox subq History of Present Illness Primary Care Provider: Carina Tran MD This is a 53yo male with a PMHx of [place] in Sep 2017 s/p 1 CARLA to proimal LAD, CAD , HTN, HLD, morbidly obese with BMI = 37.4, paroxysmal A. fib on Coumadin, hypothyroidism, GERD, ERICA on CPAP, DM type II, former smoker, who presents with acute onset of chest pain. Pt notes his pain has been waxing and waning over the past 3 days. Yesterday he feels like he was in A. fib, with heart racing palpitations and some dizziness on and off. Patient went to bed and this morning again developed left-sided chest pain and numbness down into the left arm involving the ring finger and pinky finger. Last week he was lifting a wood stove and moving it into their camp, and admit to pulling some muscles in his back/upper neck and possibly his arms. In the past 3 nights he has woken up and slept on the recliner due to pain in the chest. The pain he is experiencing today is different compared to his last previous heart attack. He has taken all of his morning medications. Patient admits to subsequent shortness of breath which has been ongoing for several months, denies orthopnea. He wears CPAP HS but feels that he does not "get enough air", despite a relatively good fit on his face. He also complains of severely dry mouth when wearing it/waking up in the middle the night. . Denies any recent weight gain/loss, no swelling. His dry weight is around 287. Of note he also complains of abdominal cramping, issues with constipation, and is following with GI for some studies in the next month to evaluate. He believes Trulicity may be contributing to his constipation. He is taking a stool softener and laxative daily at home. Allergies Allergy/AdvReac Type Severity Reaction Status Date / Time canagliflozin [From Invokana] Allergy Severe Rash Verified 10/19/18 07:59 Penicillins Allergy Unknown UNKNOWN Verified 10/19/18 07:59 CHILD liraglutide [From Victoza] AdvReac Severe Dizziness Unverified 10/19/18 07:59 Home Medications Home Medications Medication Instructions Recorded Confirmed Type amiodarone [Pacerone] 200 mg PO QAM 06/23/18 10/19/18 History atenolol [Tenormin] 25 mg PO QAM 06/23/18 10/19/18 History clopidogrel [Plavix] 75 mg PO QAM 06/23/18 10/19/18 History ergocalciferol (vitamin D2) 50,000 units PO WK 06/23/18 10/19/18 History [Vitamin D2] insulin glargine [Lantus Solostar 40 units SUBCUT HS 06/23/18 10/19/18 History U-100 Insulin] levothyroxine [Synthroid] 150 mcg PO QAM 06/23/18 10/19/18 History losartan [Cozaar] 100 mg PO HS 06/23/18 10/19/18 History metformin 1,000 mg PO BIDM 06/23/18 10/19/18 History pantoprazole [Protonix] 40 mg PO QAM 06/23/18 10/19/18 History ranitidine HCl [Acid Control 150 mg PO BID 06/23/18 10/19/18 History (ranitidine)] warfarin [Coumadin] 7.5 mg PO QAM 06/23/18 10/19/18 History dulaglutide [Trulicity] 1.5 mg SUBCUT WK 10/19/18 10/19/18 History Past Med/Surg History Medical History GERD (gastroesophageal reflux disease) Constipation DM II (diabetes mellitus, type II), controlled HTN (hypertension) Hypothyroidism ERICA on CPAP HLD (hyperlipidemia) Chest pain (Acute) A-fib Hx of non-ST elevation myocardial infarction (NSTEMI) Diabetes mellitus (Chronic) Hyperlipidemia (Chronic) Heart attack (Resolved) Surgical History History of coronary artery stent placement Family History Other No pertinent family history Social History Current Living Situation: Spouse Other Information That Helps Us Care for You: No Feels Safe at Home: Yes Safety Concerns: Feels Safe At This Time Smoking Status: Former smoker Do You Dip or Chew Tobacco: No Second Hand Exposure: No Tobacco Cessation Education Requested by Patient: No Hx Alcohol Use: No Hx Substance Use: No Beliefs That Will Affect Care: None Preferred Language: [place] Citizen Communication Ability: Effective Teacher'S Assistant Required: No Review of Systems Constitutional: No fever, sweats or chills Eyes: No diplopia, no worsening or blurred vision ENT: normal hearing, no trouble swallowing Respiratory: + sob on exertion, No cough, sputum, dyspnea at rest. Cardiovascular: see HPI. Abdomen: No pain, nausea, vomiting, diarrhea or constipation Musculoskeletal: No joint pain, calf pain, swelling Neurologic: + left arm numbness involving ring and pinky finger, otherwise no weakness, numbness/tingling, or balance problems Psychiatric: No anxiety or depression Skin: No rash or itch Physical Exam 2 Vital Signs (Past 24 Hours): Last Vital Signs Temp 36.8 C 10/19/18 07:21 Pulse 60 10/19/18 08:31 Resp 23 10/19/18 08:31 BP 144/79 H 10/19/18 08:31 Pulse Ox 96 10/19/18 07:32 Physical Exam: General: awake, alert, no apparent distress, obese Head: Normocephalic, atraumatic ENT: PERRL, EOMI, no pharyngeal exudate, mucous membranes moist Chest: + pain with palpation over the left chest wall, Clear to auscultation, on room air, no adventitious breath sounds Cardiac: Regular rate and rhythm, no murmur, no JVD, normal peripheral pulses, good capillary refill Abdominal: NABS x 4 quadrants, soft, nontender to palpation, no rebound, guarding or tenderness Extremities: Normal inspection, no peripheral edema or erythema, calfs nontender to palpation Psych: Normal mood and affect Neuro: AAO x 3, strength intact bilaterally and related 5/5, no motor deficits, speech is clear, no peripheral sensory deficits Constitutional: WD/WN, vitals as above Eyes: normal visual abreu by confrontation and + anicteric sclerae Neck: normal visual inspection and trachea midline Respiratory: normal respiratory effort, lungs clear to auscultation Cardiovascular: Rate/Rhythm: regular rate and regular rhythm Chest (Breasts): Additional Comments: L sided TTP along area just lateral to sternum Gastrointestinal (Abdomen): Inspection/Auscultation: abdomen not distended Percussion/Palpation: abdomen soft; abdomen nontender Musculoskeletal: Head/Neck/Chest: normocephalic and head atraumatic Neg for peripheral LE edema, + pedal pulses Skin: no rashes, warm and dry Neurologic: awake; not confused Speech / Cognition: normal speech Psychiatric: A+Ox3, euthymic affect Lymphatic: Exam as done by Mague Arriaga, DO Code Status & VTE Plan Code Status Full Supervising Physician Co-Signing Physician Notes Pt seen and examined by me. Denies SOB. No longer having chest pain. States he is in the process of a GI workup. Pt takes his Trulicity injection on Tuesdays and by Thursday HS he is constipated and having abd fullness. This improves over the course of the week and is resolved by Thursday until he takes his next trulicity injection. Having a gastric emptying study on a Thursday in the near future. States chest pain has been reproducible. Having large amount of mucous production and drainage/coughing/sneezing for about the first 30 minutes after he takes off his CPAP daily. No issues during sleep or the rest of the day. Agree with HPI/ROS as noted by See above for my exam in PE section Agree with plan as outlined above CP--reproducible but concerning for ACS in a pt with hx of same and several risk factors Stress test in AM if trops neg Possibly related to gastroparesis related to trulicity Advised flonase BID for possible PND related to CPAP use _ (1) Chest pain Chest pain type: unspecified Ischemic chest pain type: Qualified Code(s): R07.9 - Chest pain, unspecified
[2018-10-19] MEDS ORDERED: ONDANSETRON INJ 2 MG/ML 2 ML VIAL IV PRN (10:59)
[2018-10-19] MEDS ORDERED: GLUCAGON FOR INJ 1 MG VIAL SQ PRN (10:59)
[2018-10-19] MEDS ORDERED: GLUCOSE 40% GEL 15 GM TUBE PO PRN (10:59)
[2018-10-19] MEDS ORDERED: ENOXAPARIN INJ 40 MG/0.4 ML SYR SQ SCH (10:59)
[2018-10-19] MEDS ORDERED: GLUCOSE 10 TABS/TUBE PO PRN (10:59)
[2018-10-19] MEDS ORDERED: BISACODYL 10 MG SUPP PR STA (10:59)
[2018-10-19] MEDS ORDERED: BISACODYL 5 MG TABEC PO ONE (10:59)
[2018-10-19] MEDS ORDERED: DEXTROSE 50% 50 ML SYRINGE IV PRN (10:59)
[2018-10-19] MEDS ORDERED: CARBOHYDRATES FOR HYPOGLYCEMIA PO PRN (10:59)
[2018-10-19] MEDS ORDERED: ACETAMINOPHEN 325 MG TAB PO PRN (10:59)
[2018-10-19] MEDS: INSULIN ASPART 100 UNITS/ML 3 ML PEN SC SCH ×3 (13:21→21:33)
--- NOTE | 2018-10-19 13:36 | Emergency Department Note ---
Entered by Sarah Beth Aguila acting as a scribe for Julián Lawson DO History of Present Illness General Chief complaint: Chest Pain Stated complaint: CHEST PAIN, SHORT OF BREATH Source: patient History of Present Illness Provider complaint: chest pain Onset (ago): month(s) 1 Location: chest Maximum Pain Intensity: 7 Quality: + other (pain) Associated symptoms: + denies other symptoms (denies neck pain), + shortness of breath and + other (numbness in fingers); no nausea/vomiting The patient is a 53 year old male who presents to the Emergency Room with complaints of intermittent chest pain beginning 1 month ago. He rates his pain at a 7/10. The patient states that his pain has been all over his chest this morning. The patient reports that laying flat does not exacerbate his pain. He reports that his fingers are numb and states that he has been short of breath. He denies having nausea, vomiting, and neck pain. The patient states that he has not taken aspirin. The patient reports a history of a heart attack in 2016 and states that he had 1 stent placed on the left side of his heart. The patient states that he does not drink or smoke. He states that he is still taking Coumadin and Plavix. Home Medications Home Medications Medication Instructions Recorded Confirmed Type amiodarone [Pacerone] 200 mg PO QAM 06/23/18 10/19/18 History atenolol [Tenormin] 25 mg PO QAM 06/23/18 10/19/18 History clopidogrel [Plavix] 75 mg PO QAM 06/23/18 10/19/18 History ergocalciferol (vitamin D2) 50,000 units PO WK 06/23/18 10/19/18 History [Vitamin D2] insulin glargine [Lantus Solostar 40 units SUBCUT HS 06/23/18 10/19/18 History U-100 Insulin] levothyroxine [Synthroid] 150 mcg PO QAM 06/23/18 10/19/18 History losartan [Cozaar] 100 mg PO HS 06/23/18 10/19/18 History metformin 1,000 mg PO BIDM 06/23/18 10/19/18 History pantoprazole [Protonix] 40 mg PO QAM 06/23/18 10/19/18 History ranitidine HCl [Acid Control 150 mg PO BID 06/23/18 10/19/18 History (ranitidine)] warfarin [Coumadin] 7.5 mg PO QAM 06/23/18 10/19/18 History dulaglutide [Trulicity] 1.5 mg SUBCUT WK 10/19/18 10/19/18 History Allergies Allergy/AdvReac Type Severity Reaction Status Date / Time canagliflozin [From Invokana] Allergy Severe Rash Verified 10/19/18 07:59 Penicillins Allergy Unknown UNKNOWN Verified 10/19/18 07:59 CHILD liraglutide [From Victoza] AdvReac Severe Dizziness Unverified 10/19/18 07:59 Past Med/Surg History Medical History GERD (gastroesophageal reflux disease) Constipation DM II (diabetes mellitus, type II), controlled HTN (hypertension) Hypothyroidism ERICA on CPAP HLD (hyperlipidemia) Chest pain (Acute) A-fib Hx of non-ST elevation myocardial infarction (NSTEMI) Diabetes mellitus (Chronic) Hyperlipidemia (Chronic) Heart attack (Resolved) Surgical History History of coronary artery stent placement Family History Other No pertinent family history Social History Current Living Situation: Spouse Other Information That Helps Us Care for You: No Feels Safe at Home: Yes Safety Concerns: Feels Safe At This Time Smoking Status: Former smoker Do You Dip or Chew Tobacco: No Second Hand Exposure: No Tobacco Cessation Education Requested by Patient: No Hx Alcohol Use: No Hx Substance Use: No Beliefs That Will Affect Care: None Preferred Language: Syriac Communication Ability: Effective 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 and A total of 10 systems reviewed and were otherwise negative Physical Exam Vital Signs Vital Signs - 24 hr 10/19/18 07:21 10/19/18 07:30 10/19/18 07:32 Temperature 36.8 C Temperature Source Oral Sepsis Recent Fever Within 48 Hours No Sepsis New/Unexplained Change in Mental Status No Sepsis Action Taken by Nursing No Action Required Pulse Rate 63 63 64 Respiratory Rate 18 14 15 Respiratory Effort / Characteristics Non-Labored Spontaneous Respiratory Depth Normal Respiratory Pattern Regular Blood Pressure 153/91 H 159/82 H Blood Pressure Mean 111 107 Blood Pressure Position Sitting Pulse Oximetry 96 94 96 Oxygen Delivery Method Room Air Room Air 10/19/18 07:46 10/19/18 07:47 10/19/18 08:00 Temperature Temperature Source Sepsis Recent Fever Within 48 Hours Sepsis New/Unexplained Change in Mental Status Sepsis Action Taken by Nursing Pulse Rate 60 Respiratory Rate 18 Respiratory Effort / Characteristics Respiratory Depth Respiratory Pattern Blood Pressure Blood Pressure Mean Blood Pressure Position Pulse Oximetry Oxygen Delivery Method Room Air Room Air 10/19/18 08:01 10/19/18 08:30 10/19/18 08:31 Temperature Temperature Source Sepsis Recent Fever Within 48 Hours Sepsis New/Unexplained Change in Mental Status Sepsis Action Taken by Nursing Pulse Rate 60 61 60 Respiratory Rate 19 22 23 Respiratory Effort / Characteristics Respiratory Depth Respiratory Pattern Blood Pressure 137/78 144/79 H Blood Pressure Mean 97 100 Blood Pressure Position Pulse Oximetry Oxygen Delivery Method 10/19/18 10:17 Temperature Temperature Source Sepsis Recent Fever Within 48 Hours Sepsis New/Unexplained Change in Mental Status Sepsis Action Taken by Nursing Pulse Rate Respiratory Rate Respiratory Effort / Characteristics Respiratory Depth Respiratory Pattern Blood Pressure Blood Pressure Mean Blood Pressure Position Pulse Oximetry Oxygen Delivery Method Room Air GENERAL: Patient is awake, alert, and in no acute distress.Patient is resting comfortably and showing no signs of anxiety EYES: The conjunctivae are clear. The pupils are round and reactive. EARS, NOSE, MOUTH AND THROAT: The nose is without any evidence of any deformity. Mucous membranes are moist.Tongue is midline NECK: The neck is nontender and supple. RESPIRATORY: Normal respiratory effort is noted. There is no evidence of wheezing rhonchi or rales to auscultation. CARDIOVASCULAR: Regular rate and rhythm noted. There no murmurs rubs or gallops normal S1 normal S2 GASTROINTESTINAL: The abdomen is soft. Bowel sounds are present in all quadrants. Abdomen is nontender. MUSCULOSKELETAL/EXTREMITIES: There is no evidence of gross deformity. Full range of motion is noted in the hips and shoulders. SKIN: There is no obvious evidence of any rash. There are no petechiae, pallor or cyanosis noted. NEUROLOGIC: Patient is awake alert and oriented x3. Course 0725: Past medical records reviewed. The patient was evaluated in room C10, and a complete history and physical examination were performed. 0834: I checked on the patient and updated him on his results. He verbalized agreement and understanding of the treatment plan. 0942: I discussed the patient's case with Debbie Olivia who will evaluate the patient for further management. Consultations Consultation #1: Debbie Olivia Time: 09:42 Administered Medications Insulin Aspart (Novolog Flexpen) 0 units SC ACHS BUZZ Stop: 11/18/18 11:29 Last Admin: 10/19/18 13:21 Dose: 1 units Discontinued Medications Aspirin (Aspirin) 324 mg PO NOW STA Stop: 10/19/18 07:28 Last Admin: 10/19/18 07:32 Dose: 324 mg Bisacodyl (Dulcolax) 10 mg HI NOW STA Stop: 10/19/18 11:00 Last Admin: 10/19/18 12:10 Dose: Not Given Bisacodyl (Dulcolax) 10 mg PO DAILY ONE Stop: 10/19/18 11:00 Last Admin: 10/19/18 12:10 Dose: Not Given Medical Decision Making Differential Diagnosis Differential diagnosis: Etiologies such as shingles, musculoskeletal pain, pericarditis, myocarditis, cardiac ischemia, pericardial tamponade, pneumonia, pneumothorax, pleural effusion, hemothorax, pleurisy, aortic pathology, pulmonary embolism, intra- abdominal process, as well as others were considered. Medical Records Attestation: I reviewed the patient's medical records. Home Medications Current Medication List: was personally reviewed by me Laboratory Data Attestation: I reviewed the patient's lab results. Result diagrams: 10/19/18 07:35 10/19/18 07:35 Lab Results 10/19/18 10/19/18 10/19/18 Range/Units 07:35 07:35 07:35 WBC 7.80 (4.8-10.8) K/uL RBC 5.23 (4.7-6.1) M/uL Hgb 15.7 (14.0-18.0) g/dL Hct 45.4 (42-52) % MCV 86.8 (80-100) fL MCH 30.0 (25-34) pg MCHC 34.6 (32-36) g/dL RDW Std Deviation 42.2 (36.4-46.3) fL RDW Coeff of Zhanna 13.3 (11.5-14.5) % Plt Count 307 (130-400) K/uL MPV 10.8 H (7.4-10.4) fL Immature Gran % (Auto) 0.6 % Neut % (Auto) 59.7 % Lymph % (Auto) 27.2 % Harrison % (Auto) 9.1 % Eos % (Auto) 2.6 % Baso % (Auto) 0.8 % Immature Gran # (Auto) 0.05 H (0.00-0.02) K/uL Neut # (Auto) 4.66 (1.4-6.5) K/uL Lymph # (Auto) 2.12 (1.2-3.4) K/uL Harrison # (Auto) 0.71 H (0.11-0.59) K/uL Eos # (Auto) 0.20 (0-0.5) K/uL Baso # (Auto) 0.06 (0-0.2) K/uL PT 28.5 H (9.0-12.0) Seconds INR 3.0 H (0.9-1.1) APTT 36.6 H (21.0-31.0) Seconds PTT Ratio 1.4 Sodium 136 (136-145) mmol/L Potassium 4.2 (3.5-5.1) mmol/L Chloride 101 (98-107) mmol/L Carbon Dioxide 24 (21-32) mmol/L Anion Gap 10.0 (3-11) BUN 20 H (7-18) mg/dl Creatinine 0.99 (0.6-1.4) mg/dl Est Cr Clr Drug Dosing Not Reportable Est GFR ( Amer) 100.4 Est GFR (Non-Af Amer) 86.6 BUN/Creatinine Ratio 20.0 (10-20) Glucose 263 H (70-99) mg/dl POC Glucose (70-99) Calcium 8.6 (8.5-10.1) mg/dl Total Bilirubin 0.4 (0.2-1) mg/dl AST 19 (15-37) U/L ALT 42 (12-78) U/L Alkaline Phosphatase 87 (45-117) U/L Troponin I < 0.015 (0-0.045) ng/ml Total Protein 7.7 (6.4-8.2) gm/dl Albumin 3.8 (3.4-5.0) gm/dl Globulin 3.9 (2.5-4.0) gm/dl Albumin/Globulin Ratio 1.0 (0.9-2) Lipase 427 H (73-393) U/L 01/15/19 01/15/19 Range/Units 11:53 13:59 WBC (4.8-10.8) K/uL RBC (4.7-6.1) M/uL Hgb (14.0-18.0) g/dL Hct (42-52) % MCV (80-100) fL MCH (25-34) pg MCHC (32-36) g/dL RDW Std Deviation (36.4-46.3) fL RDW Coeff of Zhanna (11.5-14.5) % Plt Count (130-400) K/uL MPV (7.4-10.4) fL Immature Gran % (Auto) % Neut % (Auto) % Lymph % (Auto) % Harrison % (Auto) % Eos % (Auto) % Baso % (Auto) % Immature Gran # (Auto) (0.00-0.02) K/uL Neut # (Auto) (1.4-6.5) K/uL Lymph # (Auto) (1.2-3.4) K/uL Harrison # (Auto) (0.11-0.59) K/uL Eos # (Auto) (0-0.5) K/uL Baso # (Auto) (0-0.2) K/uL PT (9.0-12.0) Seconds INR (0.9-1.1) APTT (21.0-31.0) Seconds PTT Ratio Sodium (136-145) mmol/L Potassium (3.5-5.1) mmol/L Chloride (98-107) mmol/L Carbon Dioxide (21-32) mmol/L Anion Gap (3-11) BUN (7-18) mg/dl Creatinine (0.6-1.4) mg/dl Est Cr Clr Drug Dosing Est GFR ( Amer) Est GFR (Non-Af Amer) BUN/Creatinine Ratio (10-20) Glucose (70-99) mg/dl POC Glucose 166 H (70-99) Calcium (8.5-10.1) mg/dl Total Bilirubin (0.2-1) mg/dl AST (15-37) U/L ALT (12-78) U/L Alkaline Phosphatase (45-117) U/L Troponin I < 0.015 (0-0.045) ng/ml Total Protein (6.4-8.2) gm/dl Albumin (3.4-5.0) gm/dl Globulin (2.5-4.0) gm/dl Albumin/Globulin Ratio (0.9-2) Lipase (73-393) U/L Imaging Data Radiologist's Impression: Radiology results as stated below per my review and the radiologist's interpretation: XR chest 1V portable CLINICAL HISTORY: 53 years-old Male presenting with Chest Pain. TECHNIQUE: Portable upright AP view of the chest was obtained. COMPARISON: 03/09/2018. FINDINGS: Cardiac silhouette top normal in size. Persistent elevation of the right hemidiaphragm. No focal opacity. No large effusion or pneumothorax. Degenerative changes of the thoracic spine. Upper abdomen normal. IMPRESSION: 1. No acute cardiopulmonary disease. Electronically signed by: Sergio Lal M.D. 10/19/2018 7:48 AM ECG Data Attestation: I personally reviewed and interpreted this ECG as follows: Indication: chest pain Rate (beats per minute): 63 Rhythm: normal sinus Findings: + ST depression (high lateral); no PAC, no PVC and no ectopy Comparison ECG Date: from (07/08/18) Change: no significant change Blood Pressure Blood Pressure Findings: Elevated blood pressure Blood Pressure Disposition: further management by hospitalist MDM Narrative The patient is a 53-year-old male who presented to the emergency department for evaluation of chest pain. The patient has a history of AL in the past. The patient describes discomfort across his chest which is consistent with his previous episode of AL. I discussed patient's laboratory and radiographic studies with him. He was treated with aspirin in the emergency department. On subsequent reevaluation he was feeling somewhat improved. I discussed the limitations of the emergency department workup for chest pain with the patient. Given his risk factors and past medical history I discussed his case with the on-call [facility] [place] hospitalist. They have agreed to evaluate the patient in the emergency department for further management and disposition. Impression & Plan Chest pain Discharge Plan Visit Data *Final* Discharge Date/Time: 10/19/18 10:17 Chief Complaint: Chest Pain Stated Complaint: CHEST PAIN, SHORT OF BREATH ED Provider: Julián Lawson Discharge Problem: Chest pain Patient Disposition: Admitted As Inpatient Discharge Instructions Interventions: ED Discharge Assessment Last Done: 10/19/18 10:17 The scribe's documentation has been prepared under my direction and personally reviewed by me in its entirety. I confirm that the note above accurately reflects all work, treatment, procedures, and medical decision making performed by me.
[2018-10-19] MEDS: METFORMIN HCL 500 MG TAB PO SCH (17:37)
[2018-10-19] MEDS ORDERED: ERGOCALCIFEROL 50,000 UNITS CAP PO SCH (21:00)
[2018-10-19] MEDS ORDERED: TRULICITY SC ONE (21:00)
[2018-10-19] MEDS ORDERED: LOSARTAN POTASSIUM 50 MG TAB PO SCH (21:00)
[2018-10-19] MEDS ORDERED: INSULIN GLARGINE SOLOSTAR 100 UNITS/ML 3 ML PEN SQ SCH (21:00)
[2018-10-19] MEDS: DOCUSATE SODIUM 100 MG CAP PO SCH (21:21)
[2018-10-20] MEDS ORDERED: LEVOTHYROXINE SODIUM 150 MCG TABLET PO SCH (06:30)
[2018-10-20 07:18] LABS: Hematocrit (blood only) 43.5 % (42-52); Hemoglobin 14.9 g/dL (14.0-18.0); Mean Corpuscular Hgb Conc 34.3 g/dL (32-36); Mean Corpuscular Volume 86.7 fL (80-100); Mean Platelet Volume 10.7 fL (7.4-10.4); Platelet Count 323 K/uL (130-400); RDW Coefficient of Variation 13.5 % (11.5-14.5); RDW Standard Deviation 42.9 fL (36.4-46.3); Red Blood Count 5.02 M/uL (4.7-6.1); White Blood Count 7.52 K/uL (4.8-10.8)
[2018-10-20 07:38] LABS: INR 2.7 (0.9-1.1); Prothrombin Time 25.6 Seconds (9.0-12.0)
[2018-10-20 07:45] LABS: Estimated Average Glucose 223 mg/dl
[2018-10-20 07:56] LABS: Albumin Level 3.4 gm/dl (3.4-5.0); BUN Creatinine Ratio 22.3 (10-20); Calcium 8.4 mg/dl (8.5-10.1); Creatinine Clr Calc Pharmacy 142.8 ml/min; Est GFR (African American) 115.9; Potassium 4.1 mmol/L (3.5-5.1)
[2018-10-20 07:58] LABS: Albumin Globulin Ratio 0.9 (0.9-2); Bilirubin,Total 0.5 mg/dl (0.2-1); Globulin 3.6 gm/dl (2.5-4.0)
[2018-10-20] MEDS: METFORMIN HCL 500 MG TAB PO SCH ×2 (08:11→08:20)
[2018-10-20] MEDS: DOCUSATE SODIUM 100 MG CAP PO SCH (08:11)
[2018-10-20] MEDS: INSULIN ASPART 100 UNITS/ML 3 ML PEN SC SCH ×2 (08:13→12:14)
[2018-10-20] MEDS ORDERED: AMIODARONE 200 MG TAB PO SCH (09:00)
[2018-10-20] MEDS ORDERED: PANTOprazole 40 MG TAB PO SCH (09:00)
[2018-10-20] MEDS ORDERED: CLOPIDOGREL BISULFATE 75 MG TAB PO SCH (09:00)
[2018-10-20] MEDS ORDERED: ATENOLOL 25 MG TABLET PO SCH (09:00)
[2018-10-20] MEDS ORDERED: POLYETHYLENE (MIRALAX) 17 GM PACK PO SCH (09:00)
--- NOTE | 2018-10-20 10:45 | Cardiology Consultation ---
Date of Consultation October 20, 2018 Assessment & Plan (1) Chest pain: His chest pain is atypical. It lasted for 8 and 6 hours and despite this , he has negative cardiac enzymes. ECG was without ischemic changes and echo without wall motion abnormalities. Chest pain is likely musculoskeletal and appears to be noncardiac. No further cardiac evaluation recommended at this time. Further evaluation/treatment as per primary hospitalist service. (2) CAD (coronary artery disease), [place] coronary artery: No angina. Continue anti-platelet therapy indefinitely. Aspirin therapy has been discontinued in the past due to epigastric burning and possible hematemesis. Continue Plavix 75 mg daily with anticoagulation therapy. Continue beta-glenroy as tolerated. He did not tolerate atorvastatin but is agreeable to take Crestor. Recommend Crestor 20 mg daily. (3) A-fib: He has done well on current dose of amiodarone, 200 mg daily. No recent palpitations. He is currently in sinus. He has been more symptomatic in the past when on lower doses of amiodarone, but has been on amiodarone since the . He has declined switching to another antiarrhythmic agent or ablation and has preferred to remain on amiodarone. He has been made aware potential long-term adverse reactions but is doing very well from a symptom standpoint on current regimen. He no longer follows with electrophysiology. Monitor transaminase levels and TSH periodically. Elevated chads Vasc score. Continue anticoagulation for stroke risk reduction. He had significant epistaxis on Xarelto and was then placed on Coumadin. (4) HTN (hypertension): Blood pressure is not optimized. Can titrate medications as appropriate. (5) HLD (hyperlipidemia): Recommend high-intensity statin therapy. He did not tolerate atorvastatin. Recommend Crestor 20 mg daily. He was agreeable. Disposition: No further inpatient cardiac evaluation recommended at this time. Plan of care was discussed with Dr. Antoine of the primary hospitalist service. Please call with any other questions or concerns. Thank you for allowing me to participate in the care of your patient. Please call for any other questions or concerns. Sincerely, Vitor Turner M.D. History of Present Illness Reason for Consultation: Chest pain Requesting Physician: Kourtney Attending Physician: Jennifer Antoine MD History of Present Illness Mr. Jay is a pleasant 53-year-old gentleman with a history significant for CAD status post PCI, paroxysmal atrial fibrillation on amiodarone therapy, hypertension, sleep apnea on CPAP, and type 2 diabetes. According to Mr. Jay, he was diagnosed with atrial fibrillation in the and placed on amiodarone therapy secondary to short bouts of paroxysmal atrial fibrillation. He has not been on any other anti-arrhythmic medications. He was evaluated by electrophysiology and the decision was made to continue with amiodarone long-term. On 09/12/2017, he was admitted with chest discomfort and was diagnosed with myocardial infarction with a peak troponin of 1.01. He underwent cardiac catheterization which led to proximal LAD PCI. He has had the following studies: 1. Echo 02/27/12: Normal LV size, systolic function, wall motion. EF 60%. Moderate concentric LVH. Mild biatrial dilation. No significant valvular abnormalities. 2. PFTs 02/04/12: Normal spirometry and DLCO with air trapping. 3. Echo 05/08/14: Normal LV size, systolic function, wall motion. EF 60-65%. 4. Cardiac cath 05/16/14: Dominant circumflex. Mid RCA 20-30% smooth narrowing. Luminal irregularities within proximal LAD and circumflex system. Normal wall motion and LV systolic function. Normal LVEDP. No significant MR or aortic stenosis. 5. PFTs 12/05/2016: Normal spirometry. Normal volumes. Normal DL/VA 6. Echo 06/02/2017: Normal left ventricular size and systolic function. EF 55- 60%. No regional wall motion abnormalities. No significant valvular abnormalities. Mild left atrial dilation. 7. Echo 09/13/2017: Normal LV size, systolic function, wall motion. EF 60-65% . Mild LVH. Mild MR. Mild TR. 8. Cardiac catheterization 09/14/2017 (peak troponin 1.01): Proximal LAD 80-90% . Mid LAD 30%. Circumflex was large and dominant with mid 20%. Circumflex PDA 50-60% proximal stenosis. Small non dominant RCA with mid 20%. LVEDP 14. PCI of proximal LAD with 3 x 18 mm Xience CARLA. He presented to [facility] with chest pain. Two days ago, he woke up at approximately 4:00 a.m.. He had a coughing episode which was described as violent coughing by his . He had sputum production with white/ yellow sputum. He then developed chest discomfort described as a right sharp and left sided achy chest pain. It lasted for 5-6 hours before spontaneously resolving. It occurred at rest and did not worsen with exertion. His blood pressure was elevated with the chest discomfort with systolic blood pressure in the 180s. Heart rate was 70s to 80s. There was associated shortness of breath at times but no diaphoresis or other symptoms. Yesterday morning, he woke up at approximately 4:00 a.m. and once again had a violent coughing episode. He then had a different chest discomfort as though something was sitting on his chest. This lasted for 8 hours before spontaneously resolving. The pain was constant throughout that time. He has not had any further chest pain. The chest discomfort described as above is completely different than his prior angina that he experienced with myocardial infarction. He admits that he has been having these coughing episodes every morning with CPAP. If he sleeps without his CPAP, such as at his camp, he has no such issues. Two days ago, he also felt palpitations as though his heart was racing at times. His heart rate however when checked, was normal. He denies dyspnea with exertion, orthopnea, PND, syncope, near-syncope, or edema. He denies bleeding such as melena, hematochezia, or hematuria. He denies any recent fevers, chills, abdominal pain, nausea, vomiting, or other symptoms. Review of systems: As above. Review of systems otherwise negative/ unremarkable. Social history: Denies smoking, alcohol, drug abuse. He is and has 2 children. He has a granddaughter. He works at [employer]. His is at the bedside. Family history: No known premature CAD. His father had CHF. His sister at the age of 32 secondary to a "heart aneurysm." His son also has atrial fibrillation. Allergies Allergy/AdvReac Type Severity Reaction Status Date / Time canagliflozin [From Invokana] Allergy Severe Rash Verified 10/19/18 07:59 Penicillins Allergy Unknown UNKNOWN Verified 10/19/18 07:59 CHILD liraglutide [From Victoza] AdvReac Severe Dizziness Unverified 10/19/18 07:59 Home Medications Home Medications Medication Instructions Recorded Confirmed Type amiodarone [Pacerone] 200 mg PO QAM 06/23/18 10/19/18 History atenolol [Tenormin] 25 mg PO QAM 06/23/18 10/19/18 History clopidogrel [Plavix] 75 mg PO QAM 06/23/18 10/19/18 History ergocalciferol (vitamin D2) 50,000 units PO WK 06/23/18 10/19/18 History [Vitamin D2] insulin glargine [Lantus Solostar 40 units SUBCUT HS 06/23/18 10/19/18 History U-100 Insulin] levothyroxine [Synthroid] 150 mcg PO QAM 06/23/18 10/19/18 History losartan [Cozaar] 100 mg PO HS 06/23/18 10/19/18 History metformin 1,000 mg PO BIDM 06/23/18 10/19/18 History pantoprazole [Protonix] 40 mg PO QAM 06/23/18 10/19/18 History ranitidine HCl [Acid Control 150 mg PO BID 06/23/18 10/19/18 History (ranitidine)] warfarin [Coumadin] 7.5 mg PO QAM 06/23/18 10/19/18 History dulaglutide 1.5 mg SUBCUT WK 10/19/18 10/19/18 History acetaminophen [Mapap 650 mg PO Q4H PRN #14 tab 10/20/18 Rx (acetaminophen)] docusate sodium 100 mg PO BID #60 cap 10/20/18 Rx polyethylene glycol 3350 [Miralax] 17 g PO TID #30 ea 10/20/18 Rx Patient History Medical History GERD (gastroesophageal reflux disease) Constipation DM II (diabetes mellitus, type II), controlled HTN (hypertension) Hypothyroidism ERICA on CPAP HLD (hyperlipidemia) Chest pain (Acute) A-fib Hx of non-ST elevation myocardial infarction (NSTEMI) Diabetes mellitus (Chronic) Hyperlipidemia (Chronic) Heart attack (Resolved) Surgical History History of coronary artery stent placement Family History Other No pertinent family history Social History Current Living Situation: Spouse Other Information That Helps Us Care for You: No Feels Safe at Home: Yes Safety Concerns: Feels Safe At This Time Smoking Status: Former smoker Do You Dip or Chew Tobacco: No Second Hand Exposure: No Tobacco Cessation Education Requested by Patient: No Hx Alcohol Use: No Hx Substance Use: No Beliefs That Will Affect Care: None Preferred Language: Moroccan Physical Exam 2 Vital Signs (Past 24 Hours): Last Vital Signs Temp 36.5 C 10/20/18 07:17 Pulse 59 L 10/20/18 07:17 Resp 18 10/20/18 07:17 BP 143/73 H 10/20/18 07:17 Pulse Ox 92 10/20/18 07:17 Physical Exam: Gen.: No acute distress. Alert and oriented. HEENT: Anicteric sclera. Neck: No JVD, but thick neck. No bruit. Normal carotid upstroke bilaterally. Cardiac: PMI was nonpalpable. No ventricular heave. Regular, without ectopy. Normal S1-S2. No murmurs, rubs, or gallops. Pulmonary: Clear to auscultation bilaterally without wheezes, rales, or rhonchi. Abdomen: Obese. Mildly distended with normoactive bowel sounds. No bruits noted. Nontender. Extremities: 2+ radial pulses bilaterally. 2+ posterior tibialis pulses bilaterally. Trace bilateral lower extremity pitting edema. No cyanosis. Psychiatric: Affect appears appropriate. Chest: Tender to palpation along the left and right sternal borders, reproducing pain as above. Results & Data Laboratory Results Laboratory Results - last 24 hr 10/19/18 10/19/18 10/19/18 11:53 13:59 16:24 WBC RBC Hgb Hct MCV MCH MCHC RDW Std Deviation RDW Coeff of Zhanna Plt Count MPV PT INR Sodium Potassium Chloride Carbon Dioxide Anion Gap BUN Creatinine Est Cr Clr Drug Dosing Est GFR ( Amer) Est GFR (Non-Af Amer) BUN/Creatinine Ratio Glucose POC Glucose 166 H 162 H Estimat Average Glucose Hemoglobin A1c Calcium Total Bilirubin AST ALT Alkaline Phosphatase Troponin I < 0.015 Total Protein Albumin Globulin Albumin/Globulin Ratio 10/19/18 10/19/18 10/20/18 20:04 21:47 06:39 WBC 7.52 RBC 5.02 Hgb 14.9 Hct 43.5 MCV 86.7 MCH 29.7 MCHC 34.3 RDW Std Deviation 42.9 RDW Coeff of Zhanna 13.5 Plt Count 323 MPV 10.7 H PT INR Sodium Potassium Chloride Carbon Dioxide Anion Gap BUN Creatinine Est Cr Clr Drug Dosing Est GFR ( Amer) Est GFR (Non-Af Amer) BUN/Creatinine Ratio Glucose POC Glucose 197 H Estimat Average Glucose Hemoglobin A1c Calcium Total Bilirubin AST ALT Alkaline Phosphatase Troponin I < 0.015 Total Protein Albumin Globulin Albumin/Globulin Ratio 10/20/18 10/20/18 10/20/18 06:39 06:39 06:39 WBC RBC Hgb Hct MCV MCH MCHC RDW Std Deviation RDW Coeff of Zhanna Plt Count MPV PT 25.6 H INR 2.7 H Sodium 134 L Potassium 4.1 Chloride 103 Carbon Dioxide 26 Anion Gap 5.0 BUN 19 H Creatinine 0.84 Est Cr Clr Drug Dosing 142.8 Est GFR ( Amer) 115.9 Est GFR (Non-Af Amer) 100.0 BUN/Creatinine Ratio 22.3 H Glucose 183 H POC Glucose Estimat Average Glucose 223 Hemoglobin A1c 9.4 H Calcium 8.4 L Total Bilirubin 0.5 AST 20 ALT 37 Alkaline Phosphatase 67 Troponin I Total Protein 7.0 Albumin 3.4 Globulin 3.6 Albumin/Globulin Ratio 0.9 10/20/18 07:40 WBC RBC Hgb Hct MCV MCH MCHC RDW Std Deviation RDW Coeff of Zhanna Plt Count MPV PT INR Sodium Potassium Chloride Carbon Dioxide Anion Gap BUN Creatinine Est Cr Clr Drug Dosing Est GFR ( Amer) Est GFR (Non-Af Amer) BUN/Creatinine Ratio Glucose POC Glucose 177 H Estimat Average Glucose Hemoglobin A1c Calcium Total Bilirubin AST ALT Alkaline Phosphatase Troponin I Total Protein Albumin Globulin Albumin/Globulin Ratio Diagnostic Findings ECG personally reviewed. ECG 10/19/2018: Sinus rhythm 63 bpm. Normal ECG. Echo 10/19/2018: Normal LV size, wall motion, systolic function. EF 55-60%. Moderate LVH. No significant diastolic dysfunction. No significant valvular abnormalities reported. Medications Administered Current Inpatient Medications Acetaminophen (Tylenol) 650 mg PO Q4H PRN PRN Reason: Moderate Pain Stop: 11/18/18 10:58 [facility] [place] Stop: 11/19/18 08:59 Last Admin: 10/20/18 08:11 Dose: 200 mg Atenolol (Tenormin) [facility] [place] Stop: 11/19/18 08:59 Last Admin: 10/20/18 08:12 Dose: 25 mg Clopidogrel Bisulfate (Plavix) 75 mg PO QAM [facility] [place] Stop: 11/19/18 08:59 Last Admin: 10/20/18 08:11 Dose: 75 mg Dextrose (Dextrose 50%) 25 - 50 ml IV UD PRN; Protocol PRN Reason: Hypoglycemia Protocol Stop: 11/18/18 10:58 Docusate Sodium (Colace) 100 mg PO BID BUZZ Stop: 11/18/18 20:59 Last Admin: 10/20/18 08:11 Dose: 100 mg Ergocalciferol (Vitamin D2) 50,000 units PO Q7D BUZZ Stop: 11/18/18 20:59 Last Admin: 10/19/18 21:20 Dose: 50,000 units Glucagon (Glucagen) 1 mg SQ UD PRN; Protocol PRN Reason: Hypoglycemia Protocol Stop: 11/18/18 10:58 Glucose (Dex4 Glucose) 4 - 8 tabs PO UD PRN; Protocol PRN Reason: Hypoglycemia Protocol Stop: 11/18/18 10:58 Glucose (Glucose 40%) 15 - 30 gm PO UD PRN; Protocol PRN Reason: Hypoglycemia Protocol Stop: 11/18/18 10:58 Insulin Aspart (Novolog Flexpen) 0 units SC ACHS [facility] [place] Stop: 11/18/18 11:29 Last Admin: 10/20/18 08:13 Dose: 9 units Insulin Glargine (Lantus Solostar Pen) 40 units SQ HS [facility] [place] Stop: 11/18/18 20:59 Last Admin: 10/19/18 22:00 Dose: 40 units Levothyroxine Sodium (Synthroid) 150 mcg PO DAILYBB [facility] [place] Stop: 11/19/18 06:29 Last Admin: 10/20/18 06:05 Dose: 150 mcg Losartan Potassium (Cozaar) 100 mg PO HS [facility] [place] Stop: 11/18/18 20:59 Last Admin: 10/19/18 21:20 Dose: 100 mg Metformin HCl (Glucophage) 1,000 mg PO BIDM [facility] [place] Stop: 11/18/18 16:59 Last Admin: 10/20/18 08:20 Dose: Not Given Miscellaneous (Order Awaiting Action) 1 ea N/A QS [facility] [place] Stop: 11/18/18 15:59 Last Admin: 10/19/18 15:14 Dose: Not Given Miscellaneous (Carbohydrates For Hypoglycemia) 15 - 30 gm PO UD PRN PRN Reason: Hypoglycemia Treatment Stop: 11/18/18 10:58 Ondansetron HCl (Zofran) 4 mg IV Q4H PRN PRN Reason: Nausea And Vomiting Stop: 11/18/18 10:58 Pantoprazole Sodium (Protonix) 40 mg PO QAM [facility] [place] Stop: 11/19/18 08:59 Last Admin: 10/20/18 08:11 Dose: 40 mg Polyethylene Glycol (Miralax Powder Packet) 17 gm PO DAILY [facility] [place] Stop: 11/19/18 08:59 Last Admin: 10/20/18 08:11 Dose: 17 gm Ranitidine HCl (Zantac) 150 mg PO BID [facility] [place] Stop: 11/18/18 20:59 Last Admin: 10/20/18 08:11 Dose: 150 mg Warfarin Sodium (Coumadin) 7.5 mg PO DAILY@1600 [facility] [place] Stop: 11/19/18 15:59
--- NOTE | 2018-10-20 12:08 | Discharge Summary ---
Date of Service October 20, 2018 Admission HPI Per Admitting Provider This is a 53yo male with a PMHx of [place] in Sep 2017 s/p 1 CARLA to proimal LAD, CAD , HTN, HLD, morbidly obese with BMI = 37.4, paroxysmal A. fib on Coumadin, hypothyroidism, GERD, ERICA on CPAP, DM type II, former smoker, who presents with acute onset of chest pain. Pt notes his pain has been waxing and waning over the past 3 days. Yesterday he feels like he was in A. fib, with heart racing palpitations and some dizziness on and off. Patient went to bed and this morning again developed left-sided chest pain and numbness down into the left arm involving the ring finger and pinky finger. Last week he was lifting a wood stove and moving it into their camp, and admit to pulling some muscles in his back/upper neck and possibly his arms. In the past 3 nights he has woken up and slept on the recliner due to pain in the chest. The pain he is experiencing today is different compared to his last previous heart attack. He has taken all of his morning medications. Patient admits to subsequent shortness of breath which has been ongoing for several months, denies orthopnea. He wears CPAP HS but feels that he does not "get enough air", despite a relatively good fit on his face. He also complains of severely dry mouth when wearing it/waking up in the middle the night. . Denies any recent weight gain/loss, no swelling. His dry weight is around 287. Of note he also complains of abdominal cramping, issues with constipation, and is following with GI for some studies in the next month to evaluate. He believes Trulicity may be contributing to his constipation. He is taking a stool softener and laxative daily at home. Principal Diagnosis Chest pain-musculoskeletal in nature, noncardiac Discharge Exam Constitutional WD/WN, vitals as above + obese Eyes PERRL, conjunctivae normal, anicteric sclerae ENMT external ear and nose normal, oropharynx normal Neck trachea midline, no thyromegaly Respiratory normal respiratory effort, lungs clear to auscultation Cardiovascular RRR, no murmur, no edema Gastrointestinal (Abdomen) normal bowel sounds, soft, nontender, no hepatosplenomegaly Musculoskeletal Extremities: extremities normal to inspection; no cyanosis and no clubbing Skin no rashes, warm and dry Neurologic moves all extremities and awake; no focal motor deficits Psychiatric A+Ox3, euthymic affect Discharge Data Allergies Allergy/AdvReac Type Severity Reaction Status Date / Time canagliflozin [From Invokana] Allergy Severe Rash Verified 10/19/18 07:59 Penicillins Allergy Unknown UNKNOWN Verified 10/19/18 07:59 CHILD liraglutide [From Victoza] AdvReac Severe Dizziness Unverified 10/19/18 07:59 Consultations Cardiology Procedures Performed Echocardiogram-LVEF 55-60%, moderate LVH, otherwise normal Hospital Course (1) Chest pain: This patient is a 53-year-old male with a history of CAD status post CARLA to the LAD, HTN, HL, obesity, PAF on Coumadin, hypothyroidism, GERD, ERICA on CPAP , and DM 2, who presented with atypical left and right sided chest pain for 8-9 hours at a time each day for the 2 days prior to admission. He has been having bad coughing spells due to wearing his CPAP machine and the pain came on after this. He was also lifting some heavy equipment at his camp the week prior. His serial troponins were negative, his resting echocardiogram was negative for wall motion abnormalities. His ECGs were without ischemic changes. He had no significant events on telemetry monitoring. His pain was reproducible on palpation. He was seen by cardiology because of the atypical nature of his pain and negative cardiac workup, it was not recommended that he have any further cardiac stress testing. -He is stable for discharge home on his usual home medications. -Recommended that he take Tylenol as needed for pain in the chest that is muscular skeletal related, and that he follow-up with his sleep medicine provider to discuss further ways to modify his CPAP to help prevent his coughing fits which are reproducing his chest pain. Also recommended weight loss through dietary modifications and exercise to possibly eliminate the need for CPAP. (2) A-fib: -Paroxysmal -The patient reported feeling like he was in A. fib the day prior to admission, but he remained in normal sinus rhythm with his stay here -Continue Coumadin 7.5 mg daily -Continue amiodarone therapy 200 mg p.o. QAM -Continue atenolol same dose (3) History of coronary artery stent placement: Status post drug eluding stent to the LAD previously, no ischemic changes here (4) Hx of non-ST elevation myocardial infarction (NSTEMI): -September 2017, s/p 1 CARLA to proximal LAD -Continue Plavix, atenolol, and has had issues with statins in the past-we will defer to cardiology to restart statin in the future (5) HTN (hypertension): Fairly well controlled blood pressure here -Continue antihypertensives: Atenolol 25 mg p.o. QAM, losartan 100 mg p.o. HS (6) HLD (hyperlipidemia): -Patient is not on statin therapy due to not tolerating atorvastatin in the past, he was previously on Crestor per Dr. Turner's note it was discussed that he could consider restarting Crestor if no contraindications however there were no clear reasons as to why this med was discontinued. - High intensity statin therapy is recommended (7) DM II (diabetes mellitus, type II), controlled: -Last A1c in May 2018 was 10.6, repeat this admission is down to 9.4% -Continue Trulicity, 1.5 mg subcu weekly for now although seems to be causing him significant constipation -Continue Lantus 40 units HS -Restart metformin upon discharge -Encouraged weight loss and exercise (8) ERICA (obstructive sleep apnea): -Continue CPAP therapy -Recommend pulmonology outpatient visit to discuss CPAP fit -Also recommended significant weight loss as above (9) Constipation: -Possibly secondary to Trulicity use, or at least made worse due to trulicity -Continue twice daily Colace, and advised him to increase his daily MiraLAX to 3 times daily -- follows with Dr. Oconnell with GI, scheduled for out outpatient EGD/gastric emptying study/colonoscopy (10) Hypothyroidism: TSH was normal at 2.28 in 05/2018 -Continue levothyroxine 150 mcg daily (11) GERD (gastroesophageal reflux disease): -Continue Protonix 40 mg QAM, ranitidine 150 mg BID (12) Obesity (BMI 35.0-39.9 without comorbidity): -Diet and weight loss/exercise were encouraged with a loss of at least 5% of his body weight as an initial goal [place] body weight would be 195 pounds (13) DVT prophylaxis: -lovenox subq was provided Disposition-stable for discharge to home Total Time Total Time Spent Total Time Spent (In Minutes): Greater than 30 minutes Total Time Includes: Examination of the Patient, Discharge Planning, Medication Reconciliation and Communication With Other Providers (Discussed with cardiology ) Discharge Plan Discharge Items Patient Disposition: Home - Self-Care Reason For Visit: CHEST PAIN Discharge Diagnosis: Chest pain-noncardiac Condition: Good Discharge Goals: Decrease discomfort, Diagnostic testing and Learn about illness Activity: Resume your previous activity Lifting: Gradually increase as tolerated Bathing: No limitations Exercise/Sports: Gradually increase as tolerated Driving/Machine Use: No limitations Non-emergency contact: Primary Care Provider and Patient Care Coordinator Call non-emergency contact if: you have any medication questions, your symptoms worsen, your pain is not controlled, your pain is worsening, your pain is unusual for you and your pain is concerning for you Follow-up/Referrals: Ector Turner MD [Patient Care Coordinator] - 11/01/18 3:00 pm (Please, follow up at [facility] Cardiology Office with Dr. Turner's assistant corporate controller, Xu Mandel PA-C, on ThursdayNovember 01 at 3:00 pm. *This office is located in [address] of [facility] next to this [facility]. If you need to change this appointment, call the office at [phone].) Carina Tran MD [Primary Care Provider] - 10/28/18 2:30 pm (Please, follow up with Dr. Tran on October 28 at 2:30 pm. *If you need to change this appointment, call the office at [phone].) Diet: Carb Consistent or DM2 and Heart Healthy Addtl Provider Instructions: You were admitted with chest pain that was likely due to a musculoskeletal strain from coughing. Please address your coughing related to your CPAP with your pulmonary/sleep medicine provider. You were seen by the aircraft detail draftsperson and he did not feel he needed any further stress testing of the heart. It would greatly benefit you to lose at least 20 pounds of body weight, however your ideal body weight should be around 195 pounds. Please work with your primary care physician on ways that you can work on diet and exercise to lose weight. If you lost a good deal of weight, you may not even need your CPAP machine for sleep apnea in the future. As for your constipation which may be related to your Trulicity, you can increase her MiraLAX to 3 times a day. Please continue on a stool softener twice a day. Please follow-up with your primary care physician within 1-2 weeks as scheduled for you, as long as with the aircraft detail draftsperson as scheduled for you. Prescriptions: New acetaminophen [Mapap (acetaminophen)] 325 mg Tablet 650 mg PO Q4H PRN (Reason: pain) Qty: 14 RF: 0 polyethylene glycol 3350 [Miralax] 17 gram Powder In Packet 17 g PO TID Qty: 30 RF: 0 docusate sodium 100 mg Capsule 100 mg PO BID Qty: 60 RF: 0 Continue amiodarone [Pacerone] 200 mg tablet 200 mg PO QAM RF: 0 atenolol [Tenormin] 25 mg tablet 25 mg PO QAM RF: 0 clopidogrel [Plavix] 75 mg tablet 75 mg PO QAM RF: 0 pantoprazole [Protonix] 40 mg tablet,delayed release (DR/EC) 40 mg PO QAM RF: 0 metformin 1,000 mg Tablet 1,000 mg PO BIDM RF: 0 ranitidine HCl [Acid Control (ranitidine)] 150 mg tablet 150 mg PO BID RF: 0 levothyroxine [Synthroid] 150 mcg tablet 150 mcg PO QAM RF: 0 ergocalciferol (vitamin D2) [Vitamin D2] 50,000 unit capsule 50,000 units PO WK RF: 0 losartan [Cozaar] 100 mg tablet 100 mg PO HS RF: 0 insulin glargine [Lantus Solostar U-100 Insulin] 100 unit/mL (3 mL) insulin pen 40 units subcut HS RF: 0 warfarin [Coumadin] 7.5 mg tablet 7.5 mg PO QAM RF: 0 dulaglutide 1.5 mg/0.5 mL pen injector 1.5 mg subcut WK RF: 0 Stand-Alone Forms: [facility] Discharge Orders: Discharge Order (Routine); Ordered 10/20/18 Ordered By: Jennifer Antoine Admission Data Admit Date/Time: 10/19/18 09:57 Attending Provider: Jennifer Antoine Admit Provider: Mague Arriaga Primary Care Provider: Carina Tran Other Providers: Mague Arriaga ; Jose Rubin Service: Telemetry Other Pending Studies at Discharge: No
[2018-10-20] MEDS ORDERED: WARFARIN SOD 7.5 MG TAB PO SCH (16:00)
== END 2018-10-20 12:48 | disposition home or self-care (01) ==
LOC: ED 07:16 → 2N 07:16 → SUATTDRO 09:57 → 2N 10:17

== ENCOUNTER 2020-12-21 09:03 | Inpatient (IN) ==
--- NOTE | 2020-11-28 11:01 | PAT Medication Instructions ---
Medication Instructions Date of Service November 28, 2020 Home Medications Medication Instructions Recorded hydrocortisone 2.5 % topical cream 1 appln ND DAILY PRN #30 gm 06/03/19 with perineal applicator BiPap Machine #1 ea 06/09/19 miscellaneous medical supply #1 ea 09/19/19 sildenafil 100 mg tablet 100 mg PO DAILY PRN #10 tab 10/08/19 albuterol sulfate 90 mcg/actuation See Rx Instructions INH QID #6.7 gm 06/06/20 aerosol inhaler clopidogrel 75 mg tablet 75 mg PO QAM #90 tab 07/04/20 amiodarone 200 mg tablet 200 mg PO QAM #90 tab 07/17/20 mupirocin 2 % topical ointment 1 applic TOPICAL DAILY PRN #15 gm 07/17/20 clotrimazole-betamethasone 1 1 applic TOPICAL BID PRN #30 g 07/19/20 %-0.05 % topical cream pen needle, diabetic 31 gauge x #100 ea 07/19/2012/18" atenolol 25 mg tablet 25 mg PO QAM #30 tab 08/27/20 Novolog Flexpen U-100 Insulin 100 See Rx Instructions .ROUTE 09/02/20 unit/mL (3 mL) subcutaneous .COMPLEX #15 ml NS metaxalone 800 mg tablet 800 mg PO TID PRN #30 tab 09/04/20 blood-glucose transmitter #1 ea 09/05/20 metformin 1,000 mg tablet See Rx Instructions .ROUTE 10/29/20 .COMPLEX #180 tab blood-glucose sensor #3 ea 11/19/20 fluticasone propionate 50 mcg/actuation nasal spray,suspension 50 mcg INTRANASAL BID PRN hydrocortisone 2.5 % topical cream with perineal applicator 1 appln ND DAILY PRN sildenafil 100 mg tablet 100 mg PO DAILY PRN losartan 100 mg PO HS albuterol sulfate 90 mcg/actuation aerosol inhaler See Rx Instructions INH QID clopidogrel 75 mg tablet 75 mg PO QAM amiodarone 200 mg tablet 200 mg PO QAM mupirocin 2 % topical ointment 1 applic TOPICAL DAILY PRN clotrimazole-betamethasone 1 %-0.05 % topical cream 1 applic TOPICAL BID PRN atenolol 25 mg tablet 25 mg PO QAM Novolog Flexpen U-100 Insulin 100 unit/mL (3 mL) subcutaneous 30 UNITS TID metaxalone 800 mg tablet 800 mg PO TID PRN metformin 1,000 mg tablet 1 tab PO BID amlodipine 10 mg PO QPM artificial tears with lanolin [Artificial Tears] 1 applic OPHTHALMIC (EYE) BID beclomethasone dipropionate [Qvar] 40 mcg INHALATION UD PRN famotidine 40 mg PO QPM insulin glargine [Basaglar KwikPen U-100 Insulin] 30 unit SUBCUT QAM insulin glargine [Basaglar KwikPen U-100 Insulin] 50 unit SUBCUT QPM levothyroxine 175 mcg PO QAM metronidazole 1 applic TOPICAL UD PRN multivitamin 1 tab PO QPM pantoprazole 40 mg PO QAM rosuvastatin 40 mg PO QPM warfarin 7.5 mg PO QAM Continue as directed But do not use near surgical site after you have cleaned your skin the night before surgery. hydrocortisone 2.5 % topical cream with perineal applicator 1 appln ND DAILY PRN mupirocin 2 % topical ointment 1 applic TOPICAL DAILY PRN clotrimazole-betamethasone 1 %-0.05 % topical cream 1 applic TOPICAL BID PRN metronidazole 1 applic TOPICAL UD PRN ASK your prescriber and surgeon clopidogrel 75 mg tablet 75 mg PO QAM warfarin 7.5 mg PO QAM STOP taking 24 hours before surgery sildenafil 100 mg tablet 100 mg PO DAILY PRN DO NOT take the morning of surgery Novolog Flexpen U-100 Insulin 100 unit/mL (3 mL) subcutaneous 30 UNITS TID metaxalone 800 mg tablet 800 mg PO TID PRN metformin 1,000 mg tablet 1 tab PO BID Take morning of surgery With a small sip of water, OTHERWISE NOTHING TO EAT OR DRINK AFTER MIDNIGHT: fluticasone propionate 50 mcg/actuation nasal spray,suspension 50 mcg INTRANASAL BID PRN (if needed) albuterol sulfate 90 mcg/actuation aerosol inhaler See Rx Instructions INH QID amiodarone 200 mg tablet 200 mg PO QAM atenolol 25 mg tablet 25 mg PO QAM artificial tears with lanolin [Artificial Tears] 1 applic OPHTHALMIC (EYE) BID beclomethasone dipropionate [Qvar] 40 mcg INHALATION UD PRN (if needed) levothyroxine 175 mcg PO QAM pantoprazole 40 mg PO QAM Take evening before surgery fluticasone propionate 50 mcg/actuation nasal spray,suspension 50 mcg INTRANASAL BID PRN (if needed) losartan 100 mg PO HS albuterol sulfate 90 mcg/actuation aerosol inhaler See Rx Instructions INH QID Novolog Flexpen U-100 Insulin 100 unit/mL (3 mL) subcutaneous 30 UNITS TID metaxalone 800 mg tablet 800 mg PO TID PRN (if needed) metformin 1,000 mg tablet 1 tab PO BID amlodipine 10 mg PO QPM artificial tears with lanolin [Artificial Tears] 1 applic OPHTHALMIC (EYE) BID beclomethasone dipropionate [Qvar] 40 mcg INHALATION UD PRN (if needed) famotidine 40 mg PO QPM insulin glargine [Basaglar KwikPen U-100 Insulin] 50 unit SUBCUT QPM multivitamin 1 tab PO QPM rosuvastatin 40 mg PO QPM Insulin Dependent Diabetic Patients * Test your blood sugar the morning of surgery. * If Blood Sugar is GREATER THAN 150, take HALF of your regular dose of: insulin glargine [Basaglar KwikPen U-100 Insulin] 30 unit SUBCUT QAM -- TAKE 15 UNITS * If Blood Sugar is LESS THAN 150, DO NOT TAKE ANY: insulin glargine [Basaglar KwikPen U-100 Insulin] Other Notes If you have any questions please call us at [phone] or [phone] or [phone] or [phone]
--- NOTE | 2020-11-28 11:33 | Anesthesiology Consultation ---
Date of Service November 28, 2020 Assessment & Plan (1) Encounter for pre-operative examination: COVID Status: As of 11/28 assessment, patient denies travel to endemic area, known exposure/sick contacts, or symptoms of COVID19. Patient instructed that they and their household members must follow strict social distancing guidelines, wear a mask in public and avoid travel/events/gatherings for 14 days prior to surgery. Preoperative COVID19 testing to be completed prior to surgery per surgeon's arrangements. Patient made aware to self-isolate as much as possible between COVID testing and surgery. Patient does have to work between his covid test and surgery. 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 He was advised to strictly mask and social distance. Cardiology office visit 10/22/2020: "CAD status post LAD PCI: No angina or symptoms of CHF. Continue anti-platelet therapy indefinitely. Aspirin therapy has been discontinued in the past due to epigastric burning and possible hematemesis. Continue Plavix 75 mg daily with anticoagulation therapy. Continue beta-glenroy and high-intensity statin therapy...He is currently in sinus rhythm and has been asymptomatic with no recent palpitations...BP is elevated in the clinic today, especially upon recheck by myself. Will increase amlodipine to 10 mg daily...follow-up in 6 months." BSG AM DOS. Chart Review Chart Review: Acceptable Risk for Surgery and Patient seen in Pre Admission Testing Teaching & Discussion Instructed NPO after midnight before surgery, except medications with 15 cc of w ater. Medication instructions provided according to the PAT guidelines. Patient to follow-up with cardiology office and surgeon's office for Plavix and Warfarin instructions. History Surgery Operation Date: 12/21/20 08:30 Proposed Procedures p Left Reverse Total Shoulder Arthroplasty - Gopi Lowery DO Height/Weight Height: 6 ft 1 in Weight: 141.8 kg Allergies Allergy/AdvReac Type Severity Reaction Status Date / Time canagliflozin [From Invokana] Allergy Severe Rash Verified 11/28/20 10:15 Penicillins Allergy Unknown UNKNOWN Verified 11/28/20 10:15 CHILD dulaglutide [From Trulicity] Allergy Gastrointestinal Verified 11/28/20 10:15 Upset liraglutide [From Victoza] AdvReac Severe Dizziness Verified 11/28/20 10:15 rivaroxaban [From Xarelto] AdvReac Intermediate epistaxis Verified 11/28/20 10:15 Medications Home Medications Medication Instructions Recorded Confirmed Last Taken diabetic supplies, miscellan. #1 ea 03/07/19 11/28/20 Unknown fluticasone propionate 50 50 mcg INTRANASAL BID PRN #1 gm 03/07/19 11/28/20 03/28/18 mcg/actuation nasal spray,suspension lancets #50 ea 03/07/19 11/28/20 Unknown hydrocortisone 2.5 % topical cream 1 appln MD DAILY PRN #30 gm 06/03/19 11/28/20 Unknown with perineal applicator BiPap Machine #1 ea 06/09/19 11/28/20 Unknown miscellaneous medical supply #1 ea 09/19/19 11/28/20 Unknown sildenafil 100 mg tablet 100 mg PO DAILY PRN #10 tab 10/08/19 11/28/20 Unknown losartan 100 mg PO HS 06/05/20 11/28/20 06/04/20 albuterol sulfate 90 mcg/actuation See Rx Instructions INH QID #6.7 gm 06/06/20 11/28/20 Unknown aerosol inhaler clopidogrel 75 mg tablet 75 mg PO QAM #90 tab 07/04/20 11/28/20 Unknown amiodarone 200 mg tablet 200 mg PO QAM #90 tab 07/17/20 11/28/20 Unknown mupirocin 2 % topical ointment 1 applic TOPICAL DAILY PRN #15 gm 07/17/20 11/28/20 Unknown clotrimazole-betamethasone 1 1 applic TOPICAL BID PRN #30 g 07/19/20 11/28/20 Unknown %-0.05 % topical cream pen needle, diabetic 31 gauge x #100 ea 07/19/20 11/28/20 Unknown 3/16" atenolol 25 mg tablet 25 mg PO QAM #30 tab 08/27/20 11/28/20 Unknown Novolog Flexpen U-100 Insulin 100 See Rx Instructions .ROUTE 09/02/20 11/28/20 Unknown unit/mL (3 mL) subcutaneous .COMPLEX #15 ml NS metaxalone 800 mg tablet 800 mg PO TID PRN #30 tab 09/04/20 11/28/20 Unknown blood-glucose transmitter #1 ea 09/05/20 11/28/20 Unknown metformin 1,000 mg tablet See Rx Instructions .ROUTE 10/29/20 11/28/20 Unknown .COMPLEX #180 tab blood-glucose sensor #3 ea 11/19/20 11/28/20 Unknown amlodipine 10 mg PO QPM 11/28/20 11/28/20 Unknown artificial tears with lanolin 1 applic OPHTHALMIC (EYE) BID 11/28/20 11/28/20 Unknown [Artificial Tears] beclomethasone dipropionate [Qvar] 40 mcg INHALATION UD PRN 11/28/20 11/28/20 Unknown famotidine 40 mg PO QPM 11/28/20 11/28/20 Unknown insulin glargine [Basaglar KwikPen 30 unit SUBCUT QAM 11/28/20 11/28/20 Unknown U-100 Insulin] insulin glargine [Basaglar KwikPen 50 unit SUBCUT QPM 11/28/20 11/28/20 Unknown U-100 Insulin] levothyroxine 175 mcg PO QAM 11/28/20 11/28/20 Unknown metronidazole 1 applic TOPICAL UD PRN 11/28/20 11/28/20 Unknown multivitamin 1 tab PO QPM 11/28/20 11/28/20 Unknown pantoprazole 40 mg PO QAM 11/28/20 11/28/20 Unknown rosuvastatin 40 mg PO QPM 11/28/20 11/28/20 Unknown warfarin 7.5 mg PO QAM 11/28/20 11/28/20 Unknown Past Medical History Medical History Anticoagulated on Coumadin Rivas esophagus Bunion, right foot CAD (coronary artery disease), [place] coronary artery S/P PCI to LAD with NSTEMI 09/12/17. Chronic back pain Constipation Dyslipidemia Erectile dysfunction GERD (gastroesophageal reflux disease) Hearing deficit History of colon polyps History of sarcoidosis Pt follows with pulm but cant recall name of provider HTN (hypertension) Hx of non-ST elevation myocardial infarction (NSTEMI) 09/2017 Hypothyroidism Obstructive sleep apnea cpap, using for about 4-5 hrs per night Osteoarthritis Paroxysmal atrial fibrillation On amiodarone, warfarin. Prepatellar bursitis, left knee Rosacea Rotator cuff tear, left Rotator cuff tear, right Type 2 diabetes, uncontrolled, with diabetic cataract Exercise / Class Metabolic Activity II 4-5 Yardwork/Stairs/Walk up hill (Denies CP or SOB with 1 FOS, has to go up 8 steps into his house daily) Past Family History Family History Brother Family history of diabetes mellitus Hypertension Sister Family history of diabetes mellitus Hypertension Mother Family history of diabetes mellitus Hypertension Father Family history of diabetes mellitus Hypertension Prostate cancer Other No family history of adverse response to anesthesia Past Surgical History Surgical History History of anesthesia reaction slow to wake up History of bronchoscopy History of cardiac cath 09/2017 with 1 stent @ [facility] History of colonoscopy History of esophagogastroduodenoscopy (EGD) History of nasal cauterization History of total left hip replacement S/P coronary artery stent placement 09/2017 Past Anesthesia History No Hx of Anesthesia Complications (other than "slow to wake") and No Family Hx of Anesthesia Complications (other than PONV) History of PONV History of PONV Social History Smoking Status: Former smoker tobacco type: cigarettes Do You Dip or Chew Tobacco: No Smoking End Date: quit 15 years ago, 1/2 pk for 10 year Hx Alcohol Use: No Hx Substance Use: No substance use type: does not use Review of Systems Pt denies any recent chest pain, shortness of breath, palpitations, cough, fever, URI, or uncontrolled acid reflux (controlled with PPI). Physical Exam Vital Signs BP: 146/68 P: 58bpm SPO2: 95% RA T: 98.3 F R: 16 ENMT Mouth: + chipped teeth (few small chips); no dental restorations and no loose teeth Thyromental Distance: > or= 3.5 Finger Breadths Mallampati Class: I Neck + short neck and + thick neck (very); neck extension not limited Respiratory normal respiratory effort, lungs clear to auscultation Auscultation: + diminished lung sounds (in bases) Cardiovascular Rate/Rhythm: regular rate and regular rhythm Heart Sounds: no murmur Vessels: no carotid bruit Extremities: + edema (trace pitting R ankle) Testing Laboratory Results 11/28/20 10:56 11/28/20 10:56 PT 20.6 Seconds (9.0-12.0) H 11/28/20 10:56 INR 2.2 (0.9-1.1) H 11/28/20 10:56 APTT 33.0 Seconds (21.0-31.0) H 11/28/20 10:56 Hemoglobin A1c 8.8 % (4.5-5.6) H 11/28/20 10:56 Blood Type B Positive 11/28/20 10:56 Antibody Screen NEGATIVE 11/28/20 10:56 *Surgeon's office notified of elevated A1C. Electrocardiogram Date: 10/22/20 Findings: + SB @ (54bpm) Chest X-Ray Date: 11/28/20 FINDINGS: Cardiac silhouette is upper limits of normal in size. Mild right hemidiaphragmatic elevation. No pneumothorax, pleural effusion, airspace consolidation or overt pulmonary edema. Mild interstitial coarsening of the left lung base appears chronic. Spondylitic spurring of the spine. IMPRESSION: No acute process. Echocardiogram Date: 10/19/18 EF: 55-60% There is moderate concentric LVH. LV systolic function is normal. Normal diastolic function. Compared to an echocardiogram of 09/2017, there appears to be slightly more hypertrophy, otherwise no significant change. Pulmonic and tricuspid valves are not well visualized. No significant valve disease noted otherwise. Cardiac Catheterization Date: 09/14/17 Successful PCI of proximal LAD with a 3.0 x 18 Xience CARLA (postdilated with 4.0 NC balloon).
[2020-11-28 12:39] LABS: Basophils # (auto) 0.08 K/uL (0-0.2); Basophils % (auto) 0.8 %; Eosinophils # (auto) 0.45 K/uL (0-0.5); Eosinophils % (auto) 4.5 %; Hematocrit (blood only) 42.4 % (42-52); Hemoglobin 14.2 g/dL (14.0-18.0); Immature Granulocytes # (auto) 0.03 K/uL (0.00-0.02); Immature Granulocytes % (auto) 0.3 %; Mean Corpuscular Hemoglobin 29.5 pg (25-34); Mean Corpuscular Hgb Conc 33.5 g/dL (32-36); Monocytes # (auto) 0.79 K/uL (0.11-0.59); Monocytes % (auto) 7.9 %; Neutrophils # (auto) 6.17 K/uL (1.4-6.5); Neutrophils % (auto) 61.5 %; Platelet Count 348 K/uL (130-400); RDW Coefficient of Variation 13.7 % (11.5-14.5); RDW Standard Deviation 43.9 fL (36.4-46.3); Red Blood Count 4.82 M/uL (4.7-6.1); White Blood Count 10.02 K/uL (4.8-10.8)
--- NOTE | 2020-11-28 12:58 | XRay Report ---
XR chest Pre-admission PA/Lat HISTORY: 55 years-old Male pat preoperative exam. COMPARISON: CT abdomen and pelvis 08/29/2020, chest radiograph 03/09/2019 TECHNIQUE: PA and lateral views of the chest FINDINGS: Cardiac silhouette is upper limits of normal in size. Mild right hemidiaphragmatic elevation. No pneu mothorax, pleural effusion, airspace consolidation or overt pulmonary edema. Mild interstitial coarse gabriela of the left lung base appears chronic. Spondylitic spurring of the spine. IMPRESSION: No acute process. ACT 112: Negative or not required by law. The above report was generated using voice recognition software. It may contain grammatical, syntax o r spelling errors. Electronically signed by: Vince Alonzo M.D. 11/28/2020 12:57 PM
[2020-11-28 13:09] LABS: INR 2.2 (0.9-1.1); Partial Thromboplastin Ratio 1.3; Prothrombin Time 20.6 Seconds (9.0-12.0)
[2020-11-28 13:12] LABS: Estimated Average Glucose 206 mg/dl; Hemoglobin A1C 8.8 % (4.5-5.6)
[2020-11-28 14:47] LABS: BUN Creatinine Ratio 21.4 (10-20); Calcium 8.7 mg/dl (8.5-10.1); Creatinine Clr Calc Pharmacy 148.9 ml/min; Est GFR (African American) 114.8; Est GFR (Non-African American) 99.1; Potassium 4.1 mmol/L (3.5-5.1)
--- NOTE | 2020-12-20 10:46 | History & Physical Report ---
Date of Service December 20, 2020 Assessment & Plan (1) Rotator cuff tear, left: We will proceed with a left reverse shoulder arthroplasty. Postoperatively he will be placed in a sling and kept overnight in the hospital for postoperative medical management. He plans to go to [facility] in [facility] upon discharge. History of Present Illness Chief Complaint: Rotator cuff arthropathy of the left shoulder. 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 He is a diabetic and has been on anticoagulants for cardiac stents and atrial fibrillation. He is not in great health. Unfortunately he is dealing with chronic left shoulder pain and weakness. 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 We discussed treatment options, including his age, and he has elected to proceed with a left reverse shoulder arthroplasty.. Allergies Allergy/AdvReac Type Severity Reaction Status Date / Time canagliflozin [From Invokana] Allergy Severe Rash Verified 11/28/20 10:15 Penicillins Allergy Unknown UNKNOWN Verified 11/28/20 10:15 CHILD dulaglutide [From Trulicity] Allergy Gastrointestinal Verified 11/28/20 10:15 Upset liraglutide [From Victoza] AdvReac Severe Dizziness Verified 11/28/20 10:15 rivaroxaban [From Xarelto] AdvReac Intermediate epistaxis Verified 11/28/20 10:15 Home Medications Medication Instructions Recorded Confirmed Type diabetic supplies, miscellan. #1 ea 03/07/19 11/28/20 History fluticasone propionate 50 50 mcg INTRANASAL BID PRN #1 gm 03/07/19 11/28/20 History mcg/actuation nasal spray,suspension lancets #50 ea 03/07/19 11/28/20 History hydrocortisone 2.5 % topical cream 1 appln CA DAILY PRN #30 gm 06/03/19 11/28/20 Rx with perineal applicator BiPap Machine #1 ea 06/09/19 11/28/20 Rx miscellaneous medical supply #1 ea 09/19/19 11/28/20 Rx sildenafil 100 mg tablet 100 mg PO DAILY PRN #10 tab 10/08/19 11/28/20 Rx losartan 100 mg PO HS 06/05/20 11/28/20 History albuterol sulfate 90 mcg/actuation See Rx Instructions INH QID #6.7 gm 06/06/20 11/28/20 Rx aerosol inhaler clopidogrel 75 mg tablet 75 mg PO QAM #90 tab 07/04/20 11/28/20 Rx amiodarone 200 mg tablet 200 mg PO QAM #90 tab 07/17/20 11/28/20 Rx mupirocin 2 % topical ointment 1 applic TOPICAL DAILY PRN #15 gm 07/17/20 11/28/20 Rx clotrimazole-betamethasone 1 1 applic TOPICAL BID PRN #30 g 07/19/20 11/28/20 Rx %-0.05 % topical cream pen needle, diabetic 31 gauge x #100 ea 07/19/20 11/28/20 Rx 3/" atenolol 25 mg tablet 25 mg PO QAM #30 tab 08/27/20 11/28/20 Rx metaxalone 800 mg tablet 800 mg PO TID PRN #30 tab 09/04/20 11/28/20 Rx blood-glucose transmitter #1 ea 09/05/20 11/28/20 Rx metformin 1,000 mg tablet See Rx Instructions .ROUTE 10/29/20 11/28/20 Rx .COMPLEX #180 tab blood-glucose sensor #3 ea 11/19/20 11/28/20 Rx amlodipine 10 mg PO QPM 11/28/20 11/28/20 History artificial tears with lanolin 1 applic OPHTHALMIC (EYE) BID 11/28/20 11/28/20 History [Artificial Tears] beclomethasone dipropionate [Qvar] 40 mcg INHALATION UD PRN 11/28/20 11/28/20 History famotidine 40 mg PO QPM 11/28/20 11/28/20 History insulin glargine [Basaglar KwikPen 30 unit SUBCUT QAM 11/28/20 11/28/20 History U-100 Insulin] insulin glargine [Basaglar KwikPen 50 unit SUBCUT QPM 11/28/20 11/28/20 History U-100 Insulin] levothyroxine 175 mcg PO QAM 11/28/20 11/28/20 History metronidazole 1 applic TOPICAL UD PRN 11/28/20 11/28/20 History multivitamin 1 tab PO QPM 11/28/20 11/28/20 History pantoprazole 40 mg PO QAM 11/28/20 11/28/20 History rosuvastatin 40 mg PO QPM 11/28/20 11/28/20 History warfarin 7.5 mg PO QAM 11/28/20 11/28/20 History Novolog Flexpen U-100 Insulin 100 See Rx Instructions .ROUTE 12/14/20 Rx unit/mL (3 mL) subcutaneous .COMPLEX #15 ml NS Past Med/Surg History Medical History Anticoagulated on Coumadin Rivas esophagus Bunion, right foot CAD (coronary artery disease), [place] coronary artery S/P PCI to LAD with NSTEMI 09/12/17. Chronic back pain Constipation Dyslipidemia Erectile dysfunction GERD (gastroesophageal reflux disease) Hearing deficit History of colon polyps History of sarcoidosis Pt follows with pulm but cant recall name of provider HTN (hypertension) Hx of non-ST elevation myocardial infarction (NSTEMI) 09/2017 Hypothyroidism Obstructive sleep apnea cpap, using for about 4-5 hrs per night Osteoarthritis Paroxysmal atrial fibrillation On amiodarone, warfarin. Prepatellar bursitis, left knee Rosacea Rotator cuff tear, left Rotator cuff tear, right Type 2 diabetes, uncontrolled, with diabetic cataract Surgical History History of anesthesia reaction slow to wake up History of bronchoscopy History of cardiac cath 09/2017 with 1 stent @ [facility] History of colonoscopy History of esophagogastroduodenoscopy (EGD) History of nasal cauterization History of total left hip replacement S/P coronary artery stent placement 09/2017 Family History Brother Family history of diabetes mellitus Hypertension Sister Family history of diabetes mellitus Hypertension Mother Family history of diabetes mellitus Hypertension Father Family history of diabetes mellitus Hypertension Prostate cancer Other No family history of adverse response to anesthesia Social History Smoking Status: Former smoker Tobacco Type: Cigarettes packs per day: 0.5; Years Smoked: 3; Second Hand Exposure: No; Hx Alcohol Use: No Hx Substance Use: No Preferred Language: Tuvaluan Communication Ability: Effective 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 Feels Safe at Home: Yes Physical Activity Frequency: 3-4 Times per Week Assistive Devices: Brace/Splint/Immobilizer and CPAP Review of Systems All systems reviewed & are unremarkable except as noted in HPI & below. Physical Exam On physical examination of the left shoulder, he has about 60 degrees of forward elevation and 60 degrees of abduction. Passively I can get him little bit further but he has a lot of pain. He has 4-5 motion with full can testing and external rotation.. Constitutional WD/WN, vitals as above Eyes PERRL, conjunctivae normal, anicteric sclerae ENMT external ear and nose normal, oropharynx normal Neck trachea midline, no thyromegaly Respiratory normal respiratory effort Cardiovascular RRR, no murmur, no edema Gastrointestinal (Abdomen) normal bowel sounds, soft, nontender, no hepatosplenomegaly Psychiatric A+Ox3, euthymic affect Results & Data Results & Data Laboratory Results . Diagnostic Findings X-rays of the left shoulder show mild osteoarthritis MRI of the left shoulder shows a large chronic retracted rotator cuff tear.. PG Care Time/CCT Total # of Minutes Spent Total Time Spent with Patient: Total time spent is greater than 50% in coordination of care (as documented) at patient's floor/unit and/or counseling patient: Coding Level of Care Code None Diagnoses Rotator cuff tear, left M75.102
[~2020-12-21 09:03] MED LIST changes: +ACETAMINOPHEN 500 MG TAB PO SCH; -ASPCH81 PO; +BUPIVACAINE 0.5 % 5 MG/1 ML PF 10ML VIAL ONE; -CAL1CHW4 PO; -CALC500C3 PO; -CRD200 PO; -ESOM20CA PO; +FAMOTIDINE 20 MG TAB PO SCH; +GABAPENTIN 600 MG DOSE PO SCH; -GLC5 PO; -GLIP5TAB3 PO; -INSDGIPEN SC; -LEVO150T9 PO; -LOSA100T65 PO; -LPT40 PO; +LR 15ML/HR IV SCH; +LR 60ML/HR IV SCH; -METF-384 PO; -NRV/10 PO; -PLV75 PO; -RANI300T2 PO; +ROPIVACAINE 0.5% HCL/PF 150 MG, BUPIVACAINE 0.75% MPF 20 ML, EPINEPHrine 30MG/30ML (OR ... INFIL SCH; +Scopolamine 1 MG TDSY TD SCH; -TNR25 PO; +TRANEXAMIC ACID 1,000 MG **IV Intra-op IV SCH; +dexAMETHasone 4 MG TAB PO SCH; +traMADol HCL 50 MG TABLET PO SCH
[2020-12-21] MEDS ORDERED: MIDAZOLAM HCL 1 MG/ML 2ML VIAL ONE (09:05)
[2020-12-21] MEDS ORDERED: fentaNYL citrate 100 MCG/2 ML VIAL ONE (09:05)
[2020-12-21] MEDS ORDERED: KETAMINE 50 MG/5 ML SYRINGE ONE (09:05)
[2020-12-21] MEDS ORDERED: PROPOFOL IV EMULSION 10 MG/ML 20 ML VIAL IV ONE (09:10)
[2020-12-21] MEDS ORDERED: ONDANSETRON INJ 2 MG/ML 2 ML VIAL ONE (09:10)
[2020-12-21] MEDS ORDERED: KETOROLAC 30 MG/ML VIAL ONE (09:10)
[2020-12-21] MEDS ORDERED: DEXAMETHASONE SOD INJ 4 MG/ML VIAL ONE (09:10)
--- NOTE | 2020-12-21 09:32 | History & Physical Bridge Note ---
Date of Service December 21, 2020 History & Physical Bridge Note I have examined the patient, reviewed the History & Physical and in the interval since the performance of the History & Physical I have noted the following changes of clinical significance: no changes noted
[2020-12-21] MEDS ORDERED: ORTHO JOINT ANESTHETIC ONE (09:38)
[2020-12-21] MEDS ORDERED: ONDANSETRON INJ 2 MG/ML 2 ML VIAL IV PRN ×2 (09:42→14:49)
[2020-12-21] MEDS ORDERED: ATROPINE SULFATE 0.1 MG/ML 10ML SYR IV PRN (09:42)
[2020-12-21] MEDS ORDERED: ePHEDrine sulfate 50 MG/ML AMP IV PRN (09:42)
[2020-12-21] MEDS ORDERED: fentaNYL citrate 100 MCG/2 ML VIAL IV PRN (09:42)
[2020-12-21 10:00] LABS: Partial Thromboplastin Ratio 0.9; Partial Thromboplastin Time 24.5 Seconds (21.0-31.0); Prothrombin Time 10.4 Seconds (9.0-12.0)
[2020-12-21] MEDS ORDERED: TRANEXAMIC ACID 1,000 MG **IV Pre-op IV SCH (10:15)
[2020-12-21] MEDS ORDERED: ePHEDrine sulfate 50 MG/ML SYR ONE (11:14)
--- NOTE | 2020-12-21 12:37 | Operative Report ---
PG Post Operative Report Pre & Post Diagnosis Operation Date: 12/21/20 11:30 Pre-Op Diagnosis: Chronic retracted rotator cuff tear of the left shoulder with tendinopathy of the long head of the biceps tendon Post-Op Diagnosis: Chronic retracted rotator cuff tear of the left shoulder with tendinopathy of the long head of the biceps tendon I identified the patient and participated in the time-out.: Yes Procedure Operation Date: 12/21/20 11:30 Actual Procedures p Left Reverse Total Shoulder Arthroplasty(Left) with open biceps tenodesis as a distinct and separate procedure (modifier 59)- Gopi Lowery DO Surgeon Gopi Lowery DO Assistant Director Of Public Works None Estimated Blood Loss 200 Findings Consistent with Post-Op Diagnosis Specimens Left humeral head Complications none Disposition Disposition: Recovery Room Indications Ambrose is a pleasant 55-year-old male who is been dealing with chronic increasing left shoulder pain. MRI and clinical examination showed a chronic retracted rotator cuff tear. He is a relatively poor health. He wanted a quicker chely very to return to work. After discussions in the office, he elected to proceed with a left reverse shoulder arthroplasty. Description of Procedure A CPT code modifier 59: The long head of the biceps tendon was enlarged and inflamed consistent with tendinopathy. A tenodesis was opted. This was a separate and distinct portion of the procedure. For these reasons, a CPT code modifier 59 will be added to this case. Implants used: I used a Biomet Comprehensive reverse total shoulder arthroplasty system with a size 14 press fit micro humeral stem, a +6 humeral tray and a standard humeral bearing, a 25 mm small augment baseplate with a 6.5 mm central screw and superior and inferior locking screws, and a size 40 mm eccentric glenosphere. Ambrose arrived at [facility] for the above procedure. He was seen in the preoperative holding area and the operative extremity was identified and signed. He was given a preoperative antibiotic, TXA, and an interscalene nerve block. He was taken back to the operating room, laid on table in supine position, and put under general anesthesia. He was then put into the beachchair position. The shoulder was then prepped and draped in sterile fashion. A timeout was done and the patient and the operative extremity was properly identified. A deltopectoral approach was used. Dissection was taken down through the fascia and the deltoid was retracted laterally and the conjoined tendon was retracted medially. The anterior shoulder was exposed. The biceps groove was opened up and the biceps tendon was examined extensively. The biceps tendon demonstrated enlargement and inflammatory changes consistent with longstanding inflammation in the context of osteoarthritis and cuff arthropathy. The long head of the biceps tendon was then tenodesed to the upper border of the pectoralis major. This was a separate and distinct portion of the procedure. The subscapularis was then directly released off the lesser tuberosity with a peel technique. The inferior capsule was released and the humeral head was dislocated. A canal finding reamer was sent down the center of the humeral canal. Sequential reaming up to a size 14 reamer was done. Off that reamer, a proximal humeral resection guide was placed. The proximal humerus was resected at 135 of inclination and 25 of retroversion. Osteophytes were then removed and the glenoid was exposed. Time was spent doing a complete capsular and labral release. The glenoid guide was then placed in the inferior aspect of the glenoid. A 3.2 mm Steinmann pin was then placed into the glenoid vault at 10 of inclination. The glenoid baseplate was then reamed. The final size 25 mm small augment ba seplate was then impacted in the place. A 6.5 mm central screw was then placed followed by superior and inferior locking screws. A 40 mm eccentric glenosphere was then impacted into place. Surrounding soft tissues were then injected with 100 cc an orthopedic pain control cocktail. The proximal humerus was then exposed. Sequential broaching of the humerus up to a size 14 broach was done. Off that broach a +6 offset humeral tray was trialed. The shoulder was then reduced, brought through a full range of motion, and felt to be stable. The shoulder was then dislocated and the broach was removed. The final size 14 micro press-fit humeral stem was then impacted into place. A standard humeral bearing was then snapped onto a +6 offset humeral tray. The humeral tray was then impacted onto the humeral stem. The shoulder was once again reduced, brought through a full range of motion, and felt to be stable. The subscapularis was then tenodesed back to the lesser tuberosity with transosseous FiberWire sutures and side to side sutures with the arm in 45 of external rotation. A dilute betadyne lavage was then done for 3 minutes. The joint was then irrigated with normal saline solution. Hemostasis was obtained. The interval was closed with 2-0 Vicryl suture. The skin was then closed with 2-0 Vicryl and krissy. A Silverlon dressing was placed and the arm was rested in a regular arm sling. He was then extubated and transferred to a hospital bed. He taken to the postanesthesia care unit in stable condition. He tolerated the procedure well. I attest to the content of the Intraoperative Record and any orders documented therein. Any exceptions are noted below.
[2020-12-21] MEDS ORDERED: INSULIN HUMAN REGULAR PER UNIT 5 UNITS in SYRINGE 0 ML IV STA (13:00)
[2020-12-21] MEDS ORDERED: NovoLIN-R INSULIN PER UNIT CHARGE ONE (13:01)
--- NOTE | 2020-12-21 13:14 | XRay Report ---
XR shoulder LT min 2V routine CLINICAL HISTORY: Post shoulder surgery COMPARISON: MRI dated 07/27/2020 DISCUSSION: There are postsurgical changes of a reverse total left shoulder arthroplasty. There is no dislocation. There are overlying skin krissy. There is gas within the soft tissues consistent with recent surgery. IMPRESSION: 1. Postsurgical changes of a reverse total left shoulder arthroplasty ACT 112: Negative or not required by law. Electronically signed by: Claudy Holder M.D. 12/21/2020 1:13 PM
--- NOTE | 2020-12-21 14:23 | Anesthesiology Progress Note ---
Date of Service December 21, 2020 Anesthesia Post Procedure Vital Signs Vital Signs: Temp Pulse Pulse Resp BP Pulse Ox 12/21/20 14:05 57 L 16 135/73 94 12/21/20 13:55 56 L 16 144/70 H 93 12/21/20 13:45 58 L 16 145/80 H 93 12/21/20 13:35 97.0 F L 61 16 154/75 H 94 12/21/20 13:25 58 L 16 150/67 H 94 12/21/20 13:15 56 L 16 145/73 H 92 12/21/20 13:05 62 18 128/71 90 12/21/20 12:55 54 L 16 125/67 90 12/21/20 12:49 96.8 F L 54 L 15 144/70 H 91 12/21/20 09:53 99.0 F 57 L 18 165/84 H 97 Pain Intensity Left Shoulder: Pain Intensity: 1 Transfer of Care Handoff Completed per policy Notes Mental Status: alert / awake / arousable and participated in evaluation Patient Amnestic to Procedure: Yes Nausea / Vomiting: adequately controlled Pain: adequately controlled Airway Patency, RR, SpO2: stable & adequate BP & HR: stable & adequate Hydration State: stable & adequate Anesthetic Complications: no major complications apparent and Pt Satisfied with anesthetic care
[2020-12-21] MEDS ORDERED: METOCLOPRAMIDE HCL INJ 5 MG/ML 2 ML VIAL IV PRN (14:49)
[2020-12-21] MEDS ORDERED: MUPIROCIN 2% OINT 22 GM TUBE EXT PRN (14:49)
[2020-12-21] MEDS ORDERED: bisacodyL 10 MG SUPP PR PRN (14:49)
[2020-12-21] MEDS ORDERED: CLOTRIMAZOLE/BETAMETHASONE CR 15 GM TUBE EXT PRN (14:49)
[2020-12-21] MEDS ORDERED: HYDROCORTISONE HC 2.5% CRM 30GM TUBE EXT PRN (14:49)
[2020-12-21] MEDS ORDERED: NALOXONE HCL 0.4 MG/1 ML VIAL/CARP IV PRN (14:49)
[2020-12-21] MEDS ORDERED: HYDROmorphone INJ 1 MG/ML SYRINGE IV PRN (14:49)
[2020-12-21] MEDS ORDERED: METAXALONE 800 MG TABLET PO PRN (14:49)
[2020-12-21] MEDS ORDERED: NON-FORMULARY MEDICATION (Bipap Machine misc) SCH (14:49)
[2020-12-21] MEDS ORDERED: FLUTICASONE PROPIONATE NA SPR 16 GM BTL NAE PRN (14:49)
[2020-12-21] MEDS ORDERED: MAGNESIUM HYDROXIDE SUSP 30 ML UDC PO PRN (14:49)
[2020-12-21] MEDS ORDERED: oxyCODONE HCL IR 5 MG TAB (IMMEDIATE RELEASE) PO PRN (14:49)
[2020-12-21] MEDS: SODIUM CHLORIDE 0.9% 1000ML 1,000 ML IV SCH (15:00)
[2020-12-21] MEDS ORDERED: PHARMACY GLYCEMIC MGMT CONSULT PRN (15:21)
[2020-12-21] MEDS ORDERED: GLUCOSE 40% GEL 15 GM TUBE PO PRN (15:45)
[2020-12-21] MEDS ORDERED: DEXTROSE 50% 50 ML SYRINGE IV PRN (15:45)
[2020-12-21] MEDS ORDERED: GLUCOSE 10 TABS/TUBE PO PRN (15:45)
[2020-12-21] MEDS ORDERED: NovoLIN-N (NPH) PER UNIT CHARGE SQ ONE (15:45)
[2020-12-21] MEDS ORDERED: CARBOHYDRATES FOR HYPOGLYCEMIA PO PRN (15:45)
[2020-12-21] MEDS ORDERED: GLUCAGON FOR INJ 1 MG VIAL IM PRN (15:45)
--- NOTE | 2020-12-21 15:52 | Pharmacy Report ---
Pharmacy Glycemic Short Note 2 - Date of Service December 21, 2020 - Glycemic Short BSG Results (Last 24 hours): 12/21/20 12/21/20 12/21/20 09:24 12:56 13:44 POC Glucose 197 H 280 H 262 H 12/21/20 15:12 POC Glucose 243 H OUTPATIENT ANTIDIABETIC REGIMEN: * Lantus 30 units AM, Lantus 50 units PM, metformin * A1c 8.8 11/2020 ASSESSMENT: * Patient s/p L total shoulder arthroplasty, POD 0 - type 2 diabetic managed on insulin at home * Patient received steroids preop and also intraop, anticipate steroid induced hyperglycemia. BSG postop elevated at 243 mg/dL - patient received IV insulin about ~2 hours ago * Will order NPH 30 units x 1 now to cover steroids. Will resume Lantus for HS / may provide higher dosing as patient only took partial dose this AM prior to surgery * Patient requiring ~170 units of insulin per day outpatient / will based novolog on stress of 2 dosing PLAN FOR INPATIENT GLYCEMIC CONTROL: * Hold outpatient oral diabetes medications * Basal insulin * Lantus 50-65 units HS based upon BSG value * Bolus insulin * NovoLog per scale ACHS or Q6hrs while NPO * Goal Range: Low 110 mg/dL - High 140 mg/dL * Correction Factor: 8 mg/dL/unit * Nutritional / Prandial insulin per carb ratio of 1 unit per 2 grams CHO consumed PLAN FOR DISCHARGE: * tbd
[2020-12-21] MEDS: Scopolamine CHECK PATCH PLACEMENT SCH ×2 (16:53→23:35)
[2020-12-21] MEDS: METRONIDAZOLE 0.75% SCH ×2 (16:54→23:34)
[2020-12-21] MEDS: KETOROLAC 30 MG/ML VIAL IV SCH (16:56)
[2020-12-21] MEDS ORDERED: ALBUTEROL HFA 8 GM INHALER INH PRN (17:00)
[2020-12-21] MEDS: INSULIN ASPART 100 UNITS/ML 3 ML PEN SC SCH ×2 (17:10→20:52)
[2020-12-21] MEDS: ceFAZolin 2000MG 2,000 MG/15 ML SYR IV SCH (20:49)
[2020-12-21] MEDS: DOCUSATE SODIUM 100 MG CAP PO SCH (20:50)
[2020-12-21] MEDS: ARTIFICIAL TEARS OP SCH (20:51)
[2020-12-21] MEDS ORDERED: SENNA 8.6 MG TAB PO SCH (21:00)
[2020-12-21] MEDS ORDERED: ROSUVASTATIN CALCIUM 20 MG TAB PO SCH (21:00)
[2020-12-21] MEDS ORDERED: LOSARTAN POTASSIUM 50 MG TAB PO SCH (21:00)
[2020-12-21] MEDS ORDERED: WARFARIN SOD 7.5 MG TAB PO SCH (21:00)
[2020-12-21] MEDS ORDERED: FAMOTIDINE 40 MG TABLET PO SCH (21:00)
[2020-12-21] MEDS ORDERED: INSULIN GLARGINE SOLOSTAR 100 UNITS/ML 3 ML PEN SC SCH (21:00)
[2020-12-21] MEDS ORDERED: amLODIPine BESYLATE 5 MG TAB PO SCH (21:00)
[2020-12-22] MEDS: SODIUM CHLORIDE 0.9% 1000ML 1,000 ML IV SCH (00:27)
[2020-12-22] MEDS: KETOROLAC 30 MG/ML VIAL IV SCH ×3 (00:30→11:43)
[2020-12-22] MEDS: INSULIN ASPART 100 UNITS/ML 3 ML PEN SC SCH ×5 (00:31→12:27)
[2020-12-22] MEDS: ceFAZolin 2000MG 2,000 MG/15 ML SYR IV SCH (04:30)
[2020-12-22] MEDS ORDERED: LEVOTHYROXINE SODIUM 175 MCG TABLET PO SCH (06:30)
--- NOTE | 2020-12-22 07:01 | Orthopedic Progress Note ---
Date of Service December 22, 2020 Assessment & Plan (1) Status post reverse arthroplasty of left shoulder: Overall he is doing well. Is not having much pain in the left shoulder. He will be seen by physical therapy today for ambulation and range of motion exercises. He can be discharged home later today. He will follow-up with orthopedics in 2 weeks. Maxim Boggs was seen and examined at bedside this morning. Overall he is doing very well. Is not having any pain in the left shoulder. He was able to get some sleep last night. He has no complaints.. Review of Systems All systems reviewed & are unremarkable except as noted in HPI & below. Physical Exam On physical examination of the left shoulder, the dressing is clean and dry. He is wearing his sling as instructed. His radial, median, and ulnar nerves are checked intact at his wrist.. Results & Data Results & Data Laboratory Results . Diagnostic Findings Postoperative x-rays of the left shoulder show the prosthesis to be in anatomic alignment without any evidence of fracture, dislocation, or loosening.. PG Care Time/CCT Total # of Minutes Spent Total Time Spent with Patient: Total time spent is greater than 50% in coordination of care (as documented) at patient's floor/unit and/or counseling patient: Coding Level of Care Code 43578 Post Operative Follow-Up Diagnoses Status post reverse arthroplasty of left shoulder Z96.612
--- NOTE | 2020-12-22 07:02 | Discharge Summary ---
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 He is a diabetic and has been on anticoagulants for cardiac stents and atrial fibrillation. He is not in great health. Unfortunately he is dealing with chronic left shoulder pain and weakness. 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 We discussed treatment options, including his age, and he has elected to proceed with a left reverse shoulder arthroplasty.. Admission Exam (Per Admitting) On physical examination of the left shoulder, he has about 60 degrees of forward elevation and 60 degrees of abduction. Passively I can get him little bit further but he has a lot of pain. He has 4-5 motion with full can testing and external rotation.. Principal Diagnosis Same as "Discharge Diagnosis" noted below under Discharge Instructions. Discharge Exam On physical examination of the left shoulder, the dressing is clean and dry. He is wearing his sling as instructed. His radial, median, and ulnar nerves are checked intact at his wrist.. Discharge Data Procedures Performed Operation Date: 12/21/20 11:30 Actual Procedures p Left Reverse Total Shoulder Arthroplasty(Left) - Gopi Lowery DO Ordered Studies 12/21/20 05:00 US - OR guided needle placemen Routine Hospital Course (1) Status post reverse arthroplasty of left shoulder: On December 21, 2020 Ambrose arrived at [facility] and underwent a left reverse shoulder arthroplasty without complication. He had a general anesthetic and a left interscalene nerve block. Postoperatively he was placed in a sling and transferred to the general orthopedic floors. His hospital course was uneventful. On postop day #1 his H&H was stable and his pain was well controlled. He was able to participate well with physical therapy doing ambulation and range of motion exercises. He was then discharged to home. He will follow-up with orthopedics in 2 weeks. PG Care Time/CCT Total # of Minutes Spent Total Time Spent with Patient: Total time spent is greater than 50% in coordination of care (as documented) at patient's floor/unit and/or counseling patient: Discharge Plan Discharge Items Patient Disposition: Home - Home Health Services Reason For Visit: DJD Left Shoulder Discharge Diagnosis: Left reverse shoulder replacement Activity: As commented below Non-emergency contact: Surgeon Call non-emergency contact if: your wound has increased redness and your wound has increased drainage Follow-up/Referrals: Carina Tran MD [Primary Care Provider] - Diet: Regular Addtl Attending Provider Instructions: Activity and Therapy Recommendations: * If you are using [facility] then therapy will be provided at your home until they feel you have accomplished all of your goals. * If you are using [facility] then Physical Therapy will be provided until they feel you are ready to start Outpatient Physical Therapy. * If you are not using home therapy then Outpatient Physical Therapy should start about 3-5 days from your day of surgery. Therapy will last about 8-12 weeks * Wear your sling for 3 weeks, unless otherwise instructed. You may remove your sling to shower and to dress, but otherwise, you should be in your sling at all times, including while sleeping * The shoulder replacement is very stable and you can use your hand while in the sling * You were shown a series of exercises in the hospital. Do these exercises daily including the exercises you were shown in physical therapy. Medications: * Narcotic You will likely be sent home from the hospital with a prescription for the narcotic pain medication that worked best throughout your stay. * Other medications may be prescribed for specific circumstances. If you have any questions, please call the office at . * Resume previous home medications unless otherwise instructed Dressing Care: Leave the Silverlon dressing in place for 7 days. After 7 days you may remove the dressing. If the incision is not draining then you may leave the krissy open to air. If there is a little bit of drainage or if the krissy are getting stuck on your clothing then cover the incision with a dry dressing. The krissy will be removed at your 2 week follow-up appointment. Showering: You may shower with the Silverlon dressing in place. Do not let the shower spray hit the dressing directly. Pat the Silverlon dressing dry. If the dressing becomes wet underneath, then simply remove the dressing. Keep the incision dry until you are 7 days out from the day of surgery. After 7 days you may remove the Silverlon dressing and shower with the krissy exposed. Let soapy water run over the krissy and pat them dry. Do not scrub or soak the incision. Things To Watch For: * Drainage from the incision site that occurs more than one week after your surgery. * Increased redness at the incision site. * Fever above 102 degrees Fahrenheit. * Unusual chest pain or shortness of breath. * Call [facility] at with any of the above problems Follow-Up Visit: Follow-up with Dr. Lowery's PA (Gopi Pineda) 2-3 weeks after your day of surgery. He will remove your krissy and answer any questions. If you have any additional questions or concerns, Dr Lowery is usually in the office at the same time and will be available An appointment was probably scheduled when you signed-up for surgery in the office. If you have any questions call More detailed instructions as well as Frequently Asked Questions were provided in a folder by our office when you signed-up for surgery. Please review these instructions when you get home. If you have any further questions or concerns, please feel free to call the office at [phone] Pending Studies at Discharge: No Stand-Alone Forms: My [facility], Smoking Cessation Medications and DC Order Prescriptions: New oxycodone 5 mg Tablet 5 mg PO Q4H PRN (Reason: pain) Qty: 30 RF: 0 Continued hydrocortisone [Proctosol HC] 2.5 % cream with perineal applicator 1 appln OK DAILY PRN (Reason: hemorrhoids) Qty: 30 RF: 5 (DME) BiPap Machine Misc See Dose Instructions .ROUTE .MEDSUPPLY Qty: 1 RF: 0 sildenafil [Viagra] 100 mg tablet 100 mg PO DAILY PRN (Reason: sexual activity) Qty: 10 RF: 0 albuterol sulfate [ProAir HFA] 90 mcg/actuation HFA aerosol inhaler See Rx Instructions INH QID Qty: 6.7 RF: 1 clopidogrel 75 mg tablet 75 mg PO QAM Qty: 90 RF: 3 amiodarone 200 mg tablet 200 mg PO QAM Qty: 90 RF: 3 mupirocin 2 % ointment 1 applic topical DAILY PRN (Reason: Rash) Qty: 15 RF: 0 clotrimazole-betamethasone 1-0.05 % cream 1 applic topical BID PRN (Reason: Rash) Qty: 30 RF: 3 (DME) pen needle, diabetic [BD Ultra-Fine Mini Pen Needle] 31 gauge x 3/16" needle See Dose Instructions .ROUTE .MEDSUPPLY Qty: 100 RF: 3 atenolol 25 mg tablet 25 mg PO QAM Qty: 30 RF: 5 metaxalone 800 mg tablet 800 mg PO TID PRN (Reason: Muscle Spasm) Qty: 30 RF: 1 (DME) Dexcom G6 Transmitter Device See Rx Instructions .ROUTE .MEDSUPPLY Qty: 1 RF: 0 metformin 1,000 mg tablet See Rx Instructions .ROUTE .COMPLEX Qty: 180 RF: 3 (DME) Dexcom G6 Sensor Device See Rx Instructions .ROUTE .MEDSUPPLY Qty: 3 RF: 5 insulin aspart U-100 [Novolog Flexpen U-100 Insulin] 100 unit/mL (3 mL) insulin pen See Rx Instructions .ROUTE .COMPLEX Qty: 15 RF: 5 fluticasone propionate 50 mcg/actuation spray,suspension 50 mcg intranasal BID PRN (Reason: Allergy Symptoms) Qty: 1 RF: 0 (DME) diabetic supplies, miscellan. kit See Dose Instructions .ROUTE .MEDSUPPLY Qty: 1 RF: 0 (DME) lancets misc See Dose Instructions .ROUTE .MEDSUPPLY Qty: 50 RF: 0 (DME) CPAP Supplies Misc See Rx Instructions .ROUTE .MEDSUPPLY Qty: 1 RF: 0 multivitamin Tablet 1 tab PO QPM RF: 0 levothyroxine 175 mcg Tablet 175 mcg PO QAM RF: 0 warfarin 7.5 mg Tablet 7.5 mg PO QAM RF: 0 pantoprazole 40 mg Tablet,Delayed Release (Dr/Ec) 40 mg PO QAM RF: 0 metronidazole 0.75 % Cream 1 applic TOPICAL UD PRN (Reason: Rash) RF: 0 Qvar 40 mcg/actuation Aerosol 40 mcg INHALATION UD PRN (Reason: Shortness Of Breath) RF: 0 rosuvastatin 40 mg Tablet 40 mg PO QPM RF: 0 Artificial Tears Ointment 1 applic OPHTHALMIC (EYE) BID RF: 0 Basaglar KwikPen U-100 Insulin 100 unit/mL (3 mL) Insulin Pen 30 unit SUBCUT QAM RF: 0 Basaglar KwikPen U-100 Insulin 100 unit/mL (3 mL) Insulin Pen 50 unit SUBCUT QPM RF: 0 famotidine 40 mg tablet 40 mg PO QPM RF: 0 amlodipine 10 mg tablet 10 mg PO QPM RF: 0 losartan 100 mg tablet 100 mg PO HS RF: 0 Discharge Orders: Discharge Order (Routine); Ordered 12/22/20 Ordered By: Gopi Lowery Admission Data Admit Date/Time: 12/21/20 12:44 Attending Provider: Gopi Lowery Admit Provider: Gopi Lowery Primary Care Provider: Carina Tran
[2020-12-22] MEDS: Scopolamine CHECK PATCH PLACEMENT SCH (07:24)
[2020-12-22] MEDS ORDERED: NovoLIN-N (NPH) PER UNIT CHARGE SQ ONE (08:00)
[2020-12-22] MEDS ORDERED: dexAMETHasone 4 MG TAB PO SCH (08:00)
[2020-12-22] MEDS: DOCUSATE SODIUM 100 MG CAP PO SCH (08:48)
[2020-12-22] MEDS: METRONIDAZOLE 0.75% SCH (08:48)
[2020-12-22] MEDS: ARTIFICIAL TEARS OP SCH (08:51)
[2020-12-22] MEDS ORDERED: FLUTICASONE FUROATE 100MCG 14 PUFFS/INHALER INH SCH (09:00)
[2020-12-22] MEDS ORDERED: PANTOprazole 40 MG TAB PO SCH (09:00)
[2020-12-22] MEDS ORDERED: MULTIVITAMIN TAB PO SCH (09:00)
[2020-12-22] MEDS ORDERED: CLOPIDOGREL BISULFATE 75 MG TAB PO SCH (09:00)
[2020-12-22] MEDS ORDERED: INSULIN GLARGINE SOLOSTAR 100 UNITS/ML 3 ML PEN SC SCH (09:00)
[2020-12-22] MEDS ORDERED: ATENOLOL 25 MG TABLET PO SCH (09:00)
[2020-12-22] MEDS ORDERED: AMIODARONE 200 MG TAB PO SCH (09:00)
== END 2020-12-22 12:47 | disposition home or self-care (01) | DRG 483 ==
LOC: ASU 09:03 → 3E 12:44

== ENCOUNTER 2020-12-23 15:36 | Inpatient (IN) ==
[2020-12-23] MEDS ORDERED: ONDANSETRON INJ 2 MG/ML 2 ML VIAL IV STA (16:08)
[2020-12-23] MEDS ORDERED: HYDROmorphone INJ 1 MG/ML SYRINGE IV PRN (16:08)
[2020-12-23] MEDS ORDERED: ALBUT/IPRATROP 3MG/0.5MG NEB 3 ML VIAL NEB ONE (16:09)
[2020-12-23 16:20] LABS: Basophils # (auto) 0.02 K/uL (0-0.2); Basophils % (auto) 0.2 %; Eosinophils # (auto) 0.04 K/uL (0-0.5); Eosinophils % (auto) 0.3 %; Hematocrit (blood only) 37.9 % (42-52); Hemoglobin 12.5 g/dL (14.0-18.0); Immature Granulocytes # (auto) 0.04 K/uL (0.00-0.02); Immature Granulocytes % (auto) 0.3 %; Lymphocytes # (auto) 2.56 K/uL (1.2-3.4); Lymphocytes % (auto) 20.9 %; Mean Corpuscular Hemoglobin 29.6 pg (25-34); Mean Corpuscular Volume 89.6 fL (80-100); Mean Platelet Volume 10.6 fL (7.4-10.4); Monocytes # (auto) 1.74 K/uL (0.11-0.59); Monocytes % (auto) 14.2 %; Neutrophils # (auto) 7.82 K/uL (1.4-6.5); Neutrophils % (auto) 64.1 %; Platelet Count 307 K/uL (130-400); RDW Coefficient of Variation 14.1 % (11.5-14.5); RDW Standard Deviation 46.4 fL (36.4-46.3); Red Blood Count 4.23 M/uL (4.7-6.1); White Blood Count 12.22 K/uL (4.8-10.8)
--- NOTE | 2020-12-23 16:24 | XRay Report ---
XR chest 1V portable CLINICAL HISTORY: Atypical chest pain COMPARISON STUDY: 11/28/2020 FINDINGS: The heart is enlarged. There are bilateral interstitial opacities, pulmonary edema versus a multifocal pneumonitis. There is left lower lobe atelectasis/consolidation. The study is limited fro m a technical standpoint due to the patient's large body habitus[ IMPRESSION: 1. Somewhat limited study secondary to the patient's large body habitus 2. Cardiomegaly and elevation of the interstitium. Diagnostic considerations include pulmonary edema versus a multifocal infectious/inflammatory process 3. Left lower lobe atelectasis/consolidation ACT 112: Negative or not required by law. Electronically signed by: Claudy Holder M.D. 12/23/2020 4:22 PM
[2020-12-23 16:25] LABS: iSTAT Creatinine 0.6 mg/dl (0.6-1.3); iSTAT Hemoglobin 12.2 g/dl (14.0-18.0); iSTAT Ionized Calcium 1.14 mmol/l (1.12-1.32); iSTAT Potassium 4.5 mmol/L (3.3-5.0)
[2020-12-23 16:26] LABS: Alanine Aminotransferase 30 U/L (12-78); Albumin Level 3.5 gm/dl (3.4-5.0); Aspartate Aminotransferase 11 U/L (15-37); BUN Creatinine Ratio 23.9 (10-20); Blood Urea Nitrogen 20 mg/dl (7-18); Calcium 8.4 mg/dl (8.5-10.1); Carbon Dioxide 27 mmol/L (21-32); Chloride 106 mmol/L (98-107); Est GFR (African American) 114.8; Est GFR (Non-African American) 99.1; Glucose 174 mg/dl (70-99); Lipase 84 U/L (73-393); Potassium 4.3 mmol/L (3.5-5.1); Sodium 140 mmol/L (136-145)
[2020-12-23 16:32] LABS: Albumin Globulin Ratio 0.9 (0.9-2); Alkaline Phosphatase 63 U/L (45-117); Bilirubin,Total 0.5 mg/dl (0.2-1); Creatine Kinase 426 U/L (39-308); Creatine Kinase MB 4.4 ng/ml (0.5-3.6); Globulin 3.8 gm/dl (2.5-4.0); INR 1.1 (0.9-1.1); NT Pro B Type Natriuretic Pept 161 pg/ml (0-900); Partial Thromboplastin Ratio 0.9; Partial Thromboplastin Time 23.9 Seconds (21.0-31.0); Prothrombin Time 10.7 Seconds (9.0-12.0); Total Protein 7.3 gm/dl (6.4-8.2); Troponin I < 0.015 ng/ml (0-0.045)
[2020-12-23] MEDS ORDERED: HYDROmorphone INJ 1 MG/ML SYRINGE IV STA (16:32)
[2020-12-23] MEDS ORDERED: levoFLOXacin/D5W 750 MG/150 ML BAG IV STA (16:36)
[2020-12-23] MEDS ORDERED: AZTREONAM 2,000 MG in DEXTROSE 5% 100 ML IV STA (16:36)
[2020-12-23] MEDS ORDERED: Heparin IV Adult Wt-Based Standard *NO* Bolus Protocol IV ONE (16:37)
[2020-12-23] MEDS ORDERED: HEPARIN SODIUM/DEXTROSE 25,000 UNITS/500 ML BAG IV SCH (16:45)
[2020-12-23] MEDS ORDERED: OPTIRAY 320 125ml IV ONE (17:26)
--- NOTE | 2020-12-23 17:37 | CT Scan Report ---
CT ANGIOGRAM OF THE CHEST CLINICAL HISTORY: Atypical chest pain and shortness of breath. Possible pulmonary embolism. COMPARISON STUDY: March 2019 TECHNIQUE: Following the IV administration of 120 mL of Optiray-320, CT angiogram of the thorax was p erformed from the thoracic inlet to the lung bases utilizing the pulmonary embolus protocol. Images a re reviewed in the axial, sagittal, and coronal planes. IV contrast was administered without complica tion. MIP imaging was performed. A dose lowering technique was utilized adhering to the principles o f ALARA. CT DOSE: 967.69 mGy.cm FINDINGS: No pathologically enlarged axillary mediastinal or hilar lymph nodes were visualized. There was no evidence of thoracic aortic dilatation. Evaluation of pulmonary arteries is limited secondary to suboptimal opacification due to morbid obesi ty. Addition there is respiratory motion artifact. No central emboli are visualized. No pleural effusions are visualized. There are wispy peripheral airspace opacities within the right upper lobe. There is lingular and left lower lobe atelectasis/consolidation. There are less pronounced right lower lobe atelectatic changes . The study is limited due to respiratory motion artifact. 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 IMPRESSION: 1. Significantly limited study from a technical standpoint secondary to morbid obesity and respirator y motion artifact. 2. No central pulmonary emboli identified 3. Tracheomalacia 4. Peripheral groundglass right upper lobe pulmonary opacities, likely infectious/inflammatory. 5. Lingular and left lower lobe atelectasis/consolidation. ACT 112: Negative or not required by law. Electronically signed by: Claudy Holder M.D. 12/23/2020 5:36 PM
--- NOTE | 2020-12-23 18:28 | History & Physical Report ---
Date of Service December 23, 2020 Assessment & Plan (1) Pneumonia: Aztreonam and Levaquin given in the ER Unknown penicillin allergy as a child but no anaphylaxis therefore will switch to ceftriaxone and doxycycline. Given recent intubation consider broadening spectrum if deteriorating Suspect predisposed due to T2DM, tracheomalacia, possible paralyzed hemidiaphragm and recent intubation. Follow up blood and sputum cultures (2) Elevated hemidiaphragm: Suspected secondary to interscalene block given for recent surgery Incentive spirometry Flutter valve Guaifenesin Follow up sniff test as outpatient with pulmonology (3) Tracheomalacia: BiPAP HS as below. Avoid steroids (4) Hypoxia: without respiratory distress on admission Suspected secondary to PNA Low suspicion of PE given negative CTA (although not adequate to assess smaller pulmonary arteries he will be therapeutic eventually on warfarin regardless, would not recommend heparin bridge therefore this was discontinued) Aim O2 sats > 94% (5) Status post reverse arthroplasty of left shoulder: Continue with sling. (6) Obstructive sleep apnea: BiPAP 21/07 (7) Paroxysmal atrial fibrillation: Continue amiodarone 200mg PO daily Anticoagulation with warfarin. No bridging necessary and risk of causing hematoma from operation risk outweighs benefit. (8) GERD (gastroesophageal reflux disease): Pantoprazole 40mg PO daily Famotidine 40mg PO HS (9) HTN (hypertension): Continue his usual medication regimen with losartan, atenolol and amlodipine (10) Hypothyroidism: TSH 0.35 in April 2020, No need to repeat this. Continue levothyroxine 175 mcg PO daily (11) Type 2 diabetes, uncontrolled, with diabetic cataract: Hemoglobin A1C 8.8 in November. No need to repeat this. Consult pharmacy for (12) CAD (coronary artery disease), [place] coronary artery: (13) DVT prophylaxis: SCDs, continue warfarin with INR daily History of Present Illness Chief Complaint: Shortness of breath Primary Care Provider: Carina Tran MD Ambrose Jay is a 55 year old male who presents to the ER with shortness of breath and fatigue following reverse total shoulder arthroplasty on 12/21. He reports feeling short of breath and need a small amount of oxygen after the operation. When he went home the following day he was increasingly fatigued and short of breath. He denies any cough, fever or chills. Per ER physician who discussed with orthopedics reportedly there was some concern regarding possible interscalene muscle block causing paralyzed hemidiaphragm. He takes warfarin for atrial fibrillation which was held pre-operatively. He reports being started back on this with him taking his first dose yesterday and again this morning. No bridging anticoagulation was recommended. In the ER CTA was performed as the patient has been off anticoagulation which was negative for central pulmonary emboli but inadequate to rule out from distal small PEs. Peripheral ground glass opacities and elevated WBC with left shift concerning for pneumonia and he was started on aztreonam and Levaquin for pneumonia due to penicillin allergy listed. He is requiring 4LPM O2 and is not on O2 at baseline. He was referred to medicine for admission and ongoing management of hypoxia and pneumonia. Allergies Allergy/AdvReac Type Severity Reaction Status Date / Time canagliflozin [From Invokana] Allergy Severe Rash Verified 12/23/20 18:48 Penicillins Allergy Unknown Unknown Verified 12/23/20 18:48 dulaglutide [From Trulicity] Allergy Gastrointestinal Verified 12/23/20 18:48 upset,constipation, gastric discomfort liraglutide [From Victoza] AdvReac Severe Dizziness, Verified 12/23/20 18:48 extremely disoriented rivaroxaban [From Xarelto] AdvReac Intermediate epistaxis Verified 12/23/20 18:48 Home Medications Medication Instructions Recorded Confirmed Type fluticasone propionate 50 2 spray INTRANASAL BID PRN #1 gm 03/07/19 12/23/20 History mcg/actuation nasal spray,suspension losartan 100 mg PO HS 06/05/20 12/23/20 History clopidogrel 75 mg tablet 75 mg PO QAM #90 tab 07/04/20 12/23/20 Rx amiodarone 200 mg tablet 200 mg PO QAM #90 tab 07/17/20 12/23/20 Rx clotrimazole-betamethasone 1 1 applic TOPICAL BID PRN #30 g 07/19/20 12/23/20 Rx %-0.05 % topical cream atenolol 25 mg tablet 25 mg PO QAM #30 tab 08/27/20 12/23/20 Rx metaxalone 800 mg tablet 800 mg PO TID PRN #30 tab 09/04/20 12/23/20 Rx Basaglar KwikPen U-100 Insulin 30 unit SUBCUT QAM 11/28/20 12/23/20 History Basaglar KwikPen U-100 Insulin 50 unit SUBCUT QPM 11/28/20 12/23/20 History amlodipine 10 mg PO QPM 11/28/20 12/23/20 History artificial tears with lanolin 1 applic OPHTHALMIC (EYE) BID 11/28/20 12/23/20 History famotidine 40 mg PO QPM 11/28/20 12/23/20 History multivitamin 1 tab PO QPM 11/28/20 12/23/20 History pantoprazole 40 mg PO QAM 11/28/20 12/23/20 History rosuvastatin 40 mg PO QPM 11/28/20 12/23/20 History warfarin 7.5 mg PO QAM 11/28/20 12/23/20 History albuterol sulfate [ProAir HFA] 1 - 2 puff INH QID PRN 12/23/20 12/23/20 History beclomethasone dipropionate [Qvar 1 inh INHALATION BID PRN 12/23/20 12/23/20 H istory RediHaler] hydrocortisone [Proctosol HC] 1 appln NC DAILY PRN 12/23/20 12/23/20 History insulin aspart U-100 [Novolog 30 unit SUBCUT TID 12/23/20 12/23/20 History Flexpen U-100 Insulin] levothyroxine [Euthyrox] 175 mcg PO QAM 12/23/20 12/23/20 History metformin 1,000 mg PO BID 12/23/20 12/23/20 History oxycodone 5 mg PO Q4H PRN 12/23/20 12/23/20 History sildenafil [Viagra] 100 mg PO DAILY PRN 12/23/20 12/23/20 History Dexcom G6 Sensor #3 ea NS 12/24/20 Rx Dexcom G6 Transmitter #1 ea NS 12/24/20 Rx Past Med/Surg History Medical History (Updated 12/24/20 @ 09:33 by Bin Irwin MD) Anticoagulated on Coumadin Rivas esophagus Bunion, right foot CAD (coronary artery disease), [place] coronary artery S/P PCI to LAD with NSTEMI 09/12/17. Chronic back pain Constipation Dyslipidemia Erectile dysfunction GERD (gastroesophageal reflux disease) Hearing deficit History of colon polyps History of sarcoidosis Pt follows with pulm but cant recall name of provider HTN (hypertension) Hx of non-ST elevation myocardial infarction (NSTEMI) 09/2017 Hypothyroidism Obstructive sleep apnea cpap, using for about 4-5 hrs per night Osteoarthritis Paroxysmal atrial fibrillation On amiodarone, warfarin. Prepatellar bursitis, left knee Rosacea Rotator cuff tear, right Type 2 diabetes, uncontrolled, with diabetic cataract Surgical History (Updated 12/21/20 @ 15:03 by Gopi Lowery DO) History of anesthesia reaction slow to wake up History of bronchoscopy History of cardiac cath 09/2017 with 1 stent @ [facility] History of colonoscopy History of esophagogastroduodenoscopy (EGD) History of nasal cauterization History of total left hip replacement S/P coronary artery stent placement 09/2017 Status post reverse arthroplasty of left shoulder (~12/2020) Family History Brother Family history of diabetes mellitus Hypertension Sister Family history of diabetes mellitus Hypertension Mother Family history of diabetes mellitus Hypertension Father Family history of diabetes mellitus Hypertension Prostate cancer Other No family history of adverse response to anesthesia Social History Smoking Status: Former smoker Tobacco Type: Cigarettes packs per day: 0.5; Years Smoked: 3; Smoking End Date: ; Second Hand Exposure: No; Hx Alcohol Use: No Hx Substance Use: No Preferred Language: Dominican Communication Ability: Effective Retail Branch Manager Required: No Beliefs That Will Affect Care: None Current Living Situation: Spouse current occupational status: employed 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 [employer] Other Information That Helps Us Care for You: No Feels Safe at Home: Yes Safety Concerns: Feels Safe At This Time Physical Activity Frequency: 3-4 Times per Week Assistive Devices: Oxygen - Continuous Review of Systems Review of Systems: All systems reviewed & are unremarkable except as noted in HPI & below Physical Exam Constitutional: well developed, well nourished and + morbidly obese; no acute distress Eyes: + anicteric sclerae; normal pupil size ENMT: external ear and nose normal, oropharynx normal Neck: trachea midline Respiratory: normal respiratory effort and able to speak in complete sentences; no respiratory distress, no labored breathing, no retractions, does not use accessory muscles, no cough, normal respiratory pattern, expiratory phase not prolonged and no stridor Auscultation: + diminished lung sounds (Left base) and + crackles (Left base) Cardiovascular: Rate/Rhythm: regular rate and regular rhythm Heart Sounds: no murmur Vessels: no JVD Extremities: normal capillary refill and + pedal edema (Trace pre-tibial b/l equal); no calf tenderness Gastrointestinal (Abdomen): normal bowel sounds, soft, nontender, no hepatosplenomegaly Musculoskeletal: Left arm in sling with small amount of blood on dressing NV intact distal to operation site Skin: no rashes, warm and dry Neurologic: moves all extremities and awake; not confused Psychiatric: A+Ox3, euthymic affect Genitourinary: no CVA tenderness Results & Data Results & Data ([facility]) Vital Signs (Past 12 Hours) Vital Signs Temp Pulse Pulse Resp BP Pulse Ox 12/23/20 16:57 59 L 20 95 12/23/20 16:07 26 H 96 12/23/20 16:01 94 12/23/20 15:40 37.5 C 62 28 H 168/85 H 94 Diagnostic Findings XR chest 1V portable IMPRESSION: 1. Somewhat limited study secondary to the patient's large body habitus 2. Cardiomegaly and elevation of the interstitium. Diagnostic considerations include pulmonary edema versus a multifocal infectious/inflammatory process 3. Left lower lobe atelectasis/consolidation CT ANGIOGRAM OF THE CHEST IMPRESSION: 1. Significantly limited study from a technical standpoint secondary to morbid obesity and respiratory motion artifact. 2. No central pulmonary emboli identified 3. Tracheomalacia 4. Peripheral groundglass right upper lobe pulmonary opacities, likely infectious/inflammatory. 5. Lingular and left lower lobe atelectasis/consolidation. Code Status & VTE Plan VTE Prophylaxis Plan VTE Prophylaxis will be ordered: Yes PG Care Time/CCT Total # of Minutes Spent Total Time Spent with Patient: Total time spent is greater than 50% in coordina tion of care (as documented) at patient's floor/unit and/or counseling patient: Coding Level of Care Code 89722 Initial Inpt Care Lvl 3 Diagnoses Pneumonia J18.9 Elevated hemidiaphragm J98.6 Tracheomalacia J39.8 Hypoxia R09.02 Status post reverse arthroplasty of left shoulder Z96.612 Obstructive sleep apnea G47.33 Paroxysmal atrial fibrillation I48.0 GERD (gastroesophageal reflux disease) K21.9 HTN (hypertension) I10 Hypothyroidism E03.9 Type 2 diabetes, uncontrolled, with diabetic cataract E11.36; E11.65 CAD (coronary artery disease), [place] coronary artery I25.10 DVT prophylaxis Z29.9
[2020-12-23] MEDS ORDERED: METAXALONE 800 MG TABLET PO PRN (20:14)
[2020-12-23] MEDS ORDERED: PHARMACY GLYCEMIC MGMT CONSULT PRN (20:19)
[2020-12-23] MEDS ORDERED: GLUCOSE 40% GEL 15 GM TUBE PO PRN (20:45)
[2020-12-23] MEDS ORDERED: DEXTROSE 50% 50 ML SYRINGE IV PRN (20:45)
[2020-12-23] MEDS ORDERED: CARBOHYDRATES FOR HYPOGLYCEMIA PO PRN (20:45)
[2020-12-23] MEDS ORDERED: GLUCAGON FOR INJ 1 MG VIAL IM PRN (20:45)
[2020-12-23] MEDS ORDERED: GLUCOSE 10 TABS/TUBE PO PRN (20:45)
[2020-12-23] MEDS: guaiFENesin 600 MG TABCR PO SCH (20:56)
[2020-12-23] MEDS: MULTIVITAMIN TAB PO SCH (20:57)
[2020-12-23] MEDS: LOSARTAN POTASSIUM 50 MG TAB PO SCH (20:58)
[2020-12-23] MEDS: FAMOTIDINE 40 MG TABLET PO SCH (20:58)
[2020-12-23] MEDS: ROSUVASTATIN CALCIUM 20 MG TAB PO SCH (20:58)
[2020-12-23] MEDS: amLODIPine BESYLATE 5 MG TAB PO SCH (20:58)
[2020-12-23] MEDS: INSULIN GLARGINE SOLOSTAR 100 UNITS/ML 3 ML PEN SC SCH (21:03)
[2020-12-23] MEDS: INSULIN ASPART 100 UNITS/ML 3 ML PEN SC SCH (21:04)
[2020-12-23] MEDS: cefTRIAXone SODIUM 2,000 MG in DEXTROSE 5% 50 ML IV SCH (22:29)
[2020-12-23] MEDS: oxyCODONE HCL IR 5 MG TAB (IMMEDIATE RELEASE) PO PRN (23:31)
[2020-12-24] MEDS: oxyCODONE HCL IR 5 MG TAB (IMMEDIATE RELEASE) PO PRN ×2 (05:02→12:31)
[2020-12-24] MEDS: LEVOTHYROXINE SODIUM 175 MCG TABLET PO SCH (05:02)
[2020-12-24 06:23] LABS: Basophils # (auto) 0.03 K/uL (0-0.2); Basophils % (auto) 0.3 %; Eosinophils # (auto) 0.06 K/uL (0-0.5); Eosinophils % (auto) 0.6 %; Hematocrit (blood only) 36.9 % (42-52); Hemoglobin 12.1 g/dL (14.0-18.0); Immature Granulocytes # (auto) 0.04 K/uL (0.00-0.02); Immature Granulocytes % (auto) 0.4 %; Lymphocytes % (auto) 18.9 %; Mean Corpuscular Hemoglobin 29.4 pg (25-34); Mean Corpuscular Hgb Conc 32.8 g/dL (32-36); Mean Corpuscular Volume 89.8 fL (80-100); Mean Platelet Volume 10.4 fL (7.4-10.4); Monocytes # (auto) 1.54 K/uL (0.11-0.59); Monocytes % (auto) 15.3 %; Neutrophils % (auto) 64.5 %; Platelet Count 288 K/uL (130-400); RDW Coefficient of Variation 14.3 % (11.5-14.5); RDW Standard Deviation 46.9 fL (36.4-46.3); Red Blood Count 4.11 M/uL (4.7-6.1); White Blood Count 10.07 K/uL (4.8-10.8)
[2020-12-24] MEDS: ACETAMINOPHEN 500 MG TAB PO PRN ×2 (06:29→16:29)
[2020-12-24 06:36] LABS: INR 1.2 (0.9-1.1); Prothrombin Time 12.1 Seconds (9.0-12.0)
[2020-12-24 06:58] LABS: BUN Creatinine Ratio 22.6 (10-20); Calcium 8.7 mg/dl (8.5-10.1); Creatinine Clr Calc Pharmacy 167.6 ml/min; Est GFR (Non-African American) 104.4; Potassium 4.3 mmol/L (3.5-5.1)
[2020-12-24] MEDS: ALBUT/IPRATROP 3MG/0.5MG NEB 3 ML VIAL NEB SCH ×2 (07:45→11:11)
[2020-12-24] MEDS ORDERED: INSULIN GLARGINE SOLOSTAR 100 UNITS/ML 3 ML PEN SC SCH (09:00)
--- NOTE | 2020-12-24 09:18 | Hospitalist Progress Note ---
Date of Service December 24, 2020 Assessment & Plan (1) Pneumonia: * Aztreonam and Levaquin given in the ER due to unknown penicillin allergy as a child but no anaphylaxis therefore will switch to ceftriaxone and doxycycline. * Continue Ceftriaxone IV (day 2) and Doxycycline PO * COVID negative. Did not check RSV/influenza on admission * Blood cultures pending * Sputum culture pending -- prelim with few epi, moderate poly, few mononucleated cells, moderate gram positive cocci, few gram positive bacilli * --> Suspect predisposed due to T2DM, tracheomalacia, possible paralyzed hemidiaphragm and recent intubation. * --> Given recent intubation consider broadening spectrum if deteriorating * Nebs changed to prn, continue incentive spirometer and flutter valve * Supplemental O2 as needed -- weaned from 4L to 2L NC with sat 95%. Continue to wean to maintain sat >92% * WBC 12.2k--> 10k, afebrile * Labs in AM (2) Elevated hemidiaphragm: * Suspected secondary to interscalene block given for recent surgery * Incentive spirometry * Flutter valve * Guaifenesin * Follow up sniff test as outpatient with pulmonology (3) Status post reverse arthroplasty of left shoulder: * Continue with sling -- dressing to be changed today * Follow up routine as previously scheduled (4) Hypoxia: * without respiratory distress on admission * Suspected secondary to PNA * Low suspicion of PE given negative CTA (although not adequate to assess smaller pulmonary arteries he will be therapeutic eventually on warfarin regardless, would not recommend heparin bridge therefore this was discontinued) * Aim O2 sats > 92% (5) Obstructive sleep apnea: * BiPAP 21/07 (6) Paroxysmal atrial fibrillation: * Currently in NSR * Continue amiodarone 200mg PO daily (been on since ) * Anticoagulation with warfarin. No bridging necessary and risk of causing hematoma from operation risk outweighs benefit. * INR 1.2 -- continue coumadin and repeat INR in AM (7) GERD (gastroesophageal reflux disease): * Pantoprazole 40mg PO daily * Famotidine 40mg PO HS (8) HTN (hypertension): * Continue his usual medication regimen with losartan, atenolol and amlodipine * BP stable 136/72 * Continue to monitor (9) Hypothyroidism: * TSH 0.35 in April 2020, No need to repeat this. * Continue levothyroxine 175 mcg PO daily (10) Type 2 diabetes, uncontrolled, with diabetic cataract: * Hemoglobin A1C 8.8 in November. No need to repeat this. * Consulted pharmacy (11) CAD (coronary artery disease), [place] coronary artery: * CAD status post LAD PCI * Follows locally -- last seen by Priya Simms earlier this year prior to his shoulder surgery * Last ECHO Oct 2018 with slightly more hypertrophy compared to 2017 but LV systolic function normal, normal diastolic function * Continue Plavix, statin on hold for elevated CK on admission, atenolol 25mg, losartan 100mg daily (12) Tracheomalacia: * BiPAP HS as below. * Avoid steroids (13) DVT prophylaxis: * SCDs, * continue warfarin with INR daily Elevated CK * CK 426 on admission. Holding statin. * Repeat 304 -- can resume statin tomorrow Dispo: continued inpatient stay Admission and Anticipated Discharge Date Admission Date: December 23, 2020 Subjective Patient evaluated early this afternoon. Shortness of breath still present, worse with ambulation but improved from admission. [place] brown sputum production and has been using incentive spirometer and flutter valve. Discussed nebs changed to prn. Oxygen weaned t 2L with sat 95%. Will attempt to wean further as tolerated. Eating/drinking without issue. Moved bowels yesterday. No fever, chills, chest pain, abdominal pain,nausea or vomiting. Is having some discomfort to his left shoulder and requesting something for pain. Review of Systems Review of Systems: All systems reviewed & are unremarkable except as noted in HPI & below Physical Exam Constitutional: well developed, well nourished and + morbidly obese; no acute distress Eyes: + anicteric sclerae; normal pupil size ENMT: external ear and nose normal, oropharynx normal Neck: trachea midline Respiratory: normal respiratory effort and able to speak in complete sentences; no respiratory distress, no labored breathing, no retractions, does not use accessory muscles, no cough, normal respiratory pattern, expiratory phase not prolonged and no stridor Auscultation: + diminished lung sounds (Left base, throughout) and + crackles (Left base); no wheezes Cardiovascular: Rate/Rhythm: regular rate and regular rhythm Heart Sounds: no murmur Vessels: no JVD Extremities: normal capillary refill and + pedal edema (Trace pre-tibial b/l equal); no calf tenderness Gastrointestinal (Abdomen): normal bowel sounds, soft, nontender, no hepatosplenomegaly Musculoskeletal: Left arm in sling with small amount of blood on dressing -- dressing to be changed by RN NV intact distal to operation site radial pulses palpable Skin: no rashes, warm and dry Neurologic: moves all extremities and awake; not confused Psychiatric: A+Ox3, euthymic affect Genitourinary: no CVA tenderness Results & Data Results & Data ([facility]) Vital Signs (Past 12 Hours) Vital Signs Temp Pulse Pulse Pulse Resp BP Pulse Ox 12/24/20 07:45 63 18 97 12/24/20 07:17 37.0 C 70 20 136/72 95 12/23/20 22:41 68 20 95 12/23/20 22:31 36.7 C 61 20 149/68 H 93 Laboratory Results 12/24/20 12/24/20 12/24/20 Range/Units 08:02 06:02 06:02 WBC (4.8-10.8) K/uL RBC (4.7-6.1) M/uL Hgb (14.0-18.0) g/dL POC Hgb (14.0-18.0) g/dl Hct (42-52) % POC Hct (42-52) % MCV (80-100) fL MCH (25-34) pg MCHC (32-36) g/dL RDW Std Deviation (36.4-46.3) fL RDW Coeff of Zhanna (11.5-14.5) % Plt Count (130-400) K/uL MPV (7.4-10.4) fL Immature Gran % (Auto) % Neut % (Auto) % Lymph % (Auto) % [place] % (Auto) % Eos % (Auto) % Baso % (Auto) % Neut # (Auto) (1.4-6.5) K/uL Lymph # (Auto) (1.2-3.4) K/uL [place] # (Auto) (0.11-0.59) K/uL Eos # (Auto) (0-0.5) K/uL Baso # (Auto) (0-0.2) K/uL Immature Gran # (Auto) (0.00-0.02) K/uL PT 12.1 H (9.0-12.0) Seconds INR 1.2 H (0.9-1.1) APTT (21.0-31.0) Seconds PTT Ratio POC Sodium (135-144) mmol/L Sodium 135 L (136-145) mmol/L POC Potassium (3.3-5.0) mmol/L Potassium 4.3 (3.5-5.1) mmol/L POC Chloride (101-112) mmol/L Chloride 104 (98-107) mmol/L Carbon Dioxide 28 (21-32) mmol/L POC Total CO2 (24-31) mmol/L Anion Gap 3.0 (3-11) POC Anion Gap (16-25) mmol/L POC BUN (7-18) mg/dl BUN 17 (7-18) mg/dl Creatinine 0.73 (0.6-1.4) mg/dl POC Creatinine (0.6-1.3) mg/dl Est Cr Clr Drug Dosing 167.6 Est GFR ( Amer) 121.0 Est GFR (Non-Af Amer) 104.4 BUN/Creatinine Ratio 22.6 H (10-20) Glucose 169 H (70-99) mg/dl POC Glucose 189 H (70-99) mg/dl POC Glucose (other) (70-99) mg/dl Calcium 8.7 (8.5-10.1) mg/dl POC Ioniz Calcium [place] (1.12-1.32) mmol/l Total Bilirubin (0.2-1) mg/dl AST (15-37) U/L ALT (12-78) U/L Alkaline Phosphatase (45-117) U/L Total Creatine Kinase (39-308) U/L CK-MB (CK-2) (0.5-3.6) ng/ml CK/CKMB % Calc (0-3.0) Troponin I (0-0.045) ng/ml NT-Pro-B Natriuret Pep (0-900) pg/ml Total Protein (6.4-8.2) gm/dl Albumin (3.4-5.0) gm/dl Globulin (2.5-4.0) gm/dl Albumin/Globulin Ratio (0.9-2) Lipase (73-393) U/L COVID-19 Eval Order SARS-CoV-2, RNA, NAAT (NEGATIVE) 03/22/21 03/21/21 03/21/21 Range/Units 06:02 20:20 16:50 WBC 10.07 (4.8-10.8) K/uL RBC 4.11 L (4.7-6.1) M/uL Hgb 12.1 L (14.0-18.0) g/dL POC Hgb (14.0-18.0) g/dl Hct 36.9 L (42-52) % POC Hct (42-52) % MCV 89.8 (80-100) fL MCH 29.4 (25-34) pg MCHC 32.8 (32-36) g/dL RDW Std Deviation 46.9 H (36.4-46.3) fL RDW Coeff of Zhanna 14.3 (11.5-14.5) % Plt Count 288 (130-400) K/uL MPV 10.4 (7.4-10.4) fL Immature Gran % (Auto) 0.4 % Neut % (Auto) 64.5 % Lymph % (Auto) 18.9 % [place] % (Auto) 15.3 % Eos % (Auto) 0.6 % Baso % (Auto) 0.3 % Neut # (Auto) 6.50 (1.4-6.5) K/uL Lymph # (Auto) 1.90 (1.2-3.4) K/uL [place] # (Auto) 1.54 H (0.11-0.59) K/uL Eos # (Auto) 0.06 (0-0.5) K/uL Baso # (Auto) 0.03 (0-0.2) K/uL Immature Gran # (Auto) 0.04 H (0.00-0.02) K/uL PT (9.0-12.0) Seconds INR (0.9-1.1) APTT (21.0-31.0) Seconds PTT Ratio POC Sodium (135-144) mmol/L Sodium (136-145) mmol/L POC Potassium (3.3-5.0) mmol/L Potassium (3.5-5.1) mmol/L POC Chloride (101-112) mmol/L Chloride (98-107) mmol/L Carbon Dioxide (21-32) mmol/L POC Total CO2 (24-31) mmol/L Anion Gap (3-11) POC Anion Gap (16-25) mmol/L POC BUN (7-18) mg/dl BUN (7-18) mg/dl Creatinine (0.6-1.4) mg/dl POC Creatinine (0.6-1.3) mg/dl Est Cr Clr Drug Dosing Est GFR ( Amer) Est GFR (Non-Af Amer) BUN/Creatinine Ratio (10-20) Glucose (70-99) mg/dl POC Glucose 187 H (70-99) mg/dl POC Glucose (other) (70-99) mg/dl Calcium (8.5-10.1) mg/dl POC Ioniz Calcium [place] (1.12-1.32) mmol/l Total Bilirubin (0.2-1) mg/dl AST (15-37) U/L ALT (12-78) U/L Alkaline Phosphatase (45-117) U/L Total Creatine Kinase (39-308) U/L CK-MB (CK-2) (0.5-3.6) ng/ml CK/CKMB % Calc (0-3.0) Troponin I (0-0.045) ng/ml NT-Pro-B Natriuret Pep (0-900) pg/ml Total Protein (6.4-8.2) gm/dl Albumin (3.4-5.0) gm/dl Globulin (2.5-4.0) gm/dl Albumin/Globulin Ratio (0.9-2) Lipase (73-393) U/L COVID-19 Eval Order SARS-CoV-2, RNA, NAAT NEGATIVE (NEGATIVE) 12/23/20 12/23/20 12/23/20 Range/Units 16:50 16:09 15:55 WBC (4.8-10.8) K/uL RBC (4.7-6.1) M/uL Hgb (14.0-18.0) g/dL POC Hgb 12.2 L (14.0-18.0) g/dl Hct (42-52) % POC Hct 36 L (42-52) % MCV (80-100) fL MCH (25-34) pg MCHC (32-36) g/dL RDW Std Deviation (36.4-46.3) fL RDW Coeff of Zhanna (11.5-14.5) % Plt Count (130-400) K/uL MPV (7.4-10.4) fL Immature Gran % (Auto) % Neut % (Auto) % Lymph % (Auto) % [place] % (Auto) % Eos % (Auto) % Baso % (Auto) % Neut # (Auto) (1.4-6.5) K/uL Lymph # (Auto) (1.2-3.4) K/uL [place] # (Auto) (0.11-0.59) K/uL Eos # (Auto) (0-0.5) K/uL Baso # (Auto) (0-0.2) K/uL Immature Gran # (Auto) (0.00-0.02) K/uL PT 10.7 (9.0-12.0) Seconds INR 1.1 (0.9-1.1) APTT 23.9 (21.0-31.0) Seconds PTT Ratio 0.9 POC Sodium 139 (135-144) mmol/L Sodium (136-145) mmol/L POC Potassium 4.5 (3.3-5.0) mmol/L Potassium (3.5-5.1) mmol/L POC Chloride 104 (101-112) mmol/L Chloride (98-107) mmol/L Carbon Dioxide (21-32) mmol/L POC Total CO2 29 (24-31) mmol/L Anion Gap (3-11) POC Anion Gap 11.0 L (16-25) mmol/L POC BUN 24 H (7-18) mg/dl BUN (7-18) mg/dl Creatinine (0.6-1.4) mg/dl POC Creatinine 0.6 (0.6-1.3) mg/dl Est Cr Clr Drug Dosing Est GFR ( Amer) Est GFR (Non-Af Amer) BUN/Creatinine Ratio (10-20) Glucose (70-99) mg/dl POC Glucose (70-99) mg/dl POC Glucose (other) 172 H (70-99) mg/dl Calcium (8.5-10.1) mg/dl POC Ioniz Calcium [place] 1.14 (1.12-1.32) mmol/l Total Bilirubin (0.2-1) mg/dl AST (15-37) U/L ALT (12-78) U/L Alkaline Phosphatase (45-117) U/L Total Creatine Kinase (39-308) U/L CK-MB (CK-2) (0.5-3.6) ng/ml CK/CKMB % Calc (0-3.0) Troponin I (0-0.045) ng/ml NT-Pro-B Natriuret Pep (0-900) pg/ml Total Protein (6.4-8.2) gm/dl Albumin (3.4-5.0) gm/dl Globulin (2.5-4.0) gm/dl Albumin/Globulin Ratio (0.9-2) Lipase (73-393) U/L COVID-19 Eval [facility] SARS-CoV-2, RNA, NAAT (NEGATIVE) 12/23/20 12/23/20 Range/Units 15:55 15:55 WBC 12.22 H (4.8-10.8) K/uL RBC 4.23 L (4.7-6.1) M/uL Hgb 12.5 L (14.0-18.0) g/dL POC Hgb (14.0-18.0) g/dl Hct 37.9 L (42-52) % POC Hct (42-52) % MCV 89.6 (80-100) fL MCH 29.6 (25-34) pg MCHC 33.0 (32-36) g/dL RDW Std Deviation 46.4 H (36.4-46.3) fL RDW Coeff of Zhanna 14.1 (11.5-14.5) % Plt Count 307 (130-400) K/uL MPV 10.6 H (7.4-10.4) fL Immature Gran % (Auto) 0.3 % Neut % (Auto) 64.1 % Lymph % (Auto) 20.9 % [place] % (Auto) 14.2 % Eos % (Auto) 0.3 % Baso % (Auto) 0.2 % Neut # (Auto) 7.82 H (1.4-6.5) K/uL Lymph # (Auto) 2.56 (1.2-3.4) K/uL [place] # (Auto) 1.74 H (0.11-0.59) K/uL Eos # (Auto) 0.04 (0-0.5) K/uL Baso # (Auto) 0.02 (0-0.2) K/uL Immature Gran # (Auto) 0.04 H (0.00-0.02) K/uL PT (9.0-12.0) Seconds INR (0.9-1.1) APTT (21.0-31.0) Seconds PTT Ratio POC Sodium (135-144) mmol/L Sodium 140 (136-145) mmol/L POC Potassium (3.3-5.0) mmol/L Potassium 4.3 (3.5-5.1) mmol/L POC Chloride (101-112) mmol/L Chloride 106 (98-107) mmol/L Carbon Dioxide 27 (21-32) mmol/L POC Total CO2 (24-31) mmol/L Anion Gap 7.0 (3-11) POC Anion Gap (16-25) mmol/L POC BUN (7-18) mg/dl BUN 20 H (7-18) mg/dl Creatinine 0.83 (0.6-1.4) mg/dl POC Creatinine (0.6-1.3) mg/dl Est Cr Clr Drug Dosing Not Reportable Est GFR ( Amer) 114.8 Est GFR (Non-Af Amer) 99.1 BUN/Creatinine Ratio 23.9 H (10-20) Glucose 174 H (70-99) mg/dl POC Glucose (70-99) mg/dl POC Glucose (other) (70-99) mg/dl Calcium 8.4 L (8.5-10.1) mg/dl POC Ioniz Calcium [place] (1.12-1.32) mmol/l Total Bilirubin 0.5 (0.2-1) mg/dl AST 11 L (15-37) U/L ALT 30 (12-78) U/L Alkaline Phosphatase 63 (45-117) U/L Total Creatine Kinase 426 H (39-308) U/L CK-MB (CK-2) 4.4 H (0.5-3.6) ng/ml CK/CKMB % Calc 1.0 (0-3.0) Troponin I < 0.015 (0-0.045) ng/ml NT-Pro-B Natriuret Pep 161 (0-900) pg/ml Total Protein 7.3 (6.4-8.2) gm/dl Albumin 3.5 (3.4-5.0) gm/dl Globulin 3.8 (2.5-4.0) gm/dl Albumin/Globulin Ratio 0.9 (0.9-2) Lipase 84 (73-393) U/L COVID-19 Eval Order SARS-CoV-2, RNA, NAAT (NEGATIVE) Diagnostic Findings XR chest 1V portable CLINICAL HISTORY: Atypical chest pain COMPARISON STUDY: 11/28/2020 FINDINGS: The heart is enlarged. There are bilateral interstitial opacities, pulmonary edema versus a multifocal pneumonitis. There is left lower lobe atelectasis/consolidation. The study is limited from a technical standpoint due to the patient's large body habitus[ IMPRESSION: 1. Somewhat limited study secondary to the patient's large body habitus 2. Cardiomegaly and elevation of the interstitium. Diagnostic considerations include pulmonary edema versus a multifocal infectious/inflammatory process 3. Left lower lobe atelectasis/consolidation CT ANGIOGRAM OF THE CHEST CLINICAL HISTORY: Atypical chest pain and shortness of breath. Possible pulmonary embolism. COMPARISON STUDY: March 2019 TECHNIQUE: Following the IV administration of 120 mL of Optiray-320, CT angiogram of the thorax was performed from the thoracic inlet to the lung bases utilizing the pulmonary embolus protocol. Images are reviewed in the axial, sagittal, and coronal planes. IV contrast was administered without complication. MIP imaging was performed. A dose lowering technique was utilized adhering to the principles of ALARA. CT DOSE: 967.69 mGy.cm FINDINGS: No pathologically enlarged axillary mediastinal or hilar lymph nodes were visualized. There was no evidence of thoracic aortic dilatation. Evaluation of pulmonary arteries is limited secondary to suboptimal opacification due to morbid obesity. Addition there is respiratory motion ashlyn fact. No central emboli are visualized. No pleural effusions are visualized. There are wispy peripheral airspace opacities within the right upper lobe. There is lingular and left lower lobe atelectasis/consolidation. There are less pronounced right lower lobe atelectatic changes. The study is limited due to respiratory motion artifact. 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 IMPRESSION: 1. Significantly limited study from a technical standpoint secondary to morbid obesity and respiratory motion artifact. 2. No central pulmonary emboli identified 3. Tracheomalacia 4. Peripheral groundglass right upper lobe pulmonary opacities, likely infectious/inflammatory. 5. Lingular and left lower lobe atelectasis/consolidation. PG Care Time/CCT Total # of Minutes Spent Total Time Spent with Patient: Total time spent is greater than 50% in coordination of care (as documented) at patient's floor/unit and/or counseling patient: Coding Level of Care Code 32941 Subseq Hosp Care Lvl 3 Diagnoses Pneumonia J18.9 Elevated hemidiaphragm J98.6 Status post reverse arthroplasty of left shoulder Z96.612 Hypoxia R09.02 Obstructive sleep apnea G47.33 Paroxysmal atrial fibrillation I48.0 GERD (gastroesophageal reflux disease) K21.9 HTN (hypertension) I10 Hypothyroidism E03.9 Type 2 diabetes, uncontrolled, with diabetic cataract E11.36; E11.65 CAD (coronary artery disease), [place] coronary artery I25.10 Tracheomalacia J39.8 DVT prophylaxis Z29.9
[2020-12-24] MEDS ORDERED: SODIUM CHLORIDE 0.9% 500 ML IV SCH (09:30)
[2020-12-24] MEDS: PANTOprazole 40 MG TAB PO SCH (09:36)
[2020-12-24] MEDS: DOXYCYCLINE HYCLATE 100 MG CAP PO SCH ×2 (09:36→21:05)
[2020-12-24] MEDS: CLOPIDOGREL BISULFATE 75 MG TAB PO SCH (09:37)
[2020-12-24] MEDS: AMIODARONE 200 MG TAB PO SCH (09:37)
[2020-12-24] MEDS: guaiFENesin 600 MG TABCR PO SCH ×2 (09:37→21:04)
[2020-12-24] MEDS: INSULIN GLARGINE SOLOSTAR 100 UNITS/ML 3 ML PEN SC SCH ×2 (09:38→21:07)
[2020-12-24] MEDS: INSULIN ASPART 100 UNITS/ML 3 ML PEN SC SCH ×4 (09:39→21:09)
[2020-12-24] MEDS ORDERED: ALBUT/IPRATROP 3MG/0.5MG NEB 3 ML VIAL NEB PRN (14:20)
--- NOTE | 2020-12-24 14:34 | Pharmacy Report ---
Pharmacy Glycemic Short Note 2 - Date of Service December 24, 2020 - Glycemic Short BSG Results (Last 24 hours): 12/23/20 12/23/20 12/23/20 15:55 16:09 20:20 Glucose 174 H POC Glucose 187 H POC Glucose (other) 172 H 12/24/20 12/24/20 12/24/20 06:02 08:02 12:04 Glucose 169 H POC Glucose 189 H 202 H POC Glucose (other) OUTPATIENT ANTIDIABETIC REGIMEN: * Basaglar 30 units Qam, 50 units Qpm, Novolog 30 units TIDM, metformin 1 gm bid ASSESSMENT: * 55 year old admitted for possible pneumonia. Started on antibiotics. S/P L shoulder arthroplasty. Pharmacy consulted for glycemic management * Received home dose Lantus last evening - fasting BSG elevated this AM at 189 mg/dL - plan to increase home basal dose by ~18%. Most recent A1c 8.8%. Likely could benefit from titration of insulin regimen. Elevated BSGs on admission may be related also to infection * Plan to utilize stress of 2 outpatient dosing for novolog CF/CR PLAN FOR INPATIENT GLYCEMIC CONTROL: * Hold outpatient oral diabetes medications * Basal insulin * Lantus 45 units Qam * Lantus 50 units Qpm * Bolus insulin * NovoLog per scale ACHS or Q6hrs while NPO * Goal Range: Low 110 mg/dL - High 140 mg/dL * Correction Factor: 6 mg/dL/unit * Nutritional / Prandial insulin per carb ratio of 1 unit per 2 grams CHO consumed PLAN FOR DISCHARGE: * tbd
[2020-12-24] MEDS: WARFARIN SOD 7.5 MG TAB PO SCH (16:29)
[2020-12-24] MEDS: LOSARTAN POTASSIUM 50 MG TAB PO SCH (21:05)
[2020-12-24] MEDS: amLODIPine BESYLATE 5 MG TAB PO SCH (21:05)
[2020-12-24] MEDS: MULTIVITAMIN TAB PO SCH (21:05)
[2020-12-24] MEDS: FAMOTIDINE 40 MG TABLET PO SCH (21:05)
[2020-12-24] MEDS: cefTRIAXone SODIUM 2,000 MG in DEXTROSE 5% 50 ML IV SCH (21:36)
[2020-12-25] MEDS: oxyCODONE HCL IR 5 MG TAB (IMMEDIATE RELEASE) PO PRN (00:48)
[2020-12-25] MEDS: LEVOTHYROXINE SODIUM 175 MCG TABLET PO SCH (05:34)
[2020-12-25] MEDS: ACETAMINOPHEN 500 MG TAB PO PRN (07:50)
[2020-12-25 08:11] LABS: Hematocrit (blood only) 37.1 % (42-52); Hemoglobin 12.4 g/dL (14.0-18.0); Mean Corpuscular Hemoglobin 29.5 pg (25-34); Mean Corpuscular Hgb Conc 33.4 g/dL (32-36); Mean Corpuscular Volume 88.1 fL (80-100); Mean Platelet Volume 10.2 fL (7.4-10.4); Platelet Count 306 K/uL (130-400); RDW Coefficient of Variation 13.9 % (11.5-14.5); RDW Standard Deviation 44.8 fL (36.4-46.3); Red Blood Count 4.21 M/uL (4.7-6.1); White Blood Count 10.02 K/uL (4.8-10.8)
--- NOTE | 2020-12-25 08:16 | XRay Report ---
XR chest 1V portable CLINICAL HISTORY: Pneumonia COMPARISON STUDY: December 23, 2020 FINDINGS: The cardiac and mediastinal contours remain stable. There is persistent left lower lobe ate lectasis/consolidation.[There is improvement in the previously described elevation interstitium, find ing favoring resolving pulmonary edema. Linear opacities the right lung base likely represents subseg mental atelectasis. There is a suboptimal inspiration. There are postsurgical changes involving the l eft shoulder. IMPRESSION: 1. Improvement in the previously described elevated interstitium, a finding favoring resolving pulmon donnie edema 2. Persistent left basilar opacities, atelectasis versus infectious/inflammatory. ACT 112: Negative or not required by law. Electronically signed by: Claudy Holder M.D. 12/25/2020 8:15 AM
[2020-12-25 08:28] LABS: INR 1.2 (0.9-1.1); Prothrombin Time 12.1 Seconds (9.0-12.0)
[2020-12-25 08:43] LABS: Albumin Level 2.8 gm/dl (3.4-5.0); BUN Creatinine Ratio 18.1 (10-20); Creatinine Clr Calc Pharmacy 158.9 ml/min; Est GFR (African American) 118.4; Est GFR (Non-African American) 102.2; Potassium 4.2 mmol/L (3.5-5.1)
[2020-12-25 08:46] LABS: Albumin Globulin Ratio 0.6 (0.9-2); Bilirubin,Total 0.8 mg/dl (0.2-1); Globulin 4.6 gm/dl (2.5-4.0); Total Protein 7.4 gm/dl (6.4-8.2)
[2020-12-25] MEDS: PANTOprazole 40 MG TAB PO SCH (09:12)
[2020-12-25] MEDS: AMIODARONE 200 MG TAB PO SCH (09:13)
[2020-12-25] MEDS: DOXYCYCLINE HYCLATE 100 MG CAP PO SCH ×2 (09:13→20:43)
[2020-12-25] MEDS: CLOPIDOGREL BISULFATE 75 MG TAB PO SCH (09:13)
[2020-12-25] MEDS: guaiFENesin 600 MG TABCR PO SCH ×2 (09:13→20:43)
--- NOTE | 2020-12-25 09:13 | Hospitalist Progress Note ---
Date of Service December 25, 2020 Assessment & Plan (1) Pneumonia: * Aztreonam and Levaquin given in the ER due to unknown penicillin allergy as a child but no anaphylaxis therefore will switch to ceftriaxone and doxycycline. * COVID negative. Did not check RSV/influenza on admission * Blood cultures no growth to date * Sputum culture normal susan * --> Suspect predisposed due to T2DM, tracheomalacia, possible paralyzed hemidiaphragm and recent intubation. * Managing for possible) Gram-negative pneumonia due to recent endotracheal intubation and interscalene block, a complication of care -- continued coverage with Ceftriaxone and Doxy (day 3 of therapy) -- sent in rx for Augmentin/Doxy * --> Given recent intubation consider broadening spectrum if deteriorating * Nebs changed to prn, continue incentive spirometer and flutter valve * Supplemental O2 as needed -- now on ROOM AIR CXR today with improvement in elevated interstitium, favoring resolving pulmonary edema. Persistent left basilar opacities, atelectasis vs infectious/inflammatory --> Weight obtained and up. With edema. Given dose of 20mg IV lasix * WBC 12.2k--> 10k, afebrile * Labs in AM (2) Elevated hemidiaphragm: * Suspected secondary to interscalene block given for recent surgery * Incentive spirometry * Flutter valve * Guaifenesin * Follow up sniff test as outpatient with pulmonology (3) Status post reverse arthroplasty of left shoulder: * Continue with sling -- dressing changed 12/24 * Follow up routine as previously scheduled (4) Hypoxia: * without respiratory distress on admission * Suspected secondary to PNA * Low suspicion of PE given negative CTA (although not adequate to assess smaller pulmonary arteries he will be therapeutic eventually on warfarin regardless, would not recommend heparin bridge therefore this was discontinued) * Aim O2 sats > 92% * Stable on room air * 2 step without need for supplemental O2 (5) Obstructive sleep apnea: * BiPAP 21/07 (6) Paroxysmal atrial fibrillation: * Currently in NSR * Continue amiodarone 200mg PO daily (been on since ) * Anticoagulation with warfarin. No bridging necessary and risk of causing hematoma from operation risk outweighs benefit. * INR 1.2 -- continue coumadin and repeat INR in AM (7) GERD (gastroesophageal reflux disease): * Pantoprazole 40mg PO daily * Famotidine 40mg PO HS (8) HTN (hypertension): * Continue his usual medication regimen with losartan, atenolol and amlodipine * BP stable 162/79 -- had not previously been ordered his atenolol -- ordered for today. also with some shoulder discomfort contributing to elevated pressures * Continue to monitor (9) Hypothyroidism: * TSH 0.35 in April 2020, No need to repeat this. * Continue levothyroxine 175 mcg PO daily (10) Type 2 diabetes, uncontrolled, with diabetic cataract: * Hemoglobin A1C 8.8 in November. No need to repeat this. * Consulted pharmacy (11) CAD (coronary artery disease), [place] coronary artery: * CAD status post LAD PCI * Follows locally -- last seen by Priya Simms earlier this year prior to his shoulder surgery * Last ECHO Oct 2018 with slightly more hypertrophy compared to 2017 but LV systolic function normal, normal diastolic function * Continue Plavix, statin on hold for elevated CK on admission, atenolol 25mg, losartan 100mg daily (12) Tracheomalacia: * BiPAP HS as below. * Avoid steroids (13) DVT prophylaxis: * SCDs, * continue warfarin with INR daily Elevated CK * CK 426 on admission. Holding statin. * Repeat 304 -- resumed statin Dispo: continued inpatient stay likely d/c in AM Admission and Anticipated Discharge Date Admission Date: December 23, 2020 Subjective Patient evaluated this morning. Breathing better but still some shortness of breath with ambulation. Improved. Cough still present. Discussed sputum with normal susan. Reviewed chest xray findings and labs -- discussed with on the phone as well who is more comfortable waiting another day of IV abx and then PO starting tomorrow. Requesting these be sent in today so that she is able to pick them up. Also reviewed albuterol inhaler and use. 2 step performed today without need for supplemental O2 however patient did drop to 85% for <1 min with PT and rebounded quickly to 91% with deep breathing. Continued to encourage incentive spirometer. No fever, chills, chest pain, abdominal pain, n/v/d at this time. Review of Systems Review of Systems: All systems reviewed & are unremarkable except as noted in HPI & below Physical Exam Constitutional: well developed, well nourished and + morbidly obese; no acute distress Eyes: + anicteric sclerae; normal pupil size ENMT: external ear and nose normal, oropharynx normal Neck: trachea midline Respiratory: normal respiratory effort, + cough and able to speak in complete sentences; no respiratory distress, no labored breathing, no retractions, does not use accessory muscles, normal respiratory pattern, expiratory phase not prolonged and no stridor Auscultation: + diminished lung sounds (Left base) and + crackles (Left base); no wheezes on ROOM AIR Cardiovascular: Rate/Rhythm: regular rate and regular rhythm Heart Sounds: no murmur Vessels: no JVD Extremities: normal capillary refill and + pedal edema (1+ b/l); no calf tenderness Gastrointestinal (Abdomen): normal bowel sounds, soft, nontender, no hepatosplenomegaly Inspection/Auscultation: + abdomen distended Musculoskeletal: Left arm in sling NV intact distal to operation site radial pulses palpable Skin: no rashes, warm and dry Neurologic: moves all extremities and awake; not confused Psychiatric: A+Ox3, euthymic affect Genitourinary: no CVA tenderness Results & Data Results & Data ([facility]) Vital Signs (Past 12 Hours) Vital Signs Temp Pulse Resp BP Pulse Ox 12/25/20 07:36 36.9 C 91 H 16 154/78 H 91 12/24/20 22:25 36.8 C 86 20 156/80 H 90 12/24/20 21:36 94 Laboratory Results 12/25/20 12/25/20 12/25/20 Range/Units 08:18 07:59 07:59 WBC (4.8-10.8) K/uL RBC (4.7-6.1) M/uL Hgb (14.0-18.0) g/dL Hct (42-52) % MCV (80-100) fL MCH (25-34) pg MCHC (32-36) g/dL RDW Std Deviation (36.4-46.3) fL RDW Coeff of Zhanna (11.5-14.5) % Plt Count (130-400) K/uL MPV (7.4-10.4) fL PT 12.1 H (9.0-12.0) Seconds INR 1.2 H (0.9-1.1) Sodium 136 (136-145) mmol/L Potassium 4.2 (3.5-5.1) mmol/L Chloride 104 (98-107) mmol/L Carbon Dioxide 26 (21-32) mmol/L Anion Gap 6.0 (3-11) BUN 14 (7-18) mg/dl Creatinine 0.77 (0.6-1.4) mg/dl Est Cr Clr Drug Dosing 158.9 ml/min Est GFR ( Amer) 118.4 Est GFR (Non-Af Amer) 102.2 BUN/Creatinine Ratio 18.1 (10-20) Glucose 151 H (70-99) mg/dl POC Glucose 145 H (70-99) mg/dl Calcium 9.0 (8.5-10.1) mg/dl Total Bilirubin 0.8 (0.2-1) mg/dl AST 13 L (15-37) U/L ALT 23 (12-78) U/L Alkaline Phosphatase 58 (45-117) U/L Total Creatine Kinase (39-308) U/L Total Protein 7.4 (6.4-8.2) gm/dl Albumin 2.8 L (3.4-5.0) gm/dl Globulin 4.6 H (2.5-4.0) gm/dl Albumin/Globulin Ratio 0.6 L (0.9-2) Nasal Screen MRSA (PCR) (Negative) 12/25/20 12/24/20 12/24/20 Range/Units 07:59 20:35 17:02 WBC 10.02 (4.8-10.8) K/uL RBC 4.21 L (4.7-6.1) M/uL Hgb 12.4 L (14.0-18.0) g/dL Hct 37.1 L (42-52) % MCV 88.1 (80-100) fL MCH 29.5 (25-34) pg MCHC 33.4 (32-36) g/dL RDW Std Deviation 44.8 (36.4-46.3) fL RDW Coeff of Zhanna 13.9 (11.5-14.5) % Plt Count 306 (130-400) K/uL MPV 10.2 (7.4-10.4) fL PT (9.0-12.0) Seconds INR (0.9-1.1) Sodium (136-145) mmol/L Potassium (3.5-5.1) mmol/L Chloride (98-107) mmol/L Carbon Dioxide (21-32) mmol/L Anion Gap (3-11) BUN (7-18) mg/dl Creatinine (0.6-1.4) mg/dl Est Cr Clr Drug Dosing ml/min Est GFR ( Amer) Est GFR (Non-Af Amer) BUN/Creatinine Ratio (10-20) Glucose (70-99) mg/dl POC Glucose 208 H 164 H (70-99) mg/dl Calcium (8.5-10.1) mg/dl Total Bilirubin (0.2-1) mg/dl AST (15-37) U/L ALT (12-78) U/L Alkaline Phosphatase (45-117) U/L Total Creatine Kinase (39-308) U/L Total Protein (6.4-8.2) gm/dl Albumin (3.4-5.0) gm/dl Globulin (2.5-4.0) gm/dl Albumin/Globulin Ratio (0.9-2) Nasal Screen MRSA (PCR) (Negative) 12/24/20 12/24/20 12/24/20 Range/Units 12:04 10:30 06:02 WBC (4.8-10.8) K/uL RBC (4.7-6.1) M/uL Hgb (14.0-18.0) g/dL Hct (42-52) % MCV (80-100) fL MCH (25-34) pg MCHC (32-36) g/dL RDW Std Deviation (36.4-46.3) fL RDW Coeff of Zhanna (11.5-14.5) % Plt Count (130-400) K/uL MPV (7.4-10.4) fL PT (9.0-12.0) Seconds INR (0.9-1.1) Sodium (136-145) mmol/L Potassium (3.5-5.1) mmol/L Chloride (98-107) mmol/L Carbon Dioxide (21-32) mmol/L Anion Gap (3-11) BUN (7-18) mg/dl Creatinine (0.6-1.4) mg/dl Est Cr Clr Drug Dosing ml/min Est GFR ( Amer) Est GFR (Non-Af Amer) BUN/Creatinine Ratio (10-20) Glucose (70-99) mg/dl POC Glucose 202 H (70-99) mg/dl Calcium (8.5-10.1) mg/dl Total Bilirubin (0.2-1) mg/dl AST (15-37) U/L ALT (12-78) U/L Alkaline Phosphatase (45-117) U/L Total Creatine Kinase 304 (39-308) U/L Total Protein (6.4-8.2) gm/dl Albumin (3.4-5.0) gm/dl Globulin (2.5-4.0) gm/dl Albumin/Globulin Ratio (0.9-2) Nasal Screen MRSA (PCR) Negative (Negative) Diagnostic Findings XR chest 1V portable CLINICAL HISTORY: Pneumonia COMPARISON STUDY: December 23, 2020 FINDINGS: The cardiac and mediastinal contours remain stable. There is persistent left lower lobe atelectasis/consolidation.[There is improvement in the previously described elevation interstitium, finding favoring resolving pulmonary edema. Linear opacities the right lung base likely represents subsegmental atelectasis. There is a suboptimal inspiration. There are postsurgical changes involving the left shoulder. IMPRESSION: 1. Improvement in the previously described elevated interstitium, a finding favoring resolving pulmonary edema 2. Persistent left basilar opacities, atelectasis versus infectiou s/inflammatory. PG Care Time/CCT Total # of Minutes Spent Total Time Spent with Patient: Total time spent is greater than 50% in coordination of care (as documented) at patient's floor/unit and/or counseling patient: Coding Level of Care Code 84531 Subseq Hosp Care Lvl 3 Diagnoses Pneumonia J18.9 Elevated hemidiaphragm J98.6 Status post reverse arthroplasty of left shoulder Z96.612 Hypoxia R09.02 Obstructive sleep apnea G47.33 Paroxysmal atrial fibrillation I48.0 GERD (gastroesophageal reflux disease) K21.9 HTN (hypertension) I10 Hypothyroidism E03.9 Type 2 diabetes, uncontrolled, with diabetic cataract E11.36; E11.65 CAD (coronary artery disease), [place] coronary artery I25.10 Tracheomalacia J39.8 DVT prophylaxis Z29.9
[2020-12-25] MEDS: INSULIN ASPART 100 UNITS/ML 3 ML PEN SC SCH ×4 (09:15→21:30)
[2020-12-25] MEDS: INSULIN GLARGINE SOLOSTAR 100 UNITS/ML 3 ML PEN SC SCH (09:15)
[2020-12-25] MEDS: POLYETHYLENE (MIRALAX) 17 GM PACK PO SCH (09:42)
[2020-12-25] MEDS ORDERED: DOCUSATE SODIUM 100 MG CAP PO ONE (10:00)
--- NOTE | 2020-12-25 10:02 | Pharmacy Report ---
Pharmacy Glycemic Short Note 2 - Date of Service December 25, 2020 - Glycemic Short BSG Results (Last 24 hours): 12/24/20 12/24/20 12/24/20 12:04 17:02 20:35 Glucose POC Glucose 202 H 164 H 208 H 12/25/20 12/25/20 07:59 08:18 Glucose 151 H POC Glucose 145 H OUTPATIENT ANTIDIABETIC REGIMEN: * Basaglar 30 units Qam, 50 units Qpm, Novolog 30 units TIDM, metformin 1 gm bid ASSESSMENT: 12/25 * Pt has received 204 units of insulin over the past 24hrs * 95 units of basal with Lantus * 109 units of bolus with NovoLog * BSGs [phone] mg/dl * AM fasting BSG is close to goal range at 145 mg/dl this AM. AM fasting trending downwards from yesterday 189 --> 145 mg/dl. Will not make any changes to basal insulin today. * Post-prandial BSGs elevated - more CHO coverage needed. * Will decrease CF since increasing CHO ratio as only more CHO coverage needed. BSG is near goal range when both CF + CR given. 12/24 * 55 year old admitted for possible pneumonia. Started on antibiotics. S/P L s houlder arthroplasty. Pharmacy consulted for glycemic management * Received home dose Lantus last evening - fasting BSG elevated this AM at 189 mg/dL - plan to increase home basal dose by ~18%. Most recent A1c 8.8%. Likely could benefit from titration of insulin regimen. Elevated BSGs on admission may be related also to infection * Plan to utilize stress of 2 outpatient dosing for novolog CF/CR PLAN FOR INPATIENT GLYCEMIC CONTROL: * Hold outpatient oral diabetes medications * Basal insulin * Lantus 45 units Qam * Lantus 50 units Qpm * Bolus insulin * NovoLog per scale ACHS or Q6hrs while NPO * Goal Range: Low 110 mg/dL - High 140 mg/dL * Correction Factor: 7 mg/dL/unit * Nutritional / Prandial insulin per carb ratio of 1 unit per 1.5 grams CHO consumed PLAN FOR DISCHARGE: * A1c = 8.8 % on 11/28/20 * Goal A1c = <7 % based on age and comorbidities * Recommended regimen is metformin + basal + prandial insulin which patient is already receiving * B12 supplementation may be necessary with long winder tender metformin * May consider additional agent to lower A1c to 7% and has additional ASCVD benefits (+weight loss) * GLP1 RA: strongest evidence for reducing CVD events = liraglutide > semaglutide > exenatide extended release * SGLT2i: strongest evidence for reducing CVD events = empagliflozin or canagliflozin. Choice will be made on eGFR recommendations * Empagliflozin (Jardiance), canagliflozin (Invokana), dapagliflozin (Farxiga): do not use if eGFR is less than 45 ml/min * Ertugliflozin (Steglatro): do not use if eGFR is less than 60 ml/min * Support Patient Self-Management * Healthy Lifestyle (diet, exercise, and smoking cessation) * Disease self-management (SMBG) * Prevention of complications (BP, Lipid goals, Immunizations) * Consider outpatient Diabetes Self-Management Education & Support
[2020-12-25] MEDS ORDERED: FUROSEMIDE 20 MG in SYRINGE 0 ML IV ONE (13:00)
[2020-12-25] MEDS: ATENOLOL 25 MG TABLET PO SCH (13:31)
--- NOTE | 2020-12-25 14:09 | Emergency Department Note ---
Impression & Plan Hypoxia, Pneumonia, Elevated hemidiaphragm, DVT prophylaxis ED Provider Note NAME: CONCHITA GAMEZ AGE: 55 SEX: M : 1965 ARRIVES VIA: Walk-In INFORMANT: Patient, ED PROVIDER(S): Haim Sevilla MD CHIEF COMPLAINT: Shortness of breath HPI: This is a 55-year-old male who presents emergency department after having shoulder surgery on Thursday. The patient reports increasing shortness of breath over the past 2 days. He reports any exertion makes the shortness of breath worse. He reports rest makes the shortness of breath better. He denies any fevers or chills. He has been taking oxycodone for his pain however has not been able to get the pain under control. He reports exertion makes the pain worse. ROS: See above HPI for pertinent positives & negatives. A total of 10 systems reviewed and were otherwise negative. PAST MEDICAL HISTORY: See Below PAST SURGICAL HISTORY: See Below FAMILY HISTORY: See Below SOCIAL HISTORY: See Below HOME MEDICATIONS: See Below ALLERGIES: See Below VITALS: See Below PHYSICAL EXAMINATION: VITAL SIGNS - Vital signs and nursing notes were reviewed. GENERAL - 55-year-old male appearing stated age who is in moderate distress. sitting up and appears uncomfortable SKIN - Without rashes. HEAD - NC/AT. EYES - PERRL with EOMI bilaterally. Sclera anicteric. Palpebral conjunctiva pink and moist with no injection noted. EARS - No deformities of external structures noted on gross examination bilaterally. NOSE - Midline and without cyanosis. No epistaxis or purulent drainage noted. Septum midline without deviation or septal hematoma noted. MOUTH/OROPHARYNX - Without perioral cyanosis. Buccal mucosa pink and moist and without leukoplakia. Tongue midline with equal elevation of palate bilaterally. No tonsillar hypertrophy, erythema, or exudates noted. dentition noted. NECK - Neck with FROM. Supple to palpation. lymphadenopathy noted. No nuchal rigidity. LUNGS - Chest wall symmetric without accessory muscle use, intercostals retractions, or central cyanosis. wheezing present b/l CARDIAC - RRR with S1/S2. No murmur, rubs, or gallops appreciated. ABDOMEN - Abdominal contour without pulsations or visible masses. BS normo active all four quadrants. No tenderness, palpable masses, hepatosplenomegaly, or ascites noted. EXTREMITIES - No clubbing or peripheral cyanosis. No pretibial edema present. +3/5 radial, posterior tibial, and dorsalis pedis pulses palpated throughout. +5/5 strength noted in UE/LE bilaterally. NEUROLOGIC - Cranial nerves II through XII grossly intact. Sensory intact to light touch throughout. Patellar reflexes +2/4. PSYCH - A&Ox3 and cooperates fully with examiner. Pt is very pleasant and int eracts well with examiner. MEDICAL DECISION MAKING: Patient was seen and evaluated as above in room B2. Review was performed of nursing notes and vital signs. I did review pertinent previous visits and patient history. After obtaining a thorough history and physical examination the above work up was performed. Patient this is a 55-year-old male who presents emergency department complaining of shortness of breath. The patient appears to be in severe distress. I will note that the patient was restarted on Coumadin however has not been bridged therefore he was started on heparin here in the emergency department. He was sent for CAT scan of the chest and does appear to have a left lower lobe pneumonia. He was started on broad-spectrum antibiotics and given breathing treatments here in the emergency department. Because the patient is requiring oxygen I did discuss the case with the hospitalist service who did agree to admit the patient. An order was placed for continuous cardiac monitoring. The monitor shows a rate of 94 with Normal SInus rhythm. The patient was evaluated during a period of high volume and high acuity during the global COVID-19 pandemic, and that diagnosis was suspected/considered upon their initial presentation. Their evaluation, treatment and testing was consistent with current guidelines for patients who present with complaints or symptoms that may be related to COVID-19. Patient was seen while provider was wearing PPE. Triage Nursing notes reviewed. Prior medical records reviewed Vital Signs: reviewed and remarkable for no significant abnormalities Differential diagnosis: Reactive airway disease, pneumonia, pneumothorax, COPD, CHF, infections, cardiac ischemia, pulmonary embolism, musculoskeletal, gastrointestinal, as well as other pathologies. ER treatment provided: See below Diagnostics interpreted by me: ECG: EKG shows normal sinus rhythm no ST elevation or depression possible inferior infarct no ST elevation or depression QTC is 424 ventricular rate of 62 EKG is unchanged from previous 03/09/2019 Laboratory studies: As stated above and show below. Imaging studies: [facility], [id number] CT Scan Report Patient: CONCHITA GAMEZ AAdmit Date: 12/23/20#: [id number]: [address]:[id number]: Date: 1965[facility] Zip: [place] [address]Gqy: 55Location: EDSex: MRoom/Bed:Att Phy:Diagnosis: SOB - JUST HAD SHOULDER SURGERYPri Phy: Carina Tran MDService Date: 12/23/20Fa Phy:Interpreting Phy: Claudy Holder MDAdmit Phy: Ordering Phy: Haim Sevilla MD cc: ~ CT ANGIOGRAM OF THE CHEST CLINICAL HISTORY: Atypical chest pain and shortness of breath. Possible pulmonary embolism. COMPARISON STUDY: March 2019 TECHNIQUE: Following the IV administration of 120 mL of Optiray-320, CT angiogram of the thorax was performed from the thoracic inlet to the lung bases utilizing the pulmonary embolus protocol. Images are reviewed in the axial, sagittal, and coronal planes. IV contrast was administered without complication. MIP imaging was performed. A dose lowering technique was utilized adhering to the principles of ALARA. CT DOSE: 967.69 mGy.cm FINDINGS: No pathologically enlarged axillary mediastinal or hilar lymph nodes were visualized. There was no evidence of thoracic aortic dilatation. Evaluation of pulmonary arteries is limited secondary to suboptimal opacification due to morbid obesity. Addition there is respiratory motion artifact. No central emboli are visualized. No pleural effusions are visualized. There are wispy peripheral airspace opacities within the right upper lobe. There is lingular and left lower lobe atelectasis/consolidation. There are less pronounced right lower lobe atelectatic changes. The study is limited due to respiratory motion artifact. 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 IMPRESSION: 1. Significantly limited study from a technical standpoint secondary to morbid obesity and respiratory motion artifact. 2. No central pulmonary emboli identified 3. Tracheomalacia 4. Peripheral groundglass right upper lobe pulmonary opacities, likely infectious/inflammatory. 5. Lingular and left lower lobe atelectasis/consolidation. ACT 112: Negative or not required by law. Electronically signed by: Claudy Holder M.D. 12/23/2020 5:36 PM Dictated: 12/23/201730Transcribed: 12/23/20 173 [facility], [id number] XRay Report Patient: CONCHITA GAMEZ AAdmit Date: 12/23/20MR#: [id number]: [address] ID:[id number]: Date: 1965[facility] Zip: [place], [place] [address]Fla: 55Location: EDSex: MRoom/Bed:Att Phy:Diagnosis: SOB - JUST HAD SHOULDER SURGERYPri Phy: Carina Tran MDService Date: Fam Phy:Interpreting Phy: Claudy Holder MDAdmit Phy: Ordering Phy: Haim Sevilla MD cc: ~ XR chest 1V portable CLINICAL HISTORY: Atypical chest pain COMPARISON STUDY: 11/28/2020 FINDINGS: The heart is enlarged. There are bilateral interstitial opacities, pulmonary edema versus a multifocal pneumonitis. There is left lower lobe atelectasis/consolidation. The study is limited from a technical standpoint due to the patient's large body habitus[ IMPRESSION: 1. Somewhat limited study secondary to the patient's large body habitus 2. Cardiomegaly and elevation of the interstitium. Diagnostic considerations include pulmonary edema versus a multifocal infectious/inflammatory process 3. Left lower lobe atelectasis/consolidation ACT 112: Negative or not required by law. Electronically signed by: Claudy Holder M.D. 12/23/2020 4:22 PM Dictated: 12/23/201620Transcribed: 12/23/201620 Consultation(s): Internal medicine I have personally spent greater than 30 minutes of critical care time in the direct management of this patient. This includes bedside care, interpretation of diagnostic studies, and testing, discussion with consultants, patient, and family members, and other required patient management activities. This 30 minutes is in excess of all separately billable procedures. Past Med/Surg History Medical History (Updated 12/25/20 @ 14:28 by Haim Sevilla MD) Anticoagulated on Coumadin Rivas esophagus Bunion, right foot CAD (coronary artery disease), qawalangin coronary artery S/P PCI to LAD with NSTEMI 09/12/17. Chronic back pain Constipation Dyslipidemia Erectile dysfunction GERD (gastroesophageal reflux disease) Hearing deficit History of colon polyps History of sarcoidosis Pt follows with pulm but cant recall name of provider HTN (hypertension) Hx of non-ST elevation myocardial infarction (NSTEMI) 09/2017 Hypothyroidism Obstructive sleep apnea cpap, using for about 4-5 hrs per night Osteoarthritis Paroxysmal atrial fibrillation On amiodarone, warfarin. Prepatellar bursitis, left knee Rosacea Rotator cuff tear, right Type 2 diabetes, uncontrolled, with diabetic cataract Surgical History (Updated 12/21/20 @ 15:03 by Gopi Lowery DO) History of anesthesia reaction slow to wake up History of bronchoscopy History of cardiac cath 09/2017 with 1 stent @ [facility] History of colonoscopy History of esophagogastroduodenoscopy (EGD) History of nasal cauterization History of total left hip replacement S/P coronary artery stent placement 09/2017 Status post reverse arthroplasty of left shoulder (~12/2020) Family History Brother Family history of diabetes mellitus Hypertension Sister Family history of diabetes mellitus Hypertension Mother Family history of diabetes mellitus Hypertension Father Family history of diabetes mellitus Hypertension Prostate cancer Other No family history of adverse response to anesthesia Social History Smoking Status: Former smoker Tobacco Type: Cigarettes packs per day: 0.5; Years Smoked: 3; Smoking End Date: ; Second Hand Exposure: No; Hx Alcohol Use: No Hx Substance Use: No Preferred Language: Honduran Communication Ability: Effective Academic Guidance Specialist Required: No Beliefs That Will Affect Care: None Current Living Situation: Spouse current occupational status: employed 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 [employer] Other Information That Helps Us Care for You: No Feels Safe at Home: Yes Safety Concerns: Feels Safe At This Time Physical Activity Frequency: 3-4 Times per Week Assistive Devices: BiPap and Brace/Splint/Immobilizer Allergies Allergies Allergy/AdvReac Type Severity Reaction Status Date / Time canagliflozin [From Invokana] Allergy Severe Rash Verified 12/23/20 18:48 Penicillins Allergy Unknown Unknown Verified 12/23/20 18:48 dulaglutide [From Trulicity] Allergy Gastrointestinal Verified 12/23/20 18:48 upset,constipation, gastric discomfort liraglutide [From Victoza] AdvReac Severe Dizziness, Verified 12/23/20 18:48 extremely disoriented rivaroxaban [From Xarelto] AdvReac Intermediate epistaxis Verified 12/23/20 18:48 Home Meds Home Medications Medication Instructions Recorded Confirmed fluticasone propionate 50 2 spray INTRANASAL BID PRN #1 gm 03/07/19 12/23/20 mcg/actuation nasal spray,suspension losartan 100 mg PO HS 06/05/20 12/23/20 Basaglar KwikPen U-100 Insulin 30 unit SUBCUT QAM 11/28/20 12/23/20 Basaglar KwikPen U-100 Insulin 50 unit SUBCUT QPM 11/28/20 12/23/20 amlodipine 10 mg PO QPM 11/28/20 12/23/20 artificial tears with lanolin 1 applic OPHTHALMIC (EYE) BID 11/28/20 12/23/20 famotidine 40 mg PO QPM 11/28/20 12/23/20 multivitamin 1 tab PO QPM 11/28/20 12/23/20 pantoprazole 40 mg PO QAM 11/28/20 12/23/20 rosuvastatin 40 mg PO QPM 11/28/20 12/23/20 warfarin 7.5 mg PO QAM 11/28/20 12/23/20 beclomethasone dipropionate [Qvar 1 inh INHALATION BID PRN 12/23/20 12/23/20 RediHaler] hydrocortisone [Proctosol HC] 1 appln [place] DAILY PRN 12/23/20 12/23/20 insulin aspart U-100 [Novolog 30 unit SUBCUT TID 12/23/20 12/23/20 Flexpen U-100 Insulin] levothyroxine [Euthyrox] 175 mcg PO QAM 12/23/20 12/23/20 metformin 1,000 mg PO BID 12/23/20 12/23/20 oxycodone 5 mg PO Q4H PRN 12/23/20 12/23/20 sildenafil [Viagra] 100 mg PO DAILY PRN 12/23/20 12/23/20 Previous Rx's Medication Instructions Recorded clopidogrel 75 mg tablet 75 mg PO QAM #90 tab 07/04/20 amiodarone 200 mg tablet 200 mg PO QAM #90 tab 07/17/20 clotrimazole-betamethasone 1 1 applic TOPICAL BID PRN #30 g 07/19/20 %-0.05 % topical cream atenolol 25 mg tablet 25 mg PO QAM #30 tab 08/27/20 metaxalone 800 mg tablet 800 mg PO TID PRN #30 tab 09/04/20 Dexcom G6 Sensor #3 ea NS 12/24/20 Dexcom G6 Transmitter #1 ea NS 12/24/20 albuterol sulfate [ProAir HFA] 1 - 2 puff INH QID PRN #6.7 g 12/25/20 amoxicillin-pot clavulanate 1 tab PO BID 5 Days #10 tab 12/25/20 doxycycline hyclate 100 mg PO BID 5 Days #10 tab 12/25/20 Results & Data (ED) Laboratory Data Result diagrams: 12/25/20 07:59 12/25/20 07:59 Lab Results 12/23/20 12/23/20 12/23/20 Range/Units 15:55 15:55 15:55 WBC 12.22 H (4.8-10.8) K/uL RBC 4.23 L (4.7-6.1) M/uL Hgb 12.5 L (14.0-18.0) g/dL POC Hgb (14.0-18.0) g/dl Hct 37.9 L (42-52) % POC Hct (42-52) % MCV 89.6 (80-100) fL MCH 29.6 (25-34) pg MCHC 33.0 (32-36) g/dL RDW Std Deviation 46.4 H (36.4-46.3) fL RDW Coeff of Zhanna 14.1 (11.5-14.5) % Plt Count 307 (130-400) K/uL MPV 10.6 H (7.4-10.4) fL Immature Gran % (Auto) 0.3 % Neut % (Auto) 64.1 % Lymph % (Auto) 20.9 % [place] % (Auto) 14.2 % Eos % (Auto) 0.3 % Baso % (Auto) 0.2 % Neut # (Auto) 7.82 H (1.4-6.5) K/uL Lymph # (Auto) 2.56 (1.2-3.4) K/uL [place] # (Auto) 1.74 H (0.11-0.59) K/uL Eos # (Auto) 0.04 (0-0.5) K/uL Baso # (Auto) 0.02 (0-0.2) K/uL Immature Gran # (Auto) 0.04 H (0.00-0.02) K/uL PT 10.7 (9.0-12.0) Seconds INR 1.1 (0.9-1.1) APTT 23.9 (21.0-31.0) Seconds PTT Ratio 0.9 POC Sodium (135-144) mmol/L Sodium 140 (136-145) mmol/L POC Potassium (3.3-5.0) mmol/L Potassium 4.3 (3.5-5.1) mmol/L POC Chloride (101-112) mmol/L Chloride 106 (98-107) mmol/L Carbon Dioxide 27 (21-32) mmol/L POC Total CO2 (24-31) mmol/L Anion Gap 7.0 (3-11) POC Anion Gap (16-25) mmol/L POC BUN (7-18) mg/dl BUN 20 H (7-18) mg/dl Creatinine 0.83 (0.6-1.4) mg/dl POC Creatinine (0.6-1.3) mg/dl Est Cr Clr Drug Dosing Not Reportable Est GFR ( Amer) 114.8 Est GFR (Non-Af Amer) 99.1 BUN/Creatinine Ratio 23.9 H (10-20) Glucose 174 H (70-99) mg/dl POC Glucose (other) (70-99) mg/dl Calcium 8.4 L (8.5-10.1) mg/dl POC Ioniz Calcium German[place] (1.12-1.32) mmol/l Total Bilirubin 0.5 (0.2-1) mg/dl AST 11 L (15-37) U/L ALT 30 (12-78) U/L Alkaline Phosphatase 63 (45-117) U/L Total Creatine Kinase 426 H (39-308) U/L CK-MB (CK-2) 4.4 H (0.5-3.6) ng/ml CK/CKMB % Calc 1.0 (0-3.0) Troponin I < 0.015 (0-0.045) ng/ml NT-Pro-B Natriuret Pep 161 (0-900) pg/ml Total Protein 7.3 (6.4-8.2) gm/dl Albumin 3.5 (3.4-5.0) gm/dl Globulin 3.8 (2.5-4.0) gm/dl Albumin/Globulin Ratio 0.9 (0.9-2) Lipase 84 (73-393) U/L COVID-19 Eval Order SARS-CoV-2, RNA, NAAT (NEGATIVE) 12/23/20 12/23/20 12/23/20 Range/Units 16:09 16:50 16:50 WBC (4.8-10.8) K/uL RBC (4.7-6.1) M/uL Hgb (14.0-18.0) g/dL POC Hgb 12.2 L (14.0-18.0) g/dl Hct (42-52) % POC Hct 36 L (42-52) % MCV (80-100) fL MCH (25-34) pg MCHC (32-36) g/dL RDW Std Deviation (36.4-46.3) fL RDW Coeff of Zhanna (11.5-14.5) % Plt Count (130-400) K/uL MPV (7.4-10.4) fL Immature Gran % (Auto) % Neut % (Auto) % Lymph % (Auto) % [place] % (Auto) % Eos % (Auto) % Baso % (Auto) % Neut # (Auto) (1.4-6.5) K/uL Lymph # (Auto) (1.2-3.4) K/uL [place] # (Auto) (0.11-0.59) K/uL Eos # (Auto) (0-0.5) K/uL Baso # (Auto) (0-0.2) K/uL Immature Gran # (Auto) (0.00-0.02) K/uL PT (9.0-12.0) Seconds INR (0.9-1.1) APTT (21.0-31.0) Seconds PTT Ratio POC Sodium 139 (135-144) mmol/L Sodium (136-145) mmol/L POC Potassium 4.5 (3.3-5.0) mmol/L Potassium (3.5-5.1) mmol/L POC Chloride 104 (101-112) mmol/L Chloride (98-107) mmol/L Carbon Dioxide (21-32) mmol/L POC Total CO2 29 (24-31) mmol/L Anion Gap (3-11) POC Anion Gap 11.0 L (16-25) mmol/L POC BUN 24 H (7-18) mg/dl BUN (7-18) mg/dl Creatinine (0.6-1.4) mg/dl POC Creatinine 0.6 (0.6-1.3) mg/dl Est Cr Clr Drug Dosing Est GFR ( Amer) Est GFR (Non-Af Amer) BUN/Creatinine Ratio (10-20) Glucose (70-99) mg/dl POC Glucose (other) 172 H (70-99) mg/dl Calcium (8.5-10.1) mg/dl POC Ioniz Calcium [place] 1.14 (1.12-1.32) mmol/l Total Bilirubin (0.2-1) mg/dl AST (15-37) U/L ALT (12-78) U/L Alkaline Phosphatase (45-117) U/L Total Creatine Kinase (39-308) U/L CK-MB (CK-2) (0.5-3.6) ng/ml CK/CKMB % Calc (0-3.0) Troponin I (0-0.045) ng/ml NT-Pro-B Natriuret Pep (0-900) pg/ml Total Protein (6.4-8.2) gm/dl Albumin (3.4-5.0) gm/dl Globulin (2.5-4.0) gm/dl Albumin/Globulin Ratio (0.9-2) Lipase (73-393) U/L COVID-19 Eval Order Covid19 IDNow [facility] SARS-CoV-2, RNA, NAAT NEGATIVE (NEGATIVE) Administered Medications Acetaminophen (Acetaminophen 500 Mg Tab) 1,000 mg PO Q8H PRN PRN Reason: Headache Stop: 01/23/21 06:20 Last Admin: 12/25/20 07:50 Dose: 1,000 mg Documented by: [id number] Admin: 12/24/20 16:29 Dose: 1,000 mg Documented by: [id number] Admin: 12/24/20 06:29 Dose: 1,000 mg Documented by: [id number] Amiodarone HCl (Amiodarone 200 Mg Tab) 200 mg PO QAM [facility] Stop: 01/23/21 08:59 Last Admin: 12/25/20 09:13 Dose: 200 mg Documented by: [id number] Admin: 12/24/20 09:37 Dose: 200 mg Documented by: [id number] Amlodipine Besylate (Amlodipine Besylate 5 Mg Tab) 10 mg PO QPM [facility] Stop: 01/22/21 20:59 Last Admin: 12/24/20 21:05 Dose: 10 mg Documented by: [id number] Admin: 12/23/20 20:58 Dose: 10 mg Documented by: [id number] Atenolol (A[facility]ol 25 Mg Tablet) [facility] Stop: 01/24/21 12:59 Last Admin: 12/25/20 13:31 Dose: 25 mg Documented by: [id number] Clopidogrel Bisulfate (Clopidogrel Bisulfate 75 Mg Tab) [facility] Stop: 01/23/21 08:59 Last Admin: 12/25/20 09:13 Dose: 75 mg Documented by: [id number] Admin: 12/24/20 09:37 Dose: 75 mg Documented by: [id number] Doxycycline Hyclate (Doxycycline Hyclate 100 Mg Cap) 100 mg PO BID [facility] Stop: 12/31/20 08:59 Last Admin: 12/25/20 09:13 Dose: 100 mg Documented by: [id number] Admin: 12/24/20 21:05 Dose: 100 mg Documented by: [id number] Admin: 12/24/20 09:36 Dose: 100 mg Documented by: [id number] Famotidine (Famotidine 40 Mg Tablet) 40 mg PO QPM [facility] Stop: 01/22/21 20:59 Last Admin: 12/24/20 21:05 Dose: 40 mg Documented by: [id number] Admin: 12/23/20 20:58 Dose: 40 mg Documented by: [id number] Guaifenesin (Guaifenesin 600 Mg Tabcr) 1,200 mg PO Q12 BUZZ Stop: 01/22/21 20:59 Last Admin: 12/25/20 09:13 Dose: 1,200 mg Documented by: [id number] Admin: 12/24/20 21:04 Dose: 1,200 mg Documented by: [id number] Admin: 12/24/20 09:37 Dose: 1,200 mg Documented by: [id number] Admin: 12/23/20 20:56 Dose: 1,200 mg Documented by: [id number] Ceftriaxone Sodium 2,000 mg/ (Dextrose) 70 mls @ 100 mls/hr IV Q24H [facility]; Protocol Stop: 12/30/20 21:59 Last Infusion: 12/24/20 22:18 Dose: 0 mls/hr Documented by: [id number] Admin: 12/24/20 21:36 Dose: 100 mls/hr Documented by: [id number] Infusion: 12/23/20 23:11 Dose: 0 mls/hr Documented by: [id number] Admin: 12/23/20 22:29 Dose: 100 mls/hr Documented by: [id number] Insulin Aspart (Insulin Aspart 100 Units/Ml 3 Ml Pen) 0 units SC ACHS [facility] Stop: 01/22/21 20:59 Last Admin: 12/25/20 12:43 Dose: 42 units Documented by: [id number] Cosigned by: [id number] Admin: 12/25/20 09:15 Dose: 42 units Documented by: [id number] Cosigned by: [id number] Admin: 12/24/20 21:09 Dose: 23 units Documented by: [id number] Cosigned by: [id number] Admin: 12/24/20 18:30 Dose: 17 units Documented by: [id number] Cosigned by: [id number] Admin: 12/24/20 12:32 Dose: 44 units Documented by: [id number] Cosigned by: [id number] Admin: 12/24/20 09:39 Dose: 25 units Documented by: [id number] Cosigned by: [id number] Admin: 12/23/20 21:04 Dose: 13 units Documented by: [id number] Cosigned by: [id number] Levothyroxine Sodium (Levothyroxine Sodium 175 Mcg Tablet) [facility]: 01/23/21 06:29 Last Admin: 12/25/20 05:34 Dose: 175 mcg Documented by: [id number] Admin: 12/24/20 05:02 Dose: 175 mcg Documented by: [id number] Losartan Potassium (Losartan Potassium 50 Mg Tab) 100 mg PO [facility] Stop: 01/22/21 20:59 Last Admin: 12/24/20 21:05 Dose: 100 mg Documented by: [id number] Admin: 12/23/20 20:58 Dose: 100 mg Documented by: [id number] Multivitamins (Multivitamin Tab) 1 tab PO QPM BUZZ Stop: 01/22/21 20:59 Last Admin: 12/24/20 21:05 Dose: 1 tab Documented by: [id number] Admin: 12/23/20 20:57 Dose: 1 tab Documented by: [id number] Oxycodone HCl (Oxycodone Hcl Ir 5 Mg Tab (Immediate Release)) 5 mg PO Q4H PRN PRN Reason: Pain Stop: 01/06/21 20:13 Last Admin: 12/25/20 00:48 Dose: 5 mg Documented by: [id number] Admin: 12/24/20 12:31 Dose: 5 mg Documented by: [id number] Admin: 12/24/20 05:02 Dose: 5 mg Documented by: [id number] Admin: 12/23/20 23:31 Dose: 5 mg Documented by: [id number] Pantoprazole Sodium (Pantoprazole 40 Mg Tab) 40 mg PO QAM [facility] Stop: 01/23/21 08:59 Last Admin: 12/25/20 09:12 Dose: 40 mg Documented by: [id number] Admin: 12/24/20 09:36 Dose: 40 mg Documented by: [id number] Polyethylene Glycol (Polyethylene (Miralax) 17 Gm Pack) 17 gm PO DAILY BUZZ Stop: 01/24/21 09:59 Last Admin: 12/25/20 09:42 Dose: 17 gm Documented by: [id number] Rosuvastatin Calcium (Rosuvastatin Calcium 20 Mg Tab) 40 mg PO QPM BU[facility] Stop: 01/22/21 20:59 Last Admin: 12/23/20 20:58 Dose: 40 mg Documented by: [id number] Warfarin Sodium (Warfarin Sod 7.5 Mg Tab) 7.5 mg PO DAILY@1600 BU[facility] Stop: 01/23/21 15:59 Last Admin: 12/24/20 16:29 Dose: 7.5 mg Documented by: [id number] Discontinued Medications Albuterol (Albut/Ipratrop 3mg/0.5mg Neb 3 Ml Vial) 12 ml NEB ONE ONE Stop: 12/23/20 16:10 Last Admin: 12/23/20 16:54 Dose: 12 ml Documented by: [id number] Albuterol (Albut/Ipratrop 3mg/0.5mg Neb 3 Ml Vial) 3 ml NEB QIDR BUZZ Stop: 01/23/21 06:59 Last Admin: 12/24/20 11:11 Dose: 3 ml Documented by: [id number] Admin: 12/24/20 07:45 Dose: 3 ml Documented by: [id number] Docusate Sodium (Docusate Sodium 100 Mg Cap) 100 mg PO 1000 ONE Stop: 12/25/20 10:01 Last Admin: 12/25/20 09:42 Dose: 100 mg Documented by: [id number] Heparin Sodium/Dextrose (Heparin Iv Standard *No* Bolus) 1 ea IV ONE ONE; Pro tocol Stop: 12/23/20 16:38 Last Admin: 12/23/20 17:44 Dose: Not Given Documented by: [id number] Hydromorphone HCl (Hydromorphone Inj 1 Mg/Ml Syringe) 1 mg IV Q15M PRN PRN Reason: Pain Stop: 01/06/21 16:07 Last Admin: 12/23/20 17:09 Dose: 1 mg Documented by: [id number] Hydromorphone HCl (Hydromorphone Inj 1 Mg/Ml Syringe) 1 mg IV NOW STA Stop: 12/23/20 16:33 Last Admin: 12/23/20 16:33 Dose: 1 mg Documented by: [id number] Levofloxacin/Dextrose (Levaquin/D5w) 750 mg in 150 mls @ 100 mls/hr IV NOW STA Stop: 12/23/20 18:05 Last Infusion: 12/23/20 21:27 Dose: 0 mls/hr Documented by: [id number] Admin: 12/23/20 19:56 Dose: 100 mls/hr Documented by: [id number] Aztreonam 2,000 mg/ Dextrose 110 mls @ 100 mls/hr IV NOW STA; Protocol Stop: 12/23/20 17:41 Last Infusion: 12/23/20 19:54 Dose: 0 mls/hr Documented by: [id number] Admin: 12/23/20 18:40 Dose: 100 mls/hr Documented by: [id number] Heparin Sodium/Dextrose (Heparin Sodium/Dextrose) 25,000 units in 500 mls @ 37 mls/hr IV .[id number] [facility]; Protocol Stop: 01/22/21 16:44 Last Titration: 12/23/20 20:20 Dose: 0 units/hr, 0 mls/hr Documented by: [id number] Cosigned by: [id number] Admin: 12/23/20 17:41 Dose: 1,850 units/hr, 37 mls/hr Documented by: [id number] Cosigned by: [id number] Sodium Chloride (Nss) 500 mls @ 80 mls/hr IV .Q6H15M BUZZ Stop: 12/24/20 15:44 Last Infusion: 12/24/20 16:32 Dose: 0 mls/hr Documented by: [id number] Admin: 12/24/20 09:43 Dose: 80 mls/hr Documented by: [id number] Furosemide 20 mg/ Syringe 2 mls @ 4 mls/min IV ONE ONE Stop: 12/25/20 13:01 Last Admin: 12/25/20 13:30 Dose: 4 mls/min Documented by: [id number] Insulin Glargine (Insulin Glargine Solostar 100 Units/Ml 3 Ml Pen) 50 units SC [facility] Stop: 01/22/21 20:59 Last Admin: 12/24/20 21:07 Dose: 50 units Documented by: [id number] Cosigned by: [id number] Admin: 12/23/20 21:03 Dose: 50 units Documented by: [id number] Cosigned by: [id number] Insulin Glargine (Insulin Glargine Solostar 100 Units/Ml 3 Ml Pen) [facility] Protocol Stop: 01/23/21 08:59 Last Admin: 12/25/20 09:15 Dose: 45 units Documented by: [id number] Cosigned by: [id number] Admin: 12/24/20 09:38 Dose: 45 units Documented by: [id number] Cosigned by: [id number] Ioversol (Optiray 320 125ml) 120 ml IV ONCE ONE Stop: 12/23/20 17:27 Last Admin: 12/23/20 17:27 Dose: 120 ml Documented by: [id number] Ondansetron HCl (Ondansetron Inj 2 Mg/Ml 2 Ml Vial) 4 mg IV NOW STA Stop: 12/23/20 16:09 Last Admin: 12/23/20 17:09 Dose: 4 mg Documented by: [id number] Discharge Plan Visit Data Chief Complaint: Shortness of Breath/Dyspnea Stated Complaint: SOB - JUST HAD SHOULDER SURGERY ED Provider: Haim Sevilla Discharge Problem: Hypoxia, Pneumonia, Elevated hemidiaphragm, DVT prophylaxis Patient Disposition: Admitted As Inpatient Discharge Instructions Interventions: ED Discharge Assessment Last Done: 12/23/20 19:22 Discharge Problem: Pneumonia Qualifiers: Pneumonia type: due to unspecified organism Laterality: unspecified laterality Lung location: unspecified part of lung Qualified Code(s): J18.9 - Pneumonia, unspecified organism
[2020-12-25] MEDS: ROSUVASTATIN CALCIUM 20 MG TAB PO SCH (16:13)
[2020-12-25] MEDS ORDERED: ONDANSETRON INJ 2 MG/ML 2 ML VIAL IV PRN (17:20)
[2020-12-25] MEDS ORDERED: bisacodyL 5 MG TABEC PO ONE (17:23)
[2020-12-25] MEDS: WARFARIN SOD 7.5 MG TAB PO SCH (17:32)
[2020-12-25] MEDS: DOCUSATE SODIUM/SENNA 50/8.6MG TAB PO SCH (17:33)
[2020-12-25] MEDS: LOSARTAN POTASSIUM 50 MG TAB PO SCH (20:42)
[2020-12-25] MEDS: MULTIVITAMIN TAB PO SCH (20:43)
[2020-12-25] MEDS: amLODIPine BESYLATE 5 MG TAB PO SCH (20:43)
[2020-12-25] MEDS: FAMOTIDINE 40 MG TABLET PO SCH (20:43)
[2020-12-25] MEDS: cefTRIAXone SODIUM 2,000 MG in DEXTROSE 5% 50 ML IV SCH (20:44)
[2020-12-25] MEDS ORDERED: INSULIN GLARGINE SOLOSTAR 100 UNITS/ML 3 ML PEN SC SCH ×2 (21:00)
[2020-12-26] MEDS ORDERED: INSULIN ASPART 100 UNITS/ML 3 ML PEN SC SCH (02:00)
[2020-12-26] MEDS ORDERED: SODIUM CHLORIDE 0.65% NA SOLN 45 ML (OCEAN) ONE (04:08)
[2020-12-26] MEDS: LEVOTHYROXINE SODIUM 175 MCG TABLET PO SCH (05:21)
[2020-12-26 06:27] LABS: Basophils # (auto) 0.03 K/uL (0-0.2); Basophils % (auto) 0.3 %; Eosinophils # (auto) 0.29 K/uL (0-0.5); Eosinophils % (auto) 3.2 %; Hematocrit (blood only) 37.1 % (42-52); Hemoglobin 12.5 g/dL (14.0-18.0); Immature Granulocytes # (auto) 0.03 K/uL (0.00-0.02); Immature Granulocytes % (auto) 0.3 %; Lymphocytes # (auto) 2.17 K/uL (1.2-3.4); Lymphocytes % (auto) 24.1 %; Mean Corpuscular Hemoglobin 29.7 pg (25-34); Mean Corpuscular Hgb Conc 33.7 g/dL (32-36); Mean Corpuscular Volume 88.1 fL (80-100); Mean Platelet Volume 9.8 fL (7.4-10.4); Monocytes # (auto) 1.15 K/uL (0.11-0.59); Monocytes % (auto) 12.8 %; Neutrophils # (auto) 5.32 K/uL (1.4-6.5); Neutrophils % (auto) 59.3 %; Platelet Count 333 K/uL (130-400); RDW Coefficient of Variation 13.6 % (11.5-14.5); RDW Standard Deviation 43.9 fL (36.4-46.3); Red Blood Count 4.21 M/uL (4.7-6.1); White Blood Count 8.99 K/uL (4.8-10.8)
[2020-12-26 06:34] LABS: INR 1.3 (0.9-1.1); Prothrombin Time 12.5 Seconds (9.0-12.0)
[2020-12-26 06:57] LABS: BUN Creatinine Ratio 22.5 (10-20); Est GFR (African American) 117.8; Est GFR (Non-African American) 101.6
--- NOTE | 2020-12-26 07:30 | XRay Report ---
XR chest 1V portable HISTORY: 55 years-old Male f/u pneumonia acute shortness of breath with pneumonia COMPARISON: Chest radiograph 12/25/2020, CT chest 12/23/2020 TECHNIQUE: Portable AP view of the chest FINDINGS: Cardiac silhouette is enlarged. Partially imaged left shoulder arthroplasty. There are persistent lef t lung base opacities. Mild linear scarring/atelectasis of the right midlung. No pneumothorax, large pleural effusion or overt pulmonary edema. Degenerative changes of the right shoulder and spine. IMPRESSION: Persistent left lung base opacities suggestive of atelectasis versus pneumonia. ACT 112: Negative or not required by law. The above report was generated using voice recognition software. It may contain grammatical, syntax o r spelling errors. Electronically signed by: Vince Alonzo M.D. 12/26/2020 7:28 AM
[2020-12-26] MEDS: POLYETHYLENE (MIRALAX) 17 GM PACK PO SCH (07:58)
[2020-12-26] MEDS: DOXYCYCLINE HYCLATE 100 MG CAP PO SCH ×2 (07:59→20:59)
[2020-12-26] MEDS: CLOPIDOGREL BISULFATE 75 MG TAB PO SCH (07:59)
[2020-12-26] MEDS: PANTOprazole 40 MG TAB PO SCH (07:59)
[2020-12-26] MEDS: AMIODARONE 200 MG TAB PO SCH (08:00)
[2020-12-26] MEDS: guaiFENesin 600 MG TABCR PO SCH ×2 (08:01→20:57)
[2020-12-26] MEDS: DOCUSATE SODIUM/SENNA 50/8.6MG TAB PO SCH (08:02)
[2020-12-26] MEDS: ATENOLOL 25 MG TABLET PO SCH (08:02)
--- NOTE | 2020-12-26 08:55 | Hospitalist Progress Note ---
Date of Service December 26, 2020 Assessment & Plan (1) Pneumonia: * Aztreonam and Levaquin given in the ER due to unknown penicillin allergy as a child but no anaphylaxis therefore will switch to ceftriaxone and doxycycline. * COVID negative. Did not check RSV/influenza on admission * Blood cultures no growth to date * Sputum culture normal susan * --> Suspect predisposed due to T2DM, tracheomalacia, possible paralyzed hemidiaphragm and recent intubation. * Managing for possible) Gram-negative pneumonia due to recent endotracheal intubation and interscalene block, a complication of care -- continued coverage with Ceftriaxone and Doxy (day 4 of therapy) -- sent in rx for Augmentin/Doxy but will need to decrease length by one day as he is staying in the hospital * --> Given recent intubation consider broadening spectrum if deteriorating * Nebs changed to prn, continue incentive spirometer and flutter valve * Supplemental O2 as needed -- now on ROOM AIR, 92% CXR today with persistent left lung base opacities suggestive of atelectasis vs pneumonia --> Weight obtained and up. With edema. Given dose of 20mg IV lasix on 12/25--> improved and utilizing stockings. BNP wnl * WBC 12.2k--> 8.9k, afebrile but self reported temp 99F * Labs in AM (2) Elevated hemidiaphragm: * Suspected secondary to interscalene block given for recent surgery * Incentive spirometry * Flutter valve * Guaifenesin * Follow up sniff test as outpatient with pulmonology -- will need set up f/u appt (3) Status post reverse arthroplasty of left shoulder: * Continue with sling -- dressing changed 12/24 * Follow up routine as previously scheduled (4) Hypoxia: * without respiratory distress on admission * Suspected secondary to PNA * Low suspicion of PE given negative CTA (although not adequate to assess smaller pulmonary arteries he will be therapeutic eventually on warfarin regardless, would not recommend heparin bridge therefore this was discontinued) * Aim O2 sats > 92% * Stable on room air but did drop to 84% last evening * 2 step without need for supplemental O2 --> will need repeated tomorrow prior to hopeful discharge (5) Obstructive sleep apnea: * BiPAP 21/07 * Had not been utilizing --> to bring in his mask tonight (6) Paroxysmal atrial fibrillation: * Currently in NSR * Continue amiodarone 200mg PO daily (been on since ) * Anticoagulation with warfarin. No bridging necessary and risk of causing hematoma from operation risk outweighs benefit. * INR 1.3 -- continue coumadin and repeat INR in AM (give extra 5mg tonight) (7) GERD (gastroesophageal reflux disease): * Pantoprazole 40mg PO daily * Famotidine 40mg PO HS (8) HTN (hypertension): * Continue his usual medication regimen with losartan, atenolol and amlodipine * BP stable 146/71 -- had not previously been ordered his atenolol but was resumed on 12/25 with improvement of BPs --also with some shoulder discomfort contributing to elevated pressures * Continue to monitor (9) Hypothyroidism: * TSH 0.35 in April 2020, Repeating TSH w reflex T4 in AM given hyponatremia and constipation * Continue levothyroxine 175 mcg PO daily (10) Type 2 diabetes, uncontrolled, with diabetic cataract: * Hemoglobin A1C 8.8 in November. No need to repeat this. * Consulted pharmacy --> rec for metformin + basal+ prandial +/- B12 supplementation. Consideration for additional GLP1/SGLT2 infectable for further control -- will discuss in AM but likely rec f/u with PCP for further adjusments as he has had adverse reactions to Trulicity, Victoza in the past (dizziness/extreme disorientation/GI upset/constipation) (11) CAD (coronary artery disease), w[place] coronary artery: * CAD status post LAD PCI * Follows locally -- last seen by Priya Simms earlier this year prior to his shoulder surgery * Last ECHO Oct 2018 with slightly more hypertrophy compared to 2017 but LV systolic function normal, normal diastolic function. BNP wnl * Continue Plavix, statin on hold for elevated CK on admission, atenolol 25mg, losartan 100mg daily (12) Tracheomalacia: * BiPAP HS as below --> had not been using * Avoid steroids (13) DVT prophylaxis: * SCDs, * continue warfarin with INR daily Elevated CK * CK 426 on admission. Holding statin. * Repeat 304 -- resumed statin Left Reverse shoulder POD #5 s/p reverse shoulder with Dr. Lowery Increased drainage today/erythema Will consult for eval during admission No imaging unless ordered by Ortho No drainable fluid appreciated --> unclear in instructions about "stopping plavix x 7 days, warfarin x 5 days then taking 81mg aspirin when plavix stops" --> has continued on plavix and coumadin. sub therapeutic INR. Not on ASA Dispo: continued inpatient stay Admission and Anticipated Discharge Date Admission Date: December 23, 2020 Subjective Patient evaluated this morning. Shortness of breath improved but still present. Low grade temp 99F reported by patient, feels warm. Dropped to 84% last night while awake and reported "a little short of breath". Decreased edema to b/l extremities and utilizing shirin hose. Shoulder incision with some drainage but no increased pain or purulant material -- will ask ortho to see while inpatient. Will ask nursing to have bring in his BiPap as he does not like our mask. Had large bowel movement this morning -- no blood reported. No chills, chest pain, abd discomfort improved and nausea resolved after having a bowel movement. To stay overnight for another day of abx and hopeful discharge tomorrow. Review of Systems Review of Systems: All systems reviewed & are unremarkable except as noted in HPI & below Physical Exam Constitutional: well developed, well nourished and + morbidly obese; no acute distress Eyes: + anicteric sclerae; normal pupil size ENMT: external ear and nose normal, oropharynx normal Neck: trachea midline Respiratory: normal respiratory effort and able to speak in complete sentences; no respiratory distress, no labored breathing, no retractions, does not use accessory muscles, no cough, expiratory phase not prolonged and no stridor Auscultation: + diminished lung sounds (Left base) and + crackles (Left base); no wheezes on ROOM AIR Cardiovascular: Rate/Rhythm: regular rate and regular rhythm Heart Sounds: no murmur Vessels: no JVD Extremities: normal capillary refill and + pedal edema (1+ b/l); no calf tenderness Gastrointestinal (Abdomen): normal bowel sounds, soft, nontender, no hepatosplenomegaly Inspection/Auscultation: + abdomen distended Musculoskeletal: Left arm in sling NV intact distal to operation site radial pulses palpable silverlon with serosanginous drainage, no warmth, some erythema no purulant drainage or culture able to be obtained Skin: no rashes, warm and dry Neurologic: moves all extremities and awake; not confused Psychiatric: Orientation: alert and oriented x 3 Genitourinary: no CVA tenderness Results & Data Results & Data ([facility]) Vital Signs (Past 12 Hours) Vital Signs Temp Pulse Resp BP Pulse Ox 12/26/20 07:30 37.3 C 63 18 146/71 H 92 12/25/20 22:34 37.2 C 87 20 142/79 H 93 12/25/20 22:30 84 L Laboratory Results 12/26/20 12/26/20 12/26/20 Range/Units 08:23 06:13 06:13 WBC (4.8-10.8) K/uL RBC (4.7-6.1) M/uL Hgb (14.0-18.0) g/dL Hct (42-52) % MCV (80-100) fL MCH (25-34) pg MCHC (32-36) g/dL RDW Std Deviation (36.4-46.3) fL RDW Coeff of Zhanna (11.5-14.5) % Plt Count (130-400) K/uL MPV (7.4-10.4) fL Immature Gran % (Auto) % Neut % (Auto) % Lymph % (Auto) % Meeker % (Auto) % Eos % (Auto) % Baso % (Auto) % Neut # (Auto) (1.4-6.5) K/uL Lymph # (Auto) (1.2-3.4) K/uL Meeker # (Auto) (0.11-0.59) K/uL Eos # (Auto) (0-0.5) K/uL Baso # (Auto) (0-0.2) K/uL Immature Gran # (Auto) (0.00-0.02) K/uL PT 12.5 H (9.0-12.0) Seconds INR 1.3 H (0.9-1.1) Sodium 135 L (136-145) mmol/L Potassium 4.0 (3.5-5.1) mmol/L Chloride 102 (98-107) mmol/L Carbon Dioxide 29 (21-32) mmol/L Anion Gap 4.0 (3-11) BUN 18 (7-18) mg/dl Creatinine 0.78 (0.6-1.4) mg/dl Est Cr Clr Drug Dosing 157.0 ml/min Est GFR ( Amer) 117.8 Est GFR (Non-Af Amer) 101.6 BUN/Creatinine Ratio 22.5 H (10-20) Glucose 158 H (70-99) mg/dl POC Glucose 145 H (70-99) mg/dl Calcium 9.0 (8.5-10.1) mg/dl 12/26/20 12/26/20 12/25/20 Range/Units 03:13 02:02 20:43 WBC 8.99 (4.8-10.8) K/uL RBC 4.21 L (4.7-6.1) M/uL Hgb 12.5 L (14.0-18.0) g/dL Hct 37.1 L (42-52) % MCV 88.1 (80-100) fL MCH 29.7 (25-34) pg MCHC 33.7 (32-36) g/dL RDW Std Deviation 43.9 (36.4-46.3) fL RDW Coeff of Zhanna 13.6 (11.5-14.5) % Plt Count 333 (130-400) K/uL MPV 9.8 (7.4-10.4) fL Immature Gran % (Auto) 0.3 % Neut % (Auto) 59.3 % Lymph % (Auto) 24.1 % Meeker % (Auto) 12.8 % Eos % (Auto) 3.2 % Baso % (Auto) 0.3 % Neut # (Auto) 5.32 (1.4-6.5) K/uL Lymph # (Auto) 2.17 (1.2-3.4) K/uL Meeker # (Auto) 1.15 H (0.11-0.59) K/uL Eos # (Auto) 0.29 (0-0.5) K/uL Baso # (Auto) 0.03 (0-0.2) K/uL Immature Gran # (Auto) 0.03 H (0.00-0.02) K/uL PT (9.0-12.0) Seconds INR (0.9-1.1) Sodium (136-145) mmol/L Potassium (3.5-5.1) mmol/L Chloride (98-107) mmol/L Carbon Dioxide (21-32) mmol/L Anion Gap (3-11) BUN (7-18) mg/dl Creatinine (0.6-1.4) mg/dl Est Cr Clr Drug Dosing ml/min Est GFR ( Amer) Est GFR (Non-Af Amer) BUN/Creatinine Ratio (10-20) Glucose (70-99) mg/dl POC Glucose 156 H 102 H (70-99) mg/dl Calcium (8.5-10.1) mg/dl 12/25/20 12/25/20 12/25/20 Range/Units 18:59 17:31 11:59 WBC (4.8-10.8) K/uL RBC (4.7-6.1) M/uL Hgb (14.0-18.0) g/dL Hct (42-52) % MCV (80-100) fL MCH (25-34) pg MCHC (32-36) g/dL RDW Std Deviation (36.4-46.3) fL RDW Coeff of Zhanna (11.5-14.5) % Plt Count (130-400) K/uL MPV (7.4-10.4) fL Immature Gran % (Auto) % Neut % (Auto) % Lymph % (Auto) % Meeker % (Auto) % Eos % (Auto) % Baso % (Auto) % Neut # (Auto) (1.4-6.5) K/uL Lymph # (Auto) (1.2-3.4) K/uL Meeker # (Auto) (0.11-0.59) K/uL Eos # (Auto) (0-0.5) K/uL Baso # (Auto) (0-0.2) K/uL Immature Gran # (Auto) (0.00-0.02) K/uL PT (9.0-12.0) Seconds INR (0.9-1.1) Sodium (136-145) mmol/L Potassium (3.5-5.1) mmol/L Chloride (98-107) mmol/L Carbon Dioxide (21-32) mmol/L Anion Gap (3-11) BUN (7-18) mg/dl Creatinine (0.6-1.4) mg/dl Est Cr Clr Drug Dosing ml/min Est GFR ( Amer) Est GFR (Non-Af Amer) BUN/Creatinine Ratio (10-20) Glucose (70-99) mg/dl POC Glucose 91 86 200 H (70-99) mg/dl Calcium (8.5-10.1) mg/dl Diagnostic Findings XR chest 1V portable HISTORY: 55 years-old Male f/u pneumonia acute shortness of breath with pneumonia COMPARISON: Chest radiograph 12/25/2020, CT chest 12/23/2020 TECHNIQUE: Portable AP view of the chest FINDINGS: Cardiac silhouette is enlarged. Partially imaged left shoulder arthroplasty. There are persistent left lung base opacities. Mild linear scarring/atelectasis of the right midlung. No pneumothorax, large pleural effusion or overt pulmonary edema. Degenerative changes of the right shoulder and spine. IMPRESSION: Persistent left lung base opacities suggestive of atelectasis versus pneumonia. PG Care Time/CCT Total # of Minutes Spent Total Time Spent with Patient: Total time spent is greater than 50% in coordination of care (as documented) at patient's floor/unit and/or counseling patient: Coding Level of Care Code 95109 Subseq Hosp Care Lvl 3 Diagnoses Pneumonia J18.9 Laterality: unspecified laterality Lung location: unspecified part of lung Pneumonia type: due to unspecified organism Elevated hemidiaphragm J98.6 Status post reverse arthroplasty of left shoulder Z96.612 Hypoxia R09.02 Obstructive sleep apnea G47.33 Paroxysmal atrial fibrillation I48.0 GERD (gastroesophageal reflux disease) K21.9 HTN (hypertension) I10 Hypothyroidism E03.9 Type 2 diabetes, uncontrolled, with diabetic cataract E11.36; E11.65 CAD (coronary artery disease), [place] coronary artery I25.10 Tracheomalacia J39.8 DVT prophylaxis Z29.9 (1) Pneumonia Laterality: unspecified laterality Lung location: unspecified part of lung Pneumonia type: due to unspecified organism Qualified Code(s): J18.9 - Pneumonia, unspecified organism
[2020-12-26] MEDS: INSULIN ASPART 100 UNITS/ML 3 ML PEN SC SCH ×4 (08:58→20:54)
[2020-12-26] MEDS ORDERED: INSULIN GLARGINE SOLOSTAR 100 UNITS/ML 3 ML PEN SC SCH ×2 (09:00→21:00)
--- NOTE | 2020-12-26 13:56 | Pharmacy Report ---
Pharmacy Glycemic Short Note 2 - Date of Service December 26, 2020 - Glycemic Short BSG Results (Last 24 hours): 12/25/20 12/25/20 12/25/20 17:31 18:59 20:43 Glucose POC Glucose 86 91 102 H 12/26/20 12/26/20 12/26/20 02:02 06:13 08:23 Glucose 158 H POC Glucose 156 H 145 H 12/26/20 12:06 Glucose POC Glucose 241 H OUTPATIENT ANTIDIABETIC REGIMEN: * Basaglar 30 units Qam, 50 units Qpm, Novolog 30 units TIDM, metformin 1 gm bid ASSESSMENT: 12/26 * Patient received total of 164 units of insulin yesterday, of which 80 units were basal insulin * Fasting BSG 158 mg/dL - will provide scale for HS Lantus in case PO intake decreases * BSGs trending down very quickly yesterday, feel related to too tight CR, will loosen at lunch 12/25 * Pt has received 204 units of insulin over the past 24hrs * 95 units of basal with Lantus * 109 units of bolus with NovoLog * BSGs [phone] mg/dl * AM fasting BSG is close to goal range at 145 mg/dl this AM. AM fasting trending downwards from yesterday 189 --> 145 mg/dl. Will not make any changes to basal insulin today. * Post-prandial BSGs elevated - more CHO coverage needed. * Will decrease CF since increasing CHO ratio as only more CHO coverage needed. BSG is near goal range when both CF + CR given. PLAN FOR INPATIENT GLYCEMIC CONTROL: * Hold outpatient oral diabetes medications * Basal insulin * Lantus 45 units Qam * Lantus 40-50 units QPM * Bolus insulin * NovoLog per scale ACHS or Q6hrs while NPO * Goal Range: Low 110 mg/dL - High 140 mg/dL * Correction Factor: 7 mg/dL/unit * Nutritional / Prandial insulin per carb ratio of 1 unit per 2grams CHO consumed
[2020-12-26] MEDS ORDERED: WARFARIN SOD 5 MG TAB PO ONE (16:00)
[2020-12-26] MEDS: WARFARIN SOD 7.5 MG TAB PO SCH (16:42)
--- NOTE | 2020-12-26 17:59 | Orthopedic Consultation ---
Date of Service December 26, 2020 Assessment & Plan (1) Status post reverse arthroplasty of left shoulder: Evaluation of the wound today shows no concerning drainage. He has expected ecchymosis and edema about the incision for this point postop at [address] Lowery and/or I will continue to follow his progress and the appearance of the wound. For now, recommend dressing changes once daily or as needed. History of Present Illness Reason for Consultation: Left shoulder arthroplasty wound drainage Requesting Physician: . Attending Physician: Leon Barajas MD 55-year-old male on chronic anticoagulation for atrial fibrillation underwent a left shoulder reverse arthroplasty by my partner Dr. Lowery on December 21, 2020. He was readmitted for fatigue and shortness of breath and was found to have pneumonia. During treatment, he was found to have excessive dressing onto his postop surgical dressing which is typically left in place for 7 days. The dressing has since been removed and exchanged. We were consulted for evaluation of this drainage. He has restarted his anticoagulation. The patient denies any fevers or chills today. He states that he feels better since being admitted by our hospitalist service and being treated for the pneumonia with parenteral antibiotics. Allergies Allergy/AdvReac Type Severity Reaction Status Date / Time canagliflozin [From Invokana] Allergy Severe Rash Verified 12/23/20 18:48 Penicillins Allergy Unknown Unknown Verified 12/23/20 18:48 dulaglutide [From Trulicity] Allergy Gastrointestinal Verified 12/23/20 18:48 upset,constipation, gastric discomfort liraglutide [From Victoza] AdvReac Severe Dizziness, Verified 12/23/20 18:48 extremely disoriented rivaroxaban [From Xarelto] AdvReac Intermediate epistaxis Verified 12/23/20 1 8:48 Home Medications Medication Instructions Recorded Confirmed Type fluticasone propionate 50 2 spray INTRANASAL BID PRN #1 gm 03/07/19 12/23/20 History mcg/actuation nasal spray,suspension losartan 100 mg PO HS 06/05/20 12/23/20 History clopidogrel 75 mg tablet 75 mg PO QAM #90 tab 07/04/20 12/23/20 Rx amiodarone 200 mg tablet 200 mg PO QAM #90 tab 07/17/20 12/23/20 Rx clotrimazole-betamethasone 1 1 applic TOPICAL BID PRN #30 g 07/19/20 12/23/20 Rx %-0.05 % topical cream atenolol 25 mg tablet 25 mg PO QAM #30 tab 08/27/20 12/23/20 Rx metaxalone 800 mg tablet 800 mg PO TID PRN #30 tab 09/04/20 12/23/20 Rx Basaglar KwikPen U-100 Insulin 30 unit SUBCUT QAM 11/28/20 12/23/20 History Basaglar KwikPen U-100 Insulin 50 unit SUBCUT QPM 11/28/20 12/23/20 History amlodipine 10 mg PO QPM 11/28/20 12/23/20 History artificial tears with lanolin 1 applic OPHTHALMIC (EYE) BID 11/28/20 12/23/20 History famotidine 40 mg PO QPM 11/28/20 12/23/20 History multivitamin 1 tab PO QPM 11/28/20 12/23/20 History pantoprazole 40 mg PO QAM 11/28/20 12/23/20 History rosuvastatin 40 mg PO QPM 11/28/20 12/23/20 History warfarin 7.5 mg PO QAM 11/28/20 12/23/20 History beclomethasone dipropionate [Qvar 1 inh INHALATION BID PRN 12/23/20 12/23/20 History RediHaler] hydrocortisone [Proctosol HC] 1 appln AL DAILY PRN 12/23/20 12/23/20 History insulin aspart U-100 [Novolog 30 unit SUBCUT TID 12/23/20 12/23/20 History Flexpen U-100 Insulin] levothyroxine [Euthyrox] 175 mcg PO QAM 12/23/20 12/23/20 History metformin 1,000 mg PO BID 12/23/20 12/23/20 History oxycodone 5 mg PO Q4H PRN 12/23/20 12/23/20 History sildenafil [Viagra] 100 mg PO DAILY PRN 12/23/20 12/23/20 History Dexcom G6 Sensor #3 ea NS 12/24/20 Rx Dexcom G6 Transmitter #1 ea NS 12/24/20 Rx albuterol sulfate [ProAir HFA] 1 - 2 puff INH QID PRN #6.7 g 12/25/20 Rx amoxicillin-pot clavulanate 1 tab PO BID 5 Days #10 tab 12/25/20 Rx doxycycline hyclate 100 mg PO BID 5 Days #10 tab 12/25/20 Rx Past Med/Surg History Medical History Anticoagulated on Coumadin Rivas esophagus Bunion, right foot CAD (coronary artery disease), [place] coronary artery S/P PCI to LAD with NSTEMI 09/12/17. Chronic back pain Constipation Dyslipidemia Erectile dysfunction GERD (gastroesophageal reflux disease) Hearing deficit History of colon polyps History of sarcoidosis Pt follows with pulm but cant recall name of provider HTN (hypertension) Hx of non-ST elevation myocardial infarction (NSTEMI) 09/2017 Hypothyroidism Obstructive sleep apnea cpap, using for about 4-5 hrs per night Osteoarthritis Paroxysmal atrial fibrillation On amiodarone, warfarin. Prepatellar bursitis, left knee Rosacea Rotator cuff tear, right Type 2 diabetes, uncontrolled, with diabetic cataract Surgical History History of anesthesia reaction slow to wake up History of bronchoscopy History of cardiac cath 09/2017 with 1 stent @ [facility] History of colonoscopy History of esophagogastroduodenoscopy (EGD) History of nasal cauterization History of total left hip replacement S/P coronary artery stent placement 09/2017 Status post reverse arthroplasty of left shoulder (~12/2020) Family History Brother Family history of diabetes mellitus Hypertension Sister Family history of diabetes mellitus Hypertension Mother Family history of diabetes mellitus Hypertension Father Family history of diabetes mellitus Hypertension Prostate cancer Other No family history of adverse response to anesthesia Social History Smoking Status: Former smoker Tobacco Type: Cigarettes packs per day: 0.5; Years Smoked: 3; Smoking End Date: ; Second Hand Exposure: No; Hx Alcohol Use: No Hx Substance Use: No Preferred Language: Irish Communication Ability: Effective [employer] Required: No Beliefs That Will Affect Care: None Current Living Situation: Spouse current occupational status: employed 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 Physical Exam General: Mr. Jay sits in the bedside chair and appears comfortable. His accompanies him here in the room. The nurse was also present. Nurse stated that she had change the dressing earlier today. Left upper extremity: The left chest wall and arm has extensive ecchymosis that is settling out from the incision site. The chest wall ecchymosis has a sharp demarcation at the place where the sling strap comes over the other shoulder. He has edema throughout the extremity and about the incision. Skin is yellow and only mildly tense. The wound is well approximated with krissy without erythema or drainage. He has minimally tender about the incision site and I could not express any more fluid through the approximated incision. He is neurovascularly intact. Constitutional well developed and well nourished; no acute distress and not intoxicated appearing ENMT external ear and nose normal, oropharynx normal Respiratory normal respiratory effort; no respiratory distress Cardiovascular Extremities: normal capillary refill; no edema Skin no rashes, warm and dry Psychiatric A+Ox3, euthymic affect Results & Data Results & Data Laboratory Results . H & H 12/23/20 12/24/20 12/25/20 Range/Units 15:55 06:02 07:59 Hgb 12.5 L 12.1 L 12.4 L (14.0-18.0) g/dL Hct 37.9 L 36.9 L 37.1 L (42-52) % 12/26/20 Range/Units 03:13 Hgb 12.5 L (14.0-18.0) g/dL Hct 37.1 L (42-52) % Coagulation 12/23/20 12/24/20 12/25/20 Range/Units 15:55 06:02 07:59 INR 1.1 1.2 H 1.2 H (0.9-1.1) 12/26/20 Range/Units 06:13 INR 1.3 H (0.9-1.1) Laboratory Tests 12/26/20 03:13 WBC 8.99 Diagnostic Findings Radiographs not indicated at this time. PG Care Time/CCT Total # of Minutes Spent Total Time Spent with Patient: Total time spent is greater than 50% in coordin ation of care (as documented) at patient's floor/unit and/or counseling patient: Coding Level of Care Code None Diagnoses Status post reverse arthroplasty of left shoulder Z96.612
[2020-12-26] MEDS: LOSARTAN POTASSIUM 50 MG TAB PO SCH (20:58)
[2020-12-26] MEDS: ROSUVASTATIN CALCIUM 20 MG TAB PO SCH (20:58)
[2020-12-26] MEDS: MULTIVITAMIN TAB PO SCH (20:58)
[2020-12-26] MEDS: FAMOTIDINE 40 MG TABLET PO SCH (20:59)
[2020-12-26] MEDS: amLODIPine BESYLATE 5 MG TAB PO SCH (20:59)
[2020-12-26] MEDS: cefTRIAXone SODIUM 2,000 MG in DEXTROSE 5% 50 ML IV SCH (21:46)
[2020-12-27] MEDS: ACETAMINOPHEN 500 MG TAB PO PRN (06:09)
[2020-12-27] MEDS: LEVOTHYROXINE SODIUM 175 MCG TABLET PO SCH (06:10)
--- NOTE | 2020-12-27 07:03 | Orthopedic Progress Note ---
Date of Service December 27, 2020 Assessment & Plan (1) Status post reverse arthroplasty of left shoulder: Overall he is doing fairly well. Is currently hospitalized due to a pneumonia. His incision looks fine. He can do daily dry dressing changes. He is orthopedically stable for discharge to home when medically ready. He will follow-up with orthopedics in 2 weeks as previously scheduled. Maxim Boggs was seen and examined at bedside this morning. Overall he is doing fairly well. He sat up in chair. He has had no drainage from his dressing since was changed yesterday. He has no complaints with his shoulder.. Review of Systems All systems reviewed & are unremarkable except as noted in HPI & below. Physical Exam Physical examination of his left shoulder, there is little bit of ecchymosis around his pec region and in his axilla. The dressing is clean and dry without any drainage from his incision.. Results & Data Results & Data Laboratory Results . Diagnostic Findings . PG Care Time/CCT Total # of Minutes Spent Total Time Spent with Patient: Total time spent is greater than 50% in coordination of care (as documented) at patient's floor/unit and/or counseling patient: Coding Level of Care Code 86470 Post Operative Follow-Up Diagnoses Status post reverse arthroplasty of left shoulder Z96.612
--- NOTE | 2020-12-27 08:14 | Hospitalist Progress Note ---
Date of Service December 27, 2020 Assessment & Plan Admission and Anticipated Discharge Date Admission Date: December 23, 2020 Results & Data Results & Data ([facility]) Vital Signs (Past 12 Hours) Vital Signs Temp Pulse Pulse Pulse Resp BP Pulse Ox 12/27/20 07:01 36.8 C 61 20 163/84 H 92 12/26/20 23:30 64 18 94 12/26/20 22:48 37.4 C 66 18 159/81 H 95 12/26/20 20:51 65 155/68 H 94 PG Care Time/CCT Total # of Minutes Spent Total Time Spent with Patient: Total time spent is greater than 50% in coordination of care (as documented) at patient's floor/unit and/or counseling patient: Coding
[2020-12-27 08:16] LABS: Basophils # (auto) 0.02 K/uL (0-0.2); Basophils % (auto) 0.2 %; Eosinophils # (auto) 0.32 K/uL (0-0.5); Eosinophils % (auto) 3.3 %; Hematocrit (blood only) 34.6 % (42-52); Hemoglobin 11.9 g/dL (14.0-18.0); Immature Granulocytes # (auto) 0.03 K/uL (0.00-0.02); Immature Granulocytes % (auto) 0.3 %; Lymphocytes # (auto) 1.95 K/uL (1.2-3.4); Lymphocytes % (auto) 20.4 %; Mean Corpuscular Hemoglobin 29.7 pg (25-34); Mean Corpuscular Hgb Conc 34.4 g/dL (32-36); Mean Corpuscular Volume 86.3 fL (80-100); Mean Platelet Volume 9.9 fL (7.4-10.4); Monocytes # (auto) 1.13 K/uL (0.11-0.59); Monocytes % (auto) 11.8 %; Neutrophils # (auto) 6.11 K/uL (1.4-6.5); Platelet Count 368 K/uL (130-400); RDW Coefficient of Variation 13.6 % (11.5-14.5); RDW Standard Deviation 43.3 fL (36.4-46.3); Red Blood Count 4.01 M/uL (4.7-6.1); White Blood Count 9.56 K/uL (4.8-10.8)
[2020-12-27 08:27] LABS: INR 1.5 (0.9-1.1); Prothrombin Time 15.1 Seconds (9.0-12.0)
[2020-12-27] MEDS: CLOPIDOGREL BISULFATE 75 MG TAB PO SCH (08:29)
[2020-12-27] MEDS: ATENOLOL 25 MG TABLET PO SCH (08:29)
[2020-12-27] MEDS: guaiFENesin 600 MG TABCR PO SCH (08:29)
[2020-12-27] MEDS: PANTOprazole 40 MG TAB PO SCH (08:29)
[2020-12-27] MEDS: DOXYCYCLINE HYCLATE 100 MG CAP PO SCH (08:29)
[2020-12-27] MEDS: AMIODARONE 200 MG TAB PO SCH (08:29)
[2020-12-27] MEDS: DOCUSATE SODIUM/SENNA 50/8.6MG TAB PO SCH (08:30)
[2020-12-27] MEDS: POLYETHYLENE (MIRALAX) 17 GM PACK PO SCH (08:30)
[2020-12-27] MEDS: INSULIN ASPART 100 UNITS/ML 3 ML PEN SC SCH ×2 (08:35→12:47)
[2020-12-27 08:46] LABS: Alanine Aminotransferase 32 U/L (12-78); Albumin Level 2.6 gm/dl (3.4-5.0); Aspartate Aminotransferase 15 U/L (15-37); BUN Creatinine Ratio 20.5 (10-20); Bilirubin Direct < 0.1 mg/dl (0-0.2); Blood Urea Nitrogen 16 mg/dl (7-18); Calcium 8.5 mg/dl (8.5-10.1); Carbon Dioxide 26 mmol/L (21-32); Chloride 102 mmol/L (98-107); Est GFR (African American) 117.8; Est GFR (Non-African American) 101.6; Glucose 189 mg/dl (70-99); Sodium 134 mmol/L (136-145)
[2020-12-27 08:56] LABS: Alkaline Phosphatase 65 U/L (45-117); Bilirubin,Total 0.7 mg/dl (0.2-1); Thyroid Stimulating Hormone 0.323 uIu/ml (0.300-4.500); Total Protein 6.9 gm/dl (6.4-8.2)
[2020-12-27] MEDS ORDERED: INSULIN GLARGINE SOLOSTAR 100 UNITS/ML 3 ML PEN SC SCH (09:00)
--- NOTE | 2020-12-27 09:55 | XRay Report ---
XR chest 2V PA/lateral CLINICAL HISTORY: Abnormal chest x-ray. Follow-up study COMPARISON STUDY: 12/26/2020 FINDINGS: The cardiac and mediastinal contours remain stable. There is minor improvement in the left basilar opacities,There is right basilar subsegmental atelectasis/scarring. There is no failure. Ther e are no significant pleural effusions. IMPRESSION: Minor improvement in the previously described left basilar opacities ACT 112: Negative or not required by law. Electronically signed by: Claudy Holder M.D. 12/27/2020 9:54 AM
--- NOTE | 2020-12-27 11:19 | Discharge Summary ---
Date of Service December 27, 2020 Admission HPI Per Admitting Provider Ambrose Jay is a 55 year old male who presents to the ER with shortness of breath and fatigue following reverse total shoulder arthroplasty on 12/21. He reports feeling short of breath and need a small amount of oxygen after the operation. When he went home the following day he was increasingly fatigued and short of breath. He denies any cough, fever or chills. Per ER physician who discussed with orthopedics reportedly there was some concern regarding possible interscalene muscle block causing paralyzed hemidiaphragm. He takes warfarin for atrial fibrillation which was held pre-operatively. He reports being started back on this with him taking his first dose yesterday and again this morning. No bridging anticoagulation was recommended. In the ER CTA was performed as the patient has been off anticoagulation which was negative for central pulmonary emboli but inadequate to rule out from distal small PEs. Peripheral ground glass opacities and elevated WBC with left shift concerning for pneumonia and he was started on aztreonam and Levaquin for pneumonia due to penicillin allergy listed. He is requiring 4LPM O2 and is not on O2 at baseline. He was referred to medicine for admission and ongoing management of hypoxia and pneumonia. Admission Exam Per Admitting Provider Constitutional: well developed, well nourished and + morbidly obese; no acute distress Eyes: + anicteric sclerae; normal pupil size ENMT: external ear and nose normal, oropharynx normal Neck: trachea midline Respiratory: normal respiratory effort and able to speak in complete sentences; no respiratory distress, no labored breathing, no retractions, does not use accessory muscles, no cough, normal respiratory pattern, expiratory phase not prolonged and no stridor Auscultation: + diminished lung sounds (Left base) and + crackles (Left base) Cardiovascular: Rate/Rhythm: regular rate and regular rhythm Heart Sounds: no murmur Vessels: no JVD Extremities: normal capillary refill and + pedal edema (Trace pre-tibial b/l equal); no calf tenderness Gastrointestinal (Abdomen): normal bowel sounds, soft, nontender, no hepatosplenomegaly Musculoskeletal: Left arm in sling with small amount of blood on dressing NV intact distal to operation site Skin: no rashes, warm and dry Neurologic: moves all extremities and awake; not confused Psychiatric: A+Ox3, euthymic affect Genitourinary: no CVA tenderness Principal Diagnosis Pneumonia Discharge Exam Constitutional well developed, well nourished and + morbidly obese; no acute distress and not intoxicated appearing Eyes + anicteric sclerae; normal pupil size ENMT external ear and nose normal, oropharynx normal Neck trachea midline Respiratory normal respiratory effort and able to speak in complete sentences; no respiratory distress, no labored breathing, no retractions, does not use accesso ry muscles, no cough, normal respiratory pattern, expiratory phase not prolonged and no stridor Auscultation: lungs clear to auscultation bilaterally; no crackles and no wheeze s Cardiovascular Rate/Rhythm: regular rate and regular rhythm Heart Sounds: no murmur Vessels: no JVD Extremities: normal capillary refill and + pedal edema (1+ b/l); no calf tenderness Gastrointestinal (Abdomen) normal bowel sounds, soft, nontender, no hepatosplenomegaly (obese, firm belly at baseline) Musculoskeletal left shoulder in sling dressing c/d/i --> to be changed today prior to discharge ecchymosis to shoulder/chest wall pulses palpable NVI Skin no rashes, warm and dry Neurologic moves all extremities and awake; not confused Psychiatric A+Ox3, euthymic affect Genitourinary no CVA tenderness Discharge Data Allergies Allergy/AdvReac Type Severity Reaction Status Date / Time canagliflozin [From Invokana] Allergy Severe Rash Verified 12/23/20 18:48 Penicillins Allergy Unknown Unknown Verified 12/23/20 18:48 dulaglutide [From Trulicity] Allergy Gastrointestinal Verified 12/23/20 18:48 upset,constipation, gastric discomfort liraglutide [From Victoza] AdvReac Severe Dizziness, Verified 12/23/20 18:48 extremely disoriented rivaroxaban [From Xarelto] AdvReac Intermediate epistaxis Verified 12/23/20 18:48 Consultations 12/23/20 17:22 ED Decision to Admit Stat 12/26/20 10:38 Consult Orthopedic Surgery Routine Ordered Studies 12/23/20 16:07 CT angio chest PE protocol Stat CXR 12/25 CXR 12/26 CXR 12/27 CXR Hospital Course (1) Pneumonia: Aztreonam and Levaquin given in the ER due to unknown penicillin allergy as a child but no anaphylaxis therefore will switch to ceftriaxone and doxycycline. COVID negative. Did not check RSV/influenza on admission Blood cultures no growth to date Sputum culture normal susan --> Suspect predisposed due to T2DM, tracheomalacia, possible paralyzed hemidiaphragm and recent intubation. Managing for possible) Gram-negative pneumonia due to recent endotracheal intubation and interscalene block, a complication of care -- continued coverage with Ceftriaxone and Doxy (day 5 of therapy) -- sent in rx for Augmentin/Doxy but will need to decrease length by one day as he is staying in the hospital WBC wnl (up to 12.2k on admission). Afebrile. CXR continued to show improvement Nebs, supplemental O2 --> Had been requiring up to 4L NC but weaned off O2 and remained stable on room air. 2 step done initially without need but did have drop with therapy later that day which quickly recovered. Kept additional night for IV abx and repeated 2 step prior to discharge and did not need any supplemental 92% on RA prior to discharge Mucinex BID Continued incentive spirometer at discharge as well - set up with pulm appt for f/u for eval/sniff testing if needed Family has pulse ox to use at home --> instructed on warning signs/worsening sob and when to call PCP vs return to ER (2) Elevated hemidiaphragm: Suspected secondary to interscalene block given for recent surgery Incentive spirometry Flutter valve Guaifenesin Follow up sniff test as outpatient with pulmonology -- up f/u appt Improving (3) Status post reverse arthroplasty of left shoulder: Continue with sling -- dressing changed 12/24 and consulted ortho -- daily dressing changes but looks good Follow up routine as previously scheduled (4) Hypoxia: without respiratory distress on admission, but did have reported shortness of breath Suspected secondary to PNA as resolved with treatment of pneumonia CTA for PE negative (although not adequate to assess smaller pulmonary arteries he will be therapeutic eventually on warfarin regardless) 2 step prior to d/c without need for O2 To continue to use BiPAP when sleeping as well as napping given he also has tracheomalacia (5) Obstructive sleep apnea: BiPAP 21/07 Had not been utilizing inpatient b/c he didn't like the mask --> did have bring in while inpatient Educated to continue strict adherence (6) Paroxysmal atrial fibrillation: Currently in NSR Continued amiodarone 200mg PO daily (been on since ) Anticoagulation with warfarin. No bridging necessary and risk of causing hematoma from operation risk outweighs benefit. INR 1.5 Continued coumadin post-operatively and expect therapeutic in next 48 hours (7) GERD (gastroesophageal reflux disease): Pantoprazole 40mg PO daily Famotidine 40mg PO HS stable (8) HTN (hypertension): Continued his usual medication regimen with losartan, atenolol and amlodipine BP elevations in setting of pain from recent shoulder surgery (9) Hypothyroidism: TSH 0.35 in April 2020, Repeating TSH w reflex T4 in AM given hyponatremia and constipation Continued levothyroxine 175 mcg PO daily (10) Type 2 diabetes, uncontrolled, with diabetic cataract: Hemoglobin A1C 8.8 in November. No need to repeat this. Consulted pharmacy --> rec for metformin + basal+ prandial +/- B12 supplementation. Consideration for additional GLP1/SGLT2 injectable for further control -- will discuss in AM but likely rec f/u with PCP for further adjusments as he has had adverse reactions to Trulicity, Victoza in the past (dizziness/extreme disorientation/GI upset/constipation) (11) CAD (coronary artery disease), [place] coronary artery: CAD status post LAD PCI Follows locally -- last seen by Priya Simms earlier this year prior to his shoulder surgery Last ECHO Oct 2018 with slightly more hypertrophy compared to 2017 but LV systolic function normal, normal diastolic function. BNP wnl Continued Plavix, statin on hold for elevated CK on admission, atenolol 25mg, losartan 100mg daily (12) Tracheomalacia: BiPAP HS as below --> had not been using Avoid steroids (13) DVT prophylaxis: SCDs, continued warfarin as above Elevated CK CK 426 on admission and statin was held. Repeat wnl and was resumed Left Reverse shoulder POD #6 s/p reverse shoulder with Dr. Sebastián Mckeon saw while inpatient --> continued daily dressing change and routine f/u as previously scheduled Total Time Total Time Spent Total Time Spent (In Minutes): 70 Discharge Plan Discharge Items Patient Disposition: Home - Self-Care Reason For Visit: PNEUMONIA, HYPOXIA Discharge Diagnosis: Pneumonia Goals: You have been hospitalized for an acute medical problem. During your stay at [facility], we have made an effort to correct the problem that brought you to the hospital while keeping you as comfortable as possible. Medications were used to bring your condition under control and your discharge instructions will include directions for any medications you should take after leaving the hospital. Please make sure you see your Primary Care Provider as part of your follow up plan. Activity: Resume your previous activity Non-emergency contact: Primary Care Provider Call non-emergency contact if: you have any medication questions, your symptoms worsen and your pain is not controlled Follow-up/Referrals: Carina Tran MD [Primary Care Provider] - 12/31/20 10:00 am Anselmo Johnson MD [Physician] - 01/03/21 11:00 am (possible diaphragmatic paralysis -- need for sniff testing APPT WITH ERASMO ARAGON PA-C IN DR JOHNSON'S OFFICE) Gopi Lowery DO [Physician] - (7-10 days as previously scheduled) Diet: Carb Consistent or DM2 and Heart Healthy Addtl Attending Provider Instructions: You have been hospitalized and found to have pneumonia. You were treated with IV antibiotics and medications to help with your shortness of breath and repeat imaging shows improvement in the pneumonia. You will continue antibiotics with Doxycycline and Augmentin but decrease by 4 tablets per prescription as they were sent in two days ago and you continued to receive antibiotics in the hospital. You will be set up an appointment with Pulmonary for possible "sniff" test for evaluation of your diaphragm if continues to causes issues but appears to already be resolving. Please make sure you continue to utilize your BiPAP at night and will all napping to prevent complications. Continue to use the incentive spirometer for help getting your lungs fully expanded. You should also continue mucinex (over the counter) to help thin secretions. You should continue albuterol inhaler as needed for shortness of breath as well. you may take 2 puffs as needed every 4 hours. Orthopedics evaluated for shoulder drainage and felt incision looked good. You should continue daily dressing changes and follow up with them in 7-10 days as previously scheduled. You should continue to monitor your oxygen saturation and if drops to 88% or less or you have fever/increased shortness of breath please return to the emergency department. Please also return if you have any chest pain or any other symptoms that are concerning for you. Please follow up with your primary care to further discuss diabetes management and consider addition of injectable agents to help improve your blood sugars. Given your history of adverse reactions to previous medications, it is felt best to have further discussion with your PCP for management. It has been a pleasure being a part of the medical team providing for you while you have been in the hospital. Take care! Pending Studies at Discharge: Yes Studies:: Blood cultures -- no growth after 48 hours Stand-Alone Forms: [facility], Smoking Cessation Medications and DC Order Prescriptions: New amoxicillin-pot clavulanate 875-125 mg tablet 1 tab PO BID 5 Days Qty: 10 RF: 0 doxycycline hyclate 100 mg tablet 100 mg PO BID 5 Days Qty: 10 RF: 0 polyethylene glycol 3350 [Miralax] 17 gram Powder In Packet 17 g PO DAILY Qty: 30 RF: 0 sennosides-docusate sodium [Senokot-S] 8.6-50 mg Tablet 1 tab PO QAM Qty: 30 RF: 0 guaifenesin [Mucinex] 600 mg Tablet Extended Release 12hr 1,200 mg PO Q12 Qty: 14 RF: 0 Continued clopidogrel 75 mg tablet 75 mg PO QAM Qty: 90 RF: 3 amiodarone 200 mg tablet 200 mg PO QAM Qty: 90 RF: 3 clotrimazole-betamethasone 1-0.05 % cream 1 applic topical BID PRN (Reason: Rash) Qty: 30 RF: 3 atenolol 25 mg tablet 25 mg PO QAM Qty: 30 RF: 5 metaxalone 800 mg tablet 800 mg PO TID PRN (Reason: Muscle Spasm) Qty: 30 RF: 1 (DME) Dexcom G6 Sensor Device See Rx Instructions .ROUTE .MEDSUPPLY Qty: 3 RF: 5 (DME) Dexcom G6 Transmitter Device See Rx Instructions .ROUTE .MEDSUPPLY Qty: 1 RF: 0 fluticasone propionate 50 mcg/actuation spray,suspension 2 spray intranasal BID PRN (Reason: Allergy Symptoms) Qty: 1 RF: 0 multivitamin Tablet 1 tab PO QPM RF: 0 warfarin 7.5 mg Tablet 7.5 mg PO QAM RF: 0 pantoprazole 40 mg Tablet,Delayed Release (Dr/Ec) 40 mg PO QAM RF: 0 rosuvastatin 40 mg Tablet 40 mg PO QPM RF: 0 artificial tears with lanolin Ointment 1 applic OPHTHALMIC (EYE) BID RF: 0 Basaglar KwikPen U-100 Insulin 100 unit/mL (3 mL) Insulin Pen 30 unit SUBCUT QAM RF: 0 Basaglar KwikPen U-100 Insulin 100 unit/mL (3 mL) Insulin Pen 50 unit SUBCUT QPM RF: 0 famotidine 40 mg tablet 40 mg PO QPM RF: 0 amlodipine 10 mg tablet 10 mg PO QPM RF: 0 losartan 100 mg tablet 100 mg PO HS RF: 0 levothyroxine [Euthyrox] 175 mcg tablet 175 mcg PO QAM RF: 0 Qvar RediHaler 40 mcg/actuation HFA aerosol breath activated 1 inh INHALATION BID PRN (Reason: Shortness Of Breath) RF: 0 sildenafil [Viagra] 100 mg tablet 100 mg PO DAILY PRN (Reason: Sexual Activity) RF: 0 hydrocortisone [Proctosol HC] 2.5 % cream with perineal applicator 1 appln CO DAILY PRN (Reason: Hemorrhoids) RF: 0 metformin 1,000 mg tablet 1,000 mg PO BID RF: 0 oxycodone 5 mg tablet 5 mg PO Q4H PRN (Reason: Pain) RF: 0 insulin aspart U-100 [Novolog Flexpen U-100 Insulin] 100 unit/mL (3 mL) insulin pen 30 unit subcut TID RF: 0 Changed albuterol sulfate [ProAir HFA] 90 mcg/actuation HFA aerosol inhaler 1 - 2 puff INH QID PRN (Reason: Shortness Of Breath Or Wheezing) Qty: 6.7 RF: 0 Discharge Orders: Discharge Order (Routine); Ordered 12/27/20 Ordered By: Senait Stovall/Other Patient Handouts: Doxycycline tablets or capsules, Amoxicillin Clavulanic Acid tablets Admission Data Admit Date/Time: 12/23/20 18:27 Attending Provider: Leon Barajas Admit Provider: Bin Irwin Primary Care Provider: Carina Tran Other Providers: Leon Barajas ; Gopi Lowery Other Interventions: Discharge Summary Assessment (RN) Last Done: 12/27/20 11:52 Supervising Physician Co-Signing Physician Notes I supervised Senait Paredes PA-C on this discharge. I interviewed and examined the patient independently of her. The plan is as written in her note except for any following changes/exceptions: None Doing well today. No major hypoxemia. Feels well. Discharge today. Coding Level of Care Code D/C Day Management >30 mins Diagnoses Pneumonia J18.9 Laterality: unspecified laterality Lung location: unspecified part of lung Pneumonia type: due to unspecified organism Elevated hemidiaphragm J98.6 Status post reverse arthroplasty of left shoulder Z96.612 Hypoxia R09.02 Obstructive sleep apnea G47.33 Paroxysmal atrial fibrillation I48.0 GERD (gastroesophageal reflux disease) K21.9 HTN (hypertension) I10 Hypothyroidism E03.9 Type 2 diabetes, uncontrolled, with diabetic cataract E11.36; E11.65 CAD (coronary artery disease), [place] coronary artery I25.10 Tracheomalacia J39.8 DVT prophylaxis Z29.9
== END 2020-12-27 12:50 | disposition home or self-care (01) | DRG 178 ==
LOC: ED 15:36 → SUATTDRO 18:27 → 3N 18:27